=== PATIENT | male | born 1955 | race Caucasian/White ===

== ENCOUNTER 2021-01-09 11:28 | Emergency (ER) | payer MEDICAID, SELFPAY ==
--- NOTE | ~2021-01-09 | CT_ITS ---
EXAMINATION: CT ABDOMEN AND PELVIS WITHOUT CONTRAST CLINICAL INFORMATION: Left flank pain, microscopic hematuria. COMPARISON: None TECHNIQUE: Multidetector volumetric imaging was performed from the superior aspect of the liver through the pubic symphysis. Sagittal and coronal reformatted images were obtained on the technologist's workstation. This CT examination was performed using dose optimization techniques as appropriate, variously including the following: *Automated exposure control *Adjustment of mA and/or kV according to patient size (this includes techniques or standardized protocols for targeted exams where dose is matched to indication/reason for exam; i.e. extremities or head) *Use of iterative reconstruction technique DLP: 401 mGy-cm FINDINGS: LUNG BASES: The lung bases are clear. The heart size is normal. LIVER, GALLBLADDER, AND BILIARY TREE: The liver is normal in size, shape, and attenuation. No focal hepatic lesion or biliary ductal dilatation is present. The gallbladder is unremarkable with no evidence of radiopaque gallstones, gallbladder wall thickening, or obvious pericholecystic inflammatory changes. PANCREAS: Unremarkable. SPLEEN: Unremarkable. ADRENAL GLANDS: Unremarkable. KIDNEYS AND URETERS: The kidneys are normal in size, shape, and attenuation. There is a punctate 2 mm calculi midpole left kidney no caliectasis or hydronephrosis seen. BLADDER: Unremarkable. GASTROINTESTINAL TRACT: There is diffuse colonic diverticulosis and mild mural thickening. The small bowel loops are normal caliber. Appendix is normal caliber. No free air free fluid seen. ABDOMINAL WALL: There is a prominent left inguinal canal with fat within. LYMPH NODES: There are small shotty lymph nodes in the inguinal region. VASCULAR: There is atherosclerotic calcification of abdominal aorta without aneurysmal dilatation. PELVIC VISCERA: No free fluid or free air. OSSEOUS STRUCTURES: Unremarkable. CT/CT abdomen pelvis wo con IMPRESSION: 2 mm nonobstructive calculi mid pole left kidney. No hydroureteronephrosis. Colonic diverticulosis without outer colitis. Mild constipation.
[2021-01-09 11:41] VITALS: BP 151/64; PULSE 49; RESP 16; TEMP 36.9; O2SAT 99; BMI 24.2
--- NOTE | 2021-01-09 11:43 | ECG_ITS ---
Test Reason : CHEST PAIN Blood Pressure : / mmHG Vent. Rate : 049 BPM Atrial Rate : 049 BPM P-R Int : 174 ms QRS Dur : 094 ms QT Int : 440 ms P-R-T Axes : 050 027 060 degrees QTc Int : 397 ms Sinus bradycardia Otherwise normal ECG When compared with ECG of 09-JAN-2021 11:51, No significant change was found Referred By: Lian Alfaro Electronically Signed By:Demar Allan
[2021-01-09] MEDS: LORazepam 1 MG TABLET 2 MG PO (11:56)
[2021-01-09 12:00] VITALS: BP 118/58; PULSE 58; RESP 16; TEMP 36.9; O2SAT 96
[2021-01-09 12:04] LABS: MANUAL DIFF FLAG NO
[2021-01-09 12:06] LABS: Basophils Percent Auto 0.4 % (0-2); Eosinophils Absolute Auto 0.2 X10*3/uL (0.0-0.4); Eosinophils Percent Auto 2.2 % (0-4); Hematocrit 39.9 % (42-52); Hemoglobin 13.1 g/dl (14.0-18.0); Imm Gran Abs Auto 0.02 X10*3/uL (0.00-0.03); Imm Gran Pct Auto 0.3 % (0.0-0.4); Lymphocytes Absolute Auto 2.8 X10*3/uL (1.2-4.9); Lymphocytes Percent Auto 39.6 % (20-40); Mean Corpuscular HGB Conc 32.8 g/dl (31.0-36.0); Mean Corpuscular Hemoglobin 32.7 pg (27.0-33.0); Mean Corpuscular Volume 99.5 fL (80-98); Mean Platelet Volume 10.1 fL (9.4-12.4); Monocytes Absolute Auto 0.8 X10*3/uL (0.1-1.2); Neutrophils Absolute Auto 3.3 X10*3/uL (2.0-8.3); Neutrophils Percent Auto 46.5 % (45-73); Platelet Count 261 X10*3/uL (160-400); Red Blood Count 4.01 X10*6/uL (4.60-5.80); White Blood Count 7.2 X10*3/uL (4.8-10.8)
[2021-01-09 12:13] LABS: Prothrombin Time 12.1 SEC (10.8-13.0)
--- NOTE | 2021-01-09 12:21 | PC.NURSE ---
IV inserted, labs obtained and processing in lab. Multiple EKGs obtained. Pt medicated with ativan. He states that he is SOB and breathing pattern is slightly labored but sats are >98% on RA. He does report a history of daily smoking.
[2021-01-09 12:26] LABS: Glucose Urine UA NEG (NEG); Leukocyte Esterase Urine NEG (NEG); Nitrite Urine NEG (NEG); PH 5.5 (5.0-8.0); Specific Gravity - Urine 1.025 (1.005-1.025); Urine Blood 1+ (NEG); Urine Ketones NEG (NEG); Urine Protein NEG (NEG-TRACE)
[2021-01-09 12:27] LABS: Appearance Urine CLEAR; Color Urine YELLOW
[2021-01-09 12:32] LABS: Alanine Aminotransferase 29 U/L (0-40); Albumin Level 4.5 g/dL (3.5-5.0); Alkaline Phosphatase 65 U/L (39-117); Anion Gap 11 (12-20); Aspartate Amino Transferase 21 U/L (5-37); Bilirubin Direct 0.2 mg/dL (0.0-0.5); Bilirubin Total 0.6 mg/dL (0.0-1.0); Blood Urea Nitrogen 21 mg/dL (9-16); Calcium 8.9 mg/dL (8.4-10.2); Carbon Dioxide 25 mmol/L (22-29); Chloride 106 mmol/L (96-108); Creatinine Clr Calc Pharmacy 66.8; Estimated Glomerular Filt Rate > 60; Glucose Random 78 mg/dL (60-115); Magnesium 2.2 mg/dL (1.6-2.6); Potassium 4.4 mmol/L (3.3-5.1); Sodium 138 mmol/L (135-145); Total Protein 7.2 g/dL (6.5-8.0)
[2021-01-09 12:34] LABS: WBC Urine 0-2 /HPF (0-4)
[2021-01-09 12:35] LABS: Mucus Urine TRACE /LPF
[2021-01-09 12:37] LABS: B Type Natriuretic Peptide 20 pg/mL (<100); Troponin-I High Sensitivity < 3.5 ng/L (<3.5-35.0)
[2021-01-09] MEDS: Aspirin Enteric Coated 325 MG TABLET.DR PO (12:56)
--- NOTE | 2021-01-09 13:46 | ED_ITS ---
HPI - Chest Pain General Chief Complaint: Chest Pain Stated Complaint: chest pain Time Seen by Provider: 01/09/21 11:43 Source: patient Mode of arrival: ambulatory Limitations: no limitations History of Present Illness HPI narrative: Patient comes emergency room complaining of anxiety, chest pain, shortness of breath, and left flank pain. Patient states it started earlier this morning. Patient states the pain in the chest is worse with inspiration. Related Data Allergies Allergy/AdvReac Type Severity Reaction Status Date / Time No Known Allergies Allergy Verified 01/09/21 11:46 [No Known Allergies*] Review of Systems Review of Systems: Constitutional : No Weight loss, No Fever, No Chills, No Night Sweats, No Fatigue, No Malaise ENT/Mouth : No Hearing loss, No Ear Pain, No Nasal Congestion, No Sinus Pain, No Hoarseness, No sore throat, No Rhinorrhea, No Swallowing Difficulty Eyes: No Eye Pain, No Swelling, No Redness, No Foreign Body, No Discharge, No Vision Changes Cardiovascular : Complaining of substernal Chest Pain, complaining of shortness of breath while feeling anxious 9 with deep inspiration, No Dyspnea on Exertion, No Orthopnea, No Edema, No Palpitations Respiratory : No Cough, No Sputum, No Wheezing, No Smoke Exposure, No Dyspnea Gastrointestinal : No Nausea, No Vomiting, No Diarrhea, No Constipation, No abdominal Pain, No Hematochezia, No Melena Genitourinary : no irregular bleeding, No Dysuria, No Urinary Frequency, No H ematuria, No Urinary Incontinence, No Urgency, No Flank Pain, No Urinary Flow Changes, No Hesitancy Musculoskeletal : No joint pain, No Myalgias, No Joint Swelling, complaining of left flank pain Skin : No Skin Lesions, No rash Neuro : No Weakness, No Numbness, No Paresthesias, No Loss of Consciousness, No Dizziness, No Headache Psych : Complaining of anxiety, No Depression, No SI/HI/AH/VH, No Social Issues, Heme/Lymph: No Bruising, No Bleeding,No Lymphadenopathy Endocrine : No Polyuria, No Polydipsia, No Temperature Intolerance [facility] Past Medical History Medical History (Updated 01/09/21 @ 15:52 by Kamryn Prater MD) Nephrolithiasis Social History Social History Alcohol intake: never Smoking Status: Current every day smoker Use of substances other than those prescribed or required for medical reasons: Yes Substance Use Type: Marijuana Substance Use Frequency: Occasionally Advance Directives: No Advance Directives Information Provided: Yes Physical Exam Vital Signs: Vital Signs: Last Vital Signs Temp 98.7 F 01/09/21 15:34 Pulse 57 01/09/21 15:34 Resp 20 01/09/21 15:34 BP 134/70 01/09/21 15:34 Pulse Ox 99 01/09/21 15:34 Body Mass Index 24.2 Appearance: Alert. Oriented X3. Very anxious Eyes: Pupils equal, round and reactive to light. ENT: Pharynx normal. Neck: Normal inspection. Neck supple. No lymph nodes noted. No crepitus CVS: Normal heart rate and rhythm. Pulses normal. Normal S1 and S2 Respiratory: No respiratory distress. Breath sounds normal. No Wheezing. No rales Abdomen: Soft and nontender. No rigidity. No distention. good BS x4 Skin: Skin warm and dry. Normal skin color. Normal skin turgor. Extremities: No lower extremity edema. No lower extremity edema. No Lacerations. No Rash Neuro: Oriented X 3. No motor deficit. No sensory deficit. Moving all extermities. No slurred speech. Course Course Course Narrative: At this time, patient feels much better, patient denies chest pain. I discussed with the patient that he needs to be seen by his primary care physician, patient states that he has an appointment coming up soon within a month. Patient's states that the patient has an appointment pending with Cardiology for the 1st time. Patient will likely need a stress test. MDM - Chest Pain Lab Data Result diagrams: 01/09/21 11:53 01/09/21 11:53 Labs: Lab Results 01/09/21 01/09/21 01/09/21 Range/Units 11:53 11:53 11:53 WBC 7.2 (4.8-10.8) X10*3/uL RBC 4.01 L (4.60-5.80) X10*6/uL Hgb 13.1 L (14.0-18.0) g/dl Hct 39.9 L (42-52) % MCV 99.5 H (80-98) fL MCH 32.7 (27.0-33.0) pg MCHC 32.8 (31.0-36.0) g/dl RDW 13.0 (11.0-16.0) % Plt Count 261 (160-400) X10*3/uL MPV 10.1 (9.4-12.4) fL Immature Gran % (Auto) 0.3 (0.0-0.4) % Neut % (Auto) 46.5 (45-73) % Lymph % (Auto) 39.6 (20-40) % [place] % (Auto) 11.0 (2-11) % Eos % (Auto) 2.2 (0-4) % Baso % (Auto) 0.4 (0-2) % Lymph # (Auto) 2.8 (1.2-4.9) X10*3/uL [place] # (Auto) 0.8 (0.1-1.2) X10*3/uL Eos # (Auto) 0.2 (0.0-0.4) X10*3/uL Baso # (Auto) 0.0 (0.0-0.2) X10*3/uL Abs Immat Gran (auto) 0.02 (0.00-0.03) X10*3/uL Absolute Neuts (auto) 3.3 (2.0-8.3) X10*3/uL Absolute Nucleated RBC 0.000 (0.0-0.012) X10*3/uL Nucleated RBC % (auto) 0.0 (0.0-0.2) /100WBC PT 12.1 (10.8-13.0) SEC INR 1.0 (0.9-1.1) APTT 36.0 (24.1-38.0) SEC Sodium 138 (135-145) mmol/L Potassium 4.4 (3.3-5.1) mmol/L Chloride 106 (96-108) mmol/L Carbon Dioxide 25 (22-29) mmol/L Anion Gap 11 L (12-20) BUN 21 H (9-16) mg/dL Creatinine 1.02 (0.5-1.4) mg/dL Estim Creat Clear Calc 66.8 Estimated GFR > 60 Random Glucose 78 (60-115) mg/dL Calcium 8.9 (8.4-10.2) mg/dL Magnesium 2.2 (1.6-2.6) mg/dL Total Bilirubin 0.6 (0.0-1.0) mg/dL Direct Bilirubin 0.2 (0.0-0.5) mg/dL AST 21 (5-37) U/L ALT 29 (0-40) U/L Alkaline Phosphatase 65 (39-117) U/L Troponin I High Sens (<3.5-35.0) ng/L B-Natriuretic Peptide (<100) pg/mL Total Protein 7.2 (6.5-8.0) g/dL Albumin 4.5 (3.5-5.0) g/dL Urine Color Urine Appearance Urine pH (5.0-8.0) Ur Specific [place] (1.005-1.025) Urine Protein (NEG-TRACE) MG/DL Urine Glucose (UA) (NEG) MG/DL Urine Ketones (NEG) MG/DL Urine Blood (NEG) Urine Nitrite (NEG) Ur Leukocyte Esterase (NEG) Urine RBC (0) /HPF Urine WBC (0-4) /HPF Ur Squamous Epith Cells /LPF Urine Bacteria /LPF Urine Mucus /LPF Coronavirus (PCR) (Negative) Influenza Type A (PCR) (Negative) Influenza Type B (PCR) (Negative) RSV RNA Qual (PCR) (Negative) 01/09/21 01/09/21 01/09/21 Range/Units 11:53 11:53 12:15 WBC (4.8-10.8) X10*3/uL RBC (4.60-5.80) X10*6/uL Hgb (14.0-18.0) g/dl Hct (42-52) % MCV (80-98) fL MCH (27.0-33.0) pg MCHC (31.0-36.0) g/dl RDW (11.0-16.0) % Plt Count (160-400) X10*3/uL MPV (9.4-12.4) fL Immature Gran % (Auto) (0.0-0.4) % Neut % (Auto) (45-73) % Lymph % (Auto) (20-40) % [place] % (Auto) (2-11) % Eos % (Auto) (0-4) % Baso % (Auto) (0-2) % Lymph # (Auto) (1.2-4.9) X10*3/uL [place] # (Auto) (0.1-1.2) X10*3/uL Eos # (Auto) (0.0-0.4) X10*3/uL Baso # (Auto) (0.0-0.2) X10*3/uL Abs Immat Gran (auto) (0.00-0.03) X10*3/uL Absolute Neuts (auto) (2.0-8.3) X10*3/uL Absolute Nucleated RBC (0.0-0.012) X10*3/uL Nucleated RBC % (auto) (0.0-0.2) /100WBC PT (10.8-13.0) SEC INR (0.9-1.1) APTT (24.1-38.0) SEC Sodium (135-145) mmol/L Potassium (3.3-5.1) mmol/L Chloride (96-108) mmol/L Carbon Dioxide (22-29) mmol/L Anion Gap (12-20) BUN (9-16) mg/dL Creatinine (0.5-1.4) mg/dL Estim Creat Clear Calc Estimated GFR Random Glucose (60-115) mg/dL Calcium (8.4-10.2) mg/dL Magnesium (1.6-2.6) mg/dL Total Bilirubin (0.0-1.0) mg/dL Direct Bilirubin (0.0-0.5) mg/dL AST (5-37) U/L ALT (0-40) U/L Alkaline Phosphatase (39-117) U/L Troponin I High Sens < 3.5 (<3.5-35.0) ng/L B-Natriuretic Peptide 20 (<100) pg/mL Total Protein (6.5-8.0) g/dL Albumin (3.5-5.0) g/dL Urine Color YELLOW Urine Appearance CLEAR Urine pH 5.5 (5.0-8.0) Ur Specific [place] 1.025 (1.005-1.025) Urine Protein NEG (NEG-TRACE) MG/DL Urine Glucose (UA) NEG (NEG) MG/DL Urine Ketones NEG (NEG) MG/DL Urine Blood 1+ H (NEG) Urine Nitrite NEG (NEG) Ur Leukocyte Esterase NEG (NEG) Urine RBC 1-4 (0) /HPF Urine WBC 0-2 (0-4) /HPF Ur Squamous Epith Cells NONE /LPF Urine Bacteria NONE /LPF Urine Mucus TRACE /LPF Coronavirus (PCR) NEGATIVE (Negative) Influenza Type A (PCR) NEGATIVE (Negative) Influenza Type B (PCR) NEGATIVE (Negative) RSV RNA Qual (PCR) NEGATIVE (Negative) Scores Heart Score History: -0- slightly suspicious ECG: -0- normal Age: -1- >45 - <65 Risk factory: -0- no risk factors known Troponin: -0- < or = normal limit Score: 1 Risk: 1.7% Discharge Plan Discharge Clinical Impression: Atypical chest pain, Acute left flank pain Patient Disposition: Home, Self-Care Instructions: Chest Pain (ED), Flank Pain (ED) Additional Instructions: Please follow-up with your primary care physician tomorrow. If you have any worsening or new symptoms, please return to the emergency room or call 911 Referrals: Demar Allan MD [Physician] - 2 days
[2021-01-09 13:49] LABS: Influenza A PCR NEGATIVE (Negative); Influenza B PCR NEGATIVE (Negative); Resp Syncy Virus RNA Qual PCR NEGATIVE (Negative); SARS COV2 PCR INHOUSE NEGATIVE (Negative)
[2021-01-09 15:34] VITALS: BP 134/70; PULSE 57; RESP 20; TEMP 37.1; O2SAT 99
--- NOTE | 2021-01-10 | ECG_ITS ---
Test Reason : CHEST PAIN Blood Pressure : / mmHG Vent. Rate : 052 BPM Atrial Rate : 052 BPM P-R Int : 168 ms QRS Dur : 094 ms QT Int : 430 ms P-R-T Axes : 052 021 062 degrees QTc Int : 399 ms Sinus bradycardia Otherwise normal ECG When compared with ECG of 09-JAN-2021 11:39, No significant change was found Referred By: Lian Alfaro Electronically Signed By:Demar Allan
--- NOTE | 2021-01-10 | ECG_ITS ---
Test Reason : CHEST PAIN Blood Pressure : / mmHG Vent. Rate : 047 BPM Atrial Rate : 047 BPM P-R Int : 174 ms QRS Dur : 094 ms QT Int : 424 ms P-R-T Axes : 057 031 066 degrees QTc Int : 375 ms Sinus bradycardia Otherwise normal ECG When compared with ECG of 28-JUL-2020 14:24, No significant change was found Referred By: Lian Alfaro Electronically Signed By:Demar Allan
== END 2021-01-09 16:14 | disposition home or self-care (01) ==
PROVIDERS: Physician Assistant Medical; Emergency Provider Emergency Medicine
DX: R07.89 Other chest pain (principal); R10.9 Unspecified abdominal pain; F17.200 Nicotine dependence, unspecified, uncomplicated; Z71.6 Tobacco abuse counseling; F12.90 Cannabis use, unspecified, uncomplicated; Z20.822 Contact with and (suspected) exposure to COVID-19
CPT/HCPCS: 0241U; 36415; 74176; 80048; 80076; 81001; 83735; 83880; 84484; 85025; 85610; 85730; 93005; 99284

== ENCOUNTER 2021-02-10 10:05 | Outpatient (REF) | payer MEDICAID, SELFPAY ==
--- NOTE | ~2021-02-10 | XR_ITS ---
EXAMINATION: XR CHEST CLINICAL INFORMATION: Shortness of breath. COMPARISON: Chest radiographs 07/28/2020, 06/12/2020, 03/10/2015 TECHNIQUE: 2 views of the chest were obtained. FINDINGS: The lungs are clear. There is no vascular congestion, airspace consolidation, or groundglass opacity. Old calcified granuloma are again seen lateral right upper zone, similar to prior exams dating back to 2015. The costophrenic sulci are clear. The heart is normal in size. The hilar and mediastinal contours and bony structures are unremarkable. XR/XR chest 2V IMPRESSION: 1. No acute intrathoracic disease. 2. Old calcified granuloma right upper zone similar to 2015.
== END 2021-02-10 10:06 | disposition home or self-care (01) ==
LOC: HO.XRAY 10:05
PROVIDERS: PCP Registered Nurse Community Health; Visit Provider Registered Nurse Community Health
DX: R06.02 Shortness of breath (principal); F17.200 Nicotine dependence, unspecified, uncomplicated
CPT/HCPCS: 71046

== ENCOUNTER 2021-02-14 21:44 | Emergency (ER) | payer MEDICAID, SELFPAY ==
--- NOTE | 2021-02-14 | ECG_ITS ---
Test Reason : HEADACHE Blood Pressure : / mmHG Vent. Rate : 048 BPM Atrial Rate : 048 BPM P-R Int : 164 ms QRS Dur : 096 ms QT Int : 426 ms P-R-T Axes : 065 001 037 degrees QTc Int : 380 ms Sinus bradycardia Moderate voltage criteria for LVH, may be normal variant Borderline ECG When compared with ECG of 09-JAN-2021 12:16, No significant change was found Referred By: Generic ED Physician Electronically Signed By:Demar Allan
--- NOTE | ~2021-02-14 | CT_ITS ---
EXAMINATION: CT CHEST WITHOUT CONTRAST CLINICAL INFORMATION: Chest pain COMPARISON: Chest x-ray 02/10/2021 TECHNIQUE: Multidetector volumetric CT imaging of the chest was done. Axial MIP volume rendering provided. Sagittal and coronal reformatted images were obtained. This CT examination was performed using dose optimization techniques as appropriate, variously including the following: *Automated exposure control *Adjustment of mA and/or kV according to patient size (this includes techniques or standardized protocols for targeted exams where dose is matched to indication/reason for exam; i.e. extremities or head) *Use of iterative reconstruction technique DLP: 275 mGy-cm FINDINGS: LUNGS: No acute areas disease. No interstitial lung disease or reticular opacities. There is no bronchiectasis. The central bronchial airways are open. No suspicious lung nodule. There is a calcified granuloma posterior right upper lobe subpleural lung measuring about 5 mm. MEDIASTINUM: Calcified lymph nodes in the right myriam consistent with old granulomatous disease. The heart size is mildly prominent. No pericardial effusion. There are heavy vascular calcifications of coronary arteries. Scattered vascular wall calcifications of aorta. No aneurysm of aorta. No mediastinal mass or significant lymphadenopathy. Adrenal glands are normal. PLEURA: There is no pleural effusion. No pleural mass or thickening. AXILLA: No lymphadenopathy. UPPER ABDOMEN: Unremarkable. OSSEOUS STRUCTURES: Unremarkable. CT/CT chest wo con IMPRESSION: There is no acute abnormality of the chest.
--- NOTE | ~2021-02-14 | CT_ITS ---
EXAMINATION: CT ANGIOGRAM HEAD CT ANGIOGRAM NECK CLINICAL INFORMATION: Worst headache of life. Tingling down neck and right arm. COMPARISON: None available. TECHNIQUE: Initial noncontrast casing mixer imaging of the head and neck was performed. Noncontrast head CT was also performed. Test bolus sequences followed by intravenous administration 70 mL of Omnipaque 350. Helical imaging was performed in the axial plane from the aortic arch to the skull vertex. Delayed postcontrast imaging of the head was also performed. The data was processed at the radiology ct technologist's workstation for generation of MIP sequences. Angled MIPs and volume rendered reformatted images were also generated at an offline 3D workstation. Stenoses are assessed in accordance with NASCET criteria unless otherwise indicated. This CT examination was performed using dose optimization techniques as appropriate, variously including the following: *Automated exposure control. *Adjustment of mA and/or kV according to patient size (this includes techniques or standardized protocols for targeted exams where dose is matched to indication/reason for exam; i.e. extremities or head). *Use of iterative reconstruction technique. DLP: 2379 mGy-cm FINDINGS: CT Head: There is no evidence of acute intracranial hemorrhage or edematous territorial infarction. There is no abnormal attenuation within the brain parenchyma. Torres-white matter differentiation is preserved. The ventricles are normal in size and configuration. No evidence for obstructive hydrocephalus. No abnormal mass effect or midline shift. No extra-axial fluid collections. No pathologic intra-axial enhancement or regional oligemia. No acute soft tissue or osseous abnormalities. Mild mucosal thickening of the paranasal sinuses. The mastoid air cells and middle ear cavities are clear. CT Neck: The thyroid gland and remaining cervical soft tissues are within normal limits. Straightening of the normal cervical lordosis. Mild multilevel degenerative spinal arthropathy of the cervical spine. Facet and uncovertebral joint arthropathy leads to osseous encroachment on the neural foramina from C3-C5. CT Upper Chest: There is a 0.5 cm calcified granuloma in the lateral right upper lobe. Few additional punctate calcified granulomas in the visualized upper lungs. Otherwise, the visualized lung apices and upper mediastinum are within normal limits. Neck CTA: Aortic Arch: Normal contour and caliber with mild calcific atherosclerotic disease. Classic 3 vessel branching pattern of the aortic arch. Great Vessel Origins: No significant stenosis of the branch origins. Right Common Carotid Artery: Normal opacification without focal stenosis or occlusion. Cervical Right Internal Carotid Artery: Calcific atherosclerotic disease of the carotid bulb and proximal internal carotid artery causing less than 50% stenosis. Left Common Carotid Artery: Normal opacification without focal stenosis or occlusion. Cervical Left Internal Carotid Artery: Mild atherosclerotic disease of the carotid bulb and proximal internal carotid artery without flow-limiting stenosis. Cervical Right Vertebral Artery: Mildly dominant. Normal opacification without focal stenosis or occlusion. Cervical Left Vertebral Artery: Mild narrowing of the origin. Otherwise, normal opacification without focal stenosis or occlusion. Brain CTA: Intracranial Internal Carotid Arteries: Calcific atherosclerotic disease of the intracranial internal carotid arteries without occlusion or flow-limiting stenosis. Otherwise, normal contrast opacification of the petrous, cavernous, paraophthalmic, and supraclinoid segments of the internal carotid arteries without focal stenosis. 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 Right Anterior Cerebral Artery: Normal A1 segment. Normal opacification of the distal segments of the [place]. Left Anterior Cerebral Artery: Normal A1 segment. Normal opacification of the distal segments of the [place]. Anterior Communicating Artery: Normal. Right Middle Cerebral Artery: Normal opacification of the M1 segment of the MCA without focal stenosis or occlusion. Normal arborization of the distal segments. Left Middle Cerebral Artery: Normal opacification of the M1 segment of the MCA without focal stenosis or occlusion. Normal arborization of the distal segments. Right Vertebral Artery: Normal opacification of the V4 segment. The posterior inferior cerebellar artery is not well opacified; however, there is no CT evidence of acute occlusion. Left Vertebral Artery: Normal opacification of the V4 segment. The posterior inferior cerebellar artery is not well opacified; however, there is no CT evidence of acute occlusion. Basilar Artery: Normal opacification without focal stenosis or occlusion. Normal appearance of the proximal superior cerebellar arteries. Right Posterior Cerebral Artery: Normal P1 segment. Normal opacification of the distal segments of the [employer] SERVICES A[employer]LYST. Left Posterior Cerebral Artery: Normal P1 segment. Normal opacification of the distal segments of the [employer] SERVICES A[employer]LYST. Normal opacification of the superior sagittal, straight, transverse, and sigmoid sinuses. CT/CT angio head neck IMPRESSION: 1. No evidence of acute intracranial hemorrhage or edematous territorial infarction. 2. CTA of the head and neck without proximal occlusion or flow-limiting stenosis. 3. 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
[2021-02-14 22:10] VITALS: BP 188/81; PULSE 57; RESP 16; TEMP 36.6; O2SAT 99; BMI 25.8
[2021-02-14 22:26] LABS: MANUAL DIFF FLAG NO
[2021-02-14 22:28] LABS: Basophils Percent Auto 0.5 % (0-2); Eosinophils Absolute Auto 0.2 X10*3/uL (0.0-0.4); Eosinophils Percent Auto 2.1 % (0-4); Hematocrit 37.7 % (42-52); Hemoglobin 12.6 g/dl (14.0-18.0); Imm Gran Abs Auto 0.02 X10*3/uL (0.00-0.03); Imm Gran Pct Auto 0.2 % (0.0-0.4); Lymphocytes Absolute Auto 3.5 X10*3/uL (1.2-4.9); Lymphocytes Percent Auto 41.1 % (20-40); Mean Corpuscular HGB Conc 33.4 g/dl (31.0-36.0); Mean Corpuscular Hemoglobin 32.8 pg (27.0-33.0); Mean Corpuscular Volume 98.2 fL (80-98); Mean Platelet Volume 9.7 fL (9.4-12.4); Monocytes Absolute Auto 0.8 X10*3/uL (0.1-1.2); Monocytes Percent Auto 9.7 % (2-11); Neutrophils Percent Auto 46.4 % (45-73); Platelet Count 226 X10*3/uL (160-400); Red Blood Count 3.84 X10*6/uL (4.60-5.80); Red Cell Distribution Width 13.3 % (11.0-16.0); White Blood Count 8.6 X10*3/uL (4.8-10.8)
[2021-02-14 22:51] LABS: Anion Gap 12 (12-20); Blood Urea Nitrogen 21 mg/dL (9-16); Calcium 9.4 mg/dL (8.4-10.2); Carbon Dioxide 27 mmol/L (22-29); Chloride 107 mmol/L (96-108); Creatinine Clr Calc Pharmacy 63.7; Estimated Glomerular Filt Rate > 60; Glucose Random 95 mg/dL (60-115); Potassium 4.5 mmol/L (3.3-5.1); Sodium 141 mmol/L (135-145)
[2021-02-14 22:59] LABS: Troponin-I High Sensitivity 4.2 ng/L (<3.5-35.0)
[2021-02-14 23:00] VITALS: BP 177/72; PULSE 55; RESP 18; O2SAT 97
[2021-02-14] MEDS: 0.9 % Sodium Chloride 1,000 ML 999 ML IVCONT (23:56)
[2021-02-15 00:02] LABS: TSH reflex Free T4 3.41 uIU/mL (0.32-4.0)
--- NOTE | 2021-02-15 00:09 | PC.NURSE ---
pt to CT at this time
[2021-02-15] MEDS: iohexoL 350 MG/ML 100 ML INFUS..BTL 70 ML IV (00:28)
--- NOTE | 2021-02-15 01:48 | ED_ITS ---
HPI - Headache General Chief Complaint: Headache Stated Complaint: mutiple complaints Time Seen by Provider: 02/14/21 23:09 Source: patient Mode of arrival: ambulatory Limitations: no limitations History of Present Illness HPI Narrative: 65-year-old male presents with several days of chest pain, chest pain on inspiration, intermittent shortness of breath, worst headache of his life with right eye pain, numbness and tingling going from the top of the head down to the arm. MD elicited complaint: headache and migraine Onset (ago): day(s) Onset description: gradually Location: left, retro-orbital, neck and down into neck Severity: severe Pain scale (0-10): 10 Quality & Timing: throbbing, pulsatile, constant and worst headache of life Relieving factors: nothing Associated symptoms: eye pain and tingling Treatments prior to arrival: acetaminophen and ibuprofen Related Data Previous Rx's Medication Instructions Recorded mivagdsyhc-uluxjjrzyqozy-estl 1 cap PO Q8H PRN #14 cap 02/15/21 [Fioricet] Allergies Allergy/AdvReac Type Severity Reaction Status Date / Time No Known Allergies Allergy Verified 01/09/21 11:46 [No Known Allergies*] Review of Systems Review of Systems: Constitutional: Positive headache, positive eye pain, positive numbness and tingling, No Weight loss, No Fever, No Chills, No Night Sweats, No Fatigue, No Malaise ENT/Mouth: No Hearing loss, No Ear Pain, No Nasal Congestion, No Sinus Pain, No Hoarseness, No sore throat, No Rhinorrhea, No Swallowing Difficulty Eyes: No Eye Pain, No Swelling, No Redness, No Foreign Body, No Discharge, No V ision Changes Cardiovascular: Positive Chest Pain, positive SOB, positive chest pain on inspiration, No Dyspnea on Exertion, No Orthopnea, No Edema, No Palpitations Respiratory: No Cough, No Sputum, No Wheezing, No Smoke Exposure, No Dyspnea Gastrointestinal: No Nausea, No Vomiting, No Diarrhea, No Constipation, No abdominal Pain, No Hematochezia, No Melena Genitourinary: no irregular bleeding, No Dysuria, No Urinary Frequency, No Hematuria, No Urinary Incontinence, No Urgency, No Flank Pain, No Urinary Flow Changes, No Hesitancy Musculoskeletal: No joint pain, No Myalgias, No Joint Swelling Skin: No Skin Lesions, No rash Neuro: No Weakness, positive Numbness, positive Paresthesias, No Loss of Consciousness, No Dizziness, positive Headache Psych: No Anxiety/Panic, No Depression, No SI/HI/AH/VH, No Social Issues Heme/Lymph: No Bruising, No Bleeding,No Lymphadenopathy Endocrine: No Polyuria, No Polydipsia, No Temperature Intolerance Yes all other systems are reviewed and are negative PMFSH Past Medical History Attestation statement: The following information was validated with the patient. Source: old records reviewed Medical History Nephrolithiasis Social History Social History Alcohol intake: never Smoking Status: Current every day smoker Substance Use Type: Marijuana Advance Directives: No Advance Directives Information Provided: No Physical Exam Vital Signs: Vital Signs: Last Vital Signs Temp 97.8 F 02/14/21 22:10 Pulse 55 02/14/21 23:00 Resp 18 02/14/21 23:00 BP 177/72 H 02/14/21 23:00 Pulse Ox 97 02/14/21 23:00 Body Mass Index 25.8 Appearance: Alert. Oriented X3. Moderate distress. Head: Normal external exam. Normocephalic. Atraumatic. No Galloway signs noted. No raccoon eyes noted Eyes: PERRLA. EOMI. Conjunctiva and sclera normal. Eyelids normal. ENT: TM's Normal. Pharynx normal. Uvula midline. Moist mucous membranes. No trismus noted. No drooling noted. No muffled voice noted. Neck: Normal inspection. Neck supple. No adenopathy. Thyroid Normal. No meningeal signs. No neck mass noted. CVS: Normal heart rate and rhythm. Heart sound normal. No murmurs noted. Pulses equal to all extremities. Respiratory: No respiratory distress. Painless inspiration. Breath sounds normal. No wheezes/rales/rhonchi noted. Chest nontender. No accessory muscle usage noted or decreased air movement noted. Abdomen: Soft and nontender. Bowel sounds normal in all 4 quadrants. No distention noted. No organomegaly noted. No visible injury noted. Back: No CVA tenderness. Full range of motion noted. Skin: Skin warm and dry. Normal skin color. Normal skin turgor. No rashes/lesions/lacerations noted. Extremities: No lower extremity edema. Extremities exhibit normal range of motion. Extremities nontender. Neuro: cranial nerves 2-12 intact, no focal neural deficits, strength 5/5 to all extremities, No motor deficit. No sensory deficit. Patellar Reflexes normal. NIH Stroke Scale Internal: Initial- Upon Arrival Level of Consciousness: Alert Level of Consciousness Questions: Answers both questions correctly Level of Consciousness Commands: Performs both tasks correctly Best Gaze: Normal Visual: No visual loss Facial Palsy: Normal Motor Arm (Right): No drift Motor Arm (Left): No drift Motor Leg (Right): No drift Motor Leg (Left): No drift Limb Ataxia: Absent Sensory: Normal Best Language: No aphasia Dysarthia: Normal Extinction and Inattention: No abnormality Score: 0 Course Course Course Narrative: 65-year-old presents with multiple complaints. He has been worked up multiple times in the past for chest pain, recently on 01/09/2021 for abdominal pain with negative findings. NIH stroke scale is 0, will order CT angio of head and neck as patient is complaining of multiple neurological symptoms and states that this is the worst headache of his life and that he has never had a headache like this in the past. Will add CT of chest based on patient's report of shortness of breath, shortness of breath on exertion, and pain on inspiration. CT a results are negative, radiology call the [facility] [facility] to report negative readings however they will have Neurology read and post an official report in the morning. CT chest is negative for acute findings. Patient does have significant life stressors, could possibly be anxiety. Will have patient follow-up with Gastroenterology for GERD like symptoms. Lab values are unremarkable, H&H is 12.6/37.7 which is consistent with his prior lab values, BUN slightly elevated at 21 resuscitated with 1 L of fluid. Patient verbalized understanding of and agrees to plan of care discharge home. MDM - Headache Differential Diagnosis Differential diagnosis: Likely migraine, tension headache, subarachnoid hemorrhage and headache Medical Records Attestation: I reviewed the patient's medical records. Lab Data Attestation: I reviewed the patient's lab results. Result diagrams: 02/14/21 22:19 02/14/21 22:19 Labs: Lab Results 02/14/21 02/14/21 02/14/21 Range/Units 22:19 22:19 22:19 WBC 8.6 (4.8-10.8) X10*3/uL RBC 3.84 L (4.60-5.80) X10*6/uL Hgb 12.6 L (14.0-18.0) g/dl Hct 37.7 L (42-52) % MCV 98.2 H (80-98) fL MCH 32.8 (27.0-33.0) pg MCHC 33.4 (31.0-36.0) g/dl RDW 13.3 (11.0-16.0) % Plt Count 226 (160-400) X10*3/uL MPV 9.7 (9.4-12.4) fL Immature Gran % (Auto) 0.2 (0.0-0.4) % Neut % (Auto) 46.4 (45-73) % Lymph % (Auto) 41.1 H (20-40) % [place] % (Auto) 9.7 (2-11) % Eos % (Auto) 2.1 (0-4) % Baso % (Auto) 0.5 (0-2) % Lymph # (Auto) 3.5 (1.2-4.9) X10*3/uL [place] # (Auto) 0.8 (0.1-1.2) X10*3/uL Eos # (Auto) 0.2 (0.0-0.4) X10*3/uL Baso # (Auto) 0.0 (0.0-0.2) X10*3/uL Abs Immat Gran (auto) 0.02 (0.00-0.03) X10*3/uL Absolute Neuts (auto) 4.0 (2.0-8.3) X10*3/uL Absolute Nucleated RBC 0.000 (0.0-0.012) X10*3/uL Nucleated RBC % (auto) 0.0 (0.0-0.2) /100WBC Sodium 141 (135-145) mmol/L Potassium 4.5 (3.3-5.1) mmol/L Chloride 107 (96-108) mmol/L Carbon Dioxide 27 (22-29) mmol/L Anion Gap 12 (12-20) BUN 21 H (9-16) mg/dL Creatinine 1.07 (0.5-1.4) mg/dL Estim Creat Clear Calc 63.7 Estimated GFR > 60 Random Glucose 95 (60-115) mg/dL Calcium 9.4 (8.4-10.2) mg/dL Troponin I High Sens 4.2 (<3.5-35.0) ng/L TSH 3.41 (0.32-4.0) uIU/mL Imaging Data CT scan - chest: Attestation: I personally reviewed and interpreted this imaging study as follows: Radiologist's impression: EXAMINATION: CT CHEST WITHOUT CONTRAST CLINICAL INFORMATION: Chest pain COMPARISON: Chest x-ray 02/10/2021 TECHNIQUE: Multidetector volumetric CT imaging of the chest was done. Axial MIP volume rendering provided. Sagittal and coronal reformatted images were obtained. This CT examination was performed using dose optimization techniques as appropriate, variously including the following: *Automated exposure control *Adjustment of mA and/or kV according to patient size (this includes techniques or standardized protocols for targeted exams where dose is matched to indication/reason for exam; i.e. extremities or head) *Use of iterative reconstruction technique DLP: 275 mGy-cm FINDINGS: LUNGS: No acute areas disease. No interstitial lung disease or reticular opacities. There is no bronchiectasis. The central bronchial airways are open. No suspicious lung nodule. There is a calcified granuloma posterior right upper lobe subpleural lung measuring about 5 mm. MEDIASTINUM: Calcified lymph nodes in the right myriam consistent with old granulomatous disease. The heart size is mildly prominent. No pericardial effusion. There are heavy vascular calcifications of coronary arteries. Scattered vascular wall calcifications of aorta. No aneurysm of aorta. No mediastinal mass or significant lymphadenopathy. Adrenal glands are normal. PLEURA: There is no pleural effusion. No pleural mass or thickening. AXILLA: No lymphadenopathy. UPPER ABDOMEN: Unremarkable. OSSEOUS STRUCTURES: Unremarkable. CT/CT chest wo con IMPRESSION: There is no acute abnormality of the chest. CTA of head and neck: Radiologist's impression: Radiology called to report negative CTA of head and neck. Will have neurology read and post visual report in the morning. ECG Data Attestation: I personally reviewed and interpreted this ECG as follows: ECG interpretation date: 02/14/21 ECG interpretation time: 22:25 Interpretation: Vent. rate 48 BPM HI interval 164 ms QRS duration 96 ms QT/QTc 426/380 ms P-R-T axes 65 1 37 Sinus bradycardia Moderate voltage criteria for LVH, may be normal variant Borderline ECG When compared with ECG of 09-JAN-2021 12:16, No significant change was found Discharge Plan Discharge Clinical Impression: Tension headache, Non-cardiac chest pain Migraine Qualifiers: Migraine type: unspecified Status migrainosus presence: without status migrainosus Intractability: intractable Qualified Code(s): G43.919 - Migraine, unspecified, intractable, without status migrainosus Patient Disposition: Home, Self-Care Instructions: Migraine Headache (ED), Acute Headache (ED), Noncardiac Chest Pain (ED), Ocular Migraine (ED) Additional Instructions: Please follow-up the primary care physician for migraine headaches. Your CT angio of head and neck are negative for acute findings. Neurology will be reading your report in the morning, you may call for official read. CT of the chest is negative for acute findings. We prescribed Fioricet for migraine headaches. Please take this medication as directed. Please consider following up with Gastroenterology for GERD. Thank you for choosing this emergency department for evaluation. Please follow-up with primary care physician as needed. Return to the emergency department for any new, concerning, or worsening symptoms. Prescriptions: New opribtktag-xiirgkqxsbiir-nujw [Fioricet] 50-300-40 mg capsule 1 cap PO Q8H PRN (Reason: Migraine) Qty: 14 RF: 0 Referrals: Emil Chu MD [Physician] - 2 days (GERD)
[2021-02-15 02:00] VITALS: BP 134/64; PULSE 51; RESP 15; O2SAT 97
[2021-02-15] MEDS: Butalb/Acetamin/Caff 50/325/40 TABLET 1 TAB PO (02:26)
== END 2021-02-15 03:45 | disposition home or self-care (01) ==
PROVIDERS: Emergency Provider Emergency Medicine
DX: I67.1 Cerebral aneurysm, nonruptured (principal); G43.919 Migraine, unspecified, intractable, without status migrainosus; R07.9 Chest pain, unspecified; F17.200 Nicotine dependence, unspecified, uncomplicated; F12.90 Cannabis use, unspecified, uncomplicated
CPT/HCPCS: 36415; 70496; 70498; 71250; 80048; 84443; 84484; 85025; 93005; 96360; 99284; Q9967

== ENCOUNTER → 2021-02-17 12:49 | Outpatient (BNVA) | payer MEDICAID, SELFPAY | PROVIDERS: Visit Provider Internal Medicine ==

== ENCOUNTER 2021-02-17 15:01 | Outpatient (REF) | payer MEDICAID, SELFPAY ==
[2021-02-17 15:21] LABS: COVID-19 Test Negative (Negative)
== END 2021-02-17 15:02 | disposition home or self-care (01) ==
LOC: HO.LAB 15:01
PROVIDERS: Visit Provider Internal Medicine
DX: Z20.822 Contact with and (suspected) exposure to COVID-19 (principal)
CPT/HCPCS: 36415; 87635; 99202; C9803

== ENCOUNTER 2021-03-04 15:19 | Outpatient (REF) | payer MEDICAID, SELFPAY ==
[2021-03-04 15:41] LABS: COVID-19 Test Negative (Negative)
== END 2021-03-04 15:20 | disposition home or self-care (01) ==
LOC: HO.LAB 15:19
PROVIDERS: Visit Provider Internal Medicine
DX: Z20.822 Contact with and (suspected) exposure to COVID-19 (principal)
CPT/HCPCS: 36415; 87635; C9803

== ENCOUNTER 2021-03-08 07:04 | Emergency (ER) | payer MEDICAID, SELFPAY ==
--- NOTE | ~2021-03-08 | XR_ITS ---
EXAMINATION: XR CHEST CLINICAL INFORMATION: Chest pain COMPARISON: None TECHNIQUE: Frontal view of the chest was obtained. FINDINGS: The lungs are well-expanded and clear of acute pneumonic process. There is 3 mm nodule right upper lobe, stable. Heart size and pulmonary vascularity is normal. No gross bony abnormality seen. XR/XR chest 1V IMPRESSION: Unremarkable chest examination.
--- NOTE | 2021-03-08 07:14 | ECG_ITS ---
Test Reason : ARRHYTHMIA Blood Pressure : / mmHG Vent. Rate : 064 BPM Atrial Rate : 064 BPM P-R Int : 158 ms QRS Dur : 098 ms QT Int : 426 ms P-R-T Axes : 008 003 051 degrees QTc Int : 439 ms Normal sinus rhythm Moderate voltage criteria for LVH, may be normal variant Borderline ECG When compared with ECG of 14-FEB-2021 22:25, QT has lengthened Referred By: Flakita Fam Electronically Signed By:Demar Allan
--- NOTE | 2021-03-08 07:22 | ED.ARRPALP ---
HPI - Arrhythmia/Palpitations General Chief Complaint: Arrhythmia/Palpitations Stated Complaint: palpitation Time Seen by Provider: 03/08/21 07:12 Source: patient and old records reviewed Mode of arrival: ambulatory Limitations: no limitations History of Present Illness HPI narrative: 65 yo male with chronic chest pain > 6 months no known heart disease, just saw Cardiology plan for ECHO and follow up as outpatient states he can't sleep he can't stop thinking about it and feels like he can never get help, has not seen a therapist MD complaint: rapid heart beat, heart racing and palpitations Onset (ago): month(s) (6) Duration: constant Severity: moderate Context: occurred during rest and occurred during exertion Associated symptoms: chest pain, shortness of breath, anxiety and feeling of impending doom Related Data Previous Rx's Medication Instructions Recorded lorazepam [Ativan] 1 mg PO BEDTIME PRN #10 tab 03/08/21 Allergies Allergy/AdvReac Type Severity Reaction Status Date / Time No Known Allergies Allergy Verified 01/09/21 11:46 [No Known Allergies*] Review of Systems Review of Systems: Constitutional : No Weight loss, No Fever, No Chills ENT/Mouth : No sore throat, No Rhinorrhea Eyes: No Eye Pain, No Swelling Cardiovascular : pos Chest Pain, pos SOB, no Dyspnea on Exertion, No Orthopnea, No Edema, pos Palpitations Respiratory : No Cough, No Sputum Gastrointestinal : pos Nausea, No Vomiting, No Diarrhea, No abdominal Pain, No Hematochezia, No Melena Genitourinary : No Dysuria, No Urinary Frequency Musculoskeletal : No joint pain, No Myalgias, No Joint Swelling Skin : No Skin Lesions, No rash Neuro : No Weakness, No Numbness, No Dizziness, No Headache Psych : pos Anxiety/Panic, No Depression Heme/Lymph: No Bruising, No Lymphadenopathy Endocrine : No Polyuria, No Polydipsia All other systems reviewed and are negative [facility] Past Medical History Attestation statement: The following information was validated with the patient. Medical History Cerebral aneurysm without rupture Coronary artery calcification seen on CT scan Nephrolithiasis Precordial chest pain Surgical History (Updated 02/17/21 @ 13:36 by CHIQUITA Islas) No significant past surgical history Family History Family History (Updated 02/17/21 @ 13:37 by CHIQUITA Islas) Father Diabetes Mother No problems noted. Social History Social History Alcohol intake: never Smoking Status: Current every day smoker Substance Use Type: Marijuana Advance Directives: No Advance Directives Information Provided: No Physical Exam Vital Signs: Vital Signs: Last Vital Signs Temp 97.6 F 03/08/21 07:27 Pulse 61 03/08/21 09:17 Resp 22 H 03/08/21 09:17 BP 126/63 03/08/21 09:17 Pulse Ox 98 03/08/21 09:17 Body Mass Index 25.8 Appearance: Alert. Oriented X3. Very anxious mild acute distress. Eyes: Pupils equal, round and reactive to light. ENT: Pharynx normal. Neck: Normal inspection. Neck supple. CVS: Normal heart rate and rhythm. Pulses normal. Respiratory: No respiratory distress. Breath sounds normal. Abdomen: Soft and nontender. Skin: Skin warm and dry. Normal skin color. Normal skin turgor. Extremities: No lower extremity edema. No calf ttp Neuro: Oriented X 3. No motor deficit. No sensory deficit. Psych: very anxious, very animated, seems to be having ap anic attack, no SI/HI Course Course Course Narrative: negative workup feels better after ativan will send home with small dose and refer to PCP MDM - Arrhythmia/Palpitations MDM Narrative Medical decision making narrative: 65 yo male chronic chest pain, insomnia, anxiety, shortness of breath, recently saw Cardiology - plan for ECHO he comes in again asking for help with sleep he is very anxious, suspect that this is a possible panic attack, doubt PE/ACS at this time, one troponin ordered, PO ativan for anxiety, dispo per results and findings. Lab Data Result diagrams: 03/08/21 09:07 03/08/21 09:07 Labs: Lab Results 03/08/21 03/08/21 03/08/21 Range/Units 09:07 09:07 09:07 WBC 7.5 (4.8-10.8) X10*3/uL RBC 3.74 L (4.60-5.80) X10*6/uL Hgb 12.3 L (14.0-18.0) g/dl Hct 36.6 L (42-52) % MCV 97.9 (80-98) fL MCH 32.9 (27.0-33.0) pg MCHC 33.6 (31.0-36.0) g/dl RDW 13.1 (11.0-16.0) % Plt Count 210 (160-400) X10*3/uL MPV 9.9 (9.4-12.4) fL Immature Gran % (Auto) 0.3 (0.0-0.4) % Neut % (Auto) 55.3 (45-73) % Lymph % (Auto) 27.4 (20-40) % [place] % (Auto) 14.6 H (2-11) % Eos % (Auto) 1.9 (0-4) % Baso % (Auto) 0.5 (0-2) % Lymph # (Auto) 2.1 (1.2-4.9) X10*3/uL [place] # (Auto) 1.1 (0.1-1.2) X10*3/uL Eos # (Auto) 0.1 (0.0-0.4) X10*3/uL Baso # (Auto) 0.0 (0.0-0.2) X10*3/uL Abs Immat Gran (auto) 0.02 (0.00-0.03) X10*3/uL Absolute Neuts (auto) 4.1 (2.0-8.3) X10*3/uL Absolute Nucleated RBC 0.000 (0.0-0.012) X10*3/uL Nucleated RBC % (auto) 0.0 (0.0-0.2) /100WBC Hold Blue Top SEE NOTE Sodium 139 (135-145) mmol/L Potassium 4.1 (3.3-5.1) mmol/L Chloride 108 (96-108) mmol/L Carbon Dioxide 23 (22-29) mmol/L Anion Gap 12 (12-20) BUN 16 (9-16) mg/dL Creatinine 0.93 (0.5-1.4) mg/dL Estim Creat Clear Calc 73.3 Estimated GFR > 60 Random Glucose 110 (60-115) mg/dL Calcium 9.0 (8.4-10.2) mg/dL Magnesium 2.3 (1.6-2.6) mg/dL Total Bilirubin 0.8 (0.0-1.0) mg/dL Direct Bilirubin 0.3 (0.0-0.5) mg/dL AST 19 (5-37) U/L ALT 26 (0-40) U/L Alkaline Phosphatase 71 (39-117) U/L Troponin I High Sens (<3.5-35.0) ng/L Total Protein 6.9 (6.5-8.0) g/dL Albumin 4.2 (3.5-5.0) g/dL Lipase 48 (8-78) U/L COVID-19 (ZUNILDA) (Negative) COVID-19 Clin Com 03/08/21 03/08/21 Range/Units 09:07 09:14 WBC (4.8-10.8) X10*3/uL RBC (4.60-5.80) X10*6/uL Hgb (14.0-18.0) g/dl Hct (42-52) % MCV (80-98) fL MCH (27.0-33.0) pg MCHC (31.0-36.0) g/dl RDW (11.0-16.0) % Plt Count (160-400) X10*3/uL MPV (9.4-12.4) fL Immature Gran % (Auto) (0.0-0.4) % Neut % (Auto) (45-73) % Lymph % (Auto) (20-40) % [place] % (Auto) (2-11) % Eos % (Auto) (0-4) % Baso % (Auto) (0-2) % Lymph # (Auto) (1.2-4.9) X10*3/uL [place] # (Auto) (0.1-1.2) X10*3/uL Eos # (Auto) (0.0-0.4) X10*3/uL Baso # (Auto) (0.0-0.2) X10*3/uL Abs Immat Gran (auto) (0.00-0.03) X10*3/uL Absolute Neuts (auto) (2.0-8.3) X10*3/uL Absolute Nucleated RBC (0.0-0.012) X10*3/uL Nucleated RBC % (auto) (0.0-0.2) /100WBC Hold Blue Top Sodium (135-145) mmol/L Potassium (3.3-5.1) mmol/L Chloride (96-108) mmol/L Carbon Dioxide (22-29) mmol/L Anion Gap (12-20) BUN (9-16) mg/dL Creatinine (0.5-1.4) mg/dL Estim Creat Clear Calc Estimated GFR Random Glucose (60-115) mg/dL Calcium (8.4-10.2) mg/dL Magnesium (1.6-2.6) mg/dL Total Bilirubin (0.0-1.0) mg/dL Direct Bilirubin (0.0-0.5) mg/dL AST (5-37) U/L ALT (0-40) U/L Alkaline Phosphatase (39-117) U/L Troponin I High Sens < 3.5 (<3.5-35.0) ng/L Total Protein (6.5-8.0) g/dL Albumin (3.5-5.0) g/dL Lipase (8-78) U/L COVID-19 (ZUNILDA) Negative (Negative) COVID-19 Clin Com See Note ECG Data Attestation: I personally reviewed and interpreted this ECG as follows: ECG interpretation date: 03/08/21 ECG interpretation time: 08:02 Interpretation: Rate: 64 Rhythm: NSR [place]: left, LVH Normal P waves. Normal MARQUES. Normal QRS complex. ST T wave : normal, no LINDY qTC: normal prior studies: no change from priors, no acute ischemia The study has been interpreted contemporaneously by me. . Discharge Plan Discharge Clinical Impression: Anxiety, Palpitations, Atypical chest pain Patient Disposition: Home, Self-Care Instructions: Chest Pain (ED), Anxiety (ED) Additional Instructions: return to ED for any worsening symptoms or concerns Prescriptions: New lorazepam [Ativan] 1 mg tablet 1 mg PO BEDTIME PRN (Reason: sleep) Qty: 10 RF: 0 Stand Alone Forms: Work/School Release
[2021-03-08 07:27] VITALS: BP 153/75; PULSE 81; RESP 16; TEMP 36.4; O2SAT 98; BMI 25.8
[2021-03-08] MEDS: LORazepam 1 MG TABLET 2 MG PO (07:40)
[2021-03-08 07:58] VITALS: BP 140/65; PULSE 64; RESP 22; O2SAT 95
[2021-03-08 09:17] VITALS: BP 126/63; PULSE 61; RESP 22; O2SAT 98
[2021-03-08 09:21] LABS: MANUAL DIFF FLAG NO
[2021-03-08 09:23] LABS: Basophils Percent Auto 0.5 % (0-2); Eosinophils Absolute Auto 0.1 X10*3/uL (0.0-0.4); Eosinophils Percent Auto 1.9 % (0-4); Hematocrit 36.6 % (42-52); Hemoglobin 12.3 g/dl (14.0-18.0); Imm Gran Abs Auto 0.02 X10*3/uL (0.00-0.03); Imm Gran Pct Auto 0.3 % (0.0-0.4); Lymphocytes Absolute Auto 2.1 X10*3/uL (1.2-4.9); Lymphocytes Percent Auto 27.4 % (20-40); Mean Corpuscular HGB Conc 33.6 g/dl (31.0-36.0); Mean Corpuscular Hemoglobin 32.9 pg (27.0-33.0); Mean Corpuscular Volume 97.9 fL (80-98); Mean Platelet Volume 9.9 fL (9.4-12.4); Monocytes Absolute Auto 1.1 X10*3/uL (0.1-1.2); Monocytes Percent Auto 14.6 % (2-11); Neutrophils Absolute Auto 4.1 X10*3/uL (2.0-8.3); Neutrophils Percent Auto 55.3 % (45-73); Platelet Count 210 X10*3/uL (160-400); Red Blood Count 3.74 X10*6/uL (4.60-5.80); Red Cell Distribution Width 13.1 % (11.0-16.0); White Blood Count 7.5 X10*3/uL (4.8-10.8)
[2021-03-08 09:45] LABS: COVID-19 Test Negative (Negative)
[2021-03-08 09:55] LABS: Alanine Aminotransferase 26 U/L (0-40); Albumin Level 4.2 g/dL (3.5-5.0); Alkaline Phosphatase 71 U/L (39-117); Anion Gap 12 (12-20); Aspartate Amino Transferase 19 U/L (5-37); Bilirubin Direct 0.3 mg/dL (0.0-0.5); Bilirubin Total 0.8 mg/dL (0.0-1.0); Blood Urea Nitrogen 16 mg/dL (9-16); Carbon Dioxide 23 mmol/L (22-29); Chloride 108 mmol/L (96-108); Creatinine Clr Calc Pharmacy 73.3; Estimated Glomerular Filt Rate > 60; Glucose Random 110 mg/dL (60-115); Lipase 48 U/L (8-78); Magnesium 2.3 mg/dL (1.6-2.6); Potassium 4.1 mmol/L (3.3-5.1); Sodium 139 mmol/L (135-145); Total Protein 6.9 g/dL (6.5-8.0)
[2021-03-08 10:01] LABS: Troponin-I High Sensitivity < 3.5 ng/L (<3.5-35.0)
[2021-03-08 10:15] LABS: Thyroid Stimulating Hormone 1.22 uIU/mL (0.32-4.0)
== END 2021-03-08 10:22 | disposition home or self-care (01) ==
PROVIDERS: Emergency Provider Emergency Medicine
DX: R00.2 Palpitations (principal); R07.9 Chest pain, unspecified; F12.90 Cannabis use, unspecified, uncomplicated; F41.1 Generalized anxiety disorder; F43.0 Acute stress reaction; Z20.822 Contact with and (suspected) exposure to COVID-19; Z79.899 Other long term (current) drug therapy
CPT/HCPCS: 36415; 71045; 80048; 80076; 83690; 83735; 84443; 84484; 85025; 87635; 93005; 99283

== ENCOUNTER → 2021-03-09 08:07 | Outpatient (REF) | payer MEDICAID, SELFPAY ==
--- NOTE | ~2021-03-09 | NM_ITS ---
Lexiscan Myocardial perfusion study Indication: Chest pain, shortness of breath, palpitations, assess for coronary disease and ischemia Technique: The patient was brought in for a Lexiscan perfusion study on 03/09/2021 and was injected 0.4 mg of Lexiscan intravenously. Within a minute of this injection 25 mCi of sestamibi was given intravenously. Images were obtained using the SPECT gamma camera interlaced with the gating device. Images were obtained in supine position. Resting perfusion study was performed on 03/10/2021. Patient was administered 25 mCi of sestamibi intravenously at rest. Images were then obtained in supine position. Total DLP 86mGy-cm. Images were processed with the software and compared side to side in short axis, horizontal long axis and vertical long axis views. Findings: Raw acquisition was reviewed. The stress perfusion study showed mildly diminished tracer uptake along the basal inferior wall. With CT attenuation correction this improves suggestive of diaphragmatic attenuation artifact.. The gated study shows normal LV systolic function with calculated LVEF of 61%. LV cavity is normal in size. The gated study shows normal wall thickening and contraction of segments. Resting study shows mildly diminished tracer uptake along the inferior wall that improves with CT attenuation correction and hence suggestive of diaphragmatic attenuation artifact. Gating at rest reveals normal wall motion with ejection fraction at 70%. The findings are consistent with no definite reversible or fixed perfusion defects. NM/NM abiel perf SPECT rest & str Impression: 1. Myocardial perfusion imaging study shows likely normal myocardial perfusion. No definitive evidence of any ischemia or infarction. 2. Gated LVEF is 61% during stress and 70% during rest. 3. Transient ischemic dilatation not present. EKG component of the test reported separately.
--- NOTE | 2021-03-09 08:17 | CA_ITS ---
Acquisition Time: 2021-03-09 08:19:20 Total Exercise Time: 00:02:00 Test Indications: Dyspnea Medications: NONE Protocol: LEXISCAN Max HR: 089 BPM 56% of Pred: 157 BPM Max BP: 122/064 mmHG Max Work Load: 1.[address]st using Lexiscan while sitting, pt tolerated well, denies any anginal sx. EKG without arrhythmias, non-diagnostic for ischemia. Nuclear images to follow. Normotensive response to test. Test reviewed with Dr. Matute. Referred By: Rudolph Matute Overread By: Mai Rivera NP
== END ==
LOC: HO.CARD 08:07
PROVIDERS: Visit Provider Internal Medicine
DX: I25.10 Atherosclerotic heart disease of native coronary artery without angina pectoris (principal)
CPT/HCPCS: 78452; 93016; 93017; 93018; A9500; J0280; J2785

== ENCOUNTER → 2021-04-16 12:43 | Outpatient (BNVA) | payer MEDICAID, SELFPAY | PROVIDERS: PCP Registered Nurse Community Health; Referring Provider Registered Nurse Community Health; Visit Provider Nurse Practitioner | DX: K21.9 Gastro-esophageal reflux disease without esophagitis (principal); K59.04 Chronic idiopathic constipation; Z79.899 Other long term (current) drug therapy | CPT/HCPCS: 99202 ==

== ENCOUNTER → 2021-04-21 10:10 | Outpatient (REF) | payer MEDICAID, SELFPAY ==
--- NOTE | 2021-04-21 10:14 | CA_ITS ---
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 Study Quality: Good ECG Rhythm: Sinus Conclusions: - 1. Normal LV systolic function with impaired relaxation filling pattern with inferior inferoseptal wall motion abnormality 2. Normal cardiac valvular Doppler 3. Normal RV systolic pressure 4. No pericardial effusion Findings Left Ventricle Normal left ventricular size, thickness, and systolic function. The visually estimated ejection fraction is between 60-65%. Spectral Doppler is indicative of an impaired relaxation filling pattern. E/E prime ratio is between 8 and 15 consistent with indeterminate filling pressures. Wall Motion Rest Echo Findings The basal inferior segment is hypokinetic. The basal inferoseptal segment is akinetic. All other scored wall segments showed normal motion. Right Ventricle Normal right ventricular cavity size and systolic function. Atria Both atria are normal in size. There is no evidence of interatrial shunt. Aortic Valve Normal aortic valve structure and function. There is no aortic valve stenosis. There is no aortic valve regurgitation. Mitral Valve Normal mitral valve structure and function. There is trace mitral valve regurgitation. There is no mitral valve stenosis. Pulmonic Valve The pulmonic valve is likely normal. Tricuspid Valve Normal tricuspid valve structure. There is mild tricuspid valve regurgitation. The right ventricular systolic pressure is normal. The right ventricular systolic pressure is 27 mmHg. Normal right atrial pressure. There is no evidence of pulmonary hypertension. Great Vessels All visible segments of the aorta are normal in size. The pulmonary artery was not well visualized. Venous The inferior vena cava is normal in size and collapses greater than 50% with inspiration. Pericardium/Pleural There is no evidence of pericardial effusion. Prior Study Comparison No previous study in the last 5 years for comparison Measurements 2D Linear Measurements RVIDd: 3.19 RVIDd Index: 1.75 IVSd: 0.93 0.6-0.9/0.6-1.0 cm LVIDd: 4.96 3.9-5.3/4.2-5.9 cm LVIDd Index: 2.73 2.4-3.2/2.2-3.1 cm/m2 LVIDs: 3.66 2.0-3.6 cm LVPWd: 0.97 0.7-1.1 cm Ao Root: 2.90 2.1-3.5 cm LA Diam: 3.10 2.7-3.8/3.0-4.0 cm LAIDs Index: 1.70 1.5-2.3 cm/m2 LV Mass: 208.54 67-162/88-224 g LV Mass Index: 114.58 43-95/49-115 g/m2 LVOT Diam: 2.30 3.0+(-)1.3 cm 2D Systolic Function EF 4C: 58.30 >55% EF 2C: 67.00 >55% EF BiP: 62.40 >55% Mitral Valve MV Pk E: 0.66 MV PK A: 0.64 MV Decel Time: 219.00 E/A: 1.00 E'Lateral: 8.81 E'Medial: 7.72 E/E' Med: 8.50 E/E' Lat: 7.40 Aortic Valve AoV Pk Yobani: 1.28 AoV Mn Yobani: 0.86 AoV VTI: 0.30 AoV Pk Grad: 7.00 Aov Mn Grad: 3.00 JORGE Cont.VTI: 2.69 LVOT LVOT Pk Yobani: 0.91 LVOT Mn Yobani: 0.53 LVOT VTI: 0.20 LVOT Pk Grad: 3.00 LVOT Mn Grad: 1.00 LVOT Diam: 2.30 LVOT Area: 4.15 Diastolic Function MV Pk E: 0.66 MV Pk A: 0.64 E/A: 1.00 E'Medial: 7.72 E/E' Med: 8.50 E' Laterial: 8.81 E/E' Lat: 7.40 Tricuspid Valve TR Pk Yobani: 2.46 TR Pk Grad: 24.00 RA Press: 3.00 RVSP: 27.00 Great Vessels Aorta Ao Root-2D: 2.90 2.0-3.7 cm Ao Asc: 3.00 2.1-3.4 cm Ao Arch: 2.70 Updated in Other Vendor System with Status of Final Emery Escobar MD electronically signed on 04/21/2021 4:12:58 PM with status of Final
== END ==
LOC: HO.CARD 10:10
PROVIDERS: Visit Provider Internal Medicine
DX: I25.10 Atherosclerotic heart disease of native coronary artery without angina pectoris (principal); R07.2 Precordial pain
CPT/HCPCS: 93306

== ENCOUNTER 2021-04-28 08:56 | Outpatient (REF) | payer MEDICAID, SELFPAY ==
[2021-04-28 11:45] LABS: Hematocrit 37.8 % (42-52); Hemoglobin 12.2 g/dl (14.0-18.0); Mean Corpuscular HGB Conc 32.3 g/dl (31.0-36.0); Mean Corpuscular Hemoglobin 32.5 pg (27.0-33.0); Mean Corpuscular Volume 100.8 fL (80-98); Mean Platelet Volume 10.1 fL (9.4-12.4); Platelet Count 232 X10*3/uL (160-400); Prothrombin Time 12.3 SEC (10.8-13.0); Red Blood Count 3.75 X10*6/uL (4.60-5.80); Red Cell Distribution Width 13.2 % (11.0-16.0); White Blood Count 7.3 X10*3/uL (4.8-10.8)
[2021-04-28 12:15] LABS: Anion Gap 11 (12-20); Blood Urea Nitrogen 21 mg/dL (9-16); Calcium 9.5 mg/dL (8.4-10.2); Carbon Dioxide 27 mmol/L (22-29); Chloride 110 mmol/L (96-108); Estimated Glomerular Filt Rate > 60; Glucose Random 105 mg/dL (60-115); Potassium 5.1 mmol/L (3.3-5.1); Sodium 143 mmol/L (135-145)
== END 2021-04-28 08:57 | disposition home or self-care (01) ==
LOC: HO.LAB 08:56
PROVIDERS: PCP Registered Nurse Community Health; Referring Provider Registered Nurse Community Health; Visit Provider Internal Medicine
DX: R07.2 Precordial pain (principal); R06.02 Shortness of breath; I25.10 Atherosclerotic heart disease of native coronary artery without angina pectoris
CPT/HCPCS: 36415; 80048; 85027; 85610; 93005; 99212

== ENCOUNTER 2021-04-30 08:24 | Outpatient (REF) | payer MEDICAID, SELFPAY ==
--- NOTE | ~2021-04-30 | FL_ITS ---
EXAMINATION: FL BARIUM SWALLOW CLINICAL INFORMATION: Chronic idiopathic constipation. COMPARISON: None TECHNIQUE: Barium swallow examination is performed using fluoroscopic evaluation in addition to multiple fluoroscopic spot views. The patient is imaged both upright and prone and using both thick and thin sulfate along with effervescent granules. Fluoroscopy time: 1.8 minutes DAP: 8.1 Gycm2 Images: 52 FINDINGS: Following oral administration of thick barium and effervescent granules, there is normal propagation of bolus from the oral cavity through the pharynx, esophagus into stomach without any evidence of obstruction, narrowing or stricture. Following oral administration of barium-coated turkey, there is normal propagation of bolus from the oral cavity through the pharynx into the esophagus. No obstruction seen. There is a small hiatal hernia. On oral administration of thin barium in prone lying position, there is good opacification of the entire esophagus without intraluminal filling defect. FL/FL barium swallow IMPRESSION: Small hiatal hernia. Otherwise unremarkable barium swallow exam.
== END 2021-04-30 08:25 | disposition home or self-care (01) ==
LOC: HO.XRAY 08:24
PROVIDERS: PCP Registered Nurse Community Health; Visit Provider Nurse Practitioner
DX: K59.04 Chronic idiopathic constipation (principal); K21.9 Gastro-esophageal reflux disease without esophagitis
CPT/HCPCS: 74220

== ENCOUNTER 2021-05-04 04:20 | Emergency (ER) | payer MEDICAID, SELFPAY ==
--- NOTE | ~2021-05-04 | XR_ITS ---
EXAMINATION: XR CHEST CLINICAL INFORMATION: Chest pain COMPARISON: 03/08/2021 TECHNIQUE: 2 views of the chest were obtained. FINDINGS: Cardiac leads overlie the chest. The lungs are well expanded. There is no focal consolidation, edema, or effusion. Unchanged calcified nodule over the periphery of the right midlung. No pneumothorax. The cardiomediastinal silhouette is within normal limits. No acute osseous abnormality. XR/XR chest 2V IMPRESSION: No acute pulmonary finding.
[2021-05-04 04:28] VITALS: BP 154/76; PULSE 65; RESP 22; TEMP 36.3; O2SAT 98; BMI 25.4
--- NOTE | 2021-05-04 04:39 | ECG_ITS ---
Test Reason : CHEST WALL PAIN Blood Pressure : / mmHG Vent. Rate : 055 BPM Atrial Rate : 055 BPM P-R Int : 158 ms QRS Dur : 096 ms QT Int : 444 ms P-R-T Axes : 045 014 058 degrees QTc Int : 424 ms Sinus bradycardia Moderate voltage criteria for LVH, may be normal variant Borderline ECG When compared with ECG of 08-MAR-2021 07:57, No significant change was found Referred By: Marcia Ruiz Electronically Signed By:COREY KAHN
[2021-05-04 04:47] VITALS: BP 136/58; PULSE 66; RESP 14; O2SAT 92
--- NOTE | 2021-05-04 05:05 | ED.CHESTPAIN ---
HPI - Chest Pain General Chief Complaint: Chest Pain Stated Complaint: chest pain Time Seen by Provider: 05/04/21 05:05 Source: patient Mode of arrival: ambulatory History of Present Illness HPI narrative: 65-year-old male who presents with ongoing intermittent chest pain that he describes as sharp and tearing and through his epigastric and he endorses has been associated with headache, nausea, shortness of breath. Review of his records, Lexiscan was in consistent with ischemia, however this appears to not be consistent with echocardiogram findings of hypokinesis. In addition, patient had a barium swallow study that was negative for acute findings other than a small hiatal hernia. Related Data Home Medications Medication Instructions Recorded Confirmed aspirin 81 mg tablet,delayed 81 mg PO DAILY 04/16/21 04/28/21 release atorvastatin 20 mg tablet 20 mg PO BEDTIME 04/16/21 04/28/21 Previous Rx's Medication Instructions Recorded docusate sodium 100 mg capsule 100 mg PO .DAILY WITH FOOD 30 Days 04/16/21 #30 cap pantoprazole 40 mg tablet,delayed 40 mg PO DAILY 30 Days #30 tab 04/16/21 release sennosides 8.6 mg capsule 17.2 mg PO BEDTIME 30 Days #60 cap 04/16/21 Allergies Allergy/AdvReac Type Severity Reaction Status Date / Time No Known Allergies Allergy Verified 04/28/21 09:27 [No Known Allergies*] Review of Systems Review of Systems: Pertinent positives and negatives as stated in HPI 10 point review of systems is otherwise negative. FOR[facility], [facility] Past Medical History Source: nursing notes reviewed Medical History Cerebral aneurysm without rupture Coronary artery calcification seen on CT scan Nephrolithiasis Precordial chest pain Surgical History H/O esophagogastroduodenoscopy No significant past surgical history Family History Family History Father Diabetes Mother No problems noted. Social History Social History Alcohol intake: never Patient Tobacco Use Status: Current everyday Tobacco user Cigarettes Per Day: 6 Substance Use Type: Marijuana Advance Directives: No Physical Exam Vital Signs: Vital Signs: Last Vital Signs Temp 97.5 F 05/04/21 08:18 Pulse 57 05/04/21 08:18 Resp 17 05/04/21 08:18 BP 131/61 05/04/21 08:18 Pulse Ox 95 05/04/21 08:18 Body Mass Index 25.4 VITAL SIGNS: Reviewed. GENERAL: anxious, well nourished, mild distress. HEAD: Normocephalic/atraumatic, EYES: PERRLA, EOMI EARS: Ext canals without abnormality NOSE: Nares patent bilateral OROPHARYNX: no oral lesions noted, posterior pharynx clear NECK: Supple, no adenopathy LUNGS: Normal breath sounds. No adventitious sounds or accessory muscle use. SpO2<98> CARDIOVASCULAR: Regular rate and rhythm without noted murmurs, no JVD or lower extremity edema. ABDOMEN: Soft, non-tender, non-distended with bowel sounds. SKIN: Inspection of the skin reveals no rashes NEUROLOGIC: Alert and oriented x 4. Strength and sensation to light touch were grossly intact x 4. Course Course Course Narrative: 65-year-old male with chronic, persistent chest pain. Review of all investigations negative for acute findings when compared to baseline. This case was discussed with Cardiology who recommends continue with plan for cardiac catheterization in the upcoming week but does not feel that sublingual nitro on an as needed basis is appropriate at this time. Patient provided with combination analgesics as well as GI cocktail and reports some improvement in symptoms and discharged home in stable condition. MDM - Chest Pain Lab Data Result diagrams: 05/04/21 06:25 05/04/21 06:25 Labs: Lab Results 05/04/21 05/04/21 05/04/21 Range/Units 06:25 06:25 06:25 WBC 9.2 (4.8-10.8) X10*3/uL RBC 4.01 L (4.60-5.80) X10*6/uL Hgb 13.3 L (14.0-18.0) g/dl Hct 39.5 L (42-52) % MCV 98.5 H (80-98) fL MCH 33.2 H (27.0-33.0) pg MCHC 33.7 (31.0-36.0) g/dl RDW 12.9 (11.0-16.0) % Plt Count 220 (160-400) X10*3/uL MPV 9.3 L (9.4-12.4) fL Immature Gran % (Auto) 0.2 (0.0-0.4) % Neut % (Auto) 58.1 (45-73) % Lymph % (Auto) 29.7 (20-40) % [place] % (Auto) 10.3 (2-11) % Eos % (Auto) 1.4 (0-4) % Baso % (Auto) 0.3 (0-2) % Lymph # (Auto) 2.7 (1.2-4.9) X10*3/uL [place] # (Auto) 1.0 (0.1-1.2) X10*3/uL Eos # (Auto) 0.1 (0.0-0.4) X10*3/uL Baso # (Auto) 0.0 (0.0-0.2) X10*3/uL Abs Immat Gran (auto) 0.02 (0.00-0.03) X10*3/uL Absolute Neuts (auto) 5.3 (2.0-8.3) X10*3/uL Absolute Nucleated RBC 0.000 (0.0-0.012) X10*3/uL Nucleated RBC % (auto) 0.0 (0.0-0.2) /100WBC ESR 14 (0-15) MM/HR D-Dimer < 200 NG/ML VBG pH (7.32-7.43) VBG pCO2 mmHg VBG pO2 mmHg VBG HCO3 (22-26) mmol/L VBG O2 Saturation VBG Base Excess mmol/L Sodium (135-145) mmol/L Potassium (3.3-5.1) mmol/L Chloride (96-108) mmol/L Carbon Dioxide (22-29) mmol/L Anion Gap (12-20) BUN (9-16) mg/dL Creatinine (0.5-1.4) mg/dL Estim Creat Clear Calc Estimated GFR Random Glucose (60-115) mg/dL Calcium (8.4-10.2) mg/dL Total Bilirubin (0.0-1.0) mg/dL AST (5-37) U/L ALT (0-40) U/L Alkaline Phosphatase (39-117) U/L Troponin I High Sens (<3.5-35.0) ng/L C-Reactive Protein (< or = 0.50) mg/dL Total Protein (6.5-8.0) g/dL Albumin (3.5-5.0) g/dL 05/04/21 05/04/21 05/04/21 Range/Units 06:25 06:25 06:27 WBC (4.8-10.8) X10*3/uL RBC (4.60-5.80) X10*6/uL Hgb (14.0-18.0) g/dl Hct (42-52) % MCV (80-98) fL MCH (27.0-33.0) pg MCHC (31.0-36.0) g/dl RDW (11.0-16.0) % Plt Count (160-400) X10*3/uL MPV (9.4-12.4) fL Immature Gran % (Auto) (0.0-0.4) % Neut % (Auto) (45-73) % Lymph % (Auto) (20-40) % [place] % (Auto) (2-11) % Eos % (Auto) (0-4) % Baso % (Auto) (0-2) % Lymph # (Auto) (1.2-4.9) X10*3/uL [place] # (Auto) (0.1-1.2) X10*3/uL Eos # (Auto) (0.0-0.4) X10*3/uL Baso # (Auto) (0.0-0.2) X10*3/uL Abs Immat Gran (auto) (0.00-0.03) X10*3/uL Absolute Neuts (auto) (2.0-8.3) X10*3/uL Absolute Nucleated RBC (0.0-0.012) X10*3/uL Nucleated RBC % (auto) (0.0-0.2) /100WBC ESR (0-15) MM/HR D-Dimer NG/ML VBG pH 7.36 (7.32-7.43) VBG pCO2 34 mmHg VBG pO2 47 mmHg VBG HCO3 20 L (22-26) mmol/L VBG O2 Saturation TNP VBG Base Excess -4.6 mmol/L Sodium 142 (135-145) mmol/L Potassium 4.0 D (3.3-5.1) mmol/L Chloride 108 (96-108) mmol/L Carbon Dioxide 25 (22-29) mmol/L Anion Gap 13 (12-20) BUN 15 (9-16) mg/dL Creatinine 0.97 (0.5-1.4) mg/dL Estim Creat Clear Calc 70.3 Estimated GFR > 60 Random Glucose 106 (60-115) mg/dL Calcium 9.6 (8.4-10.2) mg/dL Total Bilirubin 0.7 (0.0-1.0) mg/dL AST 27 D (5-37) U/L ALT 41 H (0-40) U/L Alkaline Phosphatase 76 (39-117) U/L Troponin I High Sens < 3.5 (<3.5-35.0) ng/L C-Reactive Protein 0.18 (< or = 0.50) mg/dL Total Protein 7.2 (6.5-8.0) g/dL Albumin 4.4 (3.5-5.0) g/dL ECG Data ECG #1: Attestation: I personally reviewed and interpreted this ECG as follows: Prior ECG tracings: available for review ( 03/08/2021 no acute changes on comparison) Interpretation: sinus bradycardia, HR - 55, no evidence of acute ischemia, [place] /QRS /QTC are within normal limits. Discharge Plan Discharge Clinical Impression: Atypical chest pain, Costalchondritis Patient Disposition: Home, Self-Care Instructions: Diet for Stomach Ulcers and Gastritis (ED), Gastroesophageal Reflux Disease (ED), Costochondritis (ED) Additional Instructions: 1. Debe continuar con pedraza kaylan programada para el cateterismo card?aco la pr?xima semana. 2. reanude todos los medicamentos caseros seg?n lo prescrito. 3. Lexie un seguimiento con pedraza proveedor de atenci?n primaria en los pr?ximos 2-3 d?as. Regrese a la yariel de emergencias por un empeoramiento valerio de los s?ntomas. Prescriptions: No Action aspirin [Adult Aspirin Regimen] 81 mg tablet,delayed release (DR/EC) 81 mg PO DAILY RF: 0 atorvastatin 20 mg tablet 20 mg PO BEDTIME RF: 0 pantoprazole [Protonix] 40 mg tablet,delayed release (DR/EC) 40 mg PO DAILY 30 Days Qty: 30 RF: 6 docusate sodium [Colace] 100 mg capsule 100 mg PO .DAILY WITH FOOD 30 Days Qty: 30 RF: 6 senna 8.6 mg capsule 17.2 mg PO BEDTIME 30 Days Qty: 60 RF: 3 Referrals: [facility] [Primary Care Provider] - 2 days Rudolph Matute MD [Physician] - 2 days Print Language: Romanian
--- NOTE | 2021-05-04 05:27 | PC.NURSE ---
PT PLACED ON STOVE POLISHER, SINUS ANGELA 53 BPM.
[2021-05-04 06:30] VITALS: BP 149/62; PULSE 63; RESP 10; O2SAT 98
[2021-05-04 06:31] LABS: Basophils Percent Auto 0.3 % (0-2); Eosinophils Absolute Auto 0.1 X10*3/uL (0.0-0.4); Eosinophils Percent Auto 1.4 % (0-4); Hematocrit 39.5 % (42-52); Hemoglobin 13.3 g/dl (14.0-18.0); Imm Gran Abs Auto 0.02 X10*3/uL (0.00-0.03); Imm Gran Pct Auto 0.2 % (0.0-0.4); Lymphocytes Absolute Auto 2.7 X10*3/uL (1.2-4.9); Lymphocytes Percent Auto 29.7 % (20-40); MANUAL DIFF FLAG NO; Mean Corpuscular HGB Conc 33.7 g/dl (31.0-36.0); Mean Corpuscular Hemoglobin 33.2 pg (27.0-33.0); Mean Corpuscular Volume 98.5 fL (80-98); Mean Platelet Volume 9.3 fL (9.4-12.4); Monocytes Percent Auto 10.3 % (2-11); Neutrophils Absolute Auto 5.3 X10*3/uL (2.0-8.3); Neutrophils Percent Auto 58.1 % (45-73); Platelet Count 220 X10*3/uL (160-400); Red Blood Count 4.01 X10*6/uL (4.60-5.80); Red Cell Distribution Width 12.9 % (11.0-16.0); White Blood Count 9.2 X10*3/uL (4.8-10.8)
[2021-05-04 06:32] LABS: Venous Blood Gas Refer to POC result
[2021-05-04] MEDS: Ketorolac Tromethamine 15 MG/ML VIAL IVPUSH (06:34)
[2021-05-04 06:35] LABS: VBG Base Excess -4.6 mmol/L; VBG HCO3 20 mmol/L (22-26); VBG pCO2 34 mmHg; VBG pH 7.36 (7.32-7.43); VBG pO2 47 mmHg
[2021-05-04] MEDS: Acetaminophen 325 MG TABLET 975 MG PO (06:35)
[2021-05-04 06:53] LABS: Alanine Aminotransferase 41 U/L (0-40); Albumin Level 4.4 g/dL (3.5-5.0); Alkaline Phosphatase 76 U/L (39-117); Anion Gap 13 (12-20); Aspartate Amino Transferase 27 U/L (5-37); Bilirubin Total 0.7 mg/dL (0.0-1.0); Blood Urea Nitrogen 15 mg/dL (9-16); C Reactive Protein 0.18 mg/dL (< or = 0.50); Calcium 9.6 mg/dL (8.4-10.2); Carbon Dioxide 25 mmol/L (22-29); Chloride 108 mmol/L (96-108); Creatinine Clr Calc Pharmacy 70.3; Estimated Glomerular Filt Rate > 60; Glucose Random 106 mg/dL (60-115); Sodium 142 mmol/L (135-145); Total Protein 7.2 g/dL (6.5-8.0)
[2021-05-04 06:54] LABS: D Dimer < 200 NG/ML
[2021-05-04 07:00] LABS: Troponin-I High Sensitivity < 3.5 ng/L (<3.5-35.0)
[2021-05-04 07:47] LABS: Erythrocyte Sedimentation Rate 14 MM/HR (0-15)
[2021-05-04 08:18] VITALS: BP 131/61; PULSE 57; RESP 17; TEMP 36.4; O2SAT 95
[2021-05-04] MEDS: Magnesium Hydrox/Alum Hydrox 30 ML ORAL.SUSP PO (08:54)
[2021-05-04] MEDS: Lidocaine HCl Viscous 2 % 15 ML SOLUTION 10 ML MUCOUS MEM (08:54)
[2021-05-04 08:57] VITALS: BP 146/58; PULSE 72; RESP 17; O2SAT 96
--- NOTE | 2021-05-04 09:33 | P.CONCA_ITS ---
History of Present Illness History of Present Illness Date of Service: 05/04/21 Consult reason: chest pain Chief complaint: chest pain Narrative: This is a cardiology consultation regarding chest pain. Patient follows up with us in our office. Last seen few days ago. He has been having recurrent chest pains. In this time, he states he has been having pain in his chest as well as abdomen and also having other symptoms like headache, nausea, vomiting for the last 3 days. Symptoms are somewhat positional as he states the chest pain is more prominent when he sleeps on the left side. No clear exertional characteristics. Review of Systems Review of Systems: Yes all other systems are reviewed and are negative Cardiovascular: Cardiovascular: Reports as per HPI, Reports no additional cardiovascular complaints, Denies acrocyanosis, Denies cool extremities, Denies painful fingertips, Reports chest pain, Reports chest pain at rest, Denies diaphoresis, Denies syncope, Denies irregular heart rhythm, Denies claudication, Denies leg edema, Denies lightheadedness, Denies palpitations and Denies dyspnea Respiratory: Respiratory: Denies dyspnea Neurologic: Denies syncope Endocrine: Endocrine: Denies palpitations [facility] Past Medical History Medical History Cerebral aneurysm without rupture Coronary artery calcification seen on CT scan Nephrolithiasis Precordial chest pain Family History Family History Father Diabetes Mother No problems noted. Surgical History Surgical History H/O esophagogastroduodenoscopy No significant past surgical history Social History Social History Alcohol intake: never Patient Tobacco Use Status: Current everyday Tobacco user Cigarettes Per Day: 6 Substance Use Type: Marijuana Advance Directives: No Meds Allergies Allergy/AdvReac Type Severity Reaction Status Date / Time No Known Allergies Allergy Verified 04/28/21 09:27 [No Known Allergies*] Home Medications Medication Instructions Recorded Confirmed Last Taken Type aspirin 81 mg tablet,delayed 81 mg PO DAILY 04/16/21 04/28/21 Unknown History release atorvastatin 20 mg tablet 20 mg PO BEDTIME 04/16/21 04/28/21 Unknown History Physical Exam Vital Signs: Vital Signs: Last Vital Signs Temp 97.5 F 05/04/21 08:18 Pulse 72 05/04/21 08:57 Resp 17 05/04/21 08:57 BP 146/58 H 05/04/21 08:57 Pulse Ox 96 05/04/21 08:57 Body Mass Index 25.4 Const: General: cooperative and no acute distress HENMT: Other: Unremarkable Neck: Neck: Yes normal visual inspection Chest: Chest palpation & inspection: normal inspection of the chest Resp: Auscultation: clear to auscultation bilaterally, no crackles and no wheezes Cardio: Jugular venous distension: no JVD Palpation: normal PMI Heart sounds: S1 normal heart sound present, S2 normal heart sound present, no gallops, no murmurs and no rubs GI: Palpation (GI): Soft to palpation Back/Spine/Pelvis: Other: unremarkable Skin: General skin exam: no rashes or lesions noted Neuro: Cranial nerves: Yes Other cranial nerve findings present Extrem: General: Yes no clubbing, cyanosis or edema Psych: Mental Status: other Results Labs and Meds Result diagrams: 05/04/21 06:25 05/04/21 06:25 Lab results: Laboratory Results - last 24 hr 05/04/21 05/04/21 05/04/21 06:25 06:25 06:25 WBC 9.2 RBC 4.01 L Hgb 13.3 L Hct 39.5 L MCV 98.5 H MCH 33.2 H MCHC 33.7 RDW 12.9 Plt Count 220 MPV 9.3 L Immature Gran % (Auto) 0.2 Neut % (Auto) 58.1 Lymph % (Auto) 29.7 [place] % (Auto) 10.3 Eos % (Auto) 1.4 Baso % (Auto) 0.3 Lymph # (Auto) 2.7 [place] # (Auto) 1.0 Eos # (Auto) 0.1 Baso # (Auto) 0.0 Abs Immat Gran (auto) 0.02 Absolute Neuts (auto) 5.3 Absolute Nucleated RBC 0.000 Nucleated RBC % (auto) 0.0 ESR 14 D-Dimer < 200 VBG pH VBG pCO2 VBG pO2 VBG HCO3 VBG O2 Saturation VBG Base Excess Sodium Potassium Chloride Carbon Dioxide Anion Gap BUN Creatinine Estim Creat Clear Calc Estimated GFR Random Glucose Calcium Total Bilirubin AST ALT Alkaline Phosphatase Troponin I High Sens C-Reactive Protein Total Protein Albumin 05/04/21 05/04/21 05/04/21 06:25 06:25 06:27 WBC RBC Hgb Hct MCV MCH MCHC RDW Plt Count MPV Immature Gran % (Auto) Neut % (Auto) Lymph % (Auto) [place] % (Auto) Eos % (Auto) Baso % (Auto) Lymph # (Auto) [place] # (Auto) Eos # (Auto) Baso # (Auto) Abs Immat Gran (auto) Absolute Neuts (auto) Absolute Nucleated RBC Nucleated RBC % (auto) ESR D-Dimer VBG pH 7.36 VBG pCO2 34 VBG pO2 47 VBG HCO3 20 L VBG O2 Saturation TNP VBG Base Excess -4.6 Sodium 142 Potassium 4.0 D Chloride 108 Carbon Dioxide 25 Anion Gap 13 BUN 15 Creatinine 0.97 Estim Creat Clear Calc 70.3 Estimated GFR > 60 Random Glucose 106 Calcium 9.6 Total Bilirubin 0.7 AST 27 D ALT 41 H Alkaline Phosphatase 76 Troponin I High Sens < 3.5 C-Reactive Protein 0.18 Total Protein 7.2 Albumin 4.4 ECG Attestation: I personally reviewed and interpreted this ECG as follows: Interpretation: EKG today with sinus rhythm at 55/Min; voltage criteria for LVH versus normal variant but otherwise unremarkable. Imaging Radiologist's impression: Impressions Chest X-Ray 05/04/21 06:10 IMPRESSION: No acute pulmonary finding. Assessment and Plan (1) Precordial chest pain: Status: Inactive (2) Coronary artery calcification seen on CT scan: Status: Inactive Atypical chest pain with unremarkable EKG and negative high sensitivity troponin in spite of having chest pain for almost 3 days. This makes cardiac etiology unlikely. Myocardial perfusion imaging is also unremarkable. However, he has significant coronary artery calcifications seen on the CT scan. Considering this fact as well as that he is a long-term smoker, he was already scheduled for a diagnostic cardiac catheterization through our office. This can be completed as scheduled for next week. Otherwise, current symptoms seem very atypical. Discussed with ER physician. Procedures Date of Service Date of Service: 05/04/21
== END 2021-05-04 09:07 | disposition home or self-care (01) ==
PROVIDERS: Emergency Provider Student in an Organized Health Care Education/Training Program
DX: R07.89 Other chest pain (principal); M94.0 Chondrocostal junction syndrome [Tietze]; K21.9 Gastro-esophageal reflux disease without esophagitis; F17.210 Nicotine dependence, cigarettes, uncomplicated; F12.90 Cannabis use, unspecified, uncomplicated
CPT/HCPCS: 36415; 71046; 80053; 84484; 85025; 85379; 85652; 86140; 93005; 96374; 99284; 99285; J1885

== ENCOUNTER 2021-05-13 10:52 | Outpatient (REF) | payer MEDICAID, SELFPAY ==
--- NOTE | ~2021-05-13 | XR_ITS ---
EXAMINATION: XR ABDOMEN COMPLETE CLINICAL INDICATION: Chronic constipation. COMPARISON: Most recent CT abdomen/pelvis dated 01/09/2021 TECHNIQUE: Supine and upright views of the abdomen. FINDINGS: Mild air and stool throughout the colon. Nonobstructive bowel gas pattern. No acute osseous abnormality. XR/XR abdomen 3V IMPRESSION: Mild air and stool throughout the colon.
== END 2021-05-13 10:53 | disposition home or self-care (01) ==
LOC: HO.XRAY 10:52
PROVIDERS: PCP Registered Nurse Community Health; Referring Provider Registered Nurse Community Health; Visit Provider Nurse Practitioner
DX: K59.04 Chronic idiopathic constipation (principal); K21.9 Gastro-esophageal reflux disease without esophagitis; F17.210 Nicotine dependence, cigarettes, uncomplicated; F12.90 Cannabis use, unspecified, uncomplicated; Z79.899 Other long term (current) drug therapy
CPT/HCPCS: 74021; 99212

== ENCOUNTER → 2021-06-01 08:54 | Outpatient (BNVA) | payer MEDICAID, SELFPAY | PROVIDERS: Referring Provider Registered Nurse Community Health; Visit Provider Internal Medicine | DX: I25.10 Atherosclerotic heart disease of native coronary artery without angina pectoris (principal); F17.200 Nicotine dependence, unspecified, uncomplicated | CPT/HCPCS: 99212 ==

== ENCOUNTER 2022-02-18 13:56 | Outpatient (REF) | payer MEDICAID, SELFPAY ==
--- NOTE | ~2022-02-18 | CT_ITS ---
EXAMINATION: CT CHEST SCREENING CLINICAL INFORMATION: Nicotine dependence. 50-year smoker. COMPARISON: None. TECHNIQUE: Multidetector volumetric CT imaging of the chest is performed without contrast using low dose technique. Additional 2D coronal and sagittal reformatted images and axial 3D maximum intensity projection (MIP) images are generated on the CT workstation. This CT examination was performed using dose optimization techniques as appropriate, variously including the following: *Automated exposure control *Adjustment of mA and/or kV according to patient size (this includes techniques or standardized protocols for targeted exams where dose is matched to indication/reason for exam; i.e. extremities or head) *Use of iterative reconstruction technique DLP: 43 mGy-cm. FINDINGS: LUNGS: The lungs are well expanded and clear of acute pneumonic process. There are scattered calcified nodules in right upper lobe left lower lobe. The largest calcified nodule right upper lobe subpleural-based measures 6 mm. There are no noncalcified nodules seen. MEDIASTINUM: The thyroid lobes are symmetrical and normal. The central trachea and bronchi are widely patent. The heart size and great vessels are normal caliber. There are coronary artery calcifications. No pericardial effusion seen. No abnormal mediastinal or hilar lymph nodes. PLEURA: There is no pleural effusion. No pleural mass or thickening. AXILLA: There are small shotty lymph nodes in the axilla. The chest wall is unremarkable. UPPER ABDOMEN: Unremarkable. OSSEOUS STRUCTURES: No lytic or sclerotic process seen. CT/CT lung screening IMPRESSION: Scattered calcified nodules. No noncalcified nodules seen. No acute cardiopulmonary process. ASSESSMENT: Lung-RADS category 2: Benign. RECOMMENDATION: Low-dose annual CT chest.
== END 2022-02-18 13:57 | disposition home or self-care (01) ==
LOC: HO.CT 13:56
PROVIDERS: Visit Provider Physician Assistant Medical
DX: Z12.2 Encounter for screening for malignant neoplasm of respiratory organs (principal); F17.210 Nicotine dependence, cigarettes, uncomplicated
CPT/HCPCS: 71271; G0296

== ENCOUNTER 2022-05-23 09:37 | Outpatient (REF) | payer MEDICAID, SELFPAY ==
--- NOTE | ~2022-05-23 | XR_ITS ---
EXAMINATION: XR LUMBOSACRAL SPINE WITH OBLIQUES CLINICAL INFORMATION: M47.816 - Spondylosis without myelopathy or radiculopathy, lumbar region COMPARISON: CT abdomen and pelvis 01/09/2021. Thoracic spine 05/23/2022. TECHNIQUE: Lumbar spine is imaged in 6 views. FINDINGS: Normal lumbar segmentation with 5 nonrib-bearing lumbar vertebrae of normal height and normal lumbar lordosis. No lumbar vertebral, spondylolisthesis, disc narrowing, or erosive changes. No destructive process. No spondylolysis. The SI joints and visualized sacrum are unremarkable. XR/XR lumbar spine 4V min IMPRESSION: Unremarkable examination.
--- NOTE | ~2022-05-23 | XR_ITS ---
EXAMINATION: XR THORACIC SPINE CLINICAL INFORMATION: M47.814 - Spondylosis without myelopathy or radiculopathy, thoracic region COMPARISON: CT chest 02/18/2022. TECHNIQUE: 3 views of the thoracic spine were obtained. FINDINGS: Normal thoracic segmentation with 12 rib-bearing thoracic vertebrae of normal height and normal thoracic kyphosis. No thoracic vertebral compression, focal disc narrowing, endplate sclerosis, erosive changes, or destructive process. No paraspinal soft tissue swelling. There are degenerative disc changes again noted lower cervical spine at C6-C7. XR/XR thoracic spine 3V IMPRESSION: -Unremarkable thoracic spine. -Degenerative disc changes C6-C7.
== END 2022-05-23 09:38 | disposition home or self-care (01) ==
LOC: HO.XRAY 09:37
PROVIDERS: PCP Registered Nurse Community Health; Visit Provider Anesthesiology
DX: M47.814 Spondylosis without myelopathy or radiculopathy, thoracic region (principal); M47.816 Spondylosis without myelopathy or radiculopathy, lumbar region; G89.4 Chronic pain syndrome; M25.551 Pain in right hip; M16.11 Unilateral primary osteoarthritis, right hip
CPT/HCPCS: 72072; 72110; 99202

== ENCOUNTER → 2022-05-30 16:28 | Outpatient (BNVA) | payer MEDICAID, SELFPAY | PROVIDERS: PCP Registered Nurse Community Health; Visit Provider Anesthesiology | DX: M79.18 Myalgia, other site (principal) | CPT/HCPCS: 99212 ==

== ENCOUNTER 2022-10-28 04:15 | Emergency (ER) | payer MEDICAID, SELFPAY ==
--- NOTE | 2022-10-28 | ECG_ITS ---
Test Reason : sob/flu like symptoms Blood Pressure : / mmHG Vent. Rate : 072 BPM Atrial Rate : 072 BPM P-R Int : 152 ms QRS Dur : 092 ms QT Int : 406 ms P-R-T Axes : -16 034 -03 degrees QTc Int : 444 ms Sinus rhythm with occasional Premature ventricular complexes Otherwise normal ECG When compared with ECG of 04-MAY-2021 04:39, Premature ventricular complexes are now Present Non-specific change in ST segment in Inferior leads T wave inversion now evident in Inferior leads Referred By: Generic ED Physician Electronically Signed By:HORTENCIA CURRY MD
[2022-10-28 04:20] VITALS: BP 132/68; PULSE 100; O2SAT 100
[2022-10-28 04:31] VITALS: BP 150/60; PULSE 78; RESP 20; TEMP 36.8; O2SAT 99; BMI 24.2
[2022-10-28 04:57] LABS: MANUAL DIFF FLAG NO
[2022-10-28 04:58] LABS: Basophils Percent Auto 0.1 % (0-2); Hematocrit 36.1 % (42.0-52.0); Hemoglobin 12.1 g/dl (14.0-18.0); Imm Gran Abs Auto 0.03 X10*3/uL (0.00-0.03); Imm Gran Pct Auto 0.3 % (0.0-0.4); Lymphocytes Absolute Auto 0.9 X10*3/uL (1.2-4.9); Lymphocytes Percent Auto 7.7 % (20-40); Mean Corpuscular HGB Conc 33.5 g/dl (31.0-36.0); Mean Corpuscular Hemoglobin 32.7 pg (27.0-33.0); Mean Corpuscular Volume 97.6 fL (80.0-98.0); Mean Platelet Volume 9.8 fL (9.4-12.4); Monocytes Absolute Auto 1.3 X10*3/uL (0.1-1.2); Monocytes Percent Auto 11.3 % (2-11); Neutrophils Absolute Auto 9.5 x10*3/uL (2.0-8.3); Neutrophils Percent Auto 80.6 % (45-73); Platelet Count 221 X10*3/uL (160-400); Red Cell Distribution Width 13.5 % (11.0-16.0); White Blood Count 11.8 X10*3/uL (4.8-10.8)
[2022-10-28 05:07] LABS: COVID-19 Test Negative (Negative); IDNOW Serial# 16C4AD1C
[2022-10-28 05:09] LABS: IDNOW Serial# BCCEAD1C; Influenza A Positive (Negative); Influenza B2 Negative (Negative)
[2022-10-28 05:13] LABS: Anion Gap 16 (12-20); Blood Urea Nitrogen 16 mg/dL (9-16); Calcium 9.2 mg/dL (8.4-10.2); Carbon Dioxide 21 mmol/L (22-29); Chloride 101 mmol/L (96-108); Creatinine Clr Calc Pharmacy 70.8; Estimated Glomerular Filt Rate > 60; Glucose Random 118 mg/dL (60-115); Potassium 3.9 mmol/L (3.3-5.1); Sodium 134 mmol/L (135-145)
[2022-10-28 05:25] LABS: Troponin-I High Sensitivity < 3.5 ng/L (<3.5-35.0)
--- NOTE | 2022-10-28 06:32 | ED.URI ---
HPI - URI/Sore Throat General Chief Complaint: Upper Respiratory Symptoms Stated Complaint: FLU LIKE SYMPTOMS Time Seen by Provider: 10/28/22 06:20 Source: patient and family (Spouse) Mode of arrival: ambulatory Limitations: no limitations History of Present Illness HPI Narrative: 66-year-old male came in with 2 days symptoms of generalized weakness, body ache, generalize joint ache, sore throat, coughing, subjective fever, exposed to his who had similar symptoms. Patient also developed chest pain with coughing. Related Data Home Medications Medication Instructions Recorded Confirmed lidocaine 5 % topical patch 1 patch topical DAILY 05/23/22 Previous Rx's Medication Instructions Recorded docusate sodium 100 mg capsule 100 mg PO .DAILY WITH FOOD 30 days 04/16/21 (Colace) #30 caps bisacodyl 5 mg tablet,delayed 10 mg PO BEDTIME 30 days #60 tabs 05/13/21 release (Dulcolax (bisacodyl)) pantoprazole 40 mg tablet,delayed 40 mg PO BID 30 days #60 tabs 05/13/21 release (Protonix) simethicone 180 mg capsule 180 mg PO BID 30 days #60 caps 05/14/21 tizanidine 2 mg tablet 2 mg PO TID PRN muscle spasticity 05/23/22 30 days #90 tabs oseltamivir 75 mg capsule (Tamiflu) 75 mg PO BID 5 days #10 caps 10/28/22 Allergies Allergy/AdvReac Type Severity Reaction Status Date / Time No Known Allergies Allergy Verified 10/28/22 04:33 [No Known Allergies*] Review of Systems Review of Systems: All other systems are reviewed and are negative Constitutional: Reports as per HPI and Reports no additional constitutional complaints Eyes: Reports as per HPI and Reports no additional eye complaints Reports system reviewed and no additional complaints, except as documented Cardiovascular: Reports as per HPI and Reports no additional cardiovascular complaints Respiratory: Reports as per HPI and Reports no additional respiratory complaints Gastrointestinal: Reports as per HPI and Reports no additional gastrointestinal complaints Genitourinary: Reports no additional female genitourinary complaints Musculoskeletal: Reports no additional musculoskeletal complaints Skin/Breast: Reports system reviewed and no additional complaints, except as docu Psychiatric: Reports no additional psychiatric complaints Endocrine: Reports no additional endocrine complaints Hematologic/Lymphatic: Reports no additional hematologic/lymphatic complaints Allergic/Immunologic: Reports no additional allergic/immunologic complaints Reports system reviewed and no additional complaints, except as documented and Reports Abnormal speech present [facility] Past Medical History Medical History Anxiety and depression Cerebral aneurysm without rupture Coronary artery calcification seen on CT scan Nephrolithiasis Personal history of nicotine dependence Precordial chest pain Surgical History H/O esophagogastroduodenoscopy History of cardiac catheterization Family History Family History Father Diabetes Mother No problems noted. Social History Social History Alcohol intake: never Patient Tobacco Use Status: Current everyday Tobacco user Tobacco use type: Cigarette Cigarettes Per Day: 6 Years Smoked: (onset 15, 1/2ppd x 51yrs, 25pyh) Substance Use Type: Marijuana Advance Directives: No Advance Directives Information Provided: Yes Physical Exam Vital Signs: Vital Signs: Last Vital Signs Temp 98.3 F 10/28/22 04:31 Pulse 78 10/28/22 04:31 Resp 20 10/28/22 04:31 BP 150/60 H 10/28/22 04:31 Pulse Ox 99 10/28/22 04:31 O2 Del Method 10/28/22 04:31 BMI result Body Mass Index 24.2 Vital signs have been reviewed as appeared to be correct. Blood pressure normal. Heart rate normal. Respiration rate normal. Temperature normal. Oxygen saturation normal. Appearance: Alert. Oriented X3. No acute distress. Head: Normal external exam. Normocephalic. Atraumatic. No Galloway signs noted. No raccoon eyes noted Eyes: PERRLA. EOMI. Conjunctiva and sclera normal. Eyelids normal. ENT: TM's Normal. Pharynx normal. Uvula midline. Moist mucous membranes. No trismus noted. No drooling noted. No muffled voice noted. Neck: Normal inspection. Neck supple. FROM. No adenopathy. Thyroid Normal. No meningeal signs. No neck mass noted. CVS: Normal heart rate and rhythm. Heart sound normal. No murmurs noted. Pulses normal throughout. Respiratory: No respiratory distress. Painless inspiration. Breath sounds normal. No wheezes/rales/rhonchi noted. Chest nontender. No accessory muscle usage noted or decreased air movement noted. Abdomen: Soft and nontender. Bowel sounds normal in all 4 quadrants. No distention noted. No organomegaly noted. No visible injury noted. Back: No CVA tenderness. Full range of motion noted. Skin: Skin warm and dry. Normal skin color. Normal skin turgor. No rashes/lesions/lacerations noted. Extremities: No lower extremity edema. Extremities exhibit normal range of motion. Extremities nontender. Neuro: Oriented X 3. Cranial nerve exam: II-XII are grossly intact No motor deficit. No sensory deficit. Reflexes normal. Course Course Course Narrative: A 66-year-old male came in with symptoms of influenza patient is positive for influenza A, unremarkable labs. Negative troponin patient has no chest pain now. Medical Decision Making Differential Diagnosis Differential Diagnoses: The differential diagnosis associated with the presentation includes (Influenza/RSV/COVID-19 infection/ACS) Lab Data MDM Lab Attestation statement: I reviewed the patient's lab results. Result Diagrams: 10/28/22 04:41 10/28/22 04:41 Labs: Lab Results 10/28/22 10/28/22 10/28/22 Range/Units 04:41 04:41 04:41 WBC 11.8 H (4.8-10.8) X10*3/uL RBC 3.70 L (4.60-5.80) X10*6/uL Hgb 12.1 L (14.0-18.0) g/dl Hct 36.1 L (42.0-52.0) % MCV 97.6 (80.0-98.0) fL MCH 32.7 (27.0-33.0) pg MCHC 33.5 (31.0-36.0) g/dl RDW 13.5 (11.0-16.0) % Plt Count 221 (160-400) X10*3/uL MPV 9.8 (9.4-12.4) fL Immature Gran % (Auto) 0.3 (0.0-0.4) % Neut % (Auto) 80.6 H (45-73) % Lymph % (Auto) 7.7 L (20-40) % [place] % (Auto) 11.3 H (2-11) % Eos % (Auto) 0.0 (0-4) % Baso % (Auto) 0.1 (0-2) % Lymph # (Auto) 0.9 L (1.2-4.9) X10*3/uL [place] # (Auto) 1.3 H (0.1-1.2) X10*3/uL Eos # (Auto) 0.0 (0.0-0.4) X10*3/uL Baso # (Auto) 0.0 (0.0-0.2) X10*3/uL Abs Immat Gran (auto) 0.03 (0.00-0.03) X10*3/uL Absolute Neuts (auto) 9.5 H (2.0-8.3) x10*3/uL Absolute Nucleated RBC 0.000 (0.0-0.012) X10*3/uL Nucleated RBC % (auto) 0.0 (0.0-0.2) /100WBC Sodium 134 L (135-145) mmol/L Potassium 3.9 (3.3-5.1) mmol/L Chloride 101 (96-108) mmol/L Carbon Dioxide 21 L (22-29) mmol/L Anion Gap 16 (12-20) BUN 16 (9-16) mg/dL Creatinine 0.95 (0.5-1.4) mg/dL Estim Creat Clear Calc 70.8 Estimated GFR > 60 Random Glucose 118 H (60-115) mg/dL Calcium 9.2 (8.4-10.2) mg/dL Troponin I High Sens < 3.5 (<3.5-35.0) ng/L COVID-19 (ZUNILDA) (Negative) COVID-19 Clin Com Influenza Type A (MARCELA) (Negative) Influenza Type B (MARCELA) (Negative) Influenza A & B Note 10/28/22 10/28/22 Range/Units 04:41 04:41 WBC (4.8-10.8) X10*3/uL RBC (4.60-5.80) X10*6/uL Hgb (14.0-18.0) g/dl Hct (42.0-52.0) % MCV (80.0-98.0) fL MCH (27.0-33.0) pg MCHC (31.0-36.0) g/dl RDW (11.0-16.0) % Plt Count (160-400) X10*3/uL MPV (9.4-12.4) fL Immature Gran % (Auto) (0.0-0.4) % Neut % (Auto) (45-73) % Lymph % (Auto) (20-40) % [place] % (Auto) (2-11) % Eos % (Auto) (0-4) % Baso % (Auto) (0-2) % Lymph # (Auto) (1.2-4.9) X10*3/uL [place] # (Auto) (0.1-1.2) X10*3/uL Eos # (Auto) (0.0-0.4) X10*3/uL Baso # (Auto) (0.0-0.2) X10*3/uL Abs Immat Gran (auto) (0.00-0.03) X10*3/uL Absolute Neuts (auto) (2.0-8.3) x10*3/uL Absolute Nucleated RBC (0.0-0.012) X10*3/uL Nucleated RBC % (auto) (0.0-0.2) /100WBC Sodium (135-145) mmol/L Potassium (3.3-5.1) mmol/L Chloride (96-108) mmol/L Carbon Dioxide (22-29) mmol/L Anion Gap (12-20) BUN (9-16) mg/dL Creatinine (0.5-1.4) mg/dL Estim Creat Clear Calc Estimated GFR Random Glucose (60-115) mg/dL Calcium (8.4-10.2) mg/dL Troponin I High Sens (<3.5-35.0) ng/L COVID-19 (ZUNILDA) Negative (Negative) COVID-19 Clin Com See Note Influenza Type A (MARCELA) Positive A (Negative) Influenza Type B (MARCELA) Negative (Negative) Influenza A & B Note See Note Independent Interpretation I performed an independent interpretation of an: EKG (Normal sinus rhythm at 72 beats per minute with occasional PVCs.) Discharge Plan Discharge Clinical Impression: Influenza Patient Disposition: Home, Self-Care Instructions: Influenza (ED) Prescriptions: New oseltamivir [Tamiflu] 75 mg capsule 75 mg PO BID 5 Days Qty: 10 0RF No Action simethicone 180 mg capsule 180 mg PO BID 30 Days Qty: 60 3RF Rx Instructions: after meals docusate sodium [Colace] 100 mg capsule 100 mg PO .DAILY WITH FOOD 30 Days Qty: 30 6RF bisacodyl [Dulcolax (bisacodyl)] 5 mg tablet,delayed release (DR/EC) 10 mg PO BEDTIME 30 Days Qty: 60 3RF pantoprazole [Protonix] 40 mg tablet,delayed release (DR/EC) 40 mg PO BID 30 Days Qty: 60 6RF lidocaine 5 % adhesive patch,medicated 1 patch topical DAILY Rx Instructions: leave on most painful area for up to 12 hrs tizanidine 2 mg tablet 2 mg PO TID PRN (Reason: muscle spasticity) 30 Days Qty: 90 8RF Rx Instructions: If sleepiness occurred while taking tizanidine the patient may take 1 and half or even 2 pills at night to help him to sleep. Referrals: Physician,Unknown J [Primary Care Provider] -
== END 2022-10-28 06:54 | disposition home or self-care (01) ==
PROVIDERS: Emergency Provider Emergency Medicine
DX: J10.1 Influenza due to other identified influenza virus with other respiratory manifestations (principal); M79.10 Myalgia, unspecified site; R05.9 Cough, unspecified; R50.9 Fever, unspecified; Z20.822 Contact with and (suspected) exposure to COVID-19; Z79.899 Other long term (current) drug therapy
CPT/HCPCS: 36415; 80048; 84484; 85025; 87502; 87635; 93005; 99283

== ENCOUNTER 2022-11-07 12:10 | Emergency (ER) | payer MEDICAID, SELFPAY ==
--- NOTE | ~2022-11-07 | XR_ITS ---
EXAMINATION: XR CHEST CLINICAL INFORMATION: Dizziness. COMPARISON: None TECHNIQUE: Frontal view of the chest was obtained. FINDINGS: The lungs are well-expanded and clear of acute process. There is a calcified 3 m nodule right upper lobe. Heart size and pulmonary vascularity is normal. No gross bony abnormality seen. XR/XR chest 1V IMPRESSION: 1. No acute cardiopulmonary process seen. 2. Calcified granuloma right upper lobe.
[2022-11-07 12:14] VITALS: BP 123/84; PULSE 70; O2SAT 99
--- NOTE | 2022-11-07 12:14 | ECG_ITS ---
Test Reason : POSSIBLE [place] Blood Pressure : / mmHG Vent. Rate : 061 BPM Atrial Rate : 061 BPM P-R Int : 158 ms QRS Dur : 094 ms QT Int : 420 ms P-R-T Axes : 054 015 054 degrees QTc Int : 422 ms Normal sinus rhythm Minimal voltage criteria for LVH, may be normal variant ( Sokolow-Jones ) Borderline ECG When compared with ECG of 28-OCT-2022 04:49, Premature ventricular complexes are no longer Present Non-specific change in ST segment in Inferior leads T wave inversion no longer evident in Inferior leads Referred By: Scooter Goss Electronically Signed By:Demar Allan
--- NOTE | 2022-11-07 12:15 | ECG_ITS ---
Test Reason : cp Blood Pressure : / mmHG Vent. Rate : 062 BPM Atrial Rate : 062 BPM P-R Int : 168 ms QRS Dur : 096 ms QT Int : 420 ms P-R-T Axes : 028 002 045 degrees QTc Int : 426 ms Normal sinus rhythm Normal ECG When compared with ECG of 28-OCT-2022 04:49, Premature ventricular complexes are no longer Present Non-specific change in ST segment in Inferior leads T wave inversion no longer evident in Inferior leads Referred By: Generic ED Physician Electronically Signed By:Demar Allan
[2022-11-07 12:16] VITALS: BP 156/64; PULSE 63; RESP 19; TEMP 36.7; O2SAT 96; BMI 24.2
--- NOTE | 2022-11-07 13:07 | ED.CHESTPAIN ---
HPI - Chest Pain General Chief Complaint: Chest Pain Stated Complaint: CHEST/ABD PAIN PER EMS Time Seen by Provider: 11/07/22 12:53 Source: patient Mode of arrival: ambulatory Limitations: no limitations History of Present Illness HPI narrative: 66-year-old male here after having lunch she thinks that was bad he feels like he had food poisoning he had nausea vomiting diarrhea he states he started feeling better now he denies any fevers chills he denies having this problem past denies any falls or injuries. Patient states he vomiting resolved earlier today diarrhea is slowing down as well. Related Data Home Medications Medication Instructions Recorded Confirmed lidocaine 5 % topical patch 1 patch topical DAILY 05/23/22 Previous Rx's Medication Instructions Recorded docusate sodium 100 mg capsule 100 mg PO .DAILY WITH FOOD 30 days 04/16/21 (Colace) #30 caps bisacodyl 5 mg tablet,delayed 10 mg PO BEDTIME 30 days #60 tabs 05/13/21 release (Dulcolax (bisacodyl)) pantoprazole 40 mg tablet,delayed 40 mg PO BID 30 days #60 tabs 05/13/21 release (Protonix) simethicone 180 mg capsule 180 mg PO BID 30 days #60 caps 05/14/21 tizanidine 2 mg tablet 2 mg PO TID PRN muscle spasticity 05/23/22 30 days #90 tabs oseltamivir 75 mg capsule (Tamiflu) 75 mg PO BID 5 days #10 caps 10/28/22 Allergies Allergy/AdvReac Type Severity Reaction Status Date / Time No Known Allergies Allergy Verified 10/28/22 04:33 [No Known Allergies*] Review of Systems Review of Systems: Review of systems: General: Patient denies any fever chills recent illness or falls Musculoskeletal: Denies back pain or body aches or other injuries HEENT: denies headache, runny nose, ear pain Respiratory: denies shortness of breath, cough Cardiovascular: no chest pain or palpitations : denies dysuria, frequency Abdomen: nausea vomiting denies abdominal pain Extremities: no swelling, no pain Skin: no diaphoresis Yes all other systems are reviewed and are negative PMFSH Past Medical History Medical History Anxiety and depression Cerebral aneurysm without rupture Coronary artery calcification seen on CT scan Nephrolithiasis Personal history of nicotine dependence Precordial chest pain Surgical History H/O esophagogastroduodenoscopy History of cardiac catheterization Family History Family History Father Diabetes Mother No problems noted. Social History Social History Alcohol intake: never Patient Tobacco Use Status: Current everyday Tobacco user Tobacco use type: Cigarette Cigarettes Per Day: 6 Years Smoked: (onset 15, 1/2ppd x 51yrs, 25pyh) Substance Use Type: Marijuana Advance Directives: No Advance Directives Information Provided: No Physical Exam Vital Signs: Vital Signs: Last Vital Signs Temp 98.1 F 11/07/22 12:16 Pulse 61 11/07/22 13:59 Resp 18 11/07/22 13:59 BP 148/66 H 11/07/22 13:59 Pulse Ox 100 11/07/22 13:59 O2 Del Method 11/07/22 13:59 BMI result Body Mass Index 24.2 General: Well-appearing well-nourished in no signs of distress HEENT: Normocephalic atraumatic Neck: No signs of JVD, no masses no tenderness or lymphadenopathy Cardiovascular: Regular rate and rhythm Respiratory: Clear to auscultation bilaterally Abdomen: Soft nontender no masses Extremities: Normal pedal pulses no signs of edema Skin: Dry warm no rashes Back: No tenderness full ROM Medical Decision Making Medical Decision Making MDM Narrative: Patient here with nausea vomiting diarrhea eating and he is likely related to what he eating as opposed to cannabis hyperemesis. He denies having history of recurrent vomiting or using showers to help him. Patient likely with dehydration give patient couple L of fluid Zofran Pepcid and Toradol. I will reassess. 1406 Patient feeling better no more vomiting I will send home with zofran. Differential Diagnosis Differential Diagnoses: The differential diagnosis associated with the presentation includes Cyclical vomiting cannabis hyperemesis nausea vomiting food poisoning or viral illness electrolyte abnormality dehydration. Admission/Observation Consideration of admission/observation: Escalation of care including admission/observation considered Lab Data MDM Lab Attestation statement: I reviewed the patient's lab results. 11/07/22 13:21 11/07/22 13:21 Labs: Lab Results 11/07/22 11/07/22 11/07/22 Range/Units 13:21 13:21 13:21 WBC 9.8 (4.8-10.8) X10*3/uL RBC 3.53 L (4.60-5.80) X10*6/uL Hgb 11.5 L (14.0-18.0) g/dl Hct 34.3 L (42.0-52.0) % MCV 97.2 (80.0-98.0) fL MCH 32.6 (27.0-33.0) pg MCHC 33.5 (31.0-36.0) g/dl RDW 13.3 (11.0-16.0) % Plt Count 298 D (160-400) X10*3/uL MPV 9.4 (9.4-12.4) fL Immature Gran % (Auto) 0.5 H (0.0-0.4) % Neut % (Auto) 70.1 (45-73) % Lymph % (Auto) 16.1 L (20-40) % [place] % (Auto) 12.1 H (2-11) % Eos % (Auto) 1.0 (0-4) % Baso % (Auto) 0.2 (0-2) % Lymph # (Auto) 1.6 (1.2-4.9) X10*3/uL [place] # (Auto) 1.2 (0.1-1.2) X10*3/uL Eos # (Auto) 0.1 (0.0-0.4) X10*3/uL Baso # (Auto) 0.0 (0.0-0.2) X10*3/uL Abs Immat Gran (auto) 0.05 H (0.00-0.03) X10*3/uL Absolute Neuts (auto) 6.9 (2.0-8.3) x10*3/uL Absolute Nucleated RBC 0.000 (0.0-0.012) X10*3/uL Nucleated RBC % (auto) 0.0 (0.0-0.2) /100WBC Sodium 139 (135-145) mmol/L Potassium 4.1 (3.3-5.1) mmol/L Chloride 108 (96-108) mmol/L Carbon Dioxide 23 (22-29) mmol/L Anion Gap 12 (12-20) BUN 24 H (9-16) mg/dL Creatinine 0.80 (0.5-1.4) mg/dL Estim Creat Clear Calc 84.1 Estimated GFR > 60 Random Glucose 88 (60-115) mg/dL Calcium 8.9 (8.4-10.2) mg/dL Total Bilirubin 0.7 (0.0-1.0) mg/dL Direct Bilirubin 0.2 (0.0-0.5) mg/dL AST 20 (5-37) U/L ALT 28 (0-40) U/L Alkaline Phosphatase 62 (39-117) U/L Troponin I High Sens < 3.5 (<3.5-35.0) ng/L Total Protein 6.7 (6.5-8.0) g/dL Albumin 4.0 (3.5-5.0) g/dL Lipase 17 (8-78) U/L Radiology Impression Discussion of test interpretation with radiology: I have reviewed the radiologist's reading. External Record Review External record reviewed: Outpatient record Discharge Plan Discharge Clinical Impression: Vomiting, Diarrhea, Acute dehydration Patient Disposition: Home, Self-Care Instructions: Acute Nausea and Vomiting (ED) Additional Instructions: Please call to follow up for your vomiting. Prescriptions: No Action simethicone 180 mg capsule 180 mg PO BID 30 Days Qty: 60 3RF Rx Instructions: after meals oseltamivir [Tamiflu] 75 mg capsule 75 mg PO BID 5 Days Qty: 10 0RF docusate sodium [Colace] 100 mg capsule 100 mg PO .DAILY WITH FOOD 30 Days Qty: 30 6RF bisacodyl [Dulcolax (bisacodyl)] 5 mg tablet,delayed release (DR/EC) 10 mg PO BEDTIME 30 Days Qty: 60 3RF pantoprazole [Protonix] 40 mg tablet,delayed release (DR/EC) 40 mg PO BID 30 Days Qty: 60 6RF lidocaine 5 % adhesive patch,medicated 1 patch topical DAILY Rx Instructions: leave on most painful area for up to 12 hrs tizanidine 2 mg tablet 2 mg PO TID PRN (Reason: muscle spasticity) 30 Days Qty: 90 8RF Rx Instructions: If sleepiness occurred while taking tizanidine the patient may take 1 and half or even 2 pills at night to help him to sleep.
[2022-11-07 13:26] LABS: MANUAL DIFF FLAG NO
[2022-11-07 13:30] LABS: Basophils Percent Auto 0.2 % (0-2); Eosinophils Absolute Auto 0.1 X10*3/uL (0.0-0.4); Hematocrit 34.3 % (42.0-52.0); Hemoglobin 11.5 g/dl (14.0-18.0); Imm Gran Abs Auto 0.05 X10*3/uL (0.00-0.03); Imm Gran Pct Auto 0.5 % (0.0-0.4); Lymphocytes Absolute Auto 1.6 X10*3/uL (1.2-4.9); Lymphocytes Percent Auto 16.1 % (20-40); Mean Corpuscular HGB Conc 33.5 g/dl (31.0-36.0); Mean Corpuscular Hemoglobin 32.6 pg (27.0-33.0); Mean Corpuscular Volume 97.2 fL (80.0-98.0); Mean Platelet Volume 9.4 fL (9.4-12.4); Monocytes Absolute Auto 1.2 X10*3/uL (0.1-1.2); Monocytes Percent Auto 12.1 % (2-11); Neutrophils Absolute Auto 6.9 x10*3/uL (2.0-8.3); Neutrophils Percent Auto 70.1 % (45-73); Platelet Count 298 X10*3/uL (160-400); Red Blood Count 3.53 X10*6/uL (4.60-5.80); Red Cell Distribution Width 13.3 % (11.0-16.0); White Blood Count 9.8 X10*3/uL (4.8-10.8)
[2022-11-07 13:45] LABS: Alanine Aminotransferase 28 U/L (0-40); Alkaline Phosphatase 62 U/L (39-117); Anion Gap 12 (12-20); Aspartate Amino Transferase 20 U/L (5-37); Bilirubin Direct 0.2 mg/dL (0.0-0.5); Bilirubin Total 0.7 mg/dL (0.0-1.0); Blood Urea Nitrogen 24 mg/dL (9-16); Calcium 8.9 mg/dL (8.4-10.2); Carbon Dioxide 23 mmol/L (22-29); Chloride 108 mmol/L (96-108); Creatinine Clr Calc Pharmacy 84.1; Estimated Glomerular Filt Rate > 60; Glucose Random 88 mg/dL (60-115); Lipase 17 U/L (8-78); Potassium 4.1 mmol/L (3.3-5.1); Sodium 139 mmol/L (135-145); Total Protein 6.7 g/dL (6.5-8.0)
[2022-11-07 13:50] LABS: Troponin-I High Sensitivity < 3.5 ng/L (<3.5-35.0)
[2022-11-07 13:59] VITALS: BP 148/66; PULSE 61; RESP 18; O2SAT 100
[2022-11-07] MEDS: Ketorolac Tromethamine 15 MG/ML VIAL IVPUSH (14:13)
[2022-11-07] MEDS: 0.9 % Sodium Chloride 1,000 ML 999 ML IV ×2 (14:14→14:30)
[2022-11-07 14:15] LABS: Influenza A PCR NEGATIVE (Negative); Influenza B PCR NEGATIVE (Negative); Resp Syncy Virus RNA Qual PCR NEGATIVE (Negative); SARS COV2 PCR INHOUSE NEGATIVE (Negative)
[2022-11-07] MEDS: ondansetron HCL 4 MG/2 ML VIAL IVPUSH (14:15)
[2022-11-07] MEDS: Famotidine/PF 20 MG/2 ML VIAL IVPUSH (14:15)
--- NOTE | 2022-11-07 14:32 | PC.NURSE ---
patient a&ox3, vss, monitoring and evaluation advisor applied sinus marco antonio, [t denies pain/discomfort, iv inserted labs drawn pt medicated per order, will continue to monitor
[2022-11-07 15:10] VITALS: BP 153/67; PULSE 60; RESP 18; O2SAT 97
== END 2022-11-07 15:19 | disposition home or self-care (01) ==
PROVIDERS: Emergency Provider Student in an Organized Health Care Education/Training Program
DX: R11.10 Vomiting, unspecified (principal); R19.7 Diarrhea, unspecified; E86.0 Dehydration; F17.210 Nicotine dependence, cigarettes, uncomplicated; F12.90 Cannabis use, unspecified, uncomplicated; Z20.822 Contact with and (suspected) exposure to COVID-19; Z20.828 Contact with and (suspected) exposure to other viral communicable diseases
CPT/HCPCS: 0241U; 36415; 71045; 80048; 80076; 83690; 84484; 85025; 93005; 96374; 96375; 99284; 99285; J1885; J2405

== ENCOUNTER 2023-01-24 08:32 | Outpatient (REF) | payer MEDICARE, MEDICAID, SELFPAY ==
[2023-01-24 17:48] LABS: Urine Cytology See Pathology rpt
== END 2023-01-24 08:33 | disposition home or self-care (01) ==
LOC: HO.LAB 08:32
PROVIDERS: PCP Nurse Practitioner Primary Care; Visit Provider Nurse Practitioner Family
DX: R31.29 Other microscopic hematuria (principal); R35.0 Frequency of micturition; N40.0 Benign prostatic hyperplasia without lower urinary tract symptoms; F17.210 Nicotine dependence, cigarettes, uncomplicated; Z79.899 Other long term (current) drug therapy
CPT/HCPCS: 51798; 88112; 99202

== ENCOUNTER 2023-03-06 13:31 | Outpatient (REF) | payer OTHER, MEDICAID, SELFPAY ==
--- NOTE | ~2023-03-06 | XR_ITS ---
EXAMINATION: XR LUMBOSACRAL SPINE CLINICAL INFORMATION: Pain and right-sided sciatica COMPARISON: Previous x-ray April 2022 TECHNIQUE: Three views of the lumbosacral spine. FINDINGS: The vertebral bodies and posterior elements are normal. The disc spaces are preserved and the vertebral alignment is normal. The paraspinal soft tissues are normal. XR/XR lumbar spine 2-3V IMPRESSION: Unremarkable examination.
== END 2023-03-06 13:32 | disposition home or self-care (01) ==
LOC: HO.HHCX 13:31
PROVIDERS: PCP Internal Medicine; Visit Provider Internal Medicine
DX: M54.41 Lumbago with sciatica, right side (principal)
CPT/HCPCS: 72100

== ENCOUNTER → 2023-03-07 10:33 | Outpatient (BNVA) | payer OTHER, MEDICAID, SELFPAY | PROVIDERS: PCP Internal Medicine; Visit Provider Urology ==

== ENCOUNTER → 2023-03-21 13:42 | Outpatient (BNVA) | payer OTHER, MEDICAID, SELFPAY | PROVIDERS: PCP Internal Medicine; Visit Provider Urology | DX: R31.29 Other microscopic hematuria (principal); N40.0 Benign prostatic hyperplasia without lower urinary tract symptoms | CPT/HCPCS: 52000; 99212; C1747 ==

== ENCOUNTER 2023-07-25 09:00 | Outpatient (RCR) | payer OTHER, MEDICAID, SELFPAY | END 2023-11-14 13:12 | disposition home or self-care (01) | LOC: HO.PTCHIC 09:00 | PROVIDERS: PCP Internal Medicine; Visit Provider Internal Medicine | DX: M54.41 Lumbago with sciatica, right side (principal) | CPT/HCPCS: 97110; 97163 ==

== ENCOUNTER 2023-08-30 16:10 | Outpatient (REF) | payer MEDICARE, MEDICAID, SELFPAY | END 2023-08-30 16:11 | disposition home or self-care (01) | LOC: HO.HHCLNP 16:10 | PROVIDERS: Visit Provider Internal Medicine | DX: R39.9 Unspecified symptoms and signs involving the genitourinary system (principal) | CPT/HCPCS: 87086 ==

== ENCOUNTER 2023-09-25 11:20 | Emergency (ER) | payer MEDICARE, MEDICAID, SELFPAY ==
--- NOTE | 2023-09-25 | ECG_ITS ---
Test Reason : CHEST PAIN Blood Pressure : / mmHG Vent. Rate : 059 BPM Atrial Rate : 059 BPM P-R Int : 168 ms QRS Dur : 094 ms QT Int : 404 ms P-R-T Axes : 023 011 048 degrees QTc Int : 399 ms Sinus bradycardia RSR' or QR pattern in V1 suggests right ventricular conduction delay Otherwise normal ECG No significant changes seen Referred By: Generic ED Physician Electronically Signed By:KAIN PALOMO MD
--- NOTE | ~2023-09-25 | XR_ITS ---
EXAMINATION: X-RAY CHEST AND ABDOMEN CLINICAL INFORMATION: Chest pain, back pain, constipation. COMPARISON: Chest radiograph 11/07/2022. CT abdomen/pelvis 01/09/2021. TECHNIQUE: PA and lateral views of the chest. AP supine views of the abdomen. FINDINGS: Normal appearance of the cardiomediastinal silhouette. No focal airspace opacities, pleural effusions or pneumothorax. Chronic calcified granuloma in the right upper lobe. Nonobstructive bowel gas pattern. No significant stool content. Mild thoracic spondylosis. No acute osseous findings. XR/XR KUB IMPRESSION: 1. No acute cardiopulmonary findings. 2. Nonobstructive bowel gas pattern. No significant stool content.
--- NOTE | ~2023-09-25 | CT_ITS ---
EXAMINATION: CT ABDOMEN AND PELVIS WITHOUT CONTRAST CLINICAL INFORMATION: Flank pain, dysuria. COMPARISON: CT abdomen/pelvis 01/09/2021. TECHNIQUE: Multidetector volumetric imaging was performed from the superior aspect of the liver through the pubic symphysis. Sagittal and coronal reformatted images were obtained on the technologist's workstation. This CT examination was performed using dose optimization techniques as appropriate, variously including the following: *Automated exposure control *Adjustment of mA and/or kV according to patient size (this includes techniques or standardized protocols for targeted exams where dose is matched to indication/reason for exam; i.e. extremities or head) *Use of iterative reconstruction technique DLP: 405 mGy-cm FINDINGS: The lack of intravenous contrast limits evaluation of the solid visceral organs including the liver, spleen, pancreas, and kidneys. LUNG BASES: No focal consolidation or pleural effusion. Small calcified granuloma in the left lower lobe. Partially imaged coronary artery calcifications. LIVER, GALLBLADDER, AND BILIARY TREE: The liver is normal in size, shape, and attenuation. Unchanged too small to characterize hypodensities in the hepatic dome (3:12 and 3:13). No biliary ductal dilatation is present. The gallbladder is unremarkable with no evidence of radiopaque gallstones, gallbladder wall thickening, or obvious pericholecystic inflammatory changes. PANCREAS: Unremarkable. SPLEEN: Unremarkable. ADRENAL GLANDS: Unremarkable. KIDNEYS AND URETERS: Trace left-sided hydroureteronephrosis without a distinct obstructive calculus. Nonobstructive punctate calculus in the upper pole of the left kidney. Too small to characterize hypodensity in the lower pole of the left kidney (3:37) is statistically in favor to represent a simple cyst for which no imaging follow-up is recommended. No significant perinephric fat stranding. BLADDER: Unremarkable. GASTROINTESTINAL TRACT: The stomach and the small bowel are nondilated. Normal appendix. Colonic diverticulosis without significant pericolonic fat stranding or free fluid. No evidence of bowel obstruction. ABDOMINAL WALL: Small fat-containing left-sided inguinal hernia. LYMPH NODES: No lymphadenopathy. VASCULAR: Moderate atherosclerotic disease. Normal caliber abdominal aorta. PELVIC VISCERA: Unremarkable. OSSEOUS STRUCTURES: No acute or aggressive appearing osseous findings. Mild degenerative changes of the spine. CT/CT abdomen pelvis wo IV con IMPRESSION: 1. Trace left-sided hydroureteronephrosis without a distinct obstructive calculus. 2. Nonobstructive punctate calculus in the upper pole of the left kidney. 3. Diverticulosis but no evidence of acute diverticulitis.
--- NOTE | ~2023-09-25 | XR_ITS ---
EXAMINATION: X-RAY CHEST AND ABDOMEN CLINICAL INFORMATION: Chest pain, back pain, constipation. COMPARISON: Chest radiograph 11/07/2022. CT abdomen/pelvis 01/09/2021. TECHNIQUE: PA and lateral views of the chest. AP supine views of the abdomen. FINDINGS: Normal appearance of the cardiomediastinal silhouette. No focal airspace opacities, pleural effusions or pneumothorax. Chronic calcified granuloma in the right upper lobe. Nonobstructive bowel gas pattern. No significant stool content. Mild thoracic spondylosis. No acute osseous findings. XR/XR chest 2V IMPRESSION: 1. No acute cardiopulmonary findings. 2. Nonobstructive bowel gas pattern. No significant stool content.
[2023-09-25 12:04] VITALS: BP 171/54; PULSE 58; RESP 16; TEMP 36.5; O2SAT 99; BMI 24.5
--- NOTE | 2023-09-25 12:04 | ED_ITS ---
HPI - Chest Pain General Chief Complaint: Back Pain/Injury Stated Complaint: Chest pain/Back pain Time Seen by Provider: 09/25/23 14:19 Source: patient Mode of arrival: ambulatory Limitations: no limitations History of Present Illness HPI narrative: 67-year-old male with history of BPH, chronic idiopathic constipation, spondylosis of the lumbar and thoracic spine, and chronic pain syndrome presents for evaluation of bilateral flank pain x 2 days. He reports the pain is constant and radiates to his lower abdomen bilaterally. He reports dysuria but no hematuria. He has trialed ibuprofen with good effect but was awakened by the pain at 2 AM last night. He reports palpitations but denies chest pain. No shortness of breath or wheeze. No vision changes, dizziness, or syncope. He reports 2 weeks of constipation for which he has not taken any laxatives/stool softeners. He denies vomiting. No fevers or chills. He denies trauma. No urinary or bowel incontinence. No numbness or paresthesias. No gait abnormalities. No foot drop. Related Data Home Medications Medication Instructions Recorded Confirmed cyanocobalamin (vitamin B-12) mcg IM 03/07/23 1,000 mcg/mL injection solution gabapentin 100 mg capsule 100 mg PO TID 03/07/23 Previous Rx's Medication Instructions Recorded tamsulosin 0.4 mg capsule (Flomax) 0.4 mg PO BEDTIME 90 days #90 caps 06/15/23 docusate sodium 100 mg capsule 100 mg PO BID #20 caps 09/25/23 (Colace) ketorolac 10 mg tablet 10 mg PO TID PRN pain 5 days #15 09/25/23 tabs lidocaine 5 % topical patch 1 patch topical DAILY PRN pain #15 09/25/23 ea sennosides 8.6 mg tablet (senna) 8.6 mg PO BEDTIME #14 tabs 09/25/23 Allergies Allergy/AdvReac Type Severity Reaction Status Date / Time No Known Allergies Allergy Verified 03/21/23 14:05 [No Known Allergies*] Review of Systems 2 Review of Systems: Constitutional : No Weight loss, No Fever, No Chills, No Fatigue, No Malaise Eyes: No Eye Pain, No Swelling, No Redness Cardiovascular : No Chest Pain, No SOB, No Dyspnea on Exertion, No Orthopnea, No Edema, + Palpitations Respiratory : No Cough, No Sputum, No Wheezing Gastrointestinal : No Nausea, No Vomiting, No Diarrhea, No Constipation, No abdominal Pain, No Hematochezia, No Melena Genitourinary : + Dysuria, No Urinary Frequency, No Hematuria, Musculoskeletal : + Bilateral flank pain. No joint pain, No Myalgias, No Joint Swelling Skin : No Skin Lesions, No rash Neuro : No Weakness, No Numbness, No Dizziness, No Headache. Psych : No Anxiety/Panic, No Depression All other systems reviewed and are negative Yes all other systems are reviewed and are negative [facility] Past Medical History Attestation statement: The following information was validated with the patient. Source: old records reviewed and nursing notes reviewed Medical History Anxiety and depression Personal history of nicotine dependence Cerebral aneurysm without rupture Coronary artery calcification seen on CT scan Precordial chest pain Nephrolithiasis Surgical History History of cardiac catheterization H/O esophagogastroduodenoscopy Family History Family History Father Diabetes Mother No problems noted. Social History Alcohol intake: never Patient Tobacco Use Status: Current everyday Tobacco user Tobacco use type: Cigarette Cigarettes Per Day: 6 Years Smoked: (onset 15, 1/2ppd x 51yrs, 25pyh) Substance Use Type: Marijuana Advance Directives: No Advance Directives Information Provided: Yes Physical Exam 2 Vital Signs: Vital Signs: Last Vital Signs Temp 98 F 09/25/23 16:23 Pulse 60 09/25/23 16:23 Resp 18 09/25/23 16:23 BP 172/88 H 09/25/23 16:23 Pulse Ox 99 09/25/23 16:23 O2 Del Method Room Air 09/25/23 16:23 BMI result Body Mass Index 24.5 Elevated blood pressure likely secondary to pain Appearance: Alert.? Oriented X3.? No acute distress.? Head: Normocephalic, atraumatic, no step-offs or deformities Eyes: Pupils equal, round and reactive to light.? Neck: Normal inspection.? Neck supple.? CVS: Normal heart rate and rhythm.? Pulses normal.? Respiratory: No respiratory distress.? Breath sounds normal.? Abdomen: Soft and nontender.? Skin: Skin warm and dry.? Normal skin color.? Normal skin turgor.? Extremities: No lower extremity edema.? No calf ttp. 5/5 strength to bilateral upper and lower extremities 2+ DP, PT, AT pulses bilaterally. No numbness. No sensory deficit. Back: No midline tenderness, no C-spine tenderness, full range of motion, no CVA tenderness bilaterally Neuro: Oriented X 3.? No motor deficit.? No sensory deficit. CN 2-12 intact . Ambulating with steady gait normal coordination no saddle paresthesias. Course Course Course Narrative: This is a rapid medical exam. Deferred additional HPI, rOS, PE to primary provider. 67 yo male here with back pain/chest pain/constipation x 2 days. Will obtain labs, UA, CXR, EKG VSS Reevaluation(s) Reevaluation #1: CBC appears to be around patient's baseline with a macrocytic anemia. Chemistry unremarkable. Troponin negative, EKG nonischemic, patient denied chest pain to this provider. UA with trace blood. No bacteria. I do not suspect UTI. Patient is noted to have trace left-sided hydroureter nephrosis without distinct obstructive calculus, nonobstructive punctate calculus in the upper pole of left kidney. Diverticulosis but no evidence of acute diverticulitis. Patient is likely passing kidney stones. KUB with a nonobstructive bowel gas pattern. No obstruction noted on CT. Likely functional constipation. No acute cardiopulmonary findings on chest x-ray. Will discharge patient home with Toradol, senna, Colace and MiraLax for constipation. Educated patient on diagnosis and treatment plan, answered all question, patient verbalizes understanding. At this time patient will be discharged home, advised to return with new or worsening symptoms. Educated on worrisome signs and symptoms and when to return. At this time I feel comfortable discharge home. Time: 16:55 Medications Administered Discontinued Medications Generic Name Dose Route Start Last Admin Trade Name Freq PRN Reason Stop Dose Admin Ketorolac Tromethamine 30 mg 09/25/23 15:41 09/25/23 15:56 Ketorolac Tromethamine 30 Mg/Ml Vial IM 09/25/23 15:42 30 mg ONCE ONE Administration Medical Decision Making Medical Decision Making [facility] Narrative: 67-year-old male presents for evaluation of bilateral flank pain that radiates to the abdomen, dysuria, and palpitations for the past 2 days. He also reports 2 weeks of constipation. Physical exam benign. Likely nephrolithiasis, UTI, osteoarthritis vs msk pain. Less likely pyelonephritis, obstructive uropathy. Unlikely cauda equinae, septic arthritis, dysrhythmia, DE, epidural abscess, stroke, small bowel obstruction, large bowel obstruction, malignancy, PE, acute abdomen, dissection,cord compression. No concern for neurovascular compromise. Plan: CT abdomen and pelvix, UA, labs Differential Diagnosis Differential Diagnoses: The differential diagnosis associated with the presentation includes Likely nephrolithiasis, UTI, osteoarthritis vs msk pain. Less likely pyelonephritis, obstructive uropathy. . Unlikely cauda equinae, septic arthritis, dysrhythmia, DE, epidural abscess, stroke, small bowel obstruction, large bowel obstruction, malignancy malignancy, PE, acute abdomen, dissection, cord compression. No concern for neurovascular compromise. Admission/Observation Consideration of admission/observation: Escalation of care including admission/observation considered Unlikely Lab Data [facility] Lab Attestation statement: I reviewed the patient's lab results. Chronic macrocytic normochromic anemia. BUN mildly elevated at 18-- likely secondary to decreased PO fluid intake 09/25/23 12:37 09/25/23 12:37 Labs: Lab Results 09/25/23 09/25/23 Range/Units 12:37 15:36 WBC 8.6 (4.8-10.8) X10*3/uL RBC 3.96 L (4.60-5.80) X10*6/uL Hgb 13.0 L (14.0-18.0) g/dl Hct 39.6 L (42.0-52.0) % MCV 100.0 H (80.0-98.0) fL MCH 32.8 (27.0-33.0) pg MCHC 32.8 (31.0-36.0) g/dl RDW 13.1 (11.0-16.0) % Plt Count 232 (160-400) X10*3/uL MPV 9.6 (9.4-12.4) fL Immature Gran % (Auto) 0.2 (0.0-0.4) % Neut % (Auto) 60.3 (45-73) % Lymph % (Auto) 29.4 (20-40) % [place] % (Auto) 9.0 (2-11) % Eos % (Auto) 0.8 (0-4) % Baso % (Auto) 0.3 (0-2) % Lymph # (Auto) 2.5 (1.2-4.9) X10*3/uL [place] # (Auto) 0.8 (0.1-1.2) X10*3/uL Eos # (Auto) 0.1 (0.0-0.4) X10*3/uL Baso # (Auto) 0.0 (0.0-0.2) X10*3/uL Abs Immat Gran (auto) 0.02 (0.00-0.03) X10*3/uL Absolute Neuts (auto) 5.2 (2.0-8.3) x10*3/uL Absolute Nucleated RBC 0.000 (0.0-0.012) X10*3/uL Nucleated RBC % (auto) 0.0 (0.0-0.2) /100WBC PT 12.1 (11.1-13.3) SEC INR 1.0 (0.9-1.1) Sodium 138 (135-145) mmol/L Potassium 5.0 D (3.3-5.1) mmol/L Chloride 108 (96-108) mmol/L Carbon Dioxide 23 (22-29) mmol/L Anion Gap 12 (12-20) BUN 18 H (9-16) mg/dL Creatinine 0.98 (0.5-1.4) mg/dL Estim Creat Clear Calc 67.8 Estimated GFR > 60 Random Glucose 104 (60-115) mg/dL Calcium 9.4 (8.4-10.2) mg/dL Magnesium 2.2 (1.6-2.6) mg/dL Total Bilirubin 0.4 (0.0-1.0) mg/dL Direct Bilirubin 0.1 (0.0-0.5) mg/dL AST 20 (5-37) U/L ALT 16 (0-40) U/L Alkaline Phosphatase 58 (39-117) U/L Troponin I High Sens < 2.7 (<3.5-35.0) ng/L Total Protein 7.9 (6.5-8.0) g/dL Albumin 4.3 (3.5-5.0) g/dL Lipase 25 (8-78) U/L Urine Color Yellow Urine Appearance Clear Urine pH 6.0 (5.0-9.0) Ur Specific [place] 1.025 (1.005-1.025) Urine Protein Negative (Neg-Trace) mg/dL Urine Glucose (UA) Negative (Negative) mg/dL Urine Ketones Negative (Negative) mg/dL Urine Blood Trace H (Negative) Urine Nitrite Negative (Negative) Ur Leukocyte Esterase Negative (Negative) Urine RBC 3-5 H (0-2) /HPF Urine WBC 0-5 (0-5) /HPF Ur Squamous Epith Cells 0-2 (0-2) /HPF Urine Bacteria None Seen (None Seen) Hyaline Casts 0-2 (0-2) /LPF Independent Interpretation I performed an independent interpretation of an: Plain X-Ray and CT Scan Interpretation: XR/XR KUB IMPRESSION: 1. No acute cardiopulmonary findings. 2. Nonobstructive bowel gas pattern. No significant stool content. XR/XR chest 2V IMPRESSION: 1. No acute cardiopulmonary findings. 2. Nonobstructive bowel gas pattern. No significant stool content. CT/CT abdomen pelvis wo IV con IMPRESSION: 1. Trace left-sided hydroureteronephrosis without a distinct obstructive calculus. 2. Nonobstructive punctate calculus in the upper pole of the left kidney. 3. Diverticulosis but no evidence of acute diverticulitis. Radiology Impression Discussion of test interpretation with radiology: I have reviewed the radiologist's reading. External Record Review External record reviewed: Inpatient record, Office record, Outpatient record, Prior outpatient labs, Prior outpatient radiology, Primary care record and Outside ED record Chronic Conditions Patient?s care impacted by: Hypertension and Other osteoarthritis, spondylosis, BPH Discharge Plan Discharge Clinical Impression: Acute right flank pain, Acute constipation, Kidney calculi Patient Disposition: Home, Self-Care Instructions: Constipation (ED), Kidney Stones (ED), High Fiber Diet (ED), Flank Pain (ED) Additional Instructions: Take your medications as prescribed. If you were prescribed antibiotics today, it is important that you take your medication to their entirety, do not skip any doses, do not finish them early. Follow-up with your primary care provider this week. Follow up with urology this week. Return to the emergency department with new or worsening symptoms. Such as fevers, chills, chest pain, shortness of breath, nausea, vomiting, dizziness, headache, vision changes, lethargy In case of emergency call 911 Toradol has been sent to your pharmacy, you tolerated this well in the department. Please take this as prescribed do not take this with ibuprofen, or other NSAIDs, do not mix this with alcohol. Side effects of this medication including increased risk for bleeding and possible kidney injury. XR/XR KUB IMPRESSION: 1. No acute cardiopulmonary findings. 2. Nonobstructive bowel gas pattern. No significant stool content. XR/XR chest 2V IMPRESSION: 1. No acute cardiopulmonary findings. 2. Nonobstructive bowel gas pattern. No significant stool content. CT/CT abdomen pelvis wo IV con IMPRESSION: 1. Trace left-sided hydroureteronephrosis without a distinct obstructive calculus. 2. Nonobstructive punctate calculus in the upper pole of the left kidney. 3. Diverticulosis but no evidence of acute diverticulitis. Prescriptions: New sennosides [senna] 8.6 mg tablet 8.6 mg PO BEDTIME Qty: 14 0RF ketorolac 10 mg tablet 10 mg PO TID PRN (Reason: pain) 5 Days Qty: 15 0RF lidocaine 5 % adhesive patch,medicated 1 patch topical DAILY PRN (Reason: pain) Qty: 15 0RF Rx Instructions: leave on most painful area for up to 12 hrs docusate sodium [Colace] 100 mg capsule 100 mg PO BID Qty: 20 0RF No Action tamsulosin [Flomax] 0.4 mg capsule 0.4 mg PO BEDTIME 90 Days Qty: 90 2RF cyanocobalamin (vitamin B-12) 1,000 mcg/mL solution IM gabapentin 100 mg capsule 100 mg PO TID Referrals: [facility] [place] U[facility] Services [Provider Group] - 2 days Aline Carney MD [Primary Care Provider] - 2 days
[2023-09-25 12:41] LABS: MANUAL DIFF FLAG NO
[2023-09-25 12:46] LABS: Basophils Percent Auto 0.3 % (0-2); Eosinophils Absolute Auto 0.1 X10*3/uL (0.0-0.4); Eosinophils Percent Auto 0.8 % (0-4); Hematocrit 39.6 % (42.0-52.0); Imm Gran Abs Auto 0.02 X10*3/uL (0.00-0.03); Imm Gran Pct Auto 0.2 % (0.0-0.4); Lymphocytes Absolute Auto 2.5 X10*3/uL (1.2-4.9); Lymphocytes Percent Auto 29.4 % (20-40); Mean Corpuscular HGB Conc 32.8 g/dl (31.0-36.0); Mean Corpuscular Hemoglobin 32.8 pg (27.0-33.0); Mean Platelet Volume 9.6 fL (9.4-12.4); Monocytes Absolute Auto 0.8 X10*3/uL (0.1-1.2); Neutrophils Absolute Auto 5.2 x10*3/uL (2.0-8.3); Neutrophils Percent Auto 60.3 % (45-73); Platelet Count 232 X10*3/uL (160-400); Red Blood Count 3.96 X10*6/uL (4.60-5.80); Red Cell Distribution Width 13.1 % (11.0-16.0); White Blood Count 8.6 X10*3/uL (4.8-10.8)
[2023-09-25 13:01] LABS: Alanine Aminotransferase 16 U/L (0-40); Albumin Level 4.3 g/dL (3.5-5.0); Alkaline Phosphatase 58 U/L (39-117); Anion Gap 12 (12-20); Aspartate Amino Transferase 20 U/L (5-37); Bilirubin Direct 0.1 mg/dL (0.0-0.5); Bilirubin Total 0.4 mg/dL (0.0-1.0); Blood Urea Nitrogen 18 mg/dL (9-16); Calcium 9.4 mg/dL (8.4-10.2); Carbon Dioxide 23 mmol/L (22-29); Chloride 108 mmol/L (96-108); Creatinine Clr Calc Pharmacy 67.8; Estimated Glomerular Filt Rate > 60; Glucose Random 104 mg/dL (60-115); Lipase 25 U/L (8-78); Magnesium 2.2 mg/dL (1.6-2.6); Sodium 138 mmol/L (135-145); Total Protein 7.9 g/dL (6.5-8.0)
[2023-09-25 13:02] LABS: Prothrombin Time 12.1 SEC (11.1-13.3)
[2023-09-25 13:07] LABS: Troponin-I High Sensitivity < 2.7 ng/L (<3.5-35.0)
--- NOTE | 2023-09-25 15:21 | ED_ITS ---
HPI - General Adult General Chief complaint: Back Pain/Injury Stated complaint: Chest pain/Back pain Time Seen by Provider: 09/25/23 14:19 Related Data Home Medications ?Medication ?Instructions ?Recorded ?Confirmed acetaminophen 500 mg tablet 1,000 mg PO Q6H PRN Pain 04/24/24 04/24/24 cyanocobalamin (vitamin B-12) 1,000 mcg PO DAILY 04/24/24 04/24/24 1,000 mcg tablet (Vitamin B-12) gabapentin 300 mg capsule 300 mg PO TID 04/24/24 04/24/24 terazosin 5 mg capsule 5 mg PO BEDTIME 04/24/24 04/24/24 Previous Rx's ?Medication ?Instructions ?Recorded lidocaine 5 % topical patch 1 patch topical DAILY PRN pain #15 09/25/23 ea sennosides 8.6 mg tablet (senna) 8.6 mg PO BEDTIME #14 tabs 09/25/23 oxycodone 5 mg tablet 5 mg PO Q6H PRN pain (scale score 04/29/24 7-10) #15 tabs Allergies Allergy/AdvReac Type Severity Reaction Status Date / Time No Known Allergies Allergy Verified 04/29/24 07:38 [No Known Allergies*] [facility] Past Medical History Medical History Smokers' cough Anxiety and depression Personal history of nicotine dependence Cerebral aneurysm without rupture Coronary artery calcification seen on CT scan Precordial chest pain Nephrolithiasis Surgical History Hx of colonoscopy History of cardiac catheterization H/O esophagogastroduodenoscopy Family History Family History Father Diabetes Mother No problems noted. Social History Social History (Updated 04/24/24 @ 10:09 by Margret Higginbotham RN) Household Members: Family Housing: Apartment Are you a primary caretaker to a significant other at home: No Do you presently have visiting nurse or other home services: No 75 years or older and lives alone: No Alcohol intake: never Patient Tobacco Use Status: Current everyday Tobacco user Tobacco use type: Cigarette Cigarettes Per Day: 10 Years Smoked: (onset 15, 1/2ppd x 51yrs, 25pyh) Substance Use Type: Marijuana Physical Exam ED Vital Signs: Vital Signs - 24 hr 09/25/23 12:04 Temperature 97.7 F Pulse Rate 58 Respiratory Rate 16 Blood Pressure 171/54 H Pulse Oximetry 99 Oxygen Delivery Method Room Air BMI result Body Mass Index 24.5 Medications Administered Discontinued Medications Generic Name Dose Route Start Last Admin Trade Name Freq PRN Reason Stop Dose Admin Ketorolac Tromethamine 30 mg 09/25/23 15:41 09/25/23 15:56 Ketorolac Tromethamine 30 Mg/Ml Vial IM 09/25/23 15:42 30 mg ONCE ONE Administration Medical Decision Making Lab Data 09/25/23 12:37 09/25/23 12:37 Labs: Lab Results 09/25/23 09/25/23 Range/Units 12:37 15:36 WBC 8.6 (4.8-10.8) X10*3/uL RBC 3.96 L (4.60-5.80) X10*6/uL Hgb 13.0 L (14.0-18.0) g/dl Hct 39.6 L (42.0-52.0) % MCV 100.0 H (80.0-98.0) fL MCH 32.8 (27.0-33.0) pg MCHC 32.8 (31.0-36.0) g/dl RDW 13.1 (11.0-16.0) % Plt Count 232 (160-400) X10*3/uL MPV 9.6 (9.4-12.4) fL Immature Gran % (Auto) 0.2 (0.0-0.4) % Neut % (Auto) 60.3 (45-73) % Lymph % (Auto) 29.4 (20-40) % [place] % (Auto) 9.0 (2-11) % Eos % (Auto) 0.8 (0-4) % Baso % (Auto) 0.3 (0-2) % Lymph # (Auto) 2.5 (1.2-4.9) X10*3/uL [place] # (Auto) 0.8 (0.1-1.2) X10*3/uL Eos # (Auto) 0.1 (0.0-0.4) X10*3/uL Baso # (Auto) 0.0 (0.0-0.2) X10*3/uL Abs Immat Gran (auto) 0.02 (0.00-0.03) X10*3/uL Absolute Neuts (auto) 5.2 (2.0-8.3) x10*3/uL Absolute Nucleated RBC 0.000 (0.0-0.012) X10*3/uL Nucleated RBC % (auto) 0.0 (0.0-0.2) /100WBC PT 12.1 (11.1-13.3) SEC INR 1.0 (0.9-1.1) Sodium 138 (135-145) mmol/L Potassium 5.0 D (3.3-5.1) mmol/L Chloride 108 (96-108) mmol/L Carbon Dioxide 23 (22-29) mmol/L Anion Gap 12 (12-20) BUN 18 H (9-16) mg/dL Creatinine 0.98 (0.5-1.4) mg/dL Estim Creat Clear Calc 67.8 Estimated GFR > 60 Random Glucose 104 (60-115) mg/dL Calcium 9.4 (8.4-10.2) mg/dL Magnesium 2.2 (1.6-2.6) mg/dL Total Bilirubin 0.4 (0.0-1.0) mg/dL Direct Bilirubin 0.1 (0.0-0.5) mg/dL AST 20 (5-37) U/L ALT 16 (0-40) U/L Alkaline Phosphatase 58 (39-117) U/L Troponin I High Sens < 2.7 (<3.5-35.0) ng/L Total Protein 7.9 (6.5-8.0) g/dL Albumin 4.3 (3.5-5.0) g/dL Lipase 25 (8-78) U/L Urine Color Yellow Urine Appearance Clear Urine pH 6.0 (5.0-9.0) Ur Specific [place] 1.025 (1.005-1.025) Urine Protein Negative (Neg-Trace) mg/dL Urine Glucose (UA) Negative (Negative) mg/dL Urine Ketones Negative (Negative) mg/dL Urine Blood Trace H (Negative) Urine Nitrite Negative (Negative) Ur Leukocyte Esterase Negative (Negative) Urine RBC 3-5 H (0-2) /HPF Urine WBC 0-5 (0-5) /HPF Ur Squamous Epith Cells 0-2 (0-2) /HPF Urine Bacteria None Seen (None Seen) Hyaline Casts 0-2 (0-2) /LPF Chronic Conditions Patient?s care impacted by: Hypertension and Other BPH, osteoarthritis, spondylosis Discharge Plan Discharge Clinical Impression: Acute right flank pain, Acute constipation, Kidney calculi Patient Disposition: Home, Self-Care Instructions: Constipation (ED), Kidney Stones (ED), High Fiber Diet (ED), Flank Pain (ED) Additional Instructions: Take your medications as prescribed. If you were prescribed antibiotics today, it is important that you take your medication to their entirety, do not skip any doses, do not finish them early. Follow-up with your primary care provider this week. Follow up with urology this week. Return to the emergency department with new or worsening symptoms. Such as fevers, chills, chest pain, shortness of breath, nausea, vomiting, dizziness, headache, vision changes, lethargy In case of emergency call 911 Toradol has been sent to your pharmacy, you tolerated this well in the department. Please take this as prescribed do not take this with ibuprofen, or other NSAIDs, do not mix this with alcohol. Side effects of this medication including increased risk for bleeding and possible kidney injury. XR/XR KUB IMPRESSION: 1. No acute cardiopulmonary findings. 2. Nonobstructive bowel gas pattern. No significant stool content. XR/XR chest 2V IMPRESSION: 1. No acute cardiopulmonary findings. 2. Nonobstructive bowel gas pattern. No significant stool content. CT/CT abdomen pelvis wo IV con IMPRESSION: 1. Trace left-sided hydroureteronephrosis without a distinct obstructive calculus. 2. Nonobstructive punctate calculus in the upper pole of the left kidney. 3. Diverticulosis but no evidence of acute diverticulitis. Prescriptions: New sennosides [senna] 8.6 mg tablet 8.6 mg PO BEDTIME Qty: 14 0RF lidocaine 5 % adhesive patch,medicated 1 patch topical DAILY PRN (Reason: pain) Qty: 15 0RF Rx Instructions: leave on most painful area for up to 12 hrs No Action terazosin 5 mg capsule 5 mg PO BEDTIME cyanocobalamin (vitamin B-12) [Vitamin B-12] 1,000 mcg Tablet 1,000 mcg PO DAILY gabapentin 300 mg capsule 300 mg PO TID acetaminophen 500 mg Tablet 1,000 mg PO Q6H PRN (Reason: Pain) oxycodone 5 mg tablet 5 mg PO Q6H PRN (Reason: pain (scale score 7-10)) Qty: 15 0RF Rx Instructions: Partial Fill upon patient request. Referrals: [facility] [place] U[facility] Services [Provider Group] - 2 days Aline Carney MD [Primary Care Provider] - 2 days Interventions: ED Discharge Assessment Last Done: 09/25/23 17:13 Discharge Date/Time: 09/25/23 17:13 Print Language: Sinhala
[2023-09-25 15:55] LABS: Appearance Urine Clear; Color Urine Yellow; Glucose Urine UA Negative (Negative); Leukocyte Esterase Urine Negative (Negative); Nitrite Urine Negative (Negative); Specific Gravity - Urine 1.025 (1.005-1.025); UMIC TRIGGER UACC YES; Urine Blood Trace (Negative); Urine Ketones Negative (Negative); Urine Protein Negative (Neg-Trace)
[2023-09-25] MEDS: Ketorolac Tromethamine 30 MG/ML VIAL IM (15:56)
[2023-09-25 15:57] LABS: Bacteria Urine None Seen (None Seen); Hyaline Casts Urine 0-2 /LPF (0-2); Squamous Epithelial Cell Urine 0-2 /HPF (0-2); WBC Urine 0-5 /HPF (0-5)
[2023-09-25 16:23] VITALS: BP 172/88; PULSE 60; RESP 18; TEMP 36.6; O2SAT 99
== END 2023-09-25 17:13 | disposition home or self-care (01) ==
PROVIDERS: Nurse Practitioner Family; Emergency Provider Emergency Medicine; PCP Internal Medicine
DX: K59.09 Other constipation (principal); N20.0 Calculus of kidney; R10.9 Unspecified abdominal pain; R00.2 Palpitations; F17.210 Nicotine dependence, cigarettes, uncomplicated; F12.90 Cannabis use, unspecified, uncomplicated
CPT/HCPCS: 36415; 71046; 74018; 74176; 80048; 80076; 81001; 83690; 83735; 84484; 85025; 85610; 93005; 96372; 99284; J1885

== ENCOUNTER 2024-03-19 11:11 | Outpatient (AMB) | payer MEDICARE, MEDICAID, SELFPAY ==
--- NOTE | 2024-03-19 11:19 | MHC.OFFVIS ---
Intake Visit Reasons: 1y follow up Intake Note: Patient is present for Micro Hematuria/Chronic Frequency Urology Medications: none Blood Thinner: none PVR: 18ml's Auto Glass Installer Required: No Accompanied by: Self / Same As Patient Allergies No Known Allergies [No Known Allergies*] Allergy (Verified 03/19/24 11:54) Medication List - Last Reconciled 03/19/24 by WILBERTO Ba cyanocobalamin (vitamin B-12) mcg IM docusate sodium (Colace) 100 mg PO BID gabapentin 100 mg PO TID ketorolac 10 mg PO TID PRN 5 days lidocaine 5% 1 patch topical DAILY PRN sennosides (senna) 8.6 mg PO BEDTIME terazosin 5 mg PO BEDTIME 30 days HPI Comments Details: John is a 68-year-old male patient of Dr. Rai. He has a past medical history of anxiety, depression, nicotine dependence, cerebral aneurysm without rupture, coronary artery calcification, and nephrolithiasis. He presents to the office today for follow-up of his microscopic hematuria in ongoing lower urinary tract symptoms. In discussion with the patient today he reports to be experiencing ongoing issues with his eyes and memory issues. He discusses his upcoming appointment with General surgery later this month for an inguinal hernia on his left side. Of note, during last office visit here approximately one year ago patient underwent an office cystoscopy for further assessment evaluation of microscopic hematuria in the setting of nicotine dependence that noted no abnormalities. When asked he does report urinary dribbling, urinary frequency, urinary urgency, and episodes of dysuria. In office urinalysis results reviewed with the patient today trace microscopic hematuria noted. PVR 18 mL. When asked he reports non-complaince with flomax as he does not feel this has been helpful. Patient at times is vague throughout today's assessment and continues to report significant eye issues. He otherwise offers no other issues or concerns. [facility] Medical History (Updated 03/19/24 @ 22:30 by WILBERTO Ba) Anxiety and depression Personal history of nicotine dependence Cerebral aneurysm without rupture Coronary artery calcification seen on CT scan Precordial chest pain Nephrolithiasis Surgical History History of cardiac catheterization H/O esophagogastroduodenoscopy Family History Father Diabetes Mother No problems noted. Social History Alcohol intake: never Patient Tobacco Use Status: Current everyday Tobacco user Tobacco use type: Cigarette Cigarettes Per Day: 6 Years Smoked: (onset 15, 1/2ppd x 51yrs, 25pyh) Substance Use Type: Marijuana Review of Systems Const Reports as per HPI Eyes Reports as per HPI ENT Reports no additional complaints Card Reports as per HPI Resp Reports no additional complaints GI Details: Patient reports he follows with GI Dr. Tamar CHEUNG Reports as per HPI Musc Reports no additional complaints Neuro Reports as per HPI Psych Reports as per HPI Endo Reports no additional complaints Manuel/Lymph Reports no additional complaints Aller/Immun Reports no additional complaints Physical Exam Const General: cooperative, healthy appearing, comfortable, no acute distress, well developed, alert and awake Orientation/consciousness: patient oriented x3 Limitations: no limitations HEENT Head: Yes normal to inspection, Yes normocephalic and Yes atraumatic Ears: hearing grossly normal bilaterally Eyes General: appearance normal, both eyes and all related structures Neck Neck: Yes normal visual inspection and Yes trachea midline Chest Chest palpation & inspection: normal inspection of the chest Resp Effort & Inspection: normal respiratory effort and able to speak in complete sentences Cardio Rate: regular rate GI Inspection: Yes normal to inspection General: Yes no CVA tenderness Back/Spine/Pelvis Back: no CVA tenderness Skin General skin exam: no rashes or lesions noted Neuro General: patient oriented x3 Extrem General: Yes normal to inspection Psych Appearance: grossly normal and well kempt Mental Status: mental status grossly normal Speech and movement: Normal speech and movement present and Clear speech present Affect: normal affect Attitude: cooperative Thought process: Normal thought process present Thought content: Normal thought content present Insight: Fair insight present (Psych) Judgement: Fair judgement present (Psych) Office Procedures Post Void Residual Post Residual Void Post Void Residual (PVR): 18 [id number] Void Residual by ultrasound Results AMB Urinalysis, Automated UA Leukoctes 0 Bobby/uL Last Edit by Glen Murphy on 03/19/24 11:44 UA Nitrite Negative Last Edit by Glen Murphy on 03/19/24 11:44 UA Urobilinogen 0.2 mg/dL Last Edit by Glen Murphy on 03/19/24 11:44 UA Protein 0 mg/dL Last Edit by Glen Murphy on 03/19/24 11:44 UA pH 7.0 Last Edit by Glen Murphy on 03/19/24 11:44 UA Blood 10 Jose Luis/uL Last Edit by Glen Murphy on 03/19/24 11:44 UA Specific Cunningham 1.010 Last Edit by Glen Murphy on 03/19/24 11:44 UA Ketone Negative Last Edit by Glen Murphy on 03/19/24 11:44 UA Bilirubin 0 mg/dL Last Edit by Glen Murphy on 03/19/24 11:44 UA Glucose 0 mg/dL Last Edit by Glen Murphy on 03/19/24 11:44 Results Reviewed Results Reviewed: Laboratory Last Values Urine pH (Auto) 7.0 03/19/24 11:22 Specific Cunningham (Auto) 1.010 03/19/24 11:22 Urine Protein (Auto) 0 mg/dL 03/19/24 11:22 Glucose (UA)(Auto) 0 mg/dL 03/19/24 11:22 Urine Ketones (Auto) Negative 03/19/24 11:22 Urine Blood (Auto) 10 Jose Luis/uL 03/19/24 11:22 Urine Nitrite (Auto) Negative 03/19/24 11:22 Urine Bilirubin (Auto) 0 mg/dL 03/19/24 11:22 Urine Urobilinogen (Auto) 0.2 mg/dL 03/19/24 11:22 Leukocyte Esterase (Auto) 0 Bobby/uL 03/19/24 11:22 Assessment & Plan Assessment & Plan (1) Microscopic hematuria: Code(s): R31.29 - Other microscopic hematuria Category: Medical (2) Nephrolithiasis: Code(s): N20.0 - Calculus of kidney Category: Medical (3) Flank pain: Code(s): R10.9 - Unspecified abdominal pain Category: Medical (4) Personal history of nicotine dependence: Comment: (current smoker, onset 15, 1/2ppd x 51yrs, 25pyh) Code(s): Z87.891 - Personal history of nicotine dependence Category: Medical (5) Lower urinary tract symptoms: Code(s): R39.9 - Unspecified symptoms and signs involving the genitourinary system Category: Medical Plan In office urinalysis results reviewed with the patient today; as noted above; will send for urine cytology. Will obtain retroperitoneal ultrasound for further assessment evaluation. Will obtain PSA for further assessment evaluation. Stop Flomax. Start terazosin 5 mg at bedtime as discussed and prescribed. Discussed at length potential causes for lower urinary tract symptoms patient is experiencing. Discussed bladder triggers/irritants. Discussed, educated, and stressed the importance of limiting/quitting smoking for overall health and well-being. Follow-up in 1-3 months with imaging and labs to be completed prior and PVR at next office visit; or sooner with any issues, concerns, and or questions. Orders: Orders AMB Urinalysis Automated Today Z13.9 - Encounter for screening, unspecified US retroperitoneal comp Today N20.0 - Calculus of kidney, R10.9 - Unspecified abdominal pain, R31.29 - Other microscopic hematuria Urine Cytology Today R31.29 - Other microscopic hematuria AMB Post Void Residual by ultrasound Today N40.0 - Benign prostatic hyperplasia without lower urinary tract symptoms Prostate Specific Antigen Today N40.0 - Benign prostatic hyperplasia without lower urinary tract symptoms Medications: New terazosin 5 mg PO BEDTIME 30 days 30 caps 1RF N40.1 - Benign prostatic hyperplasia with lower urinary tract symptoms, R35.0 - Frequency of micturition Discontinued tamsulosin (Flomax) Discontinued Reason: Doctor's Order 0.4 mg PO BEDTIME 90 days 90 caps 2RF Patient Instructions: The patient had an opportunity to ask questions regarding the treatment plan. All questions were answered. Physical exam, labs, and imaging were discussed and reviewed in detail. As well as risks, benefits, and discussion of treatment choices. No major barriers to understanding were identified. The patient expressed understanding and agreement with the above treatment plan. The patient was made aware they should contact our office by phone for worsening of their current condition, the appearance of new symptoms, or with any questions or concerns. Compliance is encouraged with any medications and follow up testing that is ordered. It is a privilege to be allowed the opportunity to participate in? your urological care.? Again, if you have any questions or concerns If you have any questions or concerns please do not hesitate to contact me. The office is [phone]. This note is constructed using voice recognition software. While every effort has been made to ensure accuracy lifestyle block farmer errors may have been included. Yours sincerely, TORRES Ba-BC Coding Level of Care Code Est Pt Level 4 (18548) Diagnoses Microscopic hematuria R31.29 Nephrolithiasis N20.0 Flank pain R10.9 Personal history of nicotine dependence Z87.891 Lower urinary tract symptoms R39.9 CPT Codes Post Residual Void - PVR CPT Code: 19614-Zsdj Void Residual by ultrasound ([id number])
== END 2024-03-19 11:47 | disposition home or self-care (01) ==
PROVIDERS: PCP Internal Medicine; Visit Provider Nurse Practitioner Family
DX: R31.29 Other microscopic hematuria (principal); N20.0 Calculus of kidney; R10.9 Unspecified abdominal pain; Z87.891 Personal history of nicotine dependence; R39.9 Unspecified symptoms and signs involving the genitourinary system; Z13.9 Encounter for screening, unspecified
CPT/HCPCS: 99214

== ENCOUNTER 2024-03-19 11:11 | Outpatient (REF) | payer MEDICARE, MEDICAID, SELFPAY ==
[2024-03-19 17:14] LABS: Urine Cytology See Pathology rpt
== END 2024-03-19 11:12 | disposition home or self-care (01) ==
LOC: HO.LNP 11:11
PROVIDERS: Visit Provider Nurse Practitioner Family
DX: R31.29 Other microscopic hematuria (principal); N20.0 Calculus of kidney; R10.9 Unspecified abdominal pain; N40.1 Benign prostatic hyperplasia with lower urinary tract symptoms; R35.0 Frequency of micturition; R39.9 Unspecified symptoms and signs involving the genitourinary system; Z87.891 Personal history of nicotine dependence
CPT/HCPCS: 51798; 81003; 88112; 99212

== ENCOUNTER 2024-03-22 14:12 | Outpatient (REF) | payer MEDICARE, OTHER, SELFPAY ==
--- NOTE | ~2024-03-22 | US_ITS ---
EXAMINATION: US left groin, LIMITED/FOLLOW UP CLINICAL INFORMATION: Suspected left inguinal/femoral hernia, groin pain COMPARISON: CT scan abdomen and pelvis 09/25/2023 TECHNIQUE: Real-time imaging of the left groin was performed. FINDINGS: An inguinal hernia is seen in the left groin. The neck of the hernia measures 1.5 cm. A fat-containing left inguinal hernia was seen on CT scan 01/09/2021. US/US pelvic limited IMPRESSION: Left inguinal hernia.
--- NOTE | ~2024-03-22 | US_ITS ---
EXAMINATION: US RETROPERITONEAL LIMITED (RENAL ONLY) CLINICAL INFORMATION: Other microscopic hematuria. COMPARISON: CT abdomen and pelvis 09/25/2023. X-ray abdomen 09/25/2023 and 05/13/2021. TECHNIQUE: Real-time imaging of the kidneys. FINDINGS: RIGHT KIDNEY: 10.4 x 4.5 x 4.7 cm (SAG x AP x TRV). The kidney is normal in size, contour, and echogenicity. Renal cortical thickness is normal. No calculi or focal parenchymal lesions. No hydronephrosis. LEFT KIDNEY: 10.1 x 5.0 x 4.7 cm (SAG x AP x TRV). The kidney is normal in size, contour, and echogenicity. Renal cortical thickness is normal. No calculi or focal parenchymal lesions. No hydronephrosis. The bladder was not full at the time of this study. Bladder ultrasound is rescheduled for 04/02/2024. US/US renal BI IMPRESSION: Normal renal ultrasound.
== END 2024-03-22 14:13 | disposition home or self-care (01) ==
LOC: HO.US 14:12
PROVIDERS: PCP Internal Medicine; Visit Provider Nurse Practitioner Family
DX: R31.29 Other microscopic hematuria (principal); K40.90 Unilateral inguinal hernia, without obstruction or gangrene, not specified as recurrent
CPT/HCPCS: 76770; 76775; 76857

== ENCOUNTER 2024-03-29 15:08 | Outpatient (REF) | payer MEDICARE, MEDICAID, SELFPAY | END 2024-03-29 15:09 | disposition home or self-care (01) | LOC: HO.US 15:08 | PROVIDERS: PCP Internal Medicine; Visit Provider Internal Medicine | DX: Z13.89 Encounter for screening for other disorder (principal) ==

== ENCOUNTER 2024-04-02 15:01 | Outpatient (REF) | payer MEDICARE, SELFPAY ==
--- NOTE | ~2024-04-02 | US_ITS ---
EXAMINATION: US PELVIS LIMITED (BLADDER) CLINICAL INFORMATION: Symptomatic BPH, pelvic pressure and pain, hematuria. COMPARISON: Renal ultrasound 03/22/2024. CT abdomen and pelvis 09/25/2023. X-ray KUB 09/25/2023. X-ray abdomen 05/15/2021. TECHNIQUE: Real-time imaging of the bladder. FINDINGS: BLADDER: Well distended and normal. Bilateral ureteral jets are demonstrated. Prevoid bladder volume is 175 mL. Postvoid bladder volume is 10 mL. ADDITIONAL FINDINGS: Normal size prostate, volume 16 mL. US/US bladder IMPRESSION: 1. Normal size prostate. 2. Minimal post void residual.
== END 2024-04-02 15:02 | disposition home or self-care (01) ==
LOC: HO.HMGCX 15:01
PROVIDERS: PCP Internal Medicine; Visit Provider Internal Medicine
DX: R31.29 Other microscopic hematuria (principal); N20.0 Calculus of kidney; R10.9 Unspecified abdominal pain
CPT/HCPCS: 76857

== ENCOUNTER 2024-04-18 09:34 | Outpatient (AMB) | payer MEDICARE, SELFPAY ==
--- NOTE | 2024-04-18 09:44 | MHC.OFFVIS ---
Vital Signs 04/18/24 09:48 Height 5 ft 6 in Weight 152 lb 8 oz BMI 24.6 BP 141/66 H Blood Pressure Location Lt brachial Position Sitting Pulse 54 Intake Visit Reasons: Groin Hernia Intake Note: Patient is seen in office for evaluation and treatment of the left groin hernia. 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 He subsequently developed a lump in the left groin which increases with lifting and coughing but does reduce when in the supine position. He denies nausea, vomiting, fever or chills. He does have urgency when he urinates and reports having a bowel movement soon after eating. He denies any bleeding per rectum. He denies any previous history of hernia surgery. [facility] Medical History Anxiety and depression Personal history of nicotine dependence Cerebral aneurysm without rupture Coronary artery calcification seen on CT scan Precordial chest pain Nephrolithiasis Surgical History History of cardiac catheterization H/O esophagogastroduodenoscopy Family History Father Diabetes Mother No problems noted. Social History Alcohol intake: never Patient Tobacco Use Status: Current everyday Tobacco user Tobacco use type: Cigarette Cigarettes Per Day: 6 Years Smoked: (onset 15, 1/2ppd x 51yrs, 25pyh) Substance Use Type: Marijuana Review of Systems Const All systems reviewed & are unremarkable except as noted in HPI and below Denies chills, Denies fever(s), Denies headache(s), Denies poor appetite and Denies weakness ENT Denies headache(s) Card Denies chest pain, Denies irregular heart rhythm, Denies palpitations and Denies dyspnea Resp Denies cough, Denies excessive phlegm production and Denies dyspnea GI Denies abdominal pain, Denies bloating, Denies change in bowel habits, Denies constipation, Denies heartburn, Denies diarrhea, Denies nausea and Denies vomiting Denies difficulty urinating and Denies urinary frequency Musc Denies back pain, Denies muscle weakness and Denies numbness Skin/Breast Denies changing lesions and Denies unusual bruising Neuro Denies headache(s), Denies numbness, Denies paresthesias and Denies weakness Psych Denies anxiety and Denies depression Endo Denies palpitations Manuel/Lymph Denies lymphadenopathy Physical Exam Vital Signs: Last Vital Signs Pulse 54 04/18/24 09:48 BP 141/66 H 04/18/24 09:48 BMI result Body Mass Index 24.6 Const General: cooperative and no acute distress Nutritional Appearance: well nourished Orientation/consciousness: patient oriented x3 Limitations: no limitations HEENT Head: Yes normocephalic and Yes atraumatic Ears: hearing grossly normal bilaterally Resp Effort & Inspection: normal respiratory effort, no audible wheezes, no cough and no respiratory distress Cardio Jugular venous distension: no JVD GI Other: Palpable lump located in the left groin which increases in size with Valsalva maneuvers but easily reduces with light pressure. There is mild tenderness to palpation. No overlying skin changes are appreciated. No right inguinal hernias appreciated. Inspection: Yes normal to inspection Skin Other: Warm, dry, no rash Neuro General: patient oriented x3 Extrem General: Yes no clubbing, cyanosis or edema Assessment & Plan Assessment & Plan (1) Right inguinal hernia: Code(s): K40.90 - Unilateral inguinal hernia, without obstruction or gangrene, not specified as recurrent Category: Medical Plan 68-year-old male patient presenting with a 1 year history of a left inguinal hernia which increases in size with lifting but reduces with light pressure. On examination he does have a reducible left inguinal hernia. I recommended repair with mesh and after discussion of the procedure, risks, and alternatives, consents to repair of a left inguinal hernia with mesh. Coding Level of Care Code New Pt Level 4 (01252) Diagnoses Right inguinal hernia K40.90
[2024-04-18 09:48] VITALS: BP 141/66; PULSE 54; BMI 24.6
== END 2024-04-18 10:21 | disposition home or self-care (01) ==
PROVIDERS: PCP Internal Medicine; Visit Provider Surgery
DX: K40.90 Unilateral inguinal hernia, without obstruction or gangrene, not specified as recurrent (principal)
CPT/HCPCS: 99204

== ENCOUNTER → 2024-04-18 09:34 | Outpatient (BNVA) | payer MEDICARE, SELFPAY | PROVIDERS: PCP Internal Medicine; Visit Provider Surgery | DX: K40.90 Unilateral inguinal hernia, without obstruction or gangrene, not specified as recurrent (principal) | CPT/HCPCS: 99202 ==

== ENCOUNTER → 2024-04-24 10:37 | Outpatient (BNV) | payer MEDICARE, SELFPAY | PROVIDERS: PCP Internal Medicine; Visit Provider Internal Medicine Cardiovascular Disease | DX: R00.1 Bradycardia, unspecified (principal) | CPT/HCPCS: 93010 ==

== ENCOUNTER 2024-04-29 07:27 | Day surgery (SDC) | payer MEDICARE, SELFPAY ==
--- NOTE | 2024-04-24 | ECG_ITS ---
Test Reason : preop Blood Pressure : / mmHG Vent. Rate : 049 BPM Atrial Rate : 049 BPM P-R Int : 184 ms QRS Dur : 098 ms QT Int : 422 ms P-R-T Axes : 070 014 052 degrees QTc Int : 381 ms Sinus bradycardia Otherwise normal ECG When compared with ECG of 25-SEP-2023 11:27, No significant change was found Referred By: Kati Torres Electronically Signed By:HORTENCIA CURRY MD
[2024-04-24 10:00] VITALS: BP 146/66; PULSE 50; RESP 16; O2SAT 98; BMI 24.6
[2024-04-24 11:38] LABS: Hematocrit 37.3 % (42.0-52.0); Hemoglobin 12.5 g/dl (14.0-18.0); Mean Corpuscular HGB Conc 33.5 g/dl (31.0-36.0); Mean Corpuscular Hemoglobin 34.2 pg (27.0-33.0); Mean Corpuscular Volume 102.2 fL (80.0-98.0); Mean Platelet Volume 10.1 fL (9.4-12.4); Platelet Count 230 X10*3/uL (160-400); Red Blood Count 3.65 X10*6/uL (4.60-5.80); Red Cell Distribution Width 13.5 % (11.0-16.0); White Blood Count 7.3 X10*3/uL (4.8-10.8)
[2024-04-24 12:35] LABS: Anion Gap 8 (12-20); Blood Urea Nitrogen 13 mg/dL (9-16); Calcium 9.2 mg/dL (8.4-10.2); Carbon Dioxide 27 mmol/L (22-29); Chloride 109 mmol/L (96-108); Estimated Glomerular Filt Rate > 60; Glucose Random 87 mg/dL (60-115); Potassium 4.3 mmol/L (3.3-5.1); Sodium 140 mmol/L (135-145)
[2024-04-29] VITALS (8 sets, daily range): BP systolic 99–135; BP diastolic 41–55; PULSE 51–79; RESP 13–18; TEMP 36.3–36.6; O2SAT 96–100
[2024-04-29] MEDS: Lactated Ringers 1,000 ML 100 ML IVCONT (07:43)
--- NOTE | 2024-04-29 08:16 | MHC.SHP ---
Pre-Procedural Eval Section A - 24 Hr Update-Section A only Date of Service: 04/29/24 The patient is an INPATIENT: No Changes since office visit: Yes Patient answered all questions; No Cold of Flu in the past 2 weeks, No New Medical Problems and No Changes in Medication The patient has been examined within 24 hours of the surgical procedure. The History & Physical has been completed within 30 days and I have reviewed it.: Yes Section B - Complete if H&P > 30 days Chief Complaint: Unilateral inguinal hernia, without obstruction Allergies: Allergies Allergy/AdvReac Type Severity Reaction Status Date / Time No Known Allergies Allergy Verified 04/29/24 07:38 [No Known Allergies*] Plan Diagnosis/Plan: Unchanged I have reviewed the history and physical and performed a pertinent physical examination on my patient. No changes have occurred unless specified. Time Spent With Patient Time: Total time managing care of this patient today ____ minutes.
--- NOTE | 2024-04-29 08:25 | P.CONAN_ITS ---
Documented by User: Kati Torres NP 04/25/24 15:14 HPI - Anesthesia Eval Consult details Narrative: 68yo M for Left Hernia Inguinal Reducible with mesh, 04/29/24 No recent illness No CP/SOB. Occassional palps. Vague all over pain. Able to walk but more strenuous activity limited by hernia discomfort. Cardiac w/u 2020 leading to cath. Nml coronaries. Cardiology f/u prn only PMFSH Active Problems Active Problems: All Active Problems Right inguinal hernia (Acute) Lower urinary tract symptoms (Acute) Flank pain (Acute) Microscopic hematuria (Acute) BPH (benign prostatic hyperplasia) (Acute) Myofascial pain syndrome (Acute) Osteoarthritis of right hip (Acute) Right hip pain (Acute) Osteoarthritis, generalized (Acute) Chronic pain syndrome (Acute) Spondylosis of lumbar spine (Acute) Spondylosis of thoracic spine (Acute) Abdominal bloating (Acute) Chronic idiopathic constipation (Acute) GERD (gastroesophageal reflux disease) (Acute) SOB (shortness of breath) (Acute) Nephrolithiasis (Acute) Personal history of nicotine dependence (Acute) Past Medical History Medical History Smokers' cough Anxiety and depression Personal history of nicotine dependence Cerebral aneurysm without rupture Coronary artery calcification seen on CT scan Precordial chest pain Nephrolithiasis Family History Family History Father Diabetes Mother No problems noted. Family history of problems with anesthesia: No Surgical History Surgical History Hx of colonoscopy History of cardiac catheterization H/O esophagogastroduodenoscopy History of Problems with Anesthesia: No Social History Social History (Updated 04/24/24 @ 10:09 by Margret Higginbotham RN) Household Members: Family Housing: Apartment Are you a primary date night caregiver to a significant other at home: No Do you presently have visiting nurse or other home services: No Alcohol intake: never Patient Tobacco Use Status: Current everyday Tobacco user Tobacco use type: Cigarette Cigarettes Per Day: 10 Years Smoked: (onset 15, 1/2ppd x 51yrs, 25pyh) Smoked in Last 30 Days: Yes Use of substances other than those prescribed or required for medical reasons: No Substance Use Type: Marijuana Substance Use Frequency: Daily Have you been hit, kicked, punched, or otherwise hurt by someone within the past year? If so, by whom?: No Are you DNR?: No Advance Directives: No Advance Directives Information Provided: Yes Advance Directives on File: No Recently lost weight without trying: No Poor oral hygiene: No Meds Allergies Allergy/AdvReac Type Severity Reaction Status Date / Time No Known Allergies Allergy Verified 04/29/24 07:38 [No Known Allergies*] Home Medications ?Medication ?Instructions ?Recorded ?Confirmed ?Last Taken ?Type acetaminophen 500 mg tablet 1,000 mg PO Q6H PRN Pain 04/24/24 04/24/24 Unknown History cyanocobalamin (vitamin B-12) 1,000 mcg PO DAILY 04/24/24 04/24/24 Unknown History 1,000 mcg tablet (Vitamin B-12) gabapentin 300 mg capsule 300 mg PO TID 04/24/24 04/24/24 Unknown History terazosin 5 mg capsule 5 mg PO BEDTIME 04/24/24 04/24/24 Unknown History Exam Height,Weight and Vital Signs: Height 5 ft 6 in Weight 69.1 kg Last Vital Signs Pulse 50 04/24/24 10:00 Resp 16 04/24/24 10:00 BP 146/66 H 04/24/24 10:00 Pulse Ox 98 04/24/24 10:00 O2 Del Method Room Air 04/24/24 10:00 Pertinent Lab Results Pertinent Lab Results: Lab Results 04/24/24 Range/Units 10:44 WBC 7.3 (4.8-10.8) X10*3/uL RBC 3.65 L (4.60-5.80) X10*6/uL Hgb 12.5 L (14.0-18.0) g/dl Hct 37.3 L (42.0-52.0) % MCV 102.2 H (80.0-98.0) fL MCH 34.2 H (27.0-33.0) pg MCHC 33.5 (31.0-36.0) g/dl RDW 13.5 (11.0-16.0) % Plt Count 230 (160-400) X10*3/uL MPV 10.1 (9.4-12.4) fL Absolute Nucleated RBC 0.000 (0.0-0.012) X10*3/uL Nucleated RBC % (auto) 0.0 (0.0-0.2) /100WBC Sodium 140 (135-145) mmol/L Potassium 4.3 (3.3-5.1) mmol/L Chloride 109 H (96-108) mmol/L Carbon Dioxide 27 (22-29) mmol/L Anion Gap 8 L (12-20) BUN 13 (9-16) mg/dL Creatinine 0.84 (0.5-1.4) mg/dL Estim Creat Clear Calc 78.0 Estimated GFR > 60 Random Glucose 87 (60-115) mg/dL Calcium 9.2 (8.4-10.2) mg/dL Narrative Narrative: EKG 03/2024 Vent. Rate : 049 BPM Atrial Rate : 049 BPM P-R Int : 184 ms QRS Dur : 098 ms QT Int : 422 ms P-R-T Axes : 070 014 052 degrees QTc Int : 381 ms Sinus bradycardia Otherwise normal ECG When compared with ECG of 25-SEP-2023 11:27, No significant change was found Airway TM Dist: >3cm Neck ROM: Full Loose/Missing/Broken Teeth: Yes (Pulled molars) Heart: RRR Lungs: faint insp wheeze RUL, otherwise clear Assessment and Plan Assessment Anesthesia Assessment: Anesthesia Plan Discussed, Smoking Cess. Discussed and PAT Visit Final Anesthetic Review Family History of Problems with Anesthesia: No History of Problems with Anesthesia: No Documented by User: Lindsay Srinivasan DO 04/29/24 08:29 HPI - Anesthesia Eval Consult details Narrative: 68yo M for Left Hernia Inguinal Reducible with mesh, 04/29/24 No recent illness No CP/SOB. Occassional palps. Vague all over pain. Able to walk but more strenuous activity limited by hernia discomfort. Cardiac w/u 2020 leading to cath. Nml coronaries. Cardiology f/u prn only Daily marijuana. Smoker. [facility] Past Medical History Medical History Smokers' cough Anxiety and depression Personal history of nicotine dependence Cerebral aneurysm without rupture Coronary artery calcification seen on CT scan Precordial chest pain Nephrolithiasis Family History Family History Father Diabetes Mother No problems noted. Family history of problems with anesthesia: No Surgical History Surgical History Hx of colonoscopy History of cardiac catheterization H/O esophagogastroduodenoscopy Social History Social History (Updated 04/24/24 @ 10:09 by Margret Higginbotham RN) Household Members: Family Housing: Apartment Are you a primary date night caregiver to a significant other at home: No Do you presently have visiting nurse or other home services: No Alcohol intake: never Patient Tobacco Use Status: Current everyday Tobacco user Tobacco use type: Cigarette Cigarettes Per Day: 10 Years Smoked: (onset 15, 1/2ppd x 51yrs, 25pyh) Smoked in Last 30 Days: Yes Use of substances other than those prescribed or required for medical reasons: No Substance Use Type: Marijuana Substance Use Frequency: Daily Have you been hit, kicked, punched, or otherwise hurt by someone within the past year? If so, by whom?: No Are you DNR?: No Advance Directives: No Advance Directives Information Provided: Yes Advance Directives on File: No Recently lost weight without trying: No Poor oral hygiene: No Meds Allergies Allergy/AdvReac Type Severity Reaction Status Date / Time No Known Allergies Allergy Verified 04/29/24 07:38 [No Known Allergies*] Home Medications ?Medication ?Instructions ?Recorded ?Confirmed ?Last Taken ?Type acetaminophen 500 mg tablet 1,000 mg PO Q6H PRN Pain 04/24/24 04/24/24 Unknown History cyanocobalamin (vitamin B-12) 1,000 mcg PO DAILY 04/24/24 04/24/24 Unknown History 1,000 mcg tablet (Vitamin B-12) gabapentin 300 mg capsule 300 mg PO TID 04/24/24 04/24/24 Unknown History terazosin 5 mg capsule 5 mg PO BEDTIME 04/24/24 04/24/24 Unknown History Exam Exam Date and Time: April 29, 2024 0825 Height,Weight and Vital Signs: Height 5 ft 6 in Weight 69.1 kg Last Vital Signs Pulse 50 04/24/24 10:00 Resp 16 04/24/24 10:00 BP 146/66 H 04/24/24 10:00 Pulse Ox 98 04/24/24 10:00 O2 Del Method Room Air 04/24/24 10:00 Height 5 ft 6 in Weight 69.1 kg Vital Signs Pulse Rate 50 04/24/24 10:00 Respiratory Rate 16 04/24/24 10:00 Blood Pressure 146/66 H 04/24/24 10:00 Pulse Oximetry 98 04/24/24 10:00 Oxygen Delivery Method Room Air 04/24/24 10:00 Temperature 97.9 F 04/29/24 07:49 Pulse Rate 51 04/29/24 07:49 Respiratory Rate 18 04/29/24 07:49 Blood Pressure 135/50 L 04/29/24 07:49 Pulse Oximetry 96 04/29/24 07:49 Oxygen Delivery Method Room Air 04/29/24 07:49 Airway Mallampati Class: II TM Dist: >3cm Neck ROM: Full Loose/Missing/Broken Teeth: Yes (Pulled molars) Heart: S1S2 Lungs: CTAB Assessment and Plan Assessment Anesthesia Assessment: Anesthesia Plan Discussed and Chart Reviewed Final Anesthetic Review Family History of Problems with Anesthesia: No NPO: Yes ASA Class: II Final Preanesthetic Review: No Changes in Pt Med Stat, Meds/Allgs Chart Reviewed, Consent Obtained/Reviewed and Anes Risks/Benef Reviewed Patient Risk: Low Procedure Risk: Low Anesthetic Plan Anesthetic Plan: GA and Agree w/ Assess. and Plan Disposition: Standard PACU
--- NOTE | 2024-04-29 09:20 | P.OP_ITS ---
Operative Note Operative Note Date of Service: 04/29/24 Narrative: Preoperative diagnosis: Left inguinal hernia, reducible Postoperative diagnosis: Same Procedure: Repair of left inguinal hernia, reducible, with mesh Surgeon: Navi Gonzalez MD Director Market Research: Yolanda Dickinson PA-C Anesthesia: General LMA Indications for procedure: 68-year-old male patient presenting with a painful lump in the left groin which increases with standing and lifting but reduces when in the supine position. On examination he has a palpable hernia which increases with Valsalva maneuvers but is easily reducible with light pressure. Operative findings: Moderate size direct inguinal hernia Specimen: None Estimated blood loss: Less than 2 mL Complications: None Procedure details: Patient was brought to the OR and placed in a supine position. After administering general anesthesia the patient's abdomen was prepped with ChloraPrep and draped in a sterile fashion. A surgical time-out was called the consent confirmed. Patient received preoperative antibiotics and Venodyne boots were in place. Local anesthesia consisting of 0.5% Sensorcaine was infiltrated over the left inguinal ligament. Incision was then made with a scalpel and carried out through subcutaneous tissue, past Jadiel's fashion up to the external oblique aponeurosis. Additional local was infiltrated below the external oblique aponeurosis. This was then incised with a scalpel widened with the Metzenbaum scissors. The spermatic cord was then dissected free from the surrounding inguinal canal. This was then retracted using a Fourmile drain. A direct hernia was immediately identified. Fibers of the cremaster muscle were then and no indirect sac identified. Attention was then directed to the direct hernia. The hernia sac was grasped with a Allis clamps and incised with the electrocautery. A preperitoneal space was then created using an open Ray-Elicia sponge. A large PHS mesh was then obtained. The circular underlay was deployed within the preperitoneal space. The overlay was then secured to the pubic tubercle, conjoined tendon, and shelving edge of the inguinal ligament using a 0 Polysorb suture. A slit was made in the mesh in the mesh wrapped around the spermatic cord at the internal ring. This was secured to the shelving edge of the inguinal ligament using the 0 Polysorb suture. The new internal ring was loose enough to allow the tip of the index finger to pass. The remainder of the mesh was placed below the external oblique aponeurosis laterally. The wounds were then irrigated with saline and suctioned dry. External oblique aponeurosis was then closed using a running 2-0 Polysorb suture. 6 mL of Zenrelef was then infiltrated below the external oblique aponeurosis. Jadiel's fascia and dermis were then reapproximated using interrupted 3-0 Polysorb sutures. Skin was closed using a running subcuticular 4-0 Polysorb suture. Steri-Strips, 2 x 2 gauze and Tegaderm were then applied. The patient tolerated the procedure well. Sponge, instrument, and needle counts reported as correct. The patient was transferred to PACU in stable condition.
== END 2024-04-29 10:41 | disposition home or self-care (01) ==
PROVIDERS: Nurse Practitioner; PCP Internal Medicine; Visit Provider Surgery
PROC: (CPT 49505; principal; 2024-04-29 08:30)
DX: K40.90 Unilateral inguinal hernia, without obstruction or gangrene, not specified as recurrent (principal); K59.09 Other constipation; R12 Heartburn; N40.1 Benign prostatic hyperplasia with lower urinary tract symptoms; R39.14 Feeling of incomplete bladder emptying; G89.29 Other chronic pain; M54.50 Low back pain, unspecified; E78.5 Hyperlipidemia, unspecified; F41.8 Other specified anxiety disorders; F17.210 Nicotine dependence, cigarettes, uncomplicated; Z79.899 Other long term (current) drug therapy; Z79.1 Long term (current) use of non-steroidal anti-inflammatories (NSAID)
CPT/HCPCS: 49505; 36415; 80048; 85027; 93005; C1781; C9088; J0131; J0690; J1100; J1885; J2250; J2371; J2405; J2704; J2795; J3010

== ENCOUNTER → 2024-04-29 07:27 | Outpatient (BNV) | payer MEDICARE, SELFPAY | PROVIDERS: PCP Internal Medicine; Visit Provider Surgery | DX: K40.90 Unilateral inguinal hernia, without obstruction or gangrene, not specified as recurrent (principal) | CPT/HCPCS: 49505 ==

== ENCOUNTER 2024-05-09 13:44 | Outpatient (AMB) | payer MEDICARE, SELFPAY ==
--- NOTE | 2024-05-09 13:47 | A.OFFVIS_ITS ---
Vital Signs 05/09/24 13:54 Height 5 ft 6 in Weight 154 lb BMI 24.9 BP 184/81 H Blood Pressure Location Lt brachial Position Sitting Pulse 64 Intake Visit Reasons: S/P RIH w/mesh Intake Note: Patient is seen in office for post op assessment post repair of left inguinal hernia, reducible, with mesh. 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 He reports developing back pain over the past 24 hours but generally feels improved as far as the incisional pain. He is moving his bowels and tolerating p.o. well. [facility] Medical History (Updated 05/09/24 @ 13:52 by Navi Gonzalez MD) Left inguinal hernia Smokers' cough Anxiety and depression Personal history of nicotine dependence Cerebral aneurysm without rupture Coronary artery calcification seen on CT scan Precordial chest pain Nephrolithiasis Surgical History (Updated 05/09/24 @ 10:03 by CHIQUITA Billings) History of left inguinal hernia repair (04/29/24) Hx of colonoscopy History of cardiac catheterization H/O esophagogastroduodenoscopy Family History Father Diabetes Mother No problems noted. Social History (Updated 04/24/24 @ 10:09 by Margret Higginbotham RN) Household Members: Family Housing: Apartment Are you a primary caretaker resort to a significant other at home: No Do you presently have visiting nurse or other home services: No 75 years or older and lives alone: No Alcohol intake: never Patient Tobacco Use Status: Current everyday Tobacco user Tobacco use type: Cigarette Cigarettes Per Day: 10 Years Smoked: (onset 15, 1/2ppd x 51yrs, 25pyh) Substance Use Type: Marijuana Physical Exam Const General: no acute distress Nutritional Appearance: well nourished Orientation/consciousness: patient oriented x3 Limitations: no limitations Resp Effort & Inspection: normal respiratory effort, no audible wheezes, no cough and no respiratory distress GI Other: Left inguinal incision is clean, dry, and intact without hematoma, hernia recurrence or infection. Skin Other: Warm, dry, no rash Neuro General: patient oriented x3 Extrem Other: No edema Assessment & Plan Assessment & Plan (1) Left inguinal hernia: Code(s): K40.90 - Unilateral inguinal hernia, without obstruction or gangrene, not specified as recurrent Category: Medical Plan 68-year-old male patient status post repair of a left inguinal hernia with mesh. He tolerated the procedure well but does have some back pain. I recommended ibuprofen as needed for pain q.8 hours, to be taken with food. He should avoid lifting greater than 10 lb for the next 4 weeks and return at that time for follow-up examination. Medications: New ibuprofen 800 mg PO Q8H PRN 20 tabs 0RF pain (scale score 4-6) Coding Level of Care Code Global (15155) Diagnoses Left inguinal hernia K40.90
[2024-05-09 13:54] VITALS: BP 184/81; PULSE 64; BMI 24.9
== END 2024-05-09 13:57 | disposition home or self-care (01) ==
PROVIDERS: PCP Internal Medicine; Visit Provider Surgery
DX: K40.90 Unilateral inguinal hernia, without obstruction or gangrene, not specified as recurrent (principal)
CPT/HCPCS: 99024

== ENCOUNTER → 2024-05-09 13:44 | Outpatient (BNVA) | payer MEDICARE, SELFPAY | PROVIDERS: PCP Internal Medicine; Visit Provider Surgery | DX: K40.90 Unilateral inguinal hernia, without obstruction or gangrene, not specified as recurrent (principal) | CPT/HCPCS: 99212 ==

== ENCOUNTER 2024-06-06 11:10 | Outpatient (AMB) | payer MEDICARE, SELFPAY ==
--- NOTE | 2024-06-06 11:16 | A.OFFVIS_ITS ---
Vital Signs 06/06/24 11:21 Height 5 ft 6 in Weight 154 lb BMI 24.9 BP 142/65 H Blood Pressure Location Lt brachial Position Sitting Pulse 61 Intake Visit Reasons: 4 wk follow up S/P RIH w/mesh Intake Note: Patient is seen in office for one month follow up visit, post right inguinal hernia repair. 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 He still has some back pain but denies significant incisional pain. He is eating well and denies nausea, vomiting, fever or chills. His bowels are moving as well. [facility] Medical History Left inguinal hernia Smokers' cough Anxiety and depression Personal history of nicotine dependence Cerebral aneurysm without rupture Coronary artery calcification seen on CT scan Precordial chest pain Nephrolithiasis Surgical History History of left inguinal hernia repair (04/29/24) Hx of colonoscopy History of cardiac catheterization H/O esophagogastroduodenoscopy Family History Father Diabetes Mother No problems noted. Social History Household Members: Family Housing: Apartment Are you a primary palliative care nurse to a significant other at home: No Do you presently have visiting nurse or other home services: No 75 years or older and lives alone: No Alcohol intake: never Patient Tobacco Use Status: Current everyday Tobacco user Tobacco use type: Cigarette Cigarettes Per Day: 10 Years Smoked: (onset 15, 1/2ppd x 51yrs, 25pyh) Substance Use Type: Marijuana Physical Exam Vital Signs: Last Vital Signs Pulse 61 06/06/24 11:21 BP 142/65 H 06/06/24 11:21 BMI result Body Mass Index 24.9 Const General: comfortable Nutritional Appearance: well nourished Orientation/consciousness: patient oriented x3 Resp Effort & Inspection: normal respiratory effort and Actively coughing GI Other: Well-healed incision in the left groin with no changes noted with Valsalva maneuvers. No evidence of infection or seroma. Neuro General: patient oriented x3 Assessment & Plan Assessment & Plan (1) Left inguinal hernia: Code(s): K40.90 - Unilateral inguinal hernia, without obstruction or gangrene, not specified as recurrent Category: Medical Plan 68-year-old male patient returning 1 month following repair of a left inguinal hernia with mesh. He tolerated the procedure well the wounds are healing nicely. May resume normal activity without restrictions and should follow up as needed. Coding Level of Care Code Global (58081) Diagnoses Left inguinal hernia K40.90
[2024-06-06 11:21] VITALS: BP 142/65; PULSE 61; BMI 24.9
== END 2024-06-06 11:25 | disposition home or self-care (01) ==
PROVIDERS: PCP Internal Medicine; Visit Provider Surgery
DX: K40.90 Unilateral inguinal hernia, without obstruction or gangrene, not specified as recurrent (principal)
CPT/HCPCS: 99024

== ENCOUNTER → 2024-06-06 11:10 | Outpatient (BNVA) | payer MEDICARE, SELFPAY | PROVIDERS: PCP Internal Medicine; Visit Provider Surgery | DX: Z48.815 Encounter for surgical aftercare following surgery on the digestive system (principal); Z98.890 Other specified postprocedural states | CPT/HCPCS: 99212 ==

== ENCOUNTER 2024-06-22 09:00 | Outpatient (REF) | payer MEDICARE, SELFPAY ==
[2024-06-22 12:02] LABS: Prostate Specific Antigen 0.77 ng/mL (<0.05-4.0)
== END 2024-06-22 09:01 | disposition home or self-care (01) ==
LOC: HO.HMGCLDS 09:00
PROVIDERS: PCP Internal Medicine; Visit Provider Nurse Practitioner Family
DX: N40.0 Benign prostatic hyperplasia without lower urinary tract symptoms (principal); Z12.5 Encounter for screening for malignant neoplasm of prostate
CPT/HCPCS: 36415; 84153

== ENCOUNTER 2024-06-25 10:28 | Outpatient (AMB) | payer MEDICARE, MEDICAID, SELFPAY ==
--- NOTE | 2024-06-25 10:31 | MHC.OFFVIS ---
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 Rai. He has a past medical history of anxiety, depression, nicotine dependence, cerebral aneurysm without rupture, coronary artery calcification, and nephrolithiasis. He presents to the office today for follow-up of his microscopic hematuria in the setting of nicotine dependence and ongoing lower urinary tract symptoms. In discussion with the patient today he reports feeling 5 mg of terazosin was somewhat helpful in urinary urgency and frequency he had been experiencing. However he does continue to report urinary dribbling. I discussed pelvic floor exercises at length. Information provided. Recent retroperitoneal ultrasound noting bilateral kidneys with no calculi, lesions, and or hydronephrosis. The bladder is well distended. Bladder jets are demonstrated. Pre void bladder volume is approximately 175 mL. Postvoid bladder volume is approximately 10 mL. Prostate measures approximately 15 mL. Recent PSA results reviewed with the patient today. 06/22 0.8. In office urinalysis results reviewed with the patient today 2+ microscopic hematuria noted. Patient with a history of in office cystoscopy 03/21 that noted no abnormalities. Urine cytology 03/21 and 03/22 -Negative for high-grade urothelial carcinoma. He had previously trialed Flomax and did not find this helpful. However patient at times vague throughout today's appointment/assessment. When asked he denies dysuria, foul smelling urine, changes to urinary stream, flank pain, fever, and or chills. He otherwise offers no other issues or concerns. [facility] Medical History Left inguinal hernia Smokers' cough Anxiety and depression Personal history of nicotine dependence Cerebral aneurysm without rupture Coronary artery calcification seen on CT scan Precordial chest pain Nephrolithiasis Surgical History History of left inguinal hernia repair (04/29/24) Hx of colonoscopy History of cardiac catheterization H/O esophagogastroduodenoscopy Family History Father Diabetes Mother No problems noted. Social History Household Members: Family Housing: Apartment Are you a primary tire care manager to a significant other at home: No Do you presently have visiting nurse or other home services: No 75 years or older and lives alone: No Alcohol intake: never Patient Tobacco Use Status: Current everyday Tobacco user Tobacco use type: Cigarette Cigarettes Per Day: 10 Years Smoked: (onset 15, 1/2ppd x 51yrs, 25pyh) Substance Use Type: Marijuana Review of Systems Const Reports as per HPI Eyes Reports as per HPI ENT Reports no additional complaints Card Reports as per HPI Resp Reports no additional complaints GI Details: Patient reports he follows with GI Dr. Tamar CHEUNG Reports as per HPI Musc Reports no additional complaints Neuro Reports as per HPI Psych Reports as per HPI Endo Reports no additional complaints Manuel/Lymph Reports no additional complaints Aller/Immun Reports no additional complaints Physical Exam Const General: cooperative, healthy appearing, comfortable, no acute distress, well developed, alert and awake Orientation/consciousness: patient oriented x3 Limitations: no limitations HEENT Head: Yes normal to inspection, Yes normocephalic and Yes atraumatic Ears: hearing grossly normal bilaterally Eyes General: appearance normal, both eyes and all related structures Neck Neck: Yes normal visual inspection and Yes trachea midline Chest Chest palpation & inspection: normal inspection of the chest Resp Effort & Inspection: normal respiratory effort and able to speak in complete sentences Cardio Rate: regular rate GI Inspection: Yes normal to inspection General: Yes no CVA tenderness Back/Spine/Pelvis Back: no CVA tenderness Skin General skin exam: no rashes or lesions noted Neuro General: patient oriented x3 Extrem General: Yes normal to inspection Psych Appearance: grossly normal and well kempt Mental Status: mental status grossly normal Speech and movement: Normal speech and movement present and Clear speech present Affect: normal affect Attitude: cooperative Thought process: Normal thought process present Thought content: Normal thought content present Insight: Fair insight present (Psych) Judgement: Fair judgement present (Psych) Office Procedures Post Void Residual Post Residual Void Post Void Residual (PVR): 36 [id number] Void Residual by ultrasound Results AMB Urinalysis, Automated UA Leukoctes 0 Bobby/uL Last Edit by DIY Genius on 06/25/24 10:47 UA Nitrite Last Edit by DIY Genius on 06/25/24 10:47 UA Urobilinogen 0.2 mg/dL Last Edit by DIY Genius on 06/25/24 10:47 UA Protein 0 mg/dL Last Edit by DIY Genius on 06/25/24 10:47 UA pH 5.5 Last Edit by DIY Genius on 06/25/24 10:47 UA Blood 80 Jose Luis/uL Last Edit by DIY Genius on 06/25/24 10:47 UA Specific [place] 1.020 Last Edit by DIY Genius on 06/25/24 10:47 UA Ketone Negative Last Edit by DIY Genius on 06/25/24 10:47 UA Bilirubin 0 mg/dL Last Edit by DIY Genius on 06/25/24 10:47 UA Glucose 0 mg/dL Last Edit by DIY Genius on 06/25/24 10:47 Results Reviewed Results Reviewed: Laboratory Last Values Urine pH (Auto) 5.5 06/25/24 10:45 Specific [place] (Auto) 1.020 06/25/24 10:45 Urine Protein (Auto) 0 mg/dL 06/25/24 10:45 Glucose (UA)(Auto) 0 mg/dL 06/25/24 10:45 Urine Ketones (Auto) Negative 06/25/24 10:45 Urine Blood (Auto) 80 Jose Luis/uL 06/25/24 10:45 Urine Bilirubin (Auto) 0 mg/dL 06/25/24 10:45 Urine Urobilinogen (Auto) 0.2 mg/dL 06/25/24 10:45 Leukocyte Esterase (Auto) 0 Bobby/uL 06/25/24 10:45 Date of Service: 03/22/24 EXAMINATION: US RETROPERITONEAL LIMITED (RENAL ONLY) FINDINGS: RIGHT KIDNEY: 10.4 x 4.5 x 4.7 cm (SAG x AP x TRV). The kidney is normal in size, contour, and echogenicity. Renal cortical thickness is normal. No calculi or focal parenchymal lesions. No hydronephrosis. LEFT KIDNEY: 10.1 x 5.0 x 4.7 cm (SAG x AP x TRV). The kidney is normal in size, contour, and echogenicity. Renal cortical thickness is normal. No calculi or focal parenchymal lesions. No hydronephrosis. The bladder was not full at the time of this study. Bladder ultrasound is rescheduled for 04/02/2024. IMPRESSION: Normal renal ultrasound. Date of Service: 04/02/24 EXAMINATION: US PELVIS LIMITED (BLADDER) FINDINGS: BLADDER: Well distended and normal. Bilateral ureteral jets are demonstrated. Prevoid bladder volume is 175 mL. Postvoid bladder volume is 10 mL. ADDITIONAL FINDINGS: Normal size prostate, volume 16 mL. IMPRESSION: 1. Normal size prostate. 2. Minimal post void residual. Assessment & Plan Assessment & Plan (1) Microscopic hematuria: Code(s): R31.29 - Other microscopic hematuria Category: Medical (2) Lower urinary tract symptoms: Code(s): R39.9 - Unspecified symptoms and signs involving the genitourinary system Category: Medical (3) Nephrolithiasis: Code(s): N20.0 - Calculus of kidney Category: Medical (4) Personal history of nicotine dependence: Comment: (current smoker, onset 15, 1/2ppd x 51yrs, 25pyh) Code(s): Z87.891 - Personal history of nicotine dependence Category: Medical Plan In office urinalysis results reviewed with the patient today; as noted above; will send for urine cytology. Recent retroperitoneal ultrasound results reviewed with the patient today; as noted above. Recent PSA results reviewed with the patient today; as noted above. Pelvic floor exercises for men information provided. Will continue terazosin 5 mg at bedtime as discussed and prescribed and reassess in 3 months as patient reports somewhat improvement however vague throughout today's assessment. PVR 36 mL. Discussed, educated, and stressed the importance of limiting/quitting nicotine dependence for overall health and well-being. Follow-up in 3 months with PVR; or sooner with any issues, concerns, and or questions. Orders: Orders AMB Urinalysis Automated Today Z13.9 - Encounter for screening, unspecified AMB Post Void Residual by ultrasound Today R39.9 - Unspecified symptoms and signs involving the genitourinary system Urine Cytology Today R31.29 - Other microscopic hematuria Medications: Changed From terazosin 5 mg PO BEDTIME To terazosin 5 mg PO BEDTIME 90 caps 0RF 90 days Patient Instructions: The patient had an opportunity to ask questions regarding the treatment plan. All questions were answered. Physical exam, labs, and imaging were discussed and reviewed in detail. As well as risks, benefits, and discussion of treatment choices. No major barriers to understanding were identified. The patient expressed understanding and agreement with the above treatment plan. The patient was made aware they should contact our office by phone for worsening of their current condition, the appearance of new symptoms, or with any questions or concerns. Compliance is encouraged with any medications and follow up testing that is ordered. It is a privilege to be allowed the opportunity to participate in? your urological care.? Again, if you have any questions or concerns If you have any questions or concerns please do not hesitate to contact me. The office is [phone]. This note is constructed using voice recognition software. While every effort has been made to ensure accuracy sports cartoonist errors may have been included. Yours sincerely, WILBERTO Ba Coding Level of Care Code Est Pt Level 3 (13792) Complex EM visit Add On G2211 Diagnoses Microscopic hematuria R31.29 Lower urinary tract symptoms R39.9 Nephrolithiasis N20.0 Personal history of nicotine dependence Z87.891 CPT Codes Post Residual Void - PVR CPT Code: 43912-Mljz Void Residual by ultrasound ([id number])
== END 2024-06-25 11:00 | disposition home or self-care (01) ==
PROVIDERS: PCP Internal Medicine; Visit Provider Nurse Practitioner Family
DX: R31.29 Other microscopic hematuria (principal); R39.9 Unspecified symptoms and signs involving the genitourinary system; N20.0 Calculus of kidney; Z87.891 Personal history of nicotine dependence; Z13.9 Encounter for screening, unspecified
CPT/HCPCS: 99213; G2211

== ENCOUNTER 2024-06-25 10:28 | Outpatient (REF) | payer MEDICARE, MEDICAID, SELFPAY ==
[2024-06-25 16:05] LABS: Urine Cytology See Pathology rpt
== END 2024-06-25 10:29 | disposition home or self-care (01) ==
LOC: HO.LNP 10:28
PROVIDERS: PCP Internal Medicine; Visit Provider Nurse Practitioner Family
DX: R31.29 Other microscopic hematuria (principal); R39.9 Unspecified symptoms and signs involving the genitourinary system; N20.0 Calculus of kidney
CPT/HCPCS: 51798; 81003; 88112; 99212

== ENCOUNTER 2024-07-10 15:46 | Outpatient (REF) | payer MEDICARE, MEDICAID, SELFPAY ==
[2024-07-10 17:43] LABS: Erythrocyte Sedimentation Rate 26 MM/HR (0-15)
== END 2024-07-10 15:47 | disposition home or self-care (01) ==
LOC: HO.LAB 15:46
PROVIDERS: PCP Internal Medicine; Visit Provider Psychiatry & Neurology Neurology
DX: G43.009 Migraine without aura, not intractable, without status migrainosus (principal)
CPT/HCPCS: 36415; 85652

== ENCOUNTER 2024-07-12 13:08 | Outpatient (AMB) | payer MEDICARE, SELFPAY ==
--- NOTE | 2024-07-12 13:21 | A.OFFVIS_ITS ---
Vital Signs 07/12/24 13:22 Height 5 ft 6 in Weight 154 lb 5.177 oz BMI 24.9 BP 125/67 Blood Pressure Location Lt brachial Position Sitting Pulse 63 Intake Visit Reasons: Constipation Intake Note: John presents in the office as a new patient for constipation. CC: States that he has heartburn, chest pains, bloating in the abdomen, Deals with constipation. Denies any blood when he has a BM. 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 Prev used to see Tamar Kate GENERAL OFFICE ASSOCIATE. Main issue is abd bloating that has been ongoing for 3 years, occurs shortly after eating. Gets better after passing bowel movement. Happens alsmost every day. No nausea or vomiting. Reports heartburn with this. Drinks 18 oz coffee per day. Also likes to drink 16 oz soda per day. Also smokes 0.5 PPD. Also reports significant constipation. Has 2 BMs per day but BMs are small and has to strain a lot. Colonoscopy - 07/10/24: no polyps per pt report (done at [facility]). [facility], [facility] Medical History Left inguinal hernia Smokers' cough Anxiety and depression Personal history of nicotine dependence Cerebral aneurysm without rupture Coronary artery calcification seen on CT scan Precordial chest pain Nephrolithiasis Surgical History History of left inguinal hernia repair (04/29/24) Hx of colonoscopy History of cardiac catheterization H/O esophagogastroduodenoscopy Family History Father Diabetes Mother No problems noted. Social History Household Members: Family Housing: Apartment Are you a primary ambulatory care to a significant other at home: No Do you presently have visiting nurse or other home services: No 75 years or older and lives alone: No Alcohol intake: never Patient Tobacco Use Status: Current everyday Tobacco user Tobacco use type: Cigarette Cigarettes Per Day: 10 Years Smoked: (onset 15, 1/2ppd x 51yrs, 25pyh) Substance Use Type: Marijuana Physical Exam Vital Signs: Last Vital Signs Pulse 63 07/12/24 13:22 BP 125/67 07/12/24 13:22 BMI result Body Mass Index 24.9 No apparent distress Nonicteric Abdomen soft, nondistended, generalized tenderness Alert and oriented x3, normal gait Assessment & Plan Assessment & Plan (1) Abdominal pain: Code(s): R10.9 - Unspecified abdominal pain Category: Medical (2) Generalized body aches: Code(s): R52 - Pain, unspecified Category: Medical (3) Abdominal bloating: Code(s): R14.0 - Abdominal distension (gaseous) Category: Medical Plan 1. Abd pain and bloating Main issue seems to be aerophagia based on his diet and lifestyle that he has reported. Pt also reports sensation of staying full for very long. Will check labs for celiac, LFTs and US for cholelithiasis, GES for delayed emptying. Plan: - Labs as below - US Abd - GES - Start omeprazole 20 once daily for possible gastritis/duodenitis vs PUD - Pt extensively counseled to quit smoking and avoid sodas - Avoid NSAIDs 2. Generalised body aches - Check vit D 3. Pt had colo just earlier this week through [facility]. Will get records for our EMR. Follow up 3 months Orders: Orders NM gastric emptying study Today R10.9 - Unspecified abdominal pain US abdomen complete Today R10.9 - Unspecified abdominal pain Ferritin Today R10.9 - Unspecified abdominal pain IRON PROFILE Today R10.9 - Unspecified abdominal pain Complete Blood Count no Diff Today R10.9 - Unspecified abdominal pain Comprehensive Met. Panel Today R10.9 - Unspecified abdominal pain Immunoglobulin A Today R10.9 - Unspecified abdominal pain Immunoglobulin G Today R10.9 - Unspecified abdominal pain Transglutaminase IgA Today R10.9 - Unspecified abdominal pain Vitamin D 25-OH Total Today R52 - Pain, unspecified Medications: New omeprazole 20 mg PO DAILY 90 days 90 caps 1RF Coding Level of Care Code New Pt Level 4 (71287) Diagnoses Abdominal pain R10.9 Generalized body aches R52 Abdominal bloating R14.0
[2024-07-12 13:22] VITALS: BP 125/67; PULSE 63; BMI 24.9
== END 2024-07-12 13:52 | disposition home or self-care (01) ==
PROVIDERS: PCP Internal Medicine; Visit Provider Internal Medicine
DX: R10.9 Unspecified abdominal pain (principal); R14.0 Abdominal distension (gaseous)
CPT/HCPCS: 99204; 99214

== ENCOUNTER 2024-07-12 13:08 | Outpatient (REF) | payer MEDICARE, SELFPAY ==
[2024-07-12 14:32] LABS: Hematocrit 34.8 % (42.0-52.0); Hemoglobin 11.6 g/dl (14.0-18.0); Mean Corpuscular HGB Conc 33.3 g/dl (31.0-36.0); Mean Corpuscular Hemoglobin 33.7 pg (27.0-33.0); Mean Corpuscular Volume 101.2 fL (80.0-98.0); Platelet Count 214 X10*3/uL (160-400); Red Blood Count 3.44 X10*6/uL (4.60-5.80); Red Cell Distribution Width 13.1 % (11.0-16.0); White Blood Count 5.9 X10*3/uL (4.8-10.8)
[2024-07-12 15:04] LABS: Alanine Aminotransferase 13 U/L (0-40); Albumin Level 4.2 g/dL (3.5-5.0); Alkaline Phosphatase 52 U/L (39-117); Anion Gap 11 (12-20); Aspartate Amino Transferase 16 U/L (5-37); Bilirubin Total 0.3 mg/dL (0.0-1.0); Blood Urea Nitrogen 21 mg/dL (9-16); Calcium 9.6 mg/dL (8.4-10.2); Carbon Dioxide 27 mmol/L (22-29); Chloride 109 mmol/L (96-108); Estimated Glomerular Filt Rate > 60; Glucose Random 92 mg/dL (60-115); Iron 88 mcg/dL (45-160); Percent Iron Saturation 33 % (15-50); Potassium 4.8 mmol/L (3.3-5.1); Sodium 142 mmol/L (135-145); Total Iron Binding Capacity 263 mcg/dL (228-428); Total Protein 7.1 g/dL (6.5-8.0); Unsaturated Iron Binding 175 ug/dL
[2024-07-12 15:19] LABS: Ferritin 62 ng/mL (20-250); Vitamin D 25-OH Total 25.6 ng/mL (>30)
[2024-07-15 08:53] LABS: Immunoglobulin A 176 mg/dL (70-320); Immunoglobulin G 1060 mg/dL (600-1540)
[2024-07-16 20:42] LABS: Transglutaminase IgA <1.0 U/mL
== END 2024-07-12 13:09 | disposition home or self-care (01) ==
LOC: HO.LAB 13:08
PROVIDERS: PCP Internal Medicine; Visit Provider Internal Medicine
DX: K59.00 Constipation, unspecified (principal); R10.9 Unspecified abdominal pain; R14.0 Abdominal distension (gaseous); R12 Heartburn; R07.9 Chest pain, unspecified
CPT/HCPCS: 36415; 80053; 82306; 82728; 82784; 83540; 85027; 86364; 99202

== ENCOUNTER 2024-07-19 11:14 | Outpatient (REF) | payer MEDICARE, SELFPAY ==
[2024-07-19 13:33] LABS: Vitamin B12 1032 pg/mL (200-900)
[2024-07-19 14:11] LABS: Folate 11.8 ng/mL (> or = 4.0)
== END 2024-07-19 11:15 | disposition home or self-care (01) ==
LOC: HO.LAB 11:14
PROVIDERS: PCP Internal Medicine; Visit Provider Internal Medicine
DX: D64.9 Anemia, unspecified (principal)
CPT/HCPCS: 36415; 82607; 82746

== ENCOUNTER 2024-07-23 08:23 | Outpatient (REF) | payer MEDICARE, SELFPAY ==
--- NOTE | ~2024-07-23 | US_ITS ---
EXAMINATION: US ABDOMEN COMPLETE CLINICAL INFORMATION: Unspecified abdominal pain. COMPARISON: Renal ultrasound 03/22/2024. CT abdomen and pelvis 09/25/2023. TECHNIQUE: Real-time imaging of the abdominal viscera. FINDINGS: PANCREAS: Normal. ABDOMINAL AORTA: Unremarkable although the mid abdominal aorta is obscured by bowel gas. INFERIOR VENA CAVA: Visualized portions are normal. LIVER: The liver is normal in size. The liver contour is normal. There is diffuse increased liver parenchymal echogenicity, consistent with hepatic steatosis. No focal hepatic lesion. There is no intrahepatic biliary duct dilatation seen. GALLBLADDER: The gallbladder is physiologically distended without evidence of stones, sludge, polyps, wall thickening or pericholecystic fluid. Some comet tail shadowing is seen suggesting adenomyomatosis. COMMON BILE DUCT: Normal in caliber measuring 0.6 cm in diameter. RIGHT KIDNEY: No hydronephrosis. No renal calculi or focal parenchymal lesions. The kidney measures 10.1 cm in maximum dimension. LEFT KIDNEY: No hydronephrosis or renal calculi. The kidney measures 10.3 cm in maximum dimension. A benign small 0.8 cm Bosniak class I renal cyst is noted which requires no additional imaging or follow up. No solid renal masses are seen. SPLEEN: Normal. The spleen measures 9.7 cm in maximum dimension. FREE FLUID: None. US/US abdomen complete IMPRESSION: 1. Hepatic steatosis. 2. Adenomyomatosis of the gallbladder. Electronically signed by: Cheng Sarah MD 09/02/2024 12:32 AM [facility]
== END 2024-07-23 08:24 | disposition home or self-care (01) ==
LOC: HO.US 08:23
PROVIDERS: PCP Internal Medicine; Visit Provider Internal Medicine
DX: R10.9 Unspecified abdominal pain (principal)
CPT/HCPCS: 76700

== ENCOUNTER → 2024-09-18 07:44 | Outpatient (REF) | payer OTHER, SELFPAY ==
--- NOTE | ~2024-09-18 | NM_ITS ---
NM GASTRIC EMPTYING STUDY CLINICAL INFORMATION: Reason for exam: Unspecified abdominal pain. TECHNIQUE: A standard meal consisting of 4 oz of Egg Beaters tagged with 765 microcuries Tc-99m Sulfur Colloid, 6 oz water and 2 slices of toast with jelly was consumed by the patient. Images were obtained using a dual head gamma camera in the anterior and posterior projections over of the stomach immediately post ingestion and at hourly intervals up to 4 hours post ingestion. The percent retention of the radiolabeled meal was calculated at each time interval by using geometric mean. FINDINGS: There is good visualization of activity in the stomach immediately post ingestion. As the study progresses, there is slightly slower clearance of activity from the stomach into the small bowel with some retention noted by the end of the study time period. Retention in the stomach at each time interval was;: 1 hour 77% (normal < 90%) 2 hours 51% (normal < 60%) 3 hours 37% 4 hours 25% (normal < 10%) Gastric emptying study grading per Consensus Recommendations in 2008 (https://tech.snmjournals.org/content/36/44) NM/NM gastric emptying study IMPRESSION: There is mild delayed gastric emptying. Electronically signed by: Emily Boston MD 09/29/2024 12:45 PM [facility]
== END ==
LOC: HO.NUCMED 07:44
PROVIDERS: PCP Internal Medicine; Visit Provider Internal Medicine
DX: R10.9 Unspecified abdominal pain (principal)
CPT/HCPCS: 78264; A9541

== ENCOUNTER 2024-10-14 08:41 | Outpatient (AMB) | payer OTHER, SELFPAY ==
[2024-10-14 08:47] VITALS: BP 128/62; PULSE 58; O2SAT 99; BMI 24.5
--- NOTE | 2024-10-14 08:47 | MHC.OFFVIS ---
Vital Signs 10/14/24 08:47 Height 5 ft 6 in Weight 152 lb 1.903 oz BMI 24.5 BP 128/62 Blood Pressure Location Rt brachial Position Sitting Pulse 58 Pulse Source Pulse Oximeter Pulse Oximetry (%) 99 Oxygen Delivery Method Room Air Intake Visit Reasons: 3 month follow up - US and Labs Intake Note: ESTABLISHED PATIENT John presents in office today for a scheduled 3 mos FUV. Meds and Allergies reviewed? Y No recent or relevant surgeries? None Any significant concerns or new changes? No significant concerns per pt. Pt states that he is feeling much better. Pharmacy verified? Delmi Crandall Corporate Director Of Human Resources Required: No Allergies No Known Allergies [No Known Allergies*] Allergy (Verified 10/14/24 08:49) HPI Comments Details: 68 yo M who is here for second opinion for uper GI sx as below. Prev used to see Tamar Kate STORE ASSOCIATE. Main issue is abd bloating that has been ongoing for 3 years, occurs shortly after eating. Gets better after passing bowel movement. Happens alsmost every day. No nausea or vomiting. Reports heartburn with this. Drinks 18 oz coffee per day. Also likes to drink 16 oz soda per day. Also smokes 0.5 PPD. Also reports significant constipation. Has 2 BMs per day but BMs are small and has to strain a lot. Colonoscopy - 07/10/24: no polyps per pt report (done at [facility]). 10/14/24: Here for follow up. Mildly abnormal GES see below. Reports feeling a lot better since incorporating daily exercise in his routine. Sx are now limited to lunch time. Has scrambled eggs and cain for breakfast. Lunch is typically rice and beans. Pt also unsure if he was taking percocet while the GES was being done. US also reviewed - has GB polyps. [facility] Medical History Nicotine dependence, cigarettes, uncomplicated Smokers' cough Anxiety and depression Cerebral aneurysm without rupture Coronary artery calcification seen on CT scan Precordial chest pain Nephrolithiasis Surgical History History of left inguinal hernia repair (04/29/24) Hx of colonoscopy History of cardiac catheterization H/O esophagogastroduodenoscopy Family History Father Diabetes Mother No problems noted. Social History Household Members: Family Housing: Apartment Are you a primary progressive care nurse to a significant other at home: No Do you presently have visiting nurse or other home services: No 75 years or older and lives alone: No Alcohol intake: never Patient Tobacco Use Status: Current everyday Tobacco user Tobacco use type: Cigarette Cigarettes Per Day: 10 Years Smoked: (onset 15, 1/2ppd x 51yrs, 25pyh) Substance Use Type: Marijuana Review of Systems Const All systems reviewed & are unremarkable except as noted in HPI and below Physical Exam Vital Signs: Last Vital Signs Pulse 58 10/14/24 08:47 BP 128/62 10/14/24 08:47 Pulse Ox 99 10/14/24 08:47 Oxygen Delivery Method Room Air 10/14/24 08:47 BMI result Body Mass Index 24.5 Results Reviewed Results Reviewed: GES 08/2024: As the study progresses, there is slightly slower clearance of activity from the stomach into the small bowel with some retention noted by the end of the study time period. Retention in the stomach at each time interval was;: 1 hour 77% (normal < 90%) 2 hours 51% (normal < 60%) 3 hours 37% 4 hours 25% (normal < 10%) Assessment & Plan Assessment & Plan (1) Adenomyomatosis of gallbladder: Code(s): D13.5 - Benign neoplasm of extrahepatic bile ducts Category: Medical (2) Early satiety: Code(s): R68.81 - Early satiety Category: Medical (3) Abdominal pain: Code(s): R10.9 - Unspecified abdominal pain Category: Medical (4) Nicotine dependence, cigarettes, uncomplicated: Comment: (current smoker, onset 15, 1/2ppd x 51yrs, 25pyh) Code(s): F17.210 - Nicotine dependence, cigarettes, uncomplicated Category: Medical (5) Anemia: Code(s): D64.9 - Anemia, unspecified Category: Medical Plan 1. Abd pain/early satiety Educated the pt that GES suggestive of mildly delayed gastric emptying. Unclear if due to opiate as pt not sure if he was still taking oxy PRN last month. In any case, sx are mild and already improved by incorporating activity and exercise during his day. Will also mehreen for EGD for luminal eval to r/o other causes inc gastritis, PUD, pyloric stenosis etc. Plan: - Cont omeprazole 20 - EGD to be booked - Avoid fatty and high fiber foods - Avoid laying down within 60 mins of meals 2. GB polyps Will need repeat US in 6 months. Orders and reminder set. 3. Anemia Labs reviewed. This does not appear to be iron, B12 or folate deficiency. [place] this year normal per pt report. Will refer to heme for further eval. Follow up after EGD Orders: Orders US abdomen limited 3 Months D13.5 - Benign neoplasm of extrahepatic bile ducts Referrals Hematology & Oncology Referral D64.9 - Anemia, unspecified Medications: Refilled omeprazole 20 mg PO DAILY 90 days 90 caps 1RF Discontinued oxycodone Partial Fill upon patient request. Discontinued Reason: Patient Completed Course 5 mg PO Q6H PRN 15 tabs 0RF pain (scale score 7-10) Coding Level of Care Code Est Pt Level 4 (52015) Diagnoses Adenomyomatosis of gallbladder D13.5 Early satiety R68.81 Abdominal pain R10.9 Nicotine dependence, cigarettes, uncomplicated F17.210 Anemia D64.9
== END 2024-10-14 09:46 | disposition home or self-care (01) ==
PROVIDERS: PCP Internal Medicine; Visit Provider Internal Medicine
DX: D13.5 Benign neoplasm of extrahepatic bile ducts (principal); R68.81 Early satiety; R10.9 Unspecified abdominal pain; F17.210 Nicotine dependence, cigarettes, uncomplicated; D64.9 Anemia, unspecified
CPT/HCPCS: 99214

== ENCOUNTER → 2024-10-14 08:41 | Outpatient (BNVA) | payer OTHER, SELFPAY | PROVIDERS: PCP Internal Medicine; Visit Provider Internal Medicine | DX: D13.5 Benign neoplasm of extrahepatic bile ducts (principal); R68.81 Early satiety; R10.9 Unspecified abdominal pain; D64.9 Anemia, unspecified; F17.210 Nicotine dependence, cigarettes, uncomplicated | CPT/HCPCS: 99212 ==

== ENCOUNTER 2024-11-07 07:52 | Outpatient (REF) | payer OTHER, SELFPAY ==
--- NOTE | ~2024-11-07 | US_ITS ---
EXAMINATION: US ABDOMEN LIMITED HISTORY: D13.5 - Benign neoplasm of extrahepatic bile ducts TECHNIQUE: Real-time grayscale ultrasound imaging of the right upper quadrant was performed and images were reviewed. COMPARISON: Correlation is made with an abdominal ultrasound dated 07/23/2024. FINDINGS: Liver: The liver is normal in size and demonstrates homogeneous echotexture. No focal mass or intrahepatic biliary ductal dilatation is identified. There is normal hepatopedal flow in the portal vein. Gallbladder and biliary tree: There is a small amount of layering debris in the gallbladder. The gallbladder is otherwise unremarkable, without evidence of calculi, wall thickening, or pericholecystic fluid. The previously seen adenomyomatosis is not identified. There is no sonographic Sanchez sign. The common bile duct is normal in caliber measuring 4 mm. Right Kidney: The right kidney measures 10.1 cm in length. The right kidney is unremarkable, without evidence of masses, hydronephrosis, or calculi. Pancreas: The pancreatic head, neck, and body are unremarkable. The pancreatic tail is obscured by bowel gas. Abdominal aorta and inferior vena cava: The visualized portions of the abdominal aorta and inferior vena cava are normal in caliber. There is no free fluid in the right upper quadrant. US/US abdomen limited IMPRESSION: Small amount of debris in the gallbladder. The previously seen adenomyomatosis is not identified. Electronically signed by: Jose L Slaughter MD 11/07/2024 09:01 AM [facility]
== END 2024-11-07 07:53 | disposition home or self-care (01) ==
LOC: HO.US 07:52
PROVIDERS: PCP Internal Medicine; Visit Provider Internal Medicine
DX: D13.5 Benign neoplasm of extrahepatic bile ducts (principal)
CPT/HCPCS: 76705

== ENCOUNTER → 2024-11-07 07:53 | Outpatient (BNV) | payer OTHER, SELFPAY | PROVIDERS: PCP Internal Medicine; Visit Provider Radiology Diagnostic Radiology | DX: D13.5 Benign neoplasm of extrahepatic bile ducts (principal) | CPT/HCPCS: 76705 ==

== ENCOUNTER 2025-01-03 08:48 | Outpatient (REF) | payer OTHER, SELFPAY ==
[2025-01-03 08:59] LABS: MANUAL DIFF FLAG NO
[2025-01-03 09:19] LABS: Basophils Percent Auto 0.4 % (0-2); Eosinophils Absolute Auto 0.1 X10*3/uL (0.0-0.4); Hematocrit 35.1 % (42.0-52.0); Hemoglobin 11.8 g/dl (14.0-18.0); Lymphocytes Absolute Auto 2.9 X10*3/uL (1.2-4.9); Lymphocytes Percent Auto 41.4 % (20-40); Mean Corpuscular HGB Conc 33.6 g/dl (31.0-36.0); Mean Corpuscular Hemoglobin 33.4 pg (27.0-33.0); Mean Corpuscular Volume 99.4 fL (80.0-98.0); Mean Platelet Volume 9.7 fL (9.4-12.4); Monocytes Absolute Auto 0.7 X10*3/uL (0.1-1.2); Monocytes Percent Auto 10.6 % (2-11); Neutrophils Absolute Auto 3.2 x10*3/uL (2.0-8.3); Neutrophils Percent Auto 45.6 % (45-73); Platelet Count 214 X10*3/uL (160-400); Red Blood Count 3.53 X10*6/uL (4.60-5.80); Red Cell Distribution Width 13.2 % (11.0-16.0)
--- OUTSIDE RECORDS SUMMARY | 2025-01-03 09:24 | XMS_ITS | Clinical Summary ---
Author Organization [employer] Address [address] [facility] [address] [place] [address] Care Team Providers Care Generation Technician Name Role Phone Aline Carney MD Primary Care Provide r Allergies No known active allergies Medications * This document contains information received from the source organization and may not represent a complete record from that organization. cholecalciferol (Vitamin D-3) 25 MCG (1000 UT) capsule Take 1 capsule by mouth 1 (one) time each day. 2 Active lidocaine (Lidoderm) 5 % patch Place 1 patch on the skin at bed time. 2 Active LORazepam (Ativan) 0.5 MG tablet Take 1 tablet by mouth at bed time. Active magnesium oxide (Mag-Ox) 400 MG tablet ONE PILL EVERYDAY 2 Active tiZANidine (Zanaflex) 2 MG capsule Take 1 capsule by mouth every 6 (six) hours. Active tamsulosin (Flomax) 0.4 MG 24 hr capsuleIndication s:Benign prostatic hyperplasia with incomplete bladder emptying Take 1 capsule (0.4 mg) by mouth in the morning. 30 capsule 2 3 Active cyanocobalamin (Vitamin B-12) 1000 MCG/ML injection Inject 1 mL (1,000 mcg) into the shoulder, thigh, or buttocks 1 (one) time per week. Injections will be given by [facility] RN weekly x 4 weeks. 4 mL 3 Active famotidine (Pepcid) 20 MG tabletIndications :Heartburn Take 2 tablets (40 mg) by mouth at bedtime. 60 tablet 1 3 Active cholecalciferol (Vitamin D-3) 25 MCG (1000 UT) capsuleIndication s:Vitamin D insufficiency Take 1 capsule (25 mcg) by mouth in the morning. 60 capsule 2 3 Active ibuprofen 800 MG tabletIndications :Left flank pain TAKE 1 TABLET(800 MG) BY MOUTH EVERY 8 HOURS FOR UP TO 20 DAYS NEEDED FOR MILD PAIN 30 tablet 1 4 Active Blood Pressure kit 1 each 2 times daily. 1 kit 4 01/30/20 25 Active amoxicillin-clavu lanate (Augmentin) 875-125 MG tablet Take 1 tablet by mouth 2 times daily. 14 tablet 4 Active ibuprofen 400 MG tablet Take 1 tablet (400 mg) by mouth every 6 (six) hours if needed for moderate pain or fever for up to 30 doses. 30 tablet 4 Active tamsulosin (Flomax) 0.4 MG 24 hr capsuleIndication s:Benign prostatic hyperplasia with incomplete bladder emptying TAKE 1 CAPSULE(0.4 MG) BY MOUTH IN THE MORNING 90 capsule 4 Active senna-docusate sodium (Senokot-S) 8.6-50 MG tabletIndications :Other constipation Take 1 tablet by mouth Once per day. 30 tablet 11 4 04/25/20 25 Active gabapentin (Neurontin) 300 MG capsuleIndication s:Chronic bilateral low back pain with right-sided sciatica TAKE 1 CAPSULE(300 MG) BY MOUTH THREE TIMES DAILY 90 capsule 11 4 Active SUMAtriptan (Imitrex) 50 MG tabletIndications :Migraine without aura and without status migrainosus, not intractable Take 1 tablet (50 mg) by mouth 1 (one) time if needed for migraine for up to 27 doses. May repeat dose once in 2 hours if no relief. Do not exceed 2 doses in 24 hours. 9 tablet 2 5 Active Active Problems Problem Noted Date Diagnosed Date Left groin pain 12/09/2024 Assessment & Plan (12/09/2024 4:26 PM EST): I will refer patient back to urology, patient reports he was follow-up by them but he does not feel comfortable with a female urologist, he want me to put a new referral for a male urologist S/P hernia repair 12/09/2024 Urinary dribbling 12/09/2024 Migraine without aura and wi thout status migrainosus, not intractable 12/09/2024 Assessment & Plan (12/09/2024 4:28 PM EST): I advise to avoid migraine triggers like red wine, chocolate, cheese, strong perfumes I will continue with his prescription sumatriptan 50 mg as needed Elevated blood pressure reading 12/09/2024 Assessment & Plan (12/09/2024 4:28 PM EST): I advised low-sodium diet I advised to check his blood pressure at home every day and log it He will be follow-up in about 2 weeks with nurse if blood pressure is not at goal plan is to initiate amlodipine 5 mg daily Brain aneurysm 04/25/2024 Left groin hernia 03/07/2024 Assessment & Plan (04/25/2024 1:22 PM EDT): Surgery for left inguinal hernia repair schedule for 04/29/24 Assessment & Plan (04/18/2024 1:08 PM EDT): Hernia noted on physical exam Limited abdominal US ordered I will refer patient to surgery Patient's RCRI score is 0 meaning there is a 3.9% risk for this surgery (hernia repair) Patient shouldn't needs EKG or labs Patient should be clear for this surgery UTI symptoms 08/30/2023 Left flank pain 08/30/2023 Other constipation 08/30/2023 Assessment & Plan (04/25/2024 1:23 PM EDT): It was advise to drink plenty of water and to include more fiber on his diet Assessment & Plan (03/07/2024 10:55 AM EDT): I advise more fiber on his diet, walks and more water Senna prescribed today GI referral again today Heartburn 06/02/2023 Assessment & Plan (03/07/2024 10:54 AM EDT): I advise patient to avoid NSAIDs, spicy and acid food, I advise to eat at the same time every day, I advise to elevate the head of the bed and take medications as prescribe C/w famotidine GI referral done again today Assessment & Plan (08/30/2023 9:41 AM EDT): I advise patient to avoid NSAIDs, spicy and acid food, I advise to eat at the same time every day, I advise to elevate the head of the bed and take medications as prescribe Assessment & Plan (06/02/2023 12:17 PM EDT): I advise patient to avoid NSAIDs, spicy and acid food, I advise to eat at the same time every day, I advise to elevate the head of the bed and take medications as prescribe Vitamin B12 deficiency 06/02/2023 Current moderate episode of major depressive disorder without prior episode 04/03/2023 Assessment & Plan (04/03/2023 3:03 PM EDT): Assessment: Patient with uan reports depressed mood, difficulty sleeping, decreased interest in previously enjoyable activities, tiredness, poor appetite, guilt, hopelessness, restlessness, crying spells, feeling tense, constant worry, increased heartbeat, headaches frustration and irritability. He indicates that sxs started 5 yrs ago after one of his 2 adult children dies of an overdose. However, reports that sxs had for sometime decreased and, now exacerbated about 2 months ago after his adult child was released from custodial and is living in [facility]. John will benefit from Individual therapy in OP with focus on trauma and CBT related frame. He would also benefit from BE (short interventions to provide John with a bridge to manage sxs until establish with on-going OP . He would also benefit from referral and engagement in psych med management, as sx have been present for 5+ yrs. At this time John Damon meets criteria for Visit Diagnoses: Problem List Items Addressed This Visit Other Current moderate episode of major depressive disorder without prior episode (CMS/HCC) Patient ready to address current needs Yes Strengths include Insight into current stressors and sxs. Openness to treatment PLAN: 1. Follow up with [facility]: Recommended for follow-up: 03/24 2. Patient goal is Manage current stressors and sxs associated 3. Behavioral Recommendations a. Referral to OP for trauma/cbt focus sessions b. Referral to [facility] for psych med management c. Philip will engage on 3-5 follow up [facility] short interventions to provide some stabilization of sxs Anxiety with depression 02/20/2023 Eye pain, right 02/20/2023 Benign prostatic hyperplasia with incomplete bladder emptying 02/20/2023 Assessment & Plan (03/07/2024 10:56 AM EDT): Patient reports he is taking his flomax daily without relief of symptoms I refer patient to [facility] urology ordered today Assessment & Plan (02/20/2023 2:56 PM EDT): PSA ordered today I will try with Flomax 0.4 mg daily and reassess on next appointment Chronic low back pain 11/08/2022 Assessment & Plan (02/20/2023 2:57 PM EDT): Apply heat on affected area C/w ibuprofen/acetaminophen PRN XRAYs ordered for further assessment patient will be contacted with results I will try today gabapentin 100mg TID Hyperlipidemia 11/08/2022 Smoker 12/25/2020 Assessment & Plan (04/25/2024 1:23 PM EDT): Counseling done today Patient will quit on his own Assessment & Plan (06/02/2023 12:17 PM EDT): Counseling done Assessment & Plan (02/20/2023 2:55 PM EDT): Patient is not ready to quit, He reports he has tried nicotine patch and gum and also pills to stop smoking. I'll revisit this in future appointments Anxiety 12/25/2020 Encounters Date Type Department Care Team Description 01/03/2025 Orders Only GENERIC EXTERNAL DATA DEPARTMENT Provider, Generic External Data 12/30/2024 Telephone [facility] MEDICINE [address] [place] [phone] Aline Carney MD bp visit f/u 12/23/2024 10:00 AM EST Clinical Support [address] [address] Stacie Moss RN Elevated blood pressure reading in office without diagnosis of hypertension; Elevated blood pressure reading 12/23/2024 Orders Only [address] [address] Aline Carney MD 12/23/2024 Travel 12/09/2024 10:00 AM EST Office Visit [address] [address] Aline Carney MD Left groin pain (Primary Dx); S/P hernia repair; Urinary dribbling; Migraine without aura and without status migrainosus, not intractable; Elevated blood pressure reading 12/09/2024 Travel 12/04/[address] [address] Connor Nguyen MA Chart Prep 11/27/2024 Patient Outreach [address] [address] Aline Carney MD Pre-visit Planning (SDOH screening negative and tobacco screening negative) 11/07/2024 Orders Only [facility] External Provider, [facility] 10/09/[address] [address] Aline Carney MD No Show from Last 3 Months Immunizations Name Administration Dates Next Due Influenza injectable quadrivalent preservative f ree 09/02/2022 Moderna Covid-19 Vaccine 6+ Bivalent 12/09/2022 Pneumococcal Conjugate PCV 20 04/25/2024 TD (adult), 2 Lf tetanus tox oid, preservative free, adsorbed 12/27/2017 Tdap 09/02/2022 Family History Medical History Relation Name Comments Diabetes Father Hypertension Father Relation Name Status Comments Father Social History Tobacco Use Types Packs/Day Years Used Date Smoking Tobacco: Every Day Cigarettes Passive Smoke Exposure: Current Smokeless Tobacco: Never Tobacco Cessation:Ready to Q uit: Not Asked; Counseling Given: Not Answered Alcohol Use Standard Drinks/Week Comments Not Currently 0 (1 standard drink = 0.6 oz pur e alcohol) Depression Answer Date Recorded Patient Health Questionnaire-9 Score 13 03/07/2024 Patient Health Questionnaire-9 Score 13 03/07/2024 Last PHQ-9: Questionnaire Data Not on file 0 03/07/2024 Housing Stability Answer Date Recorded What is your housing situation today? I have dominique scales 02/28/[address] you li ve. Do you have problems with any of the following? None of the above 02/28/2024 Food Insecurity Answer Date Recorded Within the past 12 months, y ou worried that your food would run out before you got money to buy more: Never True 02/28/2024 Within the past 12 months,th e food you bought just didn't last and you didn't have enough money to get more: Never True 10/2023 Transportation Answer Date Recorded In the past 12 months, has l ack of transportation kept you from medical appts, meetings, work or from getting things needed for daily living? No 02/28/2024 Utilities Answer Date Recorded In the past 12 months, has t he electric, gas, oil or water company threatened to shut off services in your home? No 02/28/2024 Depression Answer Date Recorded Patient Health Questionnaire-2 Score 6 03/07/2024 Internet Access Answer Date Recorded Internet Access Q1 Yes 11/27/2024 Internet Access Q2 Not on file 11/27/2024 Sex and Gender Information Value Date Recorded Sex Assigned at Male 08/29/2022 10:37 AM EDT Legal Sex Male 10:37 AM EDT Gender Identity Male 08/29/2022 10:37 AM EDT Sexual Orientation Choose not to disclose 2021 10:37 AM EDT Last Filed Vital Signs Vital Sign Reading Time Taken Comments Blood Pressure 149/68 12/23/2024 10:16 AM EST Pulse 60 12/23/2024 10:16 AM EST Temperature 36.7 ??C (98 ??F) 12/23/2024 10: 16 AM EST Respiratory Rate 20 12/23/2024 10:1 6 AM EST Oxygen Saturation 100% 12/23/2024 10: 16 AM EST Inhaled Oxygen Concentration - - Weight 68.4 kg (150 lb 12.8 oz) 025 10:16 AM EST Height 171.5 cm (5' 7.5 ) 12/23/2024 10 :16 AM EST Body Mass Index 23.27 12/23/2024 10:16 AM EST Plan of Treatment Upcoming Encounters Date Type Department Care Team (Late st Contact Info) Description 01/15/2025 10:30 AM EDT Office Visit [facility] OPTOMETRY [address] [place] [address] Raymond, Yadira, OD [address] [place] [address] 03/17/2025 10:00 AM EDT Office Visit [facility] MEDICINE [address] [place] [address] Aline Canrey MD [address] [place] [address] Health Maintenance Due Date Last Done Comments CT Colonography 1955 Colonoscopy 1957 Colorectal Cancer Screening 1955 FIT DNA/Cologuard 1957 FIT 1957 FOBT 1957 Sigmoidoscopy 1957 Alcohol/Substance Use Screening 1969 Zoster Vaccines (2 of 3) 06/06/2019 04/11/2019 Dental Oral Exam 01/11/2022 07/13/2021 COVID-19 Vaccine ( - 2023-2 5 season) 2024 12/09/2022, 03/18/2021, 02/18/2021 Influenza Vaccine (#1) 2024 09/02/2022 Dental Prophylaxis 09/06/2024 03/05/2024 Depression Monitoring (PHQ-9) 09/07/2024, 03/07/2024 Dental X-Ray: Bitewings 03/06/2025 03/05/20, 07/13/2021 Depression Screening 03/07/2025 03/07/2024, 03/07/2024 SDOH Screening 11/27/2025 11/27/2024 Tobacco Screening 12/09/2025 12/09/2024 Dental X-Ray: Full Mouth 03/06/2027 024, 07/22/2021, 07/13/2021 Lipid Panel 01/26/2028 01/25/2023, 09/05/2022, 02/26/2021 DTaP/Tdap/Td Vaccines (2 - T d or Tdap) 09/02/2032 09/02/2022, 12/27/2017 RSV Patients and Patients Aged 60 years or older (1 - 1-dose 75+ series) 2032 Hepatitis C Screening Completed 01/25/2023 Pneumococcal Vaccine: 50+ Years Completed 04/25/2024 HIB Vaccines Aged Out No longer eligi ble based on patient's age to complete this topic HPV Vaccines Aged Out No longer eligi ble based on patient's age to complete this topic Hepatitis A Vaccines Aged Out No long er eligible based on patient's age to complete this topic Hepatitis B Vaccines Aged Out No long er eligible based on patient's age to complete this topic IPV Vaccines Aged Out No longer eligi ble based on patient's age to complete this topic Meningococcal Vaccine Aged Out No alvina wang eligible based on patient's age to complete this topic RSV under 20 months Aged Out No longe r eligible based on patient's age to complete this topic Rotavirus Vaccines Aged Out No longer eligible based on patient's age to complete this topic Procedures Procedure Name Priority Date/Time Associated Diagnosis Comments CBC WITH AUTO DIFFERENTIAL Routine 01/03/2025 8:55 AM EST US ABDOMEN LIMITED Routine 11/07/2024 8: 11 AM EST PROPHYLAXIS - ADULT Routine 03/05/2024 1 1:00 AM EDT INTRAORAL - COMPLETE SERIES OF RADIOGRAPHIC IMAGES Routine 03/05/2024 11:00 AM EDT HEPATITIS C AB W/REFL TO HCV RNA, QN, PCR Routine 01/25/2023 8:23 AM EDT LIPID PANEL, STANDARD Routine 01/25/2023 8:23 AM EDT COMPREHENSIVE ORAL EVALUATION - NEW OR ESTABLISHED PATIENT Routine 07/13/2021 12:00 AM EDT from Last 3 Months or Most Recently Relevant to Health Maintenance Results * (ABNORMAL) CBC auto differential (01/03/2025 8:55 AM EST) White Blood Count 7.0 4.8 - 10.8 X10*3/uL [facility] Red Blood Count 3.53(L) 4.60 - 5.80 X10*6/uL [facility] Hemoglobin 11.8(L) 14.0 - 18.0 g/dl [facility] Hematocrit 35.1(L) 42.0 - 52.0 % [facility] Mean Corpuscular Volume 99.4(H) 80.0 - 98.0 fL [facility] Mean Corpuscular Hemoglobin 33.4(H) 27.0 - 33.0 pg [facility] Mean Corpuscular HGB Conc 33.6 31.0 - 36.0 g/dl [facility] Red Cell Distribution Width 13.2 11.0 - 16.0 % [facility] Platelet Count 214 160 - 400 X10*3/uL [facility] Mean Platelet Volume 9.7 9.4 - 12.4 fL [facility] Neutrophils Percent Auto 45.6 45 - 73 % [facility] Imm Gran Pct Auto 0.0 0.0 - 0.4 % [facility] Lymphocytes Percent Auto 41.4(H) 20 - 40 % [facility] Monocytes Percent Auto 10.6 2 - 11 % [facility] Eosinophils Percent Auto 2.0 0 - 4 % [facility] Basophils Percent Auto 0.4 0 - 2 % [facility] NRBC Pct Auto 0.0 0.0 - 0.2 /100WBC [facility] Neutrophils Absolute Auto 3.2 2.0 - 8.3 x10*3/uL [facility] Imm Gran Abs Auto 0.00 0.00 - 0.03 X10*3/uL [facility] Lymphocytes Absolute Auto 2.9 1.2 - 4.9 X10*3/uL [facility] Monocytes Absolute Auto 0.7 0.1 - 1.2 X10*3/uL [facility] Eosinophils Absolute Auto 0.1 0.0 - 0.4 X10*3/uL [facility] Basophils Absolute Auto 0.0 0.0 - 0.2 X10*3/uL [facility] NRBC Abs Auto 0.000 0.0 - 0.012 X10*3/uL [facility] 01/03/2025 8:55 AM EST 01/03/2025 8:57 AM EST us Generic External Data Provider LAB BLOOD ORDERAB LES Final Result [facility] [address] [place] [phone] * US Abdomen Limited (11/07/2024 8:11 AM EST) Anatomical Region Laterality Modality Abdomen Ultrasound 11/07/2024 8:11 AM EST Narrative 11/07/2024 9:04 AM EST ? [facility] ?[address] ?[place]ail [place] [address] ? Ultrasound Report ? Signed ? Patient: John Damon ?MR#: [id number] ? : 1955 ?Acct:[id number] ? Age/Sex: 68 / M ?ADM Date: 11/07/24 ? Loc: HO.US ? Attending Dr: Emma Michelle MD ? Ordering Physician: Emma Michelle MD ?? Date of Service: 11/07/24 ?? Procedure(s): US abdomen limited ?? Accession Number(s): [id number] ? cc: Aline Carney MD; Emma Michelle MD ? EXAMINATION: ??US ABDOMEN LIMITED ? 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 TECHNIQUE: Real-time grayscale ultrasound imaging of the right upper ?? quadrant was performed and images were reviewed. ? COMPARISON: Correlation is made with an abdominal ultrasound dated ?? 07/23/2024. ? FINDINGS: ?? Liver: The liver is normal in size and demonstrates homogeneous ?? echotexture. ?No focal mass or intrahepatic biliary ductal dilatation ?? is identified. ?? There is normal hepatopedal flow in the portal vein. ? Gallbladder and biliary tree: There is a small amount of layering ?? debris in the gallbladder. The gallbladder is otherwise unremarkable, ?? without evidence of calculi, wall thickening, or pericholecystic fluid. ?? The previously seen adenomyomatosis is not identified. There is no ?? sonographic Sanchez sign. ??The common bile duct is normal in caliber ?? measuring 4 mm. ? Right Kidney: ??The right kidney measures 10.1 cm in length. ??The right ?? kidney is unremarkable, without evidence of masses, hydronephrosis, or ?? calculi. ? Pancreas: The pancreatic head, neck, and body are unremarkable. The ?? pancreatic tail is obscured by bowel gas. ? Abdominal aorta and inferior vena cava: The visualized portions of the ?? abdominal aorta and inferior vena cava are normal in caliber. ? There is no free fluid in the right upper quadrant. ? US/US abdomen limited ?? IMPRESSION: ? Small amount of debris in the gallbladder. The previously seen ?? adenomyomatosis is not identified. ? Electronically signed by: ??Jose L Slaughter MD ??11/07/2024 09:01 AM EST ? Dictated By: ?Jose L Slaughter MD ? Signed By: ?<Electronically signed by Jose L Slaughter MD in OV> ?11/07/24 0901 ? DD/ ? TD/TT: 11/07/248[address] ? [employer]er: ? 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 COMPARISON: Correlation is made with an abdominal ultrasound dated 07/23/2024. FINDINGS: Liver: The liver is normal in size and demonstrates homogeneous echotexture. No focal mass or intrahepatic biliary ductal dilatation is identified. There is normal hepatopedal flow in the portal vein. Gallbladder and biliary tree: There is a small amount of layering debris in the gallbladder. The gallbladder is otherwise unremarkable, without evidence of calculi, wall thickening, or pericholecystic fluid. The previously seen adenomyomatosis is not identified. There is no sonographic Sanchez sign. The common bile duct is normal in caliber measuring 4 mm. Right Kidney: The right kidney measures 10.1 cm in length. The right kidney is unremarkable, without evidence of masses, hydronephrosis, or calculi. Pancreas: The pancreatic head, neck, and body are unremarkable. The pancreatic tail is obscured by bowel gas. Abdominal aorta and inferior vena cava: The visualized portions of the abdominal aorta and inferior vena cava are normal in caliber. There is no free fluid in the right upper quadrant. US/US abdomen limited IMPRESSION: Small amount of debris in the gallbladder. The previously seen adenomyomatosis is not identified. Electronically signed by: Jose L Slaughter MD 11/07/2024 09:01 AM EST Dictated By: Jose L Slaughter MD Signed By: <Electronically signed by Jose L Slaughter MD in OV> 11/07/24 0901 DD/ 0811 TD/TT: 11/07/24 0818 [employer]er: us [facility] External Provider IMG US PROCEDURES Final Result * Hepatitis C Antibody with Reflex to HCV, RNA, Quantitative, Real-Time PCR (01/25/2023 8:23 AM EDT) Hepatitis C Antibody NON-REACT DERICK NON-REACT DERICK [facility] Index 0.08 <1.00 [facility] Comment: HCV antibody was non-reactive. There is no laboratory evidence of HCV infection. In most cases, no further action is required. However, if recent HCV exposure is suspected, a test for HCV RNA (test code 52364) is suggested. For additional information please refer to http://[employer]/faq/RGA10w2 (This link is being provided for informational/ educational purposes only.) 01/25/2023 8:23 AM EDT 01/25/2023 8:24 AM EDT Narrative [facility] - 01/25/2023 9:24 PM EDT FASTING:YES FASTING: YES us Ryann Stone NP LAB BLOOD ORDERABLES Final Res ult [address], [place] [address] [facility] [address] [place] [address] * (ABNORMAL) Lipid Panel, Standard (01/25/2023 8:23 AM EDT) Cholesterol, Total 180 <200 mg/dL [facility] HDL Cholesterol 34(L) > OR = 40 mg/dL [facility] Triglycerides 101 <150 mg/dL [facility] LDL Cholesterol 126(H) mg/dL (calc) [facility] Comment: Reference range: <100 Desirable range <100 mg/dL for primary prevention; ?? <70 mg/dL for patients with CHD or diabetic patients with > or = 2 CHD risk factors. LDL-C is now calculated using the Sage-Dragan calculation, which is a validated novel method providing better accuracy than the Friedewald equation in the estimation of LDL-C. Sage CLIFFORD et al. ANGEL. 2013;310(19): 2292-4392 (http://education.[employer]/faq/ABL187) Chol/HDLC Ratio 5.3(H) <5.0 (calc) [facility] Non-HDL Cholesterol 146(H) <130 mg/dL (calc) [facility] Comment: For patients with diabetes plus 1 major ASCVD risk factor, treating to a non-HDL-C goal of <100 mg/dL (LDL-C of <70 mg/dL) is considered a therapeutic option. 01/25/2023 8:23 AM EDT 01/25/2023 8:24 AM EDT Narrative [facility] - 01/25/2023 9:24 PM EDT FASTING:YES FASTING: YES us Ryann Stone [employer] (CAD) LAB BLOOD ORDERABLES Final Res ult [facility] [address], [place] [address] [facility] [address] [place] [address] from Last 3 Months or Most Recently Relevant to Health Maintenance Insurance [facility] - [facility] Care Teams Generation Technician Relationship Specialty Start Date End Date Aline Carney MD [address] [place] [phone] PCP - General Internal Medicine 02/23/23
--- OUTSIDE RECORDS SUMMARY | 2025-01-03 09:24 | XMS_ITS | Encounter Summary ---
Author Organization [employer] Address [address] [facility] [address] [place] [address] Care Team Providers Care Routeman Name Role Phone Aline Carney MD Primary Care Provide r Reason for Visit * Reason Onset Date Comments Chart Prep 12/04/2024 Encounter Details Date Type Department Care Team (Late st Contact Info) Description 12/04/2024 Telephone [facility] MEDICINE [address] [place] [address] [phone] Connor Nguyen MA Chart Prep Social History Tobacco Use Types Packs/Day Years Used Date Smoking Tobacco: Every Day Cigarettes Passive Smoke Exposure: Current Smokeless Tobacco: Never Alcohol Use Standard Drinks/Week Comments Not Currently [...] not to disclose 2021 10:37 AM EDT documented as of this encounter Miscellaneous Notes * Telephone Encounter - Connor Nguyen MA - 12/04/2024 4:01 PM EST Chart Prep Labs: done Images: done Vaccines due: yes Referrals: Booked appts for Urology Neurology Screenings: colonoscopy Overdue care gaps: Sbirt, PHQ-9, BREONNA-7 documented in this encounter Plan of Treatment Upcoming Encounters Date Type Department Care Team (Late st Contact Info) Description 01/15/2025 10:30 AM EDT Office Visit [facility] OPTOMETRY [address] [place] [address] Raymond, Yadira, OD [address] [place] [address] 03/17/2025 10:00 AM EDT Office Visit [facility] MEDICINE [address] [place] [address] Aline Carney MD [address] [place] [address] documented as of this encounter Visit Diagnoses Not on filedocumented in this encounter Additional Health Concerns Assessment Noted Time PHQ-9 Depression Total Score: 13 024 9:15 AM EDT documented as of this encounter Care Teams Routeman Relationship Specialty Start Date End Date Aline Carney MD [address] [place] [address] PCP - General Internal Medicine 02/23/23 documented as of this encounter
--- OUTSIDE RECORDS SUMMARY | 2025-01-03 09:24 | XMS_ITS | Encounter Summary ---
Author Organization [employer] Address [address] [address] [facility] [address] [place] [address] Care Team Providers Care City Surveyor Name Role Phone Aline Carney MD Primary Care Provide r Encounter Details Date Type Department Care Team (Latest Contact Info) Description 12/23/2024 Travel Social History Tobacco Use Types Packs/Day Years [...] AM EDT documented as of this encounter Plan of Treatment Upcoming Encounters Date Type Department Care Team (Late st Contact Info) Description 01/15/2025 10:30 AM EDT Office Visit [facility] OPTOMETRY [address] [place] [address] Yadira Andrade, OD 230 [place] [address] 03/17/2025 10:00 AM EDT Office Visit [facility] MEDICINE [address] [place] [address] Aline Carney MD [address] [place] [address] documented as of this encounter Visit Diagnoses Not on filedocumented in this encounter Additional Health Concerns Assessment Noted Time PHQ-9 Depression Total Score: 13 024 9:15 AM EDT documented as of this encounter Care Teams City Surveyor Relationship Specialty Start Date End Date Aline Carney MD 230 [place] [address] PCP - General Internal Medicine 02/23/23 documented as of this encounter
--- OUTSIDE RECORDS SUMMARY | 2025-01-03 09:24 | XMS_ITS | Encounter Summary ---
Author Organization [employer] Address [address] [facility] [facility] [facility] [address] [facility] [address] [place] [address] Care Team Providers Care Route Delivery Manager Name Role Phone Aline Carney MD Primary Care Provide r Encounter Details Date Type Department Care Team ([facility] st Contact Info) Description 12/23/2024 Orders Only [facility] MEDICINE [address] [place], [place] [phone] Aline Carney MD [address] [place], [place] [phone] Social History Tobacco Use Types Packs/Day Years [...] Description 01/15/2025 10:30 AM EDT Office Visit [facility] OPTOMETRY [address] [place] [address] Raymond, Yadira, OD [address] [place] [address] 03/17/2025 10:00 AM EDT Office Visit [facility] MEDICINE [address] [place] [address] Aline Carney MD [address] [place] [address] documented as of this encounter Visit Diagnoses Not on filedocumented in this encounter Additional Health Concerns Assessment Noted Time PHQ-9 Depression Total Score: 13 024 9:15 AM EDT documented as of this encounter Care Teams Route Delivery Manager Relationship Specialty Start Date End Date Aline Carney MD [address] [place] [address] PCP - General Internal Medicine 02/23/23 documented as of this encounter
--- OUTSIDE RECORDS SUMMARY | 2025-01-03 09:24 | XMS_ITS | Encounter Summary ---
Author Organization [employer] [facility] Address [address] [facility] 7t [place] [address] Care Team Providers Care Operations Section Manager Name Role Phone Adry Rai Primary Care Provider [phone] Aline Carney MD Primary Care Provide r Encounter Details Date Type Department Care Team (Latest Contact Info) Description 07/13/2021 Abstract [facility] CONVERSIONS Dental, Provider, DDS Social History Tobacco Use Types Packs/Day Years Used Date Smoking Tobacco: Never Assessed Sex and Gender Information Value Date Recorded [...] Description 01/15/2025 10:30 AM EDT Office Visit [facility] OPTOMETRY [address] [place] [address] Yadira Andrade, OD [address] [place] [address] 03/17/2025 10:00 AM EDT Office Visit [facility] MEDICINE [address] [place] [address] Aline Carney MD [address] [place] [address] documented as of this encounter Visit Diagnoses Not on filedocumented in this encounter Care Teams Operations Section Manager Relationship Specialty Start Date End Date Adry Rai ANP [address] [place] [address] PCP - General Family Medicine 06/28/22 02/22/23 Aline Carney MD [address] [place] [address] PCP - General Internal Medicine 02/23/23 documented as of this encounter
--- OUTSIDE RECORDS SUMMARY | 2025-01-03 09:24 | XMS_ITS | Encounter Summary ---
Author Organization [employer] Address [address] [facility] 7t [place] [address] Care Team Providers Care Dry Starch Supervisor Name Role Phone Aline Carney MD Primary Care Provide r Reason for Visit * Reason Onset Date Comments bp visit f/u 12/30/2024 Encounter Details Date Type Department Care Team ([facility] st Contact Info) Description 12/30/2024 Telephone [facility] MEDICINE [address] [place], [place] [phone] Aline Carney MD [address] [place], [place] [phone] bp visit f/u Social History Tobacco Use Types Packs/Day Years [...] encounter Miscellaneous Notes * Telephone Encounter - Stacie Moss RN - 12/30/2024 3:31 PM EST Noted. ----- Message from Aline Oseguera MD sent at 12/30/2024 9:52 AM EST ----- Hi I will follow up with patient in ur next appointment thank you! ----- Message ----- From: Stacie Moss RN Sent: 12/23/2024 12:19 PM EST To: Aline Oseguera MD Pt has had a few mildly elevated blood pressures. Today's visit: 149/68 He endorses a high stress level Denies any s/s Please review and advise Thank you documented in this encounter Plan of Treatment Upcoming Encounters Date Type Department Care Team (Late st Contact Info) Description 01/15/2025 10:30 AM EDT Office Visit [facility] OPTOMETRY [address] [place] [address] Yadira Andrade, OD [address] [place], [place] [phone] 03/17/2025 10:00 AM EDT Office Visit [facility] MEDICINE [address] [place], [place] [phone] Aline Carney MD [address] [place] [address] documented as of this encounter Visit Diagnoses Not on filedocumented in this encounter Additional Health Concerns Assessment Noted Time PHQ-9 Depression Total Score: 13 024 9:15 AM EDT documented as of this encounter Care Teams Dry Starch Supervisor Relationship Specialty Start Date End Date Aline Carney MD [address] [place] [address] [phone] PCP - General Internal Medicine 02/23/23 documented as of this encounter
--- OUTSIDE RECORDS SUMMARY | 2025-01-03 09:24 | XMS_ITS | Encounter Summary ---
Author Organization [employer] Address [address] [facility] 7[address] [place] [address] Care Team Providers Care Insulation Foreman Name Role Phone Aline Carney MD Primary Care Provide r Reason for Visit * Reason Onset Date Comments Appointment Request 05/01/2023 Encounter Details Date Type Department Care Team (Late st Contact Info) Description 05/01/2023 Telephone [facility] MEDICINE [address] [place] [address] [phone] Aline Carney MD [address] [place], [place] [phone] Appointment Request Social History Tobacco Use Types Packs/Day Years Used Date Smoking Tobacco: Every Day Cigarettes Passive Smoke Exposure: Current Smokeless Tobacco: Never Alcohol Use Standard Drinks/Week Comments Not Currently 0 (1 standard drink = 0.6 oz pur e alcohol) Depression Answer Date Recorded Patient Health Questionnaire-9 Score 16 03/24/2023 Depression Answer Date Recorded Patient Health Questionnaire-2 Score 6 03/24/2023 Sex and Gender Information Value Date Recorded Sex Assigned at Male 08/29/2022 10:37 AM EDT Legal Sex Male 10:37 AM EDT Gender Identity Male 08/29/2022 10:37 AM EDT Sexual Orientation Choose not to disclose 2021 10:37 AM EDT documented as of this encounter Miscellaneous Notes * Telephone Encounter - Earlene Mclean - 05/01/2023 11:13 AM EDT Tc from pt requesting status on follow up appt with provider. Pt states provider advise would like to see pt in 2 months on last visit. Please contact pt att [phone] Cook Islander Speaker documented in this encounter Plan of Treatment Upcoming Encounters Date Type Department Care Team (Late st Contact Info) Description 01/15/2025 10:30 AM EDT Office Visit [facility] OPTOMETRY [address] [place] [address] Yadira Andrade, OD [address] [place] [address] 03/17/2025 10:00 AM EDT Office Visit [facility] MEDICINE [address] [place] [address] Aline Carney MD [address] [place] [address] documented as of this encounter Visit Diagnoses Not on filedocumented in this encounter Additional Health Concerns Assessment Noted Time PHQ-9 Depression Total Score: 16 023 10:31 AM EDT documented as of this encounter Care Teams Insulation Foreman Relationship Specialty Start Date End Date Aline Carney MD [address] [place], [place] [phone] PCP - General Internal Medicine 02/23/23 documented as of this encounter
--- OUTSIDE RECORDS SUMMARY | 2025-01-03 09:24 | XMS_ITS | Encounter Summary ---
Author Organization [employer] Address [address] [place] [address] Care Team Providers Care Machine Molder Name Role Phone Aline Carney MD Primary Care Provide r Encounter Details Date Type Department Care Team (Latest Contact Info) Description 12/09/2024 Travel Social History Tobacco Use Types Packs/Day [...] Description 01/15/2025 10:30 AM EDT Office Visit [facility] OPTOMETRY [address] [place] [address] Yadira Andrade, OD [address] [place] [address] 03/17/2025 10:00 AM EDT Office Visit [facility] MEDICINE [address] [place] [address] Aline Carney MD [address] [place] [address] documented as of this encounter Visit Diagnoses Not on filedocumented in this encounter Additional Health Concerns Assessment Noted Time PHQ-9 Depression Total Score: 13 024 9:15 AM EDT documented as of this encounter Care Teams Machine Molder Relationship Specialty Start Date End Date Aline Carney MD [address] [place] [address] PCP - General Internal Medicine 02/23/23 documented as of this encounter
--- OUTSIDE RECORDS SUMMARY | 2025-01-03 09:24 | XMS_ITS | Encounter Summary ---
Author Organization [employer] Address [address] [facility] [address] [facility] [address] [place] [address] Care Team Providers Care Custom Clothier Name Role Phone Aline Carney MD Primary Care Provide r Reason for Visit * Reason Comments Hypertension Nurse Visit-BP check Encounter Details Date Type Department Care Team (Latest Contact Info) Description 12/23/2024 10:00 AM EST Clinical Support [facility] MEDICINE [address] [place] [phone] Stacie Moss RN Elevated blood pressure reading in office without diagnosis of hypertension; Elevated blood pressure reading Social History Tobacco Use Types Packs/Day Years [...] AM EDT documented as of this encounter Last Filed Vital Signs Vital Sign Reading [...] Mass Index 23.27 12/23/2024 10:16 AM EST documented in this encounter Progress Notes * Stacie Moss RN - 12/23/2024 10:00 AM EST SUBJECTIVE: John Nelson is a 69 y.o. year old male who presents for Hypertension (Nurse Visit-BP check) Preferred language for medical information: Burundian or [place]i, he declines an manager corporate communications Recommendations at last visit were: Elevated blood pressure reading I advised low-sodium diet I advised to check his blood pressure at home every day and log it He will be follow-up in about 2 weeks with nurse if blood pressure is not at goal plan is to initiate amlodipine 5 mg daily I advised low-sodium diet I advised to check his blood pressure at home every day and log it He will be follow-up in about 2 weeks with nurse if blood pressure is not at goal plan is to initiate amlodipine 5 mg daily Pt denies :blurred vision, shortness of breath, chest pain, dizziness He endorses a history of migraine headaches for which he takes Imitrex with good effect. There have been no changes in the frequency or s/s of these head aches. > Pt expresses having a lot of stress . He sold his house in [place] a few months ago and is looking for real estate here. He declines or other supports >Pt endorses difficulty reducing sodium intake, and is not exercising . >Pt states he is not ready to consider quitting smoking >Pt has been checking his blood pressure daily at home for the past few weeks. Higher readings: 174/77, 173/73, 157/82 Averages: 120/68, 114/69 Current Outpatient Medications Medication Sig Dispense Refill amoxicillin-clavulanate (Augmentin) 875-125 MG tablet Take 1 tablet by mouth 2 times daily. 14 tablet 0 Blood Pressure kit 1 each 2 times daily. 1 kit 0 cholecalciferol (Vitamin D-3) 25 MCG (1000 UT) capsule Take 1 capsule by mouth 1 (one) time each day. cholecalciferol (Vitamin D-3) 25 MCG (1000 UT) capsule Take 1 capsule (25 mcg) by mouth in the morning. 60 capsule 2 cyanocobalamin (Vitamin B-12) 1000 MCG/ML injection Inject 1 mL (1,000 mcg) into the shoulder, thigh, or buttocks 1 (one) time per week. Injections will be given by [facility] RN weekly x 4 weeks. 4 mL 0 famotidine (Pepcid) 20 MG tablet Take 2 tablets (40 mg) by mouth at bedtime. 60 tablet 1 gabapentin (Neurontin) 300 MG capsule TAKE 1 CAPSULE(300 MG) BY MOUTH THREE TIMES DAILY 90 capsule 11 ibuprofen 400 MG tablet Take 1 tablet (400 mg) by mouth every 6 (six) hours if needed for moderate pain or fever for up to 30 doses. 30 tablet 0 ibuprofen 800 MG tablet TAKE 1 TABLET(800 MG) BY MOUTH EVERY 8 HOURS FOR UP TO 20 DAYS NEEDED FOR MILD PAIN 30 tablet 1 lidocaine (Lidoderm) 5 % patch Place 1 patch on the skin at bed time. LORazepam (Ativan) 0.5 MG tablet Take 1 tablet by mouth at bed time. magnesium oxide (Mag-Ox) 400 MG tablet ONE PILL EVERYDAY senna-docusate sodium (Senokot-S) 8.6-50 MG tablet Take 1 tablet by mouth Once per day. 30 tablet 11 SUMAtriptan (Imitrex) 50 MG tablet Take 1 tablet (50 mg) by mouth 1 (one) time if needed for migraine for up to 27 doses. May repeat dose once in 2 hours if no relief. Do not exceed 2 doses in 24 hours. 9 tablet 2 tamsulosin (Flomax) 0.4 MG 24 hr capsule Take 1 capsule (0.4 mg) by mouth in the morning. 30 capsule 2 tamsulosin (Flomax) 0.4 MG 24 hr capsule TAKE 1 CAPSULE(0.4 MG) BY MOUTH IN THE MORNING 90 capsule 0 tiZANidine (Zanaflex) 2 MG capsule Take 1 capsule by mouth every 6 (six) hours. No current facility-administered medications for this visit. Patient Active Problem List Diagnosis Date Noted Left groin pain 12/09/2024 S/P hernia repair 12/09/2024 Urinary dribbling 12/09/2024 Migraine without aura and without status migrainosus, not intractable 12/09/2024 Elevated blood pressure reading 12/09/2024 Brain aneurysm 04/25/2024 Left groin hernia 03/07/2024 UTI symptoms 08/30/2023 Left flank pain 08/30/2023 Other constipation 08/30/2023 Heartburn 06/02/2023 Vitamin B12 deficiency 06/02/2023 Current moderate episode of major depressive disorder without prior episode ([facility]) 04/03/2023 Anxiety with depression 02/20/2023 Eye pain, right 02/20/2023 Benign prostatic hyperplasia with incomplete bladder emptying 02/20/2023 Chronic low back pain 11/08/2022 Hyperlipidemia 11/08/2022 Smoker 12/25/2020 Anxiety 12/25/2020 Patient has no known allergies. John Nelson does confirm adherence to medications listed above. Confirmed medications taken today yes Recent emergency room or hospitalizations:no Notes scanned into chart: N/A Social History Tobacco Use Smoking Status Every Day Current packs/day: 0.50 Types: Cigarettes Passive exposure: Current Smokeless Tobacco Never Social History Substance and Sexual Activity Alcohol Use Not Currently Social History Substance and Sexual Activity Drug Use Yes Types: Marijuana BP Readings from Last 4 Encounters: 12/23/24 (!) 149/68 12/09/24 (!) 155/72 05/16/24 132/80 04/25/24 130/63 Pulse Readings from Last 4 Encounters: 12/23/24 60 12/09/24 59 04/25/24 52 03/07/24 64 OBJECTIVE: Vitals: 12/23/24 1016 BP: (!) 149/68 BP Location: Left arm Patient Position: Sitting BP Cuff Size: Adult Pulse: 60 Resp: 20 Temp: 98 ??F (36.7 ??C) TempSrc: Tympanic SpO2: 100% Weight: 150 lb 12.8 oz (68.4 kg) Height: 5' 7.5 (1.715 m) ASSESSMENT: Achieve goal blood pressure of <140/90 or <130/80 PLAN: Today's findings will be sent to PCP Dr. Sharpe for review and advise. Pt does not want to take any more medications . John Nelson advised to continue taking medications as directed and reinforcement of lifestyle modifications including: low sodium diet and exercise were reviewed. Pt encouraged to consider smoking cessation: he declines at this time Pt informed plan of care will be determined by PCP and this typewriter mechanic will call when it is determined.Pt states understanding of plan and agreeable to same. John Nelson Future Appointments Date Time Provider Department Center 01/15/2025 10:30 AM Yadira Andrade OD [facility] 03/17/2025 10:00 AM Aline Oseguera MD MEDICINE [facility] Stacie Moss RN documented in this encounter Plan of Treatment Upcoming Encounters Date Type Department Care Team (Late st Contact Info) Description 01/15/2025 10:30 AM EDT Office Visit [facility] OPTOMETRY [address] [place] [address] Yadira Andrade OD [address] [place] [address] 03/17/2025 10:00 AM EDT Office Visit [facility] MEDICINE [address] [place] [address] Aline Carney MD [address] [place] [address] documented as of this encounter Visit Diagnoses Diagnosis Elevated blood pressure reading in office without diagnosis of hypertension Elevated blood pressure reading Elevated blood pressure reading without diagnosis of hypertension documented in this encounter Additional Health Concerns Assessment Noted Time PHQ-9 Depression Total Score: 13 024 9:15 AM EDT documented as of this encounter Care Teams Custom Clothier Relationship Specialty Start Date End Date Aline Carney MD [address] [place] [address] PCP - General Internal Medicine 02/23/23 documented as of this encounter
--- OUTSIDE RECORDS SUMMARY | 2025-01-03 09:24 | XMS_ITS | Encounter Summary ---
Author Organization [employer] Address [address] [facility] 7t [place] [address] Care Team Providers Care Administrative Support Coordinator Name Role Phone Aline Carney MD Primary Care Provide r Reason for Referral * Consultation (Urgent) - Closed Specialty Diagnoses / Procedures Referred By Becca hayden Referred To Contact Urology Diagnoses Left groin pain S/P hernia repair Urinary dribbling Aline Carney MD [address] [place] [address] Phone: tel: fax: [facility] [address] [place], [place] Phone: tel: fax: Referral ID Status Reason Start Date Expiration Date V isits Requested Visits Authorized [id number] Closed Specialty Services Required 12/09/2024 12/09/2025 1 1 Encounter Details Date Type Department Care Team (Late st Contact Info) Description 12/09/2024 10:00 AM EST Office Visit [facility] MED[facility]INE [address] [place] [address] [phone] Aline Carney MD [address] [place], [place] [phone] Left groin pain (Primary Dx); S/P hernia repair; Urinary dribbling; Migraine without aura and without status migrainosus, not intractable; Elevated blood pressure reading Social History Tobacco [...] Sign Reading Time Taken Comments Blood Pressure 155/72 12/09/2024 10:50 AM EST Pulse 59 12/09/2024 10:13 AM EST Temperature 36.4 ??C (97.6 ??F) 12/09/2024 1 0:13 AM EST Respiratory Rate 14 12/09/2024 10:1 3 AM EST Oxygen Saturation - - Inhaled Oxygen Concentration - - Weight 67.5 kg (148 lb 12.8 oz) 025 10:13 AM EST Height 167.6 cm (5' 6 ) 12/09/2024 10:1 3 AM EST Body Mass Index 24.02 12/09/2024 10:13 AM EST documented in this encounter Progress Notes * Aline Oseguera MD - 12/09/2024 10:00 AM EST SUBJECTIVE: John Nelson is a 68 y.o. year old male who presents for Chronic Disease Management . Acute Concerns: Patient is status post left inguinal hernia repair, he today complaining again of pain on the same area as well as suprapubic pressure and persistent urinary dribbling Patient did follow-up with neurology about aneurysm, he complained of headaches and was diagnosed with migraine headaches it was prescribed for him sumatriptan 50 mg as needed which had helped him a lot Social History Social History Narrative Not on file Patient Active Problem List Diagnosis Smoker Anxiety Chronic low back pain Hyperlipidemia Anxiety with depression Eye pain, right Benign prostatic hyperplasia with incomplete bladder emptying Current moderate episode of major depressive disorder without prior episode (CMS/HCC) Heartburn Vitamin B12 deficiency UTI symptoms Left flank pain Other constipation Left groin hernia Brain aneurysm Left groin pain S/P hernia repair Urinary dribbling Migraine without aura and without status migrainosus, not intractable Elevated blood pressure reading Family History Problem Relation Name Age of Onset Diabetes Father Hypertension Father Review of Systems Constitutional: Negative. HENT: Negative. Respiratory: Negative. Cardiovascular: Negative. Gastrointestinal: Positive for abdominal pain. Genitourinary: Positive for difficulty urinating, frequency and urgency. Negative for decreased urine volume, dysuria, enuresis, flank pain, genital sores, hematuria, penile discharge, penile pain, penile swelling, scrotal swelling and testicular pain. OBJECTIVE: Vitals: 12/09/24 1013 12/09/24 1050 BP: (!) 142/64 (!) 155/72 BP Location: Left arm Right arm Patient Position: Sitting Sitting BP Cuff Size: Adult Adult Pulse: 59 Resp: 14 Temp: 97.6 ??F (36.4 ??C) TempSrc: Oral Weight: 148 lb 12.8 oz (67.5 kg) Height: 5' 6 (1.676 m) Physical Exam Constitutional: Appearance: Normal appearance. Cardiovascular: Rate and Rhythm: Normal rate and regular rhythm. Pulmonary: Effort: Pulmonary effort is normal. Breath sounds: Normal breath sounds. Abdominal: General: Abdomen is flat. Palpations: Abdomen is soft. Tenderness: There is abdominal tenderness in the left lower quadrant. Neurological: Mental Status: He is alert. Follow Up: Follow up for 2 weeks BP check with nurse then 3 months . Current Outpatient Medications on File Prior to Visit Medication Sig Dispense Refill amoxicillin-clavulanate (Augmentin) 875-125 [...] per week. Injections will be given by [facility] RN weekly x 4 weeks. 4 mL [...] mouth Once per day. 30 tablet 11 tamsulosin (Flomax) 0.4 MG 24 hr capsule Take 1 capsule (0.4 mg) by mouth in the morning. 30 capsule 2 tamsulosin (Flomax) 0.4 MG 24 hr capsule TAKE 1 CAPSULE(0.4 MG) BY MOUTH IN THE MORNING 90 capsule 0 tiZANidine (Zanaflex) 2 MG capsule Take 1 capsule by mouth every 6 (six) hours. No current facility-administered medications on file prior to visit. Problem List Items Addressed This Visit Left groin pain - Primary I will refer patient back to urology, patient reports he was follow-up by them but he does not feelcomfortable with a female urologist, he want me to put a new referral for a male urologist Relevant Orders Referral to Urology S/P hernia repair Relevant Orders Referral to Urology Urinary dribbling Relevant Orders Referral to Urology Migraine without aura and without status migrainosus, not intractable I advise to avoid migraine triggers like red wine, chocolate, cheese, strong perfumes I will continue with his prescription sumatriptan 50 mg as needed Relevant Medications SUMAtriptan (Imitrex) 50 MG tablet Elevated blood pressure reading I advised low-sodium diet I advised to check his blood pressure at home every day and log it He will be follow-up in about 2 weeks with nurse if blood pressure is not at goal plan is to initiate amlodipine 5 mg daily documented in this encounter Miscellaneous Notes * Assessment & Plan Note - Aline Oseguera MD - 12/09/2024 4:28 PM EST Associated Problem(s): Migraine without aura and without status migrainosus, not intractable I advise to avoid migraine triggers like red wine, chocolate, cheese, strong perfumes I will continue with his prescription sumatriptan 50 mg as needed * Assessment & Plan Note - Aline Oseguera MD - 12/09/2024 4:28 PM EST Associated Problem(s): Elevated blood pressure reading I advised low-sodium diet I advised to check his blood pressure at home every day and log it He will be follow-up in about 2 weeks with nurse if blood pressure is not at goal plan is to initiate amlodipine 5 mg daily * Assessment & Plan Note - Aline Oseguera MD - 12/09/2024 4:26 PM EST Associated Problem(s): Left groin pain I will refer patient back to urology, patient reports he was follow-up by them but he does not feelcomfortable with a female urologist, he want me to put a new referral for a male urologist documented in this encounter Plan of Treatment Upcoming Encounters Date Type Department Care Team (Late st Contact Info) Description 01/15/2025 10:30 AM EDT Office Visit [facility] [address] [place] [address] Yadira Andrade, OD [address] [place] [address] 03/17/2025 10:00 AM EDT Office Visit [facility] [address] [place] [address] Aline Carney MD [address] [place] [address] Scheduled Referrals Name Type Priority Associated Diagnoses Orde r Schedule Referral to Urology Outpatient Referral Urgent Left groin pain S/P hernia repair Urinary dribbling Expected: 12/09/2024 (Approximate), Expires: 12/09/2025 documented as of this encounter Visit Diagnoses Diagnosis Left groin pain- Primary Abdominal pain, left lower quadrant S/P hernia repair Other postprocedural status Urinary dribbling Migraine without aura and without status migrainosus, not intractable Elevated blood pressure reading Elevated blood pressure reading without diagnosis of hypertension documented in this encounter Additional Health Concerns Assessment Noted Time PHQ-9 Depression Total Score: 13 024 9:15 AM EDT documented as of this encounter Care Teams Administrative Support Coordinator Relationship Specialty Start Date End Date Aline Carney MD [address] [place] [address] PCP - General Internal Medicine 02/23/23 documented as of this encounter
== END 2025-01-03 08:49 | disposition home or self-care (01) ==
LOC: HO.LAB 08:48
PROVIDERS: PCP Internal Medicine; Visit Provider Internal Medicine
DX: D64.9 Anemia, unspecified (principal)
CPT/HCPCS: 36415; 85025

== ENCOUNTER → 2025-01-21 14:58 | Outpatient (BNV) | payer OTHER, SELFPAY | PROVIDERS: Visit Provider Internal Medicine Medical Oncology | DX: D53.9 Nutritional anemia, unspecified (principal) | CPT/HCPCS: 99203 ==

== ENCOUNTER 2025-02-04 14:11 | Outpatient (AMB) | payer OTHER, SELFPAY ==
--- NOTE | 2025-02-04 14:47 | MHC.OFFVIS ---
Intake Visit Reasons: 3M PVR- requested to see Dr. Das Intake Note: Patient is present for 3M/PVR Urology Medication:TERAZOSIN,VITAMIN B12 Antibiotic Allergy:NONE Blood Thinner:NONE Last PVR:36ML'S Todays PVR:0ML'S Aquatics Assistant Department Head Required: No Allergies No Known Allergies [No Known Allergies*] Allergy (Verified 02/04/25 14:49) HPI Comments Details: John is a 68-year-old male patient of Dr. Rai. He has a past medical history of anxiety, depression, nicotine dependence, cerebral aneurysm without rupture, coronary artery calcification, and nephrolithiasis. He presents to the office today for follow-up of his microscopic hematuria in the setting of nicotine dependence and ongoing lower urinary tract symptoms. In discussion with the patient today he reports feeling 5 mg of terazosin was somewhat helpful in urinary urgency and frequency he had been experiencing. However he does continue to report urinary dribbling. I discussed pelvic floor exercises at length. Information provided. Recent retroperitoneal ultrasound noting bilateral kidneys with no calculi, lesions, and or hydronephrosis. The bladder is well distended. Bladder jets are demonstrated. Pre void bladder volume is approximately 175 mL. Postvoid bladder volume is approximately 10 mL. Prostate measures approximately 15 mL. Recent PSA results reviewed with the patient today. 06/22 0.8. In office urinalysis results reviewed with the patient today 2+ microscopic hematuria noted. Patient with a history of in office cystoscopy 03/21 that noted no abnormalities. Urine cytology 03/21 and 03/22 -Negative for high-grade urothelial carcinoma. He had previously trialed Flomax and did not find this helpful. However patient at times vague throughout today's appointment/assessment. When asked he denies dysuria, foul smelling urine, changes to urinary stream, flank pain, fever, and or chills. He otherwise offers no other issues or concerns. Microscopic hematuria 1+, terazosin 5 mg PFSH Medical History Nicotine dependence, cigarettes, uncomplicated Smokers' cough Anxiety and depression Cerebral aneurysm without rupture Coronary artery calcification seen on CT scan Precordial chest pain Nephrolithiasis Surgical History History of left inguinal hernia repair (04/29/24) Hx of colonoscopy History of cardiac catheterization H/O esophagogastroduodenoscopy Family History Father Diabetes Mother No problems noted. Social History (Updated 01/21/25 @ 15:20 by Carla Akins) Household Members: Spouse and Children Housing: Apartment Are you a primary lawn care specialist to a significant other at home: No Do you presently have visiting nurse or other home services: No 75 years or older and lives alone: No Alcohol intake: never Patient Tobacco Use Status: Current everyday Tobacco user Tobacco use type: Cigarette Years Smoked: (onset 15, 1/2ppd x 51yrs, 25pyh) Substance Use Type: Marijuana service: Yes Current occupational status: retired Office Procedures Post Void Residual Post Residual Void Post Void Residual (PVR): 0 31116-[id number] Void Residual by ultrasound Coding CPT Codes Post Residual Void - PVR CPT Code: 95452-[id number] Void Residual by ultrasound ([id number])
--- OUTSIDE RECORDS SUMMARY | 2025-02-04 17:18 | XMS_ITS | Encounter Summary ---
Author Organization [facility] Address [address] [facility] 7t [place] [address] Care Team Providers Care Rotary Veneer Machine Operator Name Role Phone Adry Rai Primary Care Provider [phone] Aline Carney MD Primary Care Provide r Encounter Details Date Type Department Care Team (Latest Contact Info) Description 07/13/2021 Abstract [facility] CONVERSIONS Dental, Provider, DDS Social History Tobacco [...] Upcoming Encounters Date Type Department Care Team ( st Contact Info) Description 03/17/2025 10:00 AM EDT Office Visit [facility] MEDICINE [address] [place] [address] Aline Carney MD [address] [place] [address] documented as of this encounter Visit Diagnoses Not on filedocumented in this encounter Care Teams Rotary Veneer Machine Operator Relationship Specialty Start Date End Date Adry Rai ANP [address] [place] [address] PCP - General Family Medicine 06/28/22 02/22/23 Aline Carney MD [address] [place] [address] PCP - General Internal Medicine 02/23/23 documented as of this encounter
--- OUTSIDE RECORDS SUMMARY | 2025-02-04 17:18 | XMS_ITS | Clinical Summary ---
Author Organization [employer] Address [address] [facility] 7t [place] [address] Care Team Providers Care Braider Tender Name Role Phone Aline Carney MD Primary [...] per week. Injections will be given by [facility] RN weekly x 4 weeks. 4 mL [...] MILD PAIN 30 tablet 1 4 Active amoxicillin-clavu lanate (Augmentin) 875-125 MG tablet [...] Once per day. 30 tablet 11 4 025 Active gabapentin (Neurontin) 300 MG capsuleIndication s:Chronic [...] 24 hours. 9 tablet 2 5 Active Blood Pressure kit 1 each 2 times daily. 1 kit 4 025 Active Problems Problem Noted Date Diagnosed Date [...] after his adult child was released from assisted and is living in [facility]. John will benefit from Individual therapy in OP with focus on trauma and CBT related frame. He would also benefit from BE (short interventions to provide Jhon with a bridge to manage sxs until [...] to treatment PLAN: 1. Follow up with [facility]: Recommended for follow-up: 03/24 2. Patient goal is Manage current stressors and sxs associated 3. Behavioral Recommendations a. Referral to OP for trauma/cbt focus sessions b. Referral to [facility] for psych med management c. Philip will engage on 3-5 follow up [facility] short interventions to provide some stabilization of sxs Anxiety with depression 02/20/2023 Eye pain, right 02/20/2023 Benign prostatic hyperplasia with incomplete bladder emptying 02/20/2023 Assessment & Plan (03/07/2024 10:56 AM EDT): Patient reports he is taking his flomax daily without relief of symptoms I refer patient to [facility] urology ordered today Assessment & Plan [...] DEPARTMENT Provider, Generic External Data 12/30/2024 Telephone [facility] MEDICINE [address] [place] [address] Aline Carney MD bp visit f/u 12/23/2024 10:00 AM EST Clinical Support [address] [address] Stacie Moss RN Elevated blood pressure reading in office without diagnosis of hypertension; Elevated blood pressure reading 12/23/2024 Orders Only [address] [address] Aline Carney MD 12/23/2024 Travel 12/09/2024 10:00 AM EST Office Visit [address] [address] Aline Carney MD Left groin pain (Primary Dx); S/P hernia repair; Urinary dribbling; Migraine without aura and without status migrainosus, not intractable; Elevated blood pressure reading 12/09/2024 Travel 12/04/[address] [address] Connor Nguyen [place] Chart Prep 11/27/2024 Patient Outreach [address] [address] Aline Carney MD Pre-visit Planning (SDOH screening negative and tobacco screening negative) 11/07/2024 Orders Only [facility] External Provider, [facility] from Last 3 Months Immunizations Name Administration [...] Care Team (Late st Contact Info) Description 03/17/2025 10:00 AM EDT Office Visit [facility] [address] [place] [address] Aline Carney MD [address] [place] [address] Health Maintenance Due Date Last Done Comments CT Colonography 1955 Colonoscopy 1955 Colorectal Cancer Screening 1955 FIT DNA/Cologuard 1957 FIT 1957 FOBT 1955 Sigmoidoscopy 1957 Alcohol/Substance Use Screening 1969 Zoster Vaccines (2 of 3) 06/06/2019 04/11/2019 Dental Oral Exam 01/11/2022 07/13/2021 COVID-19 Vaccine (4 - 2023-2 5 season) 2024 12/09/2022, 03/18/2021, 02/18/2021 Influenza Vaccine (#1) 2024 09/02/2022 Dental Prophylaxis 09/06/2024 03/05/2024 Depression Monitoring (PHQ-9) 09/07/2024, 03/07/2024 Dental X-Ray: Bitewings 03/06/2025 03/05/20 24, 07/13/2021 Depression Screening 03/07/2025 03/07/2024, 03/07/2024 SDOH [...] Blood Count 7.0 4.8 - 10.8 X10*3/uL [facility] Red Blood Count 3.53(L) 4.60 - 5.80 X10*6/uL [facility] Hemoglobin 11.8(L) 14.0 - 18.0 g/dl [facility] Hematocrit 35.1(L) 42.0 - 52.0 % [facility] Mean Corpuscular Volume 99.4(H) 80.0 - 98.0 fL [facility] Mean Corpuscular Hemoglobin 33.4(H) 27.0 - 33.0 pg [facility] Mean Corpuscular HGB Conc 33.6 31.0 - 36.0 g/dl [facility] Red Cell Distribution Width 13.2 11.0 - 16.0 % [facility] Platelet Count 214 160 - 400 X10*3/uL [facility] Mean Platelet Volume 9.7 9.4 - 12.4 fL [facility] Neutrophils Percent Auto 45.6 45 - 73 % [facility] Imm Gran Pct Auto 0.0 0.0 - 0.4 % [facility] Lymphocytes Percent Auto 41.4(H) 20 - 40 % [facility] Monocytes Percent Auto 10.6 2 - 11 % [facility] Eosinophils Percent Auto 2.0 0 - 4 % [facility] Basophils Percent Auto 0.4 0 - 2 % [facility] NRBC Pct Auto 0.0 0.0 - 0.2 /100WBC [facility] Neutrophils Absolute Auto 3.2 2.0 - 8.3 x10*3/uL [facility] Imm Gran Abs Auto 0.00 0.00 - 0.03 X10*3/uL [facility] Lymphocytes Absolute Auto 2.9 1.2 - 4.9 X10*3/uL [facility] Monocytes Absolute Auto 0.7 0.1 - 1.2 X10*3/uL [facility] Eosinophils Absolute Auto 0.1 0.0 - 0.4 X10*3/uL [facility] Basophils Absolute Auto 0.0 0.0 - 0.2 X10*3/uL [facility] NRBC Abs Auto 0.000 0.0 - 0.012 X10*3/uL [facility] 01/03/2025 8:55 AM EST 01/03/2025 8:57 AM EST us Generic External Data Provider LAB BLOOD ORDERAB LES Final Result [facility] [address] [place] [phone] * US Abdomen Limited (11/07/2024 8:11 AM EST) Anatomical Region Laterality Modality Abdomen Ultrasound 11/07/2024 8:11 AM EST Narrative 11/07/2024 9:04 AM EST ? [facility] ?[address] ?[place] [address] ? Ultrasound Report ? Signed ? Patient: John Damon ?MR#: [id number] ? : 1955 ?Acct:[id number] ? Age/Sex: 68 / M ?ADM Date: 11/07/24 ? Loc: HO.US ? Attending Dr: Emma Michelle MD ? Ordering Physician: Emma Michelle MD ?? Date of Service: 11/07/24 ?? Procedure(s): US abdomen limited ?? Accession Number(s): [id number] ? cc: Aline Carney MD; Emma Michelle [...] MD in OV> ?11/07/24 0901 ? DD/ 0811 ? TD/TT: 11/07/2418 ? Rural Mail Carrier: ? Procedure Note Marguerite, Image - 11/07/2024 [place] [address] Ultrasound Report Signed Patient: John Damon RMR#: [id number] : 1955cct:[id number] Age/Sex: 68 / MADM Date: 11/07/24 Loc: HO.US Attending Dr: Emma Michelle MD Ordering Physician: Emma Michelle MD Date of Service: 11/07/24 Procedure(s): US abdomen limited Accession Number(s): [id number] cc: Aline Carney MD; Emma Michelle MD [...] 11/07/24 0901 DD/ 0811 TD/TT: 11/07/24 0818 Rural Mail Carrier: [facility] External Provider IMG US PROCEDURES Final Result * Hepatitis C Antibody with Reflex to HCV, RNA, Quantitative, Real-Time PCR (01/25/2023 8:23 AM EDT) Hepatitis C Antibody NON-REACT DERICK NON-REACT DERICK [employer] Index 0.08 <1.00 [facility] Comment: HCV antibody was non-reactive. There is no laboratory evidence of HCV infection. In most cases, no further action is required. However, if recent HCV exposure is suspected, a test for HCV RNA (test code 92276) is suggested. For additional information please refer to http://education.Pivto/faq/BUV84e6 (This link is being provided for informational/ educational purposes only.) 01/25/2023 8:23 AM EDT 01/25/2023 8:24 AM EDT [facility] - 01/25/2023 9:24 PM EDT FASTING:YES FASTING: YES Ryann Stone NP LAB BLOOD ORDERABLES Final Res ult Performing Organization Address City/[facility]/ZIP Co de Phone Number [facility] [address], [place] [address] [facility] [address] [place] [address] * (ABNORMAL) Lipid Panel, Standard (01/25/2023 8:23 AM EDT) Cholesterol, Total 180 <200 mg/dL [facility] HDL Cholesterol 34(L) > OR = 40 mg/dL [facility] Triglycerides 101 <150 mg/dL [facility] LDL Cholesterol 126(H) mg/dL (calc) [facility] Comment: Reference range: <100 Desirable range <100 mg/dL for primary prevention; ?? <70 mg/dL for patients with CHD or diabetic patients with > or = 2 CHD risk factors. LDL-C is now calculated using the Sage-Dragan calculation, which is a validated novel method providing better accuracy than the Friedewald equation in the estimation of LDL-C. Sage SS et al. ANGEL. 2013;310(19): 6007-4126 (http://education.Real Time Translation/faq/AFO608) Chol/HDLC Ratio 5.3(H) <5.0 (calc) [facility] Non-HDL Cholesterol 146(H) <130 mg/dL (calc) [facility] Comment: For patients with diabetes plus 1 major ASCVD risk factor, treating to a non-HDL-C goal of <100 mg/dL (LDL-C of <70 mg/dL) is considered a therapeutic option. 01/25/2023 8:23 AM EDT 01/25/2023 8:24 AM EDT Narrative [facility] - 01/25/2023 9:24 PM EDT FASTING:YES FASTING: YES Ryann Stone NP LAB BLOOD ORDERABLES Final Res ult Performing Organization Address City/[facility]/ZIP Co de Phone Number [facility] [address] [facility], [place] [address] [facility] [address] [place] [address] from Last 3 Months or Most Recently Relevant to Health Maintenance Insurance [facility] - [facility] MD MD Care Teams Braider Tender Relationship Specialty Start Date End Date Aline Carney MD [address] [place] [id number] PCP - General Internal Medicine 02/23/23
--- OUTSIDE RECORDS SUMMARY | 2025-02-04 17:18 | XMS_ITS | Encounter Summary ---
Author Organization [employer] Address [address] [facility] [address] 7[address] [place] [address] Care Team Providers Care Director Cpg Name Role Phone Aline Carney MD Primary Care Provide r Encounter Details Date Type Department Care Team ([facility] st Contact Info) Description 12/23/2024 Orders Only [facility] [address] [place], [place] [phone] Aline Carney MD [address] [place], [place] [phone] Social History Tobacco Use Types Packs/Day Years [...] Description 03/17/2025 10:00 AM EDT Office Visit [facility] [address] [place] [address] Aline Carney MD [address] [place] [address] documented as of this encounter Visit Diagnoses Not on filedocumented in this encounter Additional Health Concerns Assessment Noted Time PHQ-9 Depression Total Score: 13 024 9:15 AM EDT documented as of this encounter Care Teams Director Cpg Relationship Specialty Start Date End Date Aline Carney MD [address] [place] [address] PCP - General Internal Medicine 02/23/23 documented as of this encounter
--- OUTSIDE RECORDS SUMMARY | 2025-02-04 17:18 | XMS_ITS | Encounter Summary ---
Author Organization [employer] Address [address] [facility] 7t [place] [address] Care Team Providers Care Concrete Hopper Operator Name Role Phone Aline Carney MD Primary Care Provide r Reason for Visit * Reason Onset Date Comments Appointment Request 05/01/2023 Encounter Details Date Type Department Care Team (Late st Contact Info) Description 05/01/2023 Telephone [facility] MEDICINE [address] [place] [address] [phone] Aline Carney MD [address] [place], [place] [phone] Appointment Request Social History Tobacco Use Types [...] on last visit. Please contact pt att [phone] Citizen Of [place] Speaker documented in this encounter Plan of Treatment Upcoming Encounters Date Type Department Care Team ([facility] st Contact Info) Description 03/17/2025 10:00 AM EDT Office Visit [facility] MEDICINE [address] [place] [address] Aline Carney MD [address] [place] [address] documented as of this encounter Visit Diagnoses Not on filedocumented in this encounter Additional Health Concerns Assessment Noted Time PHQ-9 Depression Total Score: 16 023 10:31 AM EDT documented as of this encounter Care Teams Concrete Hopper Operator Relationship Specialty Start Date End Date Aline Carney MD [address] [place] [phone] PCP - General Internal Medicine 02/23/23 documented as of this encounter
== END 2025-02-04 15:11 | disposition home or self-care (01) ==
LOC: HO.HUSH 14:12
PROVIDERS: PCP Internal Medicine; Visit Provider Urology
DX: Z13.9 Encounter for screening, unspecified (principal)

== ENCOUNTER → 2025-02-04 14:11 | Outpatient (BNVA) | payer OTHER, SELFPAY | PROVIDERS: PCP Internal Medicine; Visit Provider Urology | DX: N40.0 Benign prostatic hyperplasia without lower urinary tract symptoms (principal); R39.9 Unspecified symptoms and signs involving the genitourinary system; N20.0 Calculus of kidney | CPT/HCPCS: 51798; 81003; 99212 ==

== ENCOUNTER 2025-03-06 09:09 | Day surgery (SDC) | payer OTHER, SELFPAY ==
--- OUTSIDE RECORDS SUMMARY | 2025-02-20 14:52 | XMS_ITS | Encounter Summary ---
Author Organization [employer] Address [address] [facility] 7t [place] [address] Care Team Providers Care Centerpuncher Name Role Phone Aline Carney MD Primary Care Provide r Reason for Visit * Reason Onset Date Comments Appointment Request 05/01/2023 Encounter Details Date Type Department Care Team (Late st Contact Info) Description 05/01/2023 Telephone [facility] MEDICINE [address] [place] [address] [phone] Aline Carney MD [address] [place], [place] [phone] Appointment Request Social History Tobacco Use Types [...] on last visit. Please contact pt att [phone] Bengali Speaker documented in this encounter Plan of Treatment Upcoming Encounters Date Type Department Care Team ([facility] st Contact Info) Description 03/17/2025 10:00 AM EDT Office Visit [facility] MEDICINE [address] [place] [address] Aline Carney MD [address] [place] [address] documented as of this encounter Visit Diagnoses Not on filedocumented in this encounter Additional Health Concerns Assessment Noted Time PHQ-9 Depression Total Score: 16 023 10:31 AM EDT documented as of this encounter Care Teams Centerpuncher Relationship Specialty Start Date End Date Aline Carney MD [address] [place] [phone] PCP - General Internal Medicine 02/23/23 documented as of this encounter
--- OUTSIDE RECORDS SUMMARY | 2025-02-20 14:52 | XMS_ITS | Clinical Summary ---
Author Organization [employer] Address [address] [facility] 7t [place] [address] Care Team Providers Care Director Sales Support Name Role Phone Aline Carney MD Primary [...] per week. Injections will be given by [facility] RN weekly x 4 weeks. [...] after his adult child was released from alf and is living in [facility]. John will benefit from Individual therapy [...] to treatment PLAN: 1. Follow up with [facility]: Recommended for follow-up: 03/24 2. Patient goal is Manage current stressors and sxs associated 3. Behavioral Recommendations a. Referral to OP for trauma/cbt focus sessions b. Referral to [facility] for psych med management c. Philip will engage on 3-5 follow up [facility] short interventions to provide some stabilization of sxs Anxiety with depression 02/20/2023 Eye pain, right 02/20/2023 Benign prostatic hyperplasia with incomplete bladder emptying 02/20/2023 Assessment & Plan (03/07/2024 10:56 AM EDT): Patient reports he is taking his flomax daily without relief of symptoms I refer patient to [facility] urology ordered today Assessment & Plan [...] DEPARTMENT Provider, Generic External Data 12/30/2024 Telephone [facility] MEDICINE [address] [place] [phone] Aline Carney MD bp visit f/u 12/23/2024 10:00 AM EST Clinical Support [address] [address] Stacie Moss RN Elevated blood pressure reading in office without diagnosis of hypertension; Elevated blood pressure reading 12/23/2024 Orders Only [address] [address] Aline Carney MD 12/23/2024 Travel 12/09/2024 10:00 AM EST Office Visit [address] [address] Aline Carney MD Left groin pain (Primary Dx); S/P hernia repair; Urinary dribbling; Migraine without aura and without status migrainosus, not intractable; Elevated blood pressure reading 12/09/2024 Travel 12/04/[address] [address] Connor Nguyen [place] Chart Prep 11/27/2024 Patient Outreach [address] [address] Aline Carney MD Pre-visit Planning (SDOH screening negative and tobacco screening negative) from Last 3 Months Immunizations Name Administration [...] Description 03/17/2025 10:00 AM EDT Office Visit [facility] MEDICINE [address] [place] [address] Aline Carney MD [address] [place] [address] Health Maintenance Due Date Last Done Comments CT Colonography 1957 Colonoscopy 1957 Colorectal Cancer Screening 1957 FIT DNA/Cologuard 1957 FIT 1957 FOBT 1957 Sigmoidoscopy 1957 Alcohol/Substance Use Screening 1969 Zoster Vaccines (2 of 3) 06/06/2019 04/11/2019 Dental Oral Exam 01/11/2022 07/13/2021 COVID-19 Vaccine (2023-2 5 season) 2024 12/09/2022, 03/18/2021, 02/18/2021 Influenza Vaccine (#1) 2024 09/02/2022 Dental Prophylaxis 09/06/2024 03/05/2024 Depression Monitoring 09/07/2024 03/07/2024 , 03/07/2024 Dental X-Ray: Bitewings 03/06/2025 03/05/20 24, [...] AUTO DIFFERENTIAL Routine 01/03/2025 8:55 AM EST PROPHYLAXIS - ADULT Routine 03/05/2024 [...] Blood Count 7.0 4.8 - 10.8 X10*3/uL [facility] Red Blood Count 3.53(L) 4.60 - 5.80 X10*6/uL [facility] Hemoglobin 11.8(L) 14.0 - 18.0 g/dl [facility] Hematocrit 35.1(L) 42.0 - 52.0 % [facility] Mean Corpuscular Volume 99.4(H) 80.0 - 98.0 fL [facility] Mean Corpuscular Hemoglobin 33.4(H) 27.0 - 33.0 pg [facility] Mean Corpuscular HGB Conc 33.6 31.0 - 36.0 g/dl [facility] Red Cell Distribution Width 13.2 11.0 - 16.0 % [facility] Platelet Count 214 160 - 400 X10*3/uL [facility] Mean Platelet Volume 9.7 9.4 - 12.4 fL [facility] Neutrophils Percent Auto 45.6 45 - 73 % [facility] Imm Gran Pct Auto 0.0 0.0 - 0.4 % [facility] Lymphocytes Percent Auto 41.4(H) 20 - 40 % [facility] Monocytes Percent Auto 10.6 2 - 11 % [facility] Eosinophils Percent Auto 2.0 0 - 4 % [facility] Basophils Percent Auto 0.4 0 - 2 % [facility] NRBC Pct Auto 0.0 0.0 - 0.2 /100WBC [facility] Neutrophils Absolute Auto 3.2 2.0 - 8.3 x10*3/uL [facility] Imm Gran Abs Auto 0.00 0.00 - 0.03 X10*3/uL [facility] Lymphocytes Absolute Auto 2.9 1.2 - 4.9 X10*3/uL [facility] Monocytes Absolute Auto 0.7 0.1 - 1.2 X10*3/uL [facility] Eosinophils Absolute Auto 0.1 0.0 - 0.4 X10*3/uL [facility] Basophils Absolute Auto 0.0 0.0 - 0.2 X10*3/uL [facility] NRBC Abs Auto 0.000 0.0 - 0.012 X10*3/uL [facility] 01/03/2025 8:55 AM EST 01/03/2025 8:57 AM EST us Generic External Data Provider LAB BLOOD ORDERAB LES Final Result [facility] [address] [place] [address] [phone] * Hepatitis C Antibody with Reflex to HCV, RNA, Quantitative, Real-Time PCR (01/25/2023 8:23 AM EDT) Hepatitis C Antibody NON-REACT DERICK NON-REACT DERICK [facility] [employer] [place] [employer] Index 0.08 <1.00 [facility] Comment: HCV antibody was non-reactive. There is no laboratory evidence of HCV infection. In most cases, no further action is required. However, if recent HCV exposure is suspected, a test for HCV RNA (test code 96087) is suggested. For additional information please refer to http://education.[employer]/faq/DUP33r7 (This link is being provided for informational/ educational purposes only.) 01/25/2023 8:23 AM EDT 01/25/2023 8:24 AM EDT Narrative [facility] - 01/25/2023 9:24 PM EDT FASTING:YES FASTING: YES us Ryann Stone NP LAB BLOOD ORDERABLES Final Res ult [facility] [address], [place] [address] [facility] [employer] [place] [employer] [address] [place] [address] * (ABNORMAL) Lipid Panel, Standard (01/25/2023 8:23 AM EDT) Pathologist [facility] Cholesterol, Total 180 <200 mg/dL [facility] HDL Cholesterol 34(L) > OR = 40 mg/dL [facility] [place] [facility] Triglycerides 101 <150 mg/dL [facility] LDL Cholesterol 126(H) mg/dL (calc) [facility] [place] [employer] Comment: Reference range: <100 Desirable range <100 mg/dL for primary prevention; ?? <70 mg/dL for patients with CHD or diabetic patients with > or = 2 CHD risk factors. LDL-C is now calculated using the Twan calculation, which is a validated novel method providing better accuracy than the Friedewald equation in the estimation of LDL-C. Sage CLIFFORD et al. ANGEL. 2013;310(19): 8516-2903 (http://education.[employer].[address] [employer]/faq/JGU846) Chol/HDLC Ratio 5.3(H) <5.0 (calc) [facility] Non-HDL Cholesterol 146(H) <130 mg/dL (calc) [facility] Comment: For patients with diabetes plus 1 major ASCVD risk factor, treating to a non-HDL-C goal of <100 mg/dL (LDL-C of <70 mg/dL) is considered a therapeutic option. 01/25/2023 8:23 AM EDT 01/25/2023 8:24 AM EDT Narrative [facility] - 01/25/2023 9:24 PM EDT FASTING:YES FASTING: YES us Ryann Stone NP LAB BLOOD ORDERABLES Final Res ult [facility] [address], [place] [address] [facility] [place] [facility] [address] [place] [address] from Last 3 Months or Most Recently Relevant to Health Maintenance Insurance [facility] - [employer] Care Teams Director Sales Support Relationship Specialty Start Date End Date Aline Carney MD [address] [place] [phone] PCP - General Internal Medicine 02/23/23
--- OUTSIDE RECORDS SUMMARY | 2025-02-20 14:52 | XMS_ITS | Encounter Summary ---
Author Organization [employer] Address [address] [facility] [address] 7t [place] [address] Care Team Providers Care Account Contact Associate Name Role Phone Aline Carney MD Primary Care Provide r Encounter Details Date Type Department Care Team ([facility] st Contact Info) Description 12/23/2024 Orders Only [facility] MEDICINE [address] [place], [place] [phone] Aline Carney MD [address] [place], [place] [phone] Social History Tobacco Use Types Packs/Day Years [...] Description 03/17/2025 10:00 AM EDT Office Visit [facility] MEDICINE [address] [place] [phone] Aline Carney MD [address] [place] [address] documented as of this encounter Visit Diagnoses Not on filedocumented in this encounter Additional Health Concerns Assessment Noted Time PHQ-9 Depression Total Score: 13 024 9:15 AM EDT documented as of this encounter Care Teams Account Contact Associate Relationship Specialty Start Date End Date Aline Carney MD [address] [place] [address] PCP - General Internal Medicine 02/23/23 documented as of this encounter
--- OUTSIDE RECORDS SUMMARY | 2025-02-20 14:52 | XMS_ITS | Encounter Summary ---
Author Organization [employer] [facility] Address [address] [facility] 7t [place] [address] Care Team Providers Care Osteopathic Resident Name Role Phone Adry Rai Primary Care Provider [phone] Aline Carney MD Primary Care Provide r Encounter Details Date Type Department Care Team (Latest Contact Info) Description 07/13/2021 Abstract [facility] CONVERSIONS Dental, Provider, DDS Social History Tobacco [...] Description 03/17/2025 10:00 AM EDT Office Visit [facility] MEDICINE [address] [place] [address] Aline Carney MD [address] [place] [address] documented as of this encounter Visit Diagnoses Not on filedocumented in this encounter Care Teams Osteopathic Resident Relationship Specialty Start Date End Date Adry Rai ANP [address] [place] [address] PCP - General Family Medicine 06/28/22 02/22/23 Aline Carney MD [address] [place] [address] PCP - General Internal Medicine 02/23/23 documented as of this encounter
[2025-03-04 11:27] VITALS: BMI 24.5
--- NOTE | 2025-03-05 08:47 | P.CONAN_ITS ---
Documented by User: Kati Torres NP 03/05/25 08:49 HPI - Anesthesia Eval Consult details Narrative: 69yo M for Upper Endoscopy PMFSH Active Problems Active Problems: All Active Problems Early satiety (Acute) Adenomyomatosis of gallbladder (Acute) Anemia (Acute) Generalized body aches (Acute) Abdominal pain (Acute) Lower urinary tract symptoms (Acute) Flank pain (Acute) Microscopic hematuria (Acute) BPH (benign prostatic hyperplasia) (Acute) Myofascial pain syndrome (Acute) Osteoarthritis of right hip (Acute) Right hip pain (Acute) Osteoarthritis, generalized (Acute) Chronic pain syndrome (Acute) Spondylosis of lumbar spine (Acute) Spondylosis of thoracic spine (Acute) Abdominal bloating (Acute) Chronic idiopathic constipation (Acute) GERD (gastroesophageal reflux disease) (Acute) SOB (shortness of breath) (Acute) Nicotine dependence, cigarettes, uncomplicated (Acute) Nephrolithiasis (Acute) Past Medical History Medical History Chronic pain syndrome GERD (gastroesophageal reflux disease) Arthritis BPH (benign prostatic hyperplasia) Anemia Nicotine dependence, cigarettes, uncomplicated Smokers' cough Anxiety and depression Cerebral aneurysm without rupture Coronary artery calcification seen on CT scan Nephrolithiasis Family History Family History Father Diabetes Mother No problems noted. Family history of problems with anesthesia: No Surgical History Surgical History (Updated 03/04/25 @ 11:20 by Josie Anderson RN) History of left inguinal hernia repair (04/29/24) Hx of colonoscopy History of cardiac catheterization H/O esophagogastroduodenoscopy Social History Social History (Updated 01/21/25 @ 15:20 by Carla Akins) Household Members: Spouse and Children Housing: Apartment Are you a primary healthcare sales representative to a significant other at home: No Do you presently have visiting nurse or other home services: No Alcohol intake: never Patient Tobacco Use Status: Current everyday Tobacco user Tobacco use type: Cigarette Cigarettes Per Day: 10 Years Smoked: (onset 15, 1/2ppd x 51yrs, 25pyh) Use of substances other than those prescribed or required for medical reasons: Yes Substance Use Type: Marijuana Substance Use Frequency: Daily Have you been hit, kicked, punched, or otherwise hurt by someone within the past year? If so, by whom?: No Are you DNR?: No Advance Directives: No Advance Directives Information Provided: Yes Poor oral hygiene: No service: Yes Current occupational status: retired Meds Allergies Allergy/AdvReac Type Severity Reaction Status Date / Time No Known Allergies Allergy Verified 03/06/25 10:44 [No Known Allergies*] Home Medications ?Medication ?Instructions ?Recorded ?Confirmed ?Last Taken ?Type acetaminophen 500 mg tablet 1,000 mg PO Q6H PRN Pain 04/24/24 03/06/25 Unknown History cyanocobalamin (vitamin B-12) 1,000 mcg PO DAILY 04/24/24 03/06/25 Unknown History 1,000 mcg tablet (Vitamin B-12) gabapentin 300 mg capsule 300 mg PO TID 04/24/24 03/06/25 Unknown History blood pressure test kit-large #1 ea 07/12/24 03/06/25 Unknown History sennosides 8.6 mg-docusate sodium 1 tab PO DAILY 07/12/24 03/06/25 Unknown History 50 mg tablet (Stimulant Laxative Plus) sumatriptan succinate 50 mg tablet 50 mg PO DAILY PRN yes 10/14/24 03/06/25 Unknown History Exam Height,Weight and Vital Signs: Height 5 ft 6 in Weight 68.946 kg Assessment and Plan Assessment Anesthesia Assessment: Chart Reviewed Final Anesthetic Review Family History of Problems with Anesthesia: No Documented by User: Tenisha Moura MD 03/06/25 12:58 PMFSH Active Problems Active Problems: All Active Problems Early satiety (Acute) Adenomyomatosis of gallbladder (Acute) Anemia (Acute) Generalized body aches (Acute) Abdominal pain (Acute) Lower urinary tract symptoms (Acute) Flank pain (Acute) Microscopic hematuria (Acute) BPH (benign prostatic hyperplasia) (Acute) Myofascial pain syndrome (Acute) Osteoarthritis of right hip (Acute) Right hip pain (Acute) Osteoarthritis, generalized (Acute) Chronic pain syndrome (Acute) Spondylosis of lumbar spine (Acute) Spondylosis of thoracic spine (Acute) Abdominal bloating (Acute) Chronic idiopathic constipation (Acute) GERD (gastroesophageal reflux disease) (Acute) SOB (shortness of breath) (Acute) Nicotine dependence, cigarettes, uncomplicated (Acute) Nephrolithiasis (Acute) Wet cough Past Medical History Medical History Chronic pain syndrome GERD (gastroesophageal reflux disease) Arthritis BPH (benign prostatic hyperplasia) Anemia Nicotine dependence, cigarettes, uncomplicated Smokers' cough Anxiety and depression Cerebral aneurysm without rupture Coronary artery calcification seen on CT scan Nephrolithiasis Family History Family History (Reviewed 10/14/24 @ 08:54 by Brett Boudreaux [facility]) Father Diabetes Mother No problems noted. Family history of problems with anesthesia: No Surgical History Surgical History (Updated 03/04/25 @ 11:20 by Josie Anderson RN) History of left inguinal hernia repair (04/29/24) Hx of colonoscopy History of cardiac catheterization H/O esophagogastroduodenoscopy History of Problems with Anesthesia: No Social History Social History (Updated 01/21/25 @ 15:20 by Carla Akins) Household Members: Spouse and Children Housing: Apartment Are you a primary healthcare sales representative to a significant other at home: No Do you presently have visiting nurse or other home services: No Alcohol intake: never Patient Tobacco Use Status: Current everyday Tobacco user Tobacco use type: Cigarette Cigarettes Per Day: 10 Years Smoked: (onset 15, 1/2ppd x 51yrs, 25pyh) Use of substances other than those prescribed or required for medical reasons: Yes Substance Use Type: Marijuana Substance Use Frequency: Daily Have you been hit, kicked, punched, or otherwise hurt by someone within the past year? If so, by whom?: No Are you DNR?: No Advance Directives: No Advance Directives Information Provided: Yes Poor oral hygiene: No service: Yes Current occupational status: retired Meds Allergies Allergy/AdvReac Type Severity Reaction Status Date / Time No Known Allergies Allergy Verified 03/06/25 10:44 [No Known Allergies*] Home Medications ?Medication ?Instructions ?Recorded ?Confirmed ?Last Taken ?Type acetaminophen 500 mg tablet 1,000 mg PO Q6H PRN Pain 04/24/24 03/06/25 Unknown History cyanocobalamin (vitamin B-12) 1,000 mcg PO DAILY 04/24/24 03/06/25 Unknown History 1,000 mcg tablet (Vitamin B-12) gabapentin 300 mg capsule 300 mg PO TID 04/24/24 03/06/25 Unknown History blood pressure test kit-large #1 ea 07/12/24 03/06/25 Unknown History sennosides 8.6 mg-docusate sodium 1 tab PO DAILY 07/12/24 03/06/25 Unknown History 50 mg tablet (Stimulant Laxative Plus) sumatriptan succinate 50 mg tablet 50 mg PO DAILY PRN yes 10/14/24 03/06/25 Unknown History Exam Height,Weight and Vital Signs: Height 5 ft 6 in Weight 68.946 kg Vital Signs Temp Pulse Resp BP Pulse Ox O2 Del Method 03/06/25 10:45 97.8 F 49 L 14 135/60 99 Room Air Airway Mallampati Class: II TM Dist: >3cm Neck ROM: Full Loose/Missing/Broken Teeth: Yes (Missing teeth back. Denies broken or loose teeth) Heart: RRR Lungs: CTAB Assessment and Plan Assessment Anesthesia Assessment: Anesthesia Plan Discussed and Chart Reviewed Final Anesthetic Review Family History of Problems with Anesthesia: No History of Problems with Anesthesia: No NPO: Yes ASA Class: III Final Preanesthetic Review: No Changes in Pt Med Stat, Meds/Allgs Chart Reviewed, Consent Obtained/Reviewed and Anes Risks/Benef Reviewed Patient Risk: Intermediate Procedure Risk: Low Assessment/Block/Sedation in SS: Assess/Block/Sedation-SS Anesthetic Plan Anesthetic Plan: TIVA Disposition: Standard PACU
[2025-03-06 10:45] VITALS: BP 135/60; PULSE 49; RESP 14; TEMP 36.6; O2SAT 99; BMI 24.5
[2025-03-06] MEDS: Lactated Ringers 1,000 ML 100 ML IVCONT (10:59)
--- NOTE | 2025-03-06 11:47 | MHC.SHP ---
Pre-Procedural Eval Section A - 24 Hr Update-Section A only Date of Service: 03/06/25 Section B - Complete if H&P > 30 days Chief Complaint: Unspecified abdominal pain, early satiety Details of Present Illness: Nicotine dependence, cigarettes, uncomplicated Smokers' cough Anxiety and depression Cerebral aneurysm without rupture Coronary artery calcification seen on CT scan Precordial chest pain Nephrolithiasis Surgical History History of left inguinal hernia repair (04/29/24) Hx of colonoscopy History of cardiac catheterization H/O esophagogastroduodenoscopy Present Medications: see Short Stay Collaborative assessment Allergies: Allergies Allergy/AdvReac Type Severity Reaction Status Date / Time No Known Allergies Allergy Verified 03/06/25 10:44 [No Known Allergies*] Review of Systems Review of Systems Comment: Ten point ROS negative Exam Exam Comment: Gen appear: No acute distress HEENT: no icterus Chest: No overt resp distress Abd: soft, nontender, nondistended Psych: Stable affect, answering questions appropriately Neuro: A/Ox3 noted to move all extremities spontaneously Ext: no peripheral edema Plan Diagnosis/Plan: Unchanged I have reviewed the history and physical and performed a pertinent physical examination on my patient. No changes have occurred unless specified. Time Spent With Patient Time: Total time managing care of this patient today ____ minutes.
--- NOTE | 2025-03-06 13:01 | P.OP_ITS ---
Operative Note Operative Note Date of Service: 03/06/25 Narrative: Procedure: Esophagogastroduodenoscopy Endoscopist: Emma Michelle MD Indication: Abd pain, early satiety Anesthesia Provider: Dr Tenisha Moura Anesthesia Type: MAC ?? EGD Procedure:?? The procedure, indications, preparation and potential complications were reviewed with the patient, who indicated understanding and gave written informed consent to proceed. A physical exam was performed. The endoscope was introduced through the mouth, and advanced to the second part of duodenum. The mucosa was carefully examined on slow withdrawal of the endoscope. The patient tolerated the procedure well. There were no immediate complications.? ? EGD Findings:? * Esophagus:? Normal mucosa noted in the entire esophagus. The Z line was at 38 cm. * Stomach:? Mild erythema in the antrum otherwise normal mucosa was noted in the stomach. Retroflexion was performed in the cardia. Cold forceps biopsies for gastric mapping were performed as per [facility]i protocol. * Duodenum:? Normal mucosa was noted in the whole of the examined duodenum. ? EGD Impressions:? * Normal esophagus * Gastritis (biopsy) * Normal duodenum ?? Recommendations:?? * Follow biopsy results. Our office will call or send a letter with results within 7-10 days. * If H pylori +, patient will be prescribed eradication therapy followed by test of cure. * Avoid NSAIDs. Above has been reviewed with the patient. Relevant educational hand outs were provided at discharge.
[2025-03-06 13:10] VITALS: BP 98/62; PULSE 79; RESP 14; TEMP 36.4; O2SAT 95
[2025-03-06 13:25] VITALS: BP 142/76; PULSE 65; RESP 14; O2SAT 95
== END 2025-03-06 14:27 | disposition home or self-care (01) ==
PROVIDERS: PCP Internal Medicine; Visit Provider Internal Medicine
PROC: 0DJ08ZZ Inspection of Upper Intestinal Tract, Via Natural or Artificial Opening Endoscopic (ICD-10-PCS; CPT 43235; principal; 2025-03-06 12:30)
DX: R68.81 Early satiety (principal); K29.60 Other gastritis without bleeding; K21.9 Gastro-esophageal reflux disease without esophagitis; D13.5 Benign neoplasm of extrahepatic bile ducts; D64.9 Anemia, unspecified; N40.0 Benign prostatic hyperplasia without lower urinary tract symptoms; F17.210 Nicotine dependence, cigarettes, uncomplicated
CPT/HCPCS: 43239; 88305; 88313; 88342; J1596; J2003; J2704

== ENCOUNTER → 2025-03-06 09:09 | Outpatient (BNV) | payer OTHER, SELFPAY | PROVIDERS: PCP Internal Medicine; Visit Provider Internal Medicine | DX: R10.9 Unspecified abdominal pain (principal); R68.81 Early satiety; K29.70 Gastritis, unspecified, without bleeding | CPT/HCPCS: 43239 ==

== ENCOUNTER 2025-03-17 12:29 | Outpatient (REF) | payer OTHER, SELFPAY ==
--- NOTE | ~2025-03-17 | XR_ITS ---
EXAMINATION: XR SHOULDER 2 OR MORE VIEWS RIGHT HISTORY: pain COMPARISON: There are no prior studies available for comparison. FINDINGS: Five views of the right shoulder are submitted. Osseous mineralization is normal. There is no fracture or dislocation. The glenohumeral joint is maintained. There is moderate osteoarthritis of the AC joint with joint space narrowing and osteophyte formation. There is a calcific line in the right upper lobe of the lung. XR/XR shoulder RT min 2V IMPRESSION: Moderate osteoarthritis of the AC joint. Electronically signed by: Jose L Slaughter MD 03/17/2025 01:10 PM EDT
--- OUTSIDE RECORDS SUMMARY | 2025-03-17 12:51 | XMS_ITS | Clinical Summary ---
Author Organization [employer] Address [address] [facility] [address] [place] [address] Care Team Providers Care Lab Specialist Name Role Phone Aline Carney MD Primary Care Provide r Allergies No known active allergies Medications * This document contains information received from the source organization and may not represent a complete record from that organization. cholecalciferol (Vitamin D-3) 25 MCG (1000 UT) capsule Take 1 capsule by mouth 1 (one) time each day. 08/29/20 22 Active lidocaine (Lidoderm) 5 % patch Place 1 patch on the skin at bed time. 04/06/20 22 Active LORazepam (Ativan) 0.5 MG tablet Take 1 tablet by mouth at bed time. Active magnesium oxide (Mag-Ox) 400 MG tablet ONE PILL EVERYDAY 08/26/20 22 Active tamsulosin (Flomax) 0.4 MG 24 hr capsuleIndicatio ns:Benign prostatic hyperplasia with incomplete bladder emptying Take 1 capsule (0.4 mg) by mouth in the morning. 30 capsule 2 02/21/20 23 Active cyanocobalamin (Vitamin B-12) 1000 MCG/ML injection Inject 1 mL (1,000 mcg) into the shoulder, thigh, or buttocks 1 (one) time per week. Injections will be given by [facility] RN weekly x 4 weeks. 4 mL 02/24/20 23 Active famotidine (Pepcid) 20 MG tabletIndication s:Heartburn Take 2 tablets (40 mg) by mouth at bedtime. 60 tablet 1 06/02/20 23 Active cholecalciferol (Vitamin D-3) 25 MCG (1000 UT) capsuleIndicatio ns:Vitamin D insufficiency Take 1 capsule (25 mcg) by mouth in the morning. 60 capsule 2 06/02/20 23 Active ibuprofen 800 MG tabletIndication s:Left flank pain TAKE 1 TABLET(800 MG) BY MOUTH EVERY 8 HOURS FOR UP TO 20 DAYS NEEDED FOR MILD PAIN 30 tablet 1 12/04/19 24 Active amoxicillin-clav ulanate (Augmentin) 875-125 MG tablet Take 1 tablet by mouth 2 times daily. 14 tablet 01/30/20 24 Active ibuprofen 400 MG tablet Take 1 tablet (400 mg) by mouth every 6 (six) hours if needed for moderate pain or fever for up to 30 doses. 30 tablet 01/30/20 24 Active tamsulosin (Flomax) 0.4 MG 24 hr capsuleIndicatio ns:Benign prostatic hyperplasia with incomplete bladder emptying TAKE 1 CAPSULE(0.4 MG) BY MOUTH IN THE MORNING 90 capsule 03/01/20 24 Active senna-docusate sodium (Senokot-S) 8.6-50 MG tabletIndication s:Other constipation Take 1 tablet by mouth Once per day. 30 tablet 11 04/25/20 24 025 Active gabapentin (Neurontin) 300 MG capsuleIndicatio ns:Chronic bilateral low back pain with right-sided sciatica TAKE 1 CAPSULE(300 MG) BY MOUTH THREE TIMES DAILY 90 capsule 11 08/23/20 24 Active SUMAtriptan (Imitrex) 50 MG tabletIndication s:Migraine without aura and without status migrainosus, not intractable Take 1 tablet (50 mg) by mouth 1 (one) time if needed for migraine for up to 27 doses. May repeat dose once in 2 hours if no relief. Do not exceed 2 doses in 24 hours. 9 tablet 2 12/09/19 25 Active cyclobenzaprine (Flexeril) 5 MG tabletIndication s:Chronic right shoulder pain Take 1 tablet (5 mg) by mouth 3 times daily for 10 days. 30 tablet 03/17/20 25 025 Active acetaminophen (Tylenol 8 Hour) 650 MG ER tabletIndication s:Chronic right shoulder pain Take 2 tablets (1,300 mg) by mouth every 8 (eight) hours if needed for mild pain for up to 10 days. Do not crush, chew, or split. 30 tablet 03/17/20 25 025 Active tiZANidine (Zanaflex) 2 MG capsule Take 1 capsule by mouth every 6 (six) hours. 025 Discontinued Active Problems Problem Noted Date Diagnosed Date Chronic right shoulder pain 03/17/2025 Left groin pain 12/09/2024 Assessment & Plan [...] after his adult child was released from long-term and is living in [facility]. John will benefit from Individual therapy in [facility] with focus on trauma and CBT related frame. He would also benefit from BE (short interventions to provide John with a bridge to manage BH sxs until establish with on-going OP BH. He would also benefit from referral and [...] treatment PLAN: 1. Follow up with [facility] [place]: Recommended for follow-up: 03/24 2. Patient goal [...] relief of symptoms I refer patient to [facility] urology Us ordered today Assessment & Plan (02/20/2023 2:56 [...] this in future appointments Anxiety 12/25/2020 Encounters * This document contains information received from the source organization and may not represent a complete record from that organization. Date Type Department Care Team Description 03/17/2025 10:00 AM EDT Office Visit [address] [address] Aline Carney MD Anxiety with depression (Primary Dx); Chronic right shoulder pain 03/17/2025 Travel 03/14/[address] [address] Aline Carney MD Chart prep 03/10/2025 Patient Outreach [address] [address] Aline Carney MD Pre-visit Planning (SDOH screening completed on 11/27/2024) 03/06/2025 Orders Only GENERIC EXTERNAL DATA DEPARTMENT Provider, Generic External Data 01/03/2025 Orders Only GENERIC EXTERNAL DATA DEPARTMENT Provider, Generic External Data 12/30/[address] [address] Aline Carney MD bp visit f/u 12/23/2024 10:00 AM EST Clinical Support [address] [address] Stacie Moss RN Elevated blood pressure reading in office without diagnosis of hypertension; Elevated blood pressure reading 12/23/2024 Orders Only [address] [address] Aline Carney MD 12/23/2024 Travel from Last 3 Months Immunizations Immunization Administration Dates Next Due Influenza injectable quadrivalent [...] Answer Date Recorded Patient Health Questionnaire-9 Score 9 03/17/2025 Patient Health Questionnaire-9 Score 9 03/17/2025 Last PHQ-9: Questionnaire Data Not on file 0 03/17/2025 Housing Stability Answer Date Recorded What is your housing situation today? I have dominique yordy 02/28/[address] you li [...] Answer Date Recorded Patient Health Questionnaire-2 Score 2 03/17/2025 Internet Access Answer Date Recorded Internet Access [...] Sign Reading Time Taken Comments Blood Pressure 143/69 03/17/2025 10:04 AM EDT Pulse 56 03/17/2025 10:04 AM EDT Temperature 36.2 ??C (97.2 ??F) 03/17/2025 1 0:04 AM EDT Respiratory Rate 14 03/17/2025 10:0 4 AM EDT Oxygen Saturation 99% 03/17/2025 10: 04 AM EDT Inhaled Oxygen Concentration - - Weight 67.5 kg (148 lb 12.8 oz) 025 10:04 AM EDT Height 167.6 cm (5' 6 ) 03/17/2025 10:0 4 AM EDT Body Mass Index 24.02 03/17/2025 10:04 AM EDT Plan of Treatment Health Maintenance Due Date Last Done Comments CT Colonography 1955 Colonoscopy 1955 Colorectal Cancer Screening 1955 FIT DNA/Cologuard 1955 FIT 1957 FOBT 1955 Sigmoidoscopy 1955 Alcohol/Substance Use Screening 1969 Zoster Vaccines (2 of 3) 06/06/2019 04/11/2019 Dental Oral Exam 01/11/2022 07/13/2021 COVID-19 Vaccine (4 - 2023-2 5 season) 2024 12/09/2022, 03/18/2021, 02/18/2021 Influenza Vaccine (#1) 2024 09/02/2022 Dental Prophylaxis 09/06/2024 03/05/2024 Dental X-Ray: Bitewings 03/06/2025 03/05/20 24, 07/13/2021 SDOH Screening 11/27/2025 11/27/2024 Tobacco Screening 12/09/2025 12/09/2024 Depression Screening 03/17/2026 03/17/2025, 03/17/2025 Dental X-Ray: Full Mouth 03/06/2027 024, 07/22/2021, [...] patient's age to complete this topic Meningococcal B Vaccine Aged Out No l onger eligible based on patient's age to complete [...] Procedure Name Priority Date/Time Associated Diagnosis Comments HEMATOXYLIN AND EOSIN STAIN Routine 03/06/2025 12:55 PM EDT CBC WITH AUTO DIFFERENTIAL Routine 01/03/2025 8:55 [...] Recently Relevant to Health Maintenance Results * Hematoxylin and Eosin Stain (03/06/2025 12:55 PM EDT) 03/06/2025 12:5 5 PM EDT 03/06/2025 1:14 PM EDT [facility] - 03/13/2025 8:51 AM EDT ----- ------- Name: John Damon ? Age/Sex: 69/M ? : 1955 Unit#: [id number] ?? Attend Dr: Emma Michelle MD ?Re03/06/25 ?Status: DEP SDC ? Location: HO.SSS ?Disch: ? ----- ------- SPEC : [id number] ? RECD: 03/06/25-1313 ? STATUS: ??SOUT ? REQ NUM: [id number] ? TIM: 03/06/25-1254 ? SUBM DR: Emma Michelle MD ? ENTERED: ??03/06/25-1325 ?SP TYPE: Surgical ? OTHR DR: Aline Carney MD ? ORDERED: ??HE Stain/15, Gross Micro L4/5, IHC/5, Special st. 2/3, H. pylori/5, AB/PAS/3 ?Addendum Addendum ??1 ?Entered: 03/13/25-0850 Additional levels with AB/PAS stains show no goblet cells on A, and rare goblet cells on B and D consistent with intestinal metaplasia (complete). Control stains appropriately. Addendum Signed (signature on file) Margret Lisette 03/13/25 0851 ? ----- ------- ? Diagnosis ?? A. ??Gastric antrum, greater curvature, biopsy: ??Gastric antral mucosa with mild chronic ?? inactive gastritis, and possible rare goblet cells; negative for H. pylori and dysplasia. ? B. ??Gastric antrum, lesser curvature, biopsy: ??Gastric antral mucosa with reactive ?? changes, mild chronic inactive gastritis and rare goblet cells; negative for H. pylori ?? and dysplasia. ? C. ??Gastric incisura, biopsy: ??Gastric antral mucosa with mild chronic inactive ?? gastritis; negative for H. pylori, intestinal metaplasia and dysplasia. ? D. ??Gastric body, greater curvature, biopsy: ??Gastric antral mucosa with chronic ?? gastritis with moderate activity and rare goblet cells; negative for H. pylori and ?? dysplasia. ? E. ??Gastric body, lesser curvature, biopsy: ??Gastric body mucosa with chronic ?? Helicobacter gastritis with moderate activity and intestinal metaplasia (complete); ?? negative for dysplasia. ? Comment: ?? (A, B and D): ??Additional tissue levels with AB/PAS stain pending; addendum to follow. ?Clinical History Pre-Op Dx: ??Unspecified abdominal pain, early satiety Post-Op Dx: Gastritis ? CONTINUED ON NEXT PAGE ----- ------- Name: John Damon ? Age/Sex: 69/M ? : 1955 Unit#: [id number] ?? Attend Dr: Emma Michelle MD ?Re03/06/25 ?Status: DEP SDC ? Location: HO.SSS ?Disch: ? ----- ------- SPEC : [id number] ? RECD: 03/06/25-1313 ? STATUS: ??SOUT ? REQ NUM: [id number] ? TIM: 03/06/25-1255 ? SUBM DR: Emma Michelle MD ? ENTERED: ??03/06/25-6 ?SP TYPE: Surgical ? OTHR DR: Aline Carney MD ? ORDERED: ??HE Stain/15, Gross Micro L4/5, IHC/5, Special st. 2/3, H. pylori/5, AB/PAS/3 ?Microscopic Description Microscopic sections reviewed. ??Immunostains for H. pylori on A, B, C and D are negative. Immunostain for H. pylori on E is positive. ??Controls stains appropriately. ? Material Received ?? A. Bx antrum greater curvature ?? B. Bx antrum lesser curvature ?? C. Bx incisura ?? D. Bx body greater curvature ?? E. Bx lesser curvature ? Gross Description Received in five parts. Part A: ??Received in formalin labeled ?bx antrum greater curvature? are 4 nelson irregular and rectangular tissue fragments ranging from minute to 0.3 cm, submitted in toto in a cassette labeled A. Part B: ??Received in formalin labeled ?bx antrum lesser curvature? are 4 nelson irregular and rectangular tissue fragments ranging from 0.2-0.3 cm, submitted in toto in a cassette labeled B. Part C: ??Received in formalin labeled ?bx incisura is a 0.25 cm nelson irregular tissue fragment, submitted in toto in a cassette labeled C. Part D: ??Received in formalin labeled bx body greater curvature are 4 nelson irregular tissue fragments ranging from minute to 0.25 cm, submitted in toto in a cassette labeled D. Part E: ??Received in formalin labeled ?bx body lesser curvature? are 4 nelson irregular tissue fragments ranging from 0.1-0.25 cm, submitted in toto in a cassette labeled E. CEDS Special studies ordered and performed: Immunostain for H. pylori on A1, B1, C1, D1 and E1; AB/PAS stains on A1, B1, and D1. ? CONTINUED ON NEXT PAGE ----- ------- Name: John Damon ? Age/Sex: 69/M ? : 1955 Unit#: [id number] ?? Attend Dr: Emma Michelle MD ?Re03/06/25 ?Status: DEP SDC ? Location: HO.SSS ?Disch: ? ----- ------- SPEC : [id number] ? RECD: 03/06/25-1313 ? STATUS: ??SOUT ? REQ NUM: [id number] ? TIM: 03/06/25-1254 ? SUBM DR: Emma Michelle MD ? ENTERED: ??03/06/25-1326 ?SP TYPE: Surgical ? OTHR DR: Aline Carney MD ? ORDERED: ??HE Stain/15, Gross Micro L4/5, IHC/5, Special st. 2/3, H. pylori/5, AB/PAS/3 ? Copies To: ?? Aline Carney MD ?? [facility] ?? [address] ?? [place] [id number] ?? [phone] ?? Emma Michelle MD ?? [facility] ?? [address] ?? [place] [id number] ?? [phone] ?? [email or web address] ----- ------- Signed (signature on file) Margret Knox 03/10/25 1759 ? ----- ------- ? END OF REPORT ? us Generic External Data Provider LAB BLOOD ORDERAB LES Final Result [facility] [address], [place] [phone] * (ABNORMAL) CBC auto differential (01/03/2025 8:55 AM EST) White Blood Count 7.0 4.8 - 10.8 X10*3/uL [facility] Red Blood Count 3.53(L) 4.60 - 5.80 X10*6/uL [facility] Hemoglobin 11.8(L) 14.0 - 18.0 g/dl [facility] Hematocrit 35.1(L) 42.0 - 52.0 % [facility] Mean Corpuscular Volume 99.4(H) 80.0 - 98.0 fL [facility] Mean Corpuscular Hemoglobin 33.4(H) 27.0 - 33.0 pg [facility] Mean Corpuscular HGB Conc 33.6 31.0 - 36.0 g/dl [facility] Red Cell Distribution Width 13.2 11.0 - 16.0 % [facility] Platelet Count 214 160 - 400 X10*3/uL [facility] Mean Platelet Volume 9.7 9.4 - 12.4 fL [facility] Neutrophils Percent Auto 45.6 45 - 73 % [facility] Imm Gran Pct Auto 0.0 0.0 - 0.4 % [facility] Lymphocytes Percent Auto 41.4(H) 20 - 40 % [facility] Monocytes Percent Auto 10.6 2 - 11 % [facility] Eosinophils Percent Auto 2.0 0 - 4 % [facility] Basophils Percent Auto 0.4 0 - 2 % [facility] NRBC Pct Auto 0.0 0.0 - 0.2 /100WBC [facility] Neutrophils Absolute Auto 3.2 2.0 - 8.3 x10*3/uL [facility] Imm Gran Abs Auto 0.00 0.00 - 0.03 X10*3/uL [facility] Lymphocytes Absolute Auto 2.9 1.2 - 4.9 X10*3/uL [facility] Monocytes Absolute Auto 0.7 0.1 - 1.2 X10*3/uL [facility] Eosinophils Absolute Auto 0.1 0.0 - 0.4 X10*3/uL [facility] Basophils Absolute Auto 0.0 0.0 - 0.2 X10*3/uL [facility] NRBC Abs Auto 0.000 0.0 - 0.012 X10*3/uL [facility] 01/03/2025 8:55 AM EST 01/03/2025 8:57 AM EST us Generic External Data Provider LAB BLOOD ORDERAB LES Final Result Performing Organization Address City/[facility]/ZIP Co de Phone Number [facility] [address] [place] [address] [phone] * Hepatitis C Antibody with Reflex to HCV, RNA, Quantitative, Real-Time PCR (01/25/2023 8:23 AM EDT) Hepatitis C Antibody NON-REACT DERICK NON-REACT DERICK [facility] Index 0.08 <1.00 [employer] [facility] Comment: HCV antibody was non-reactive. There is no laboratory evidence of HCV infection. In most cases, no further action is required. However, if recent HCV exposure is suspected, a test for HCV RNA (test code 38364) is suggested. For additional information please refer to http://education.[employer]/faq/QKI95k2 (This link is being provided for informational/ educational purposes only.) 01/25/2023 8:23 AM EDT 01/25/2023 8:24 AM EDT Narrative [facility] - 01/25/2023 9:24 PM EDT FASTING:YES FASTING: YES us Ryann Stone NATURAL RESOURCES MANAGER LAB BLOOD ORDERABLES Final Res ult [facility] [address] [place] [address], [place] [address] [facility] [address] [facility] [address] [place] [address] * (ABNORMAL) Lipid Panel, Standard (01/25/2023 8:23 AM EDT) [facility] Signature Cholesterol, Total 180 <200 mg/dL [facility] [place] [facility] HDL Cholesterol 34(L) > OR = 40 mg/dL [facility] [place] [facility] Triglycerides 101 <150 mg/dL [facility] [place] [facility] LDL Cholesterol 126(H) mg/dL (calc) [facility] [place] [facility] Comment: Reference range: <100 Desirable range <100 mg/dL for primary prevention; ?? <70 mg/dL for patients with CHD or diabetic patients with > or = 2 CHD risk factors. LDL-C is now calculated using the Twan calculation, which is a validated novel method providing better accuracy than the Friedewald equation in the estimation of LDL-C. Sage SS et al. ANGEL. 2013;310(19): 1335-2023 (http://education.[employer]/faq/XMZ287) Chol/HDLC Ratio 5.3(H) <5.0 (calc) [facility] [place] [facility] Non-HDL Cholesterol 146(H) <130 mg/dL (calc) [facility] [place] [facility] Comment: For patients with diabetes plus 1 major ASCVD risk factor, treating to a non-HDL-C goal of <100 mg/dL (LDL-C of <70 mg/dL) is considered a therapeutic option. 01/25/2023 8:23 AM EDT 01/25/2023 8:24 AM EDT Narrative [facility] - 01/25/2023 9:24 PM EDT FASTING:YES FASTING: YES us Ryann Stone NP LAB BLOOD ORDERABLES Final Res ult [facility] [address], [place] [address] [facility] [place] [facility] [address] [place] [address] from Last 3 Months or Most Recently Relevant to Health Maintenance Insurance LUZMA Crandall [place] Crandall Karley MD Care Teams Lab Specialist Relationship Specialty Start Date End Date Aline Carney MD [address] [place] [phone] PCP - General Internal Medicine 02/23/23
--- OUTSIDE RECORDS SUMMARY | 2025-03-17 12:51 | XMS_ITS | Encounter Summary ---
Author Organization [email or web address] Address [address] [facility] [address] [place] [address] Care Team Providers Care Poultry Farmer Meat Name Role Phone Aline Carney MD Primary Care Provide r Reason for Visit * Reason Onset Date Comments Chart prep 03/14/2025 Encounter Details Date Type Department Care Team (Late st Contact Info) Description 03/14/[address] [facility] [address], [place] [phone] Aline Carney MD [address] [place], [place] [phone] Chart prep Social History Tobacco Use Types Packs/Day Years [...] encounter Miscellaneous Notes * Telephone Encounter - Stephanie Barnett MA - 03/14/2025 1:31 PM EDT Chart Prep Labs: done Images: done Referrals: complete Vaccines due: Covid, Flu, and Zoster Screenings: colonoscopy Overdue care gaps: PHQ-9 documented in this encounter Plan of Treatment Not on file documented as of this encounter Visit Diagnoses Not on filedocumented in this encounter Additional Health Concerns Assessment Noted Time PHQ-9 Depression Total Score: 13 024 9:15 AM EDT documented as of this encounter Care Teams Poultry Farmer Meat Relationship Specialty Start Date End Date Aline Carney MD [address] [place] [phone] PCP - General Internal Medicine 02/23/23 documented as of this encounter
--- OUTSIDE RECORDS SUMMARY | 2025-03-17 12:51 | XMS_ITS | Encounter Summary ---
Author Organization [employer] Address [address] [place] [address] Care Team Providers Care Data Collection Interviewer Name Role Phone Aline Carney MD Primary Care Provide r Encounter Details Date Type Department Care Team ([facility] st Contact Info) Description 12/23/2024 Orders Only [facility] [address] [place], [place] [phone] Aline Carney MD [address] [place], [place] [phone] Social History Tobacco Use Types Packs/Day Years [...] as of this encounter Plan of Treatment Not on file documented as of this encounter Visit Diagnoses Not on filedocumented in this encounter Additional Health Concerns Assessment Noted Time PHQ-9 Depression Total Score: 13 024 9:15 AM EDT documented as of this encounter Care Teams Data Collection Interviewer Relationship Specialty Start Date End Date Aline Carney MD [address] [place] [phone] PCP - General Internal Medicine 02/23/23 documented as of this encounter
--- OUTSIDE RECORDS SUMMARY | 2025-03-17 12:51 | XMS_ITS | Encounter Summary ---
Author Organization [employer] Address [address] [place] [address] Care Team Providers Care Single End Sewer Name Role Phone Aline Carney MD Primary Care Provide r Encounter Details Date Type Department Care Team (Latest Contact Info) Description 03/17/2025 Travel Social History Tobacco Use Types Packs/Day [...] AM EDT documented as of this encounter Functional Status * Over the past 2 weeks, how often have you been bothered by any of the following problems? Question Answer Date of Assessment Author Patient Health Questionnaire-2 Score 2 03/17/2025 11:12 AM EDT Chucho Mckinley * Little interest or pleasure in doing things Answer Date of Assessment Author Several days 03/17/2025 11:12 AM EDT Chucho Webster * Feeling down, depressed, or hopeless Answer Date of Assessment Author Several days 03/17/2025 11:12 AM EDT Chucho Webster * Trouble falling or staying asleep, or sleeping too much Answer Date of Assessment Author Several days 03/17/2025 11:12 AM EDT Chucho Webster * Feeling tired or having little energy Answer Date of Assessment Author Several days 03/17/2025 11:12 AM EDT Chucho Webster * Poor appetite or overeating Answer Date of Assessment Author Several days 03/17/2025 11:12 AM EDT Chucho Webster * Feeling bad about yourself - or that you are a failure or have let yourself or your family down Answer Date of Assessment Author Several days 03/17/2025 11:12 AM EDT Chucho Webster * Trouble concentrating on things, such as reading the newspaper or watching television Answer Date of Assessment Author Several days 03/17/2025 11:12 AM LULÚT Chucho Webster * Moving or speaking so slowly that other people could have noticed? Or the opposite - being so fidgety or restless that you have been moving around a lot more than usual. Answer Date of Assessment Author Several days 03/17/2025 11:12 AM Chucho Zhu * Thoughts that you would be better off or hurting yourself in some way Answer Date of Assessment Author Several days 03/17/2025 11:12 AM EDT Chucho Webster * Patient Health Questionnaire-9 Score Answer Date of Assessment Author 9 03/17/2025 11:12 AM EDT Chucho Webster * How difficult have these problems made it for you to do your work, take care of things at home, or get along with other people? Answer Date of Assessment Author Very difficult 03/17/2025 11:12 AM EDT Chucho Webster * Over the last 2 weeks, how often have you been bothered by any of the following problems? Question Answer Date of Assessment Author Feeling nervous, anxious, or on edge 2 03/17/2025 11:12 AM EDT Chucho Villeda Not being able to stop or control worrying 1 03/17/2025 11:12 AM EDT Chucho Villeda Worrying too much about different things 1 03/17/2025 11:12 AM EDT Chucho Villeda Trouble relaxing 1 03/17/2025 11:12 AM EDT Chucho Myers Being so restless that it is hard to sit still 1 03/17/2025 11:12 AM EDT Chucho Villeda Becoming easily annoyed or irritable 1 03/17/2025 11:12 AM EDT Chucho Villeda Feeling afraid as if something awful might happen 1 03/17/2025 11:12 AM EDT Chucho Sellers BREONNA-7 Total Score 8 03/17/2025 11:12 AM EDT Chucho Myers documented as of this encounter Plan of Treatment Not on file documented as of this encounter Visit Diagnoses Not on filedocumented in this encounter Additional Health Concerns Assessment Noted Time PHQ-9 Depression Total Score: 9 03/17/20 25 11:12 AM EDT documented as of this encounter Care Teams Single End Sewer Relationship Specialty Start Date End Date Aline Carney MD [address] [place] [address] PCP - General Internal Medicine 02/23/23 documented as of this encounter
--- OUTSIDE RECORDS SUMMARY | 2025-03-17 12:51 | XMS_ITS | Encounter Summary ---
Author Organization [employer] Address [address] [facility] 7t [place] [address] Care Team Providers Care Clinical Sciences Professor Name Role Phone Aline Carney MD Primary Care Provide r Reason for Visit * Reason Onset Date Comments Appointment Request 05/01/2023 Encounter Details Date Type Department Care Team (Late st Contact Info) Description 05/01/2023 Telephone [facility] MEDICINE [address] [place], [place] [phone] Aline Carney MD [address] [place] [address] Appointment Request Social History Tobacco Use Types [...] on last visit. Please contact pt att [phone] Albanian Speaker documented in this encounter Plan of Treatment Not on file documented as of this encounter Visit Diagnoses Not on filedocumented in this encounter Additional Health Concerns Assessment Noted Time PHQ-9 Depression Total Score: 16 023 10:31 AM EDT documented as of this encounter Care Teams Clinical Sciences Professor Relationship Specialty Start Date End Date Aline Careny MD [address] [place] [id number] PCP - General Internal Medicine 02/23/23 documented as of this encounter
--- OUTSIDE RECORDS SUMMARY | 2025-03-17 12:51 | XMS_ITS | Encounter Summary ---
Author Organization [employer] Address [address] [facility] 7t [place] [address] Care Team Providers Care Entry Level Software Developer Name Role Phone Adry Rai Primary Care Provider Aline Carney MD Primary Care Provide r Encounter Details Date Type Department Care Team (Latest Contact Info) Description 07/13/2021 Abstract [facility] Dental, Provider, DDS Social History Tobacco [...] on filedocumented in this encounter Care Teams Entry Level Software Developer Relationship Specialty Start Date End Date Adry Rai ANP [address] [place] [address] PCP - General Family Medicine 06/28/22 02/22/23 Aline Carney MD [address] [place] [address] PCP - General Internal Medicine 02/23/23 documented as of this encounter
--- OUTSIDE RECORDS SUMMARY | 2025-03-17 12:51 | XMS_ITS | Encounter Summary ---
Author Organization [employer] Address [address] [facility] 7t [place] [address] Care Team Providers Care Is Support Analyst Name Role Phone Aline Carney MD Primary Care Provide r Reason for Visit * Reason Comments Follow-up Encounter Details Date Type Department Care Team ([facility] st Contact Info) Description 03/17/2025 10:00 AM EDT Office Visit [facility] MEDICINE [address] [place], [place] [phone] Aline Carney MD [address] [place], [place] [phone] Anxiety with depression (Primary Dx); Chronic right shoulder pain Social History Tobacco Use Types Packs/Day Years [...] Mass Index 24.02 03/17/2025 10:04 AM EDT documented in this encounter Functional Status * Over the [...] days 03/17/2025 11:12 AM Chucho Zhu * Feeling tired or having little energy Answer Date of Assessment Author Several days 03/17/2025 11:12 AM Chucho Zhu * Poor appetite or overeating Answer Date of Assessment Author Several days 03/17/2025 11:12 AM Chucho Zhu * Feeling bad about yourself - or that you are a failure or have let yourself or your family down Answer Date of Assessment Author Several days 03/17/2025 11:12 AM Chucho Zhu * Trouble concentrating on things, such as reading the newspaper or watching television Answer Date of Assessment Author Several days 03/17/2025 11:12 AM Chucho Zhu * Moving or speaking so slowly that [...] days 03/17/2025 11:12 AM Chucho Zhu * Patient Health Questionnaire-9 Score Answer Date of Assessment Author 9 03/17/2025 11:12 AM Chucho Zhu * How difficult have these problems made it for you to do your work, take care of things at home, or get along with other people? Answer Date of Assessment Author Very difficult 03/17/2025 11:12 AM Chucho Zhu * Over the last 2 weeks, how often have you been bothered by any of the following problems? Question Answer Date of Assessment Author Feeling nervous, anxious, or on edge 2 03/17/2025 11:12 AM Chucho Palomares Not being able to stop or control worrying 1 03/17/2025 11:12 AM Chucho Palomares Worrying too much about different things 1 03/17/2025 11:12 AM Chucho Palomares Trouble relaxing 1 03/17/2025 11:12 AM EDT [...] as of this encounter Plan of Treatment Scheduled Orders Name Type Priority Associated Diagnoses Orde r Schedule XR Shoulder 2+ Views Right Imaging Routine Chronic right shoulder pain Expected: 03/17/2025, Expires: 03/17/2026 documented as of this encounter Visit Diagnoses Diagnosis Anxiety with depression- Primary Chronic right shoulder pain Pain in joint, shoulder region documented in this encounter Additional Health Concerns Assessment Noted Time PHQ-9 Depression Total Score: 9 03/17/20 25 11:12 AM EDT documented as of this encounter Care Teams Is Support Analyst Relationship Specialty Start Date End Date Aline Carney MD [address] [place] [phone] PCP - General Internal Medicine 02/23/23 documented as of this encounter
== END 2025-03-17 12:30 | disposition home or self-care (01) ==
LOC: HO.HHCX 12:29
PROVIDERS: Visit Provider Internal Medicine
DX: M25.511 Pain in right shoulder (principal); G89.29 Other chronic pain
CPT/HCPCS: 73030

== ENCOUNTER → 2025-03-17 12:30 | Outpatient (BNV) | payer OTHER, SELFPAY | PROVIDERS: Visit Provider Radiology Diagnostic Radiology | DX: M19.011 Primary osteoarthritis, right shoulder (principal) | CPT/HCPCS: 73030 ==

== ENCOUNTER 2025-03-21 09:51 | Outpatient (AMB) | payer OTHER, SELFPAY ==
--- NOTE | 2025-03-21 09:56 | A.OFFVIS_ITS ---
Vital Signs 03/21/25 09:59 Height 5 ft 6 in Weight 148 lb BMI 23.9 BP 112/53 L Blood Pressure Location Lt brachial Position Sitting Pulse 64 Pulse Oximetry (%) 98 Oxygen Delivery Method Room Air Intake Visit Reasons: S/P EGD; Dr. Michelle Intake Note: Patient follow up for EGD results. Patient denies any GI issues. 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 Prev used to see Tamar Kate [employer]. Main issue is abd bloating that has been ongoing for 3 years, occurs shortly af ter eating. Gets better after passing bowel movement. Happens alsmost every day. No nausea or vomiting. Reports heartburn with this. Drinks 18 oz coffee per day. Also likes to drink 16 oz soda per day. Also smokes 0.5 PPD. Also reports significant constipation. Has 2 BMs per day but BMs are small and has to strain a lot. Colonoscopy - 07/10/24: no polyps per pt report (done at [facility] ([place], [place])). 10/14/24: Here for follow up. Mildly abnormal GES see below. Reports feeling a lot better since incorporating daily exercise in his routine. Sx are now limited to lunch time. Has scrambled eggs and cain for breakfast. Lunch is typically rice and beans. Pt also unsure if he was taking percocet while the GES was being done. US also reviewed - has GB polyps. 03/06/25: EGD * Normal esophagus * Gastritis (biopsy) * Normal duodenum Path: Additional levels with AB/PAS stains show no goblet cells on A, and rare goblet cells on B and D consistent with intestinal metaplasia (complete). Control stains appropriately. Electronically Signed By: Margret Knox 03/13/25 0851 Diagnosis A. Gastric antrum, greater curvature, biopsy: Gastric antral mucosa with mild chronic inactive gastritis, and possible rare goblet cells; negative for H. pylori and dysplasia. B. Gastric antrum, lesser curvature, biopsy: Gastric antral mucosa with reactive changes, mild chronic inactive gastritis and rare goblet cells; negative for H. pylori and dysplasia. C. Gastric incisura, biopsy: Gastric antral mucosa with mild chronic inactive gastritis; negative for H. pylori, intestinal metaplasia and dysplasia. D. Gastric body, greater curvature, biopsy: Gastric antral mucosa with chronic gastritis with moderate activity and rare goblet cells; negative for H. pylori and dysplasia. E. Gastric body, lesser curvature, biopsy: Gastric body mucosa with chronic Helicobacter gastritis with moderate activity and intestinal metaplasia (complete); negative for dysplasia 03/21/25: Here for post EGD follow up. Accompanied by his partner Daphney. Reports no acute GI concerns. No abd pain, N,V,D. Reviewed results of EGD. Has focal complete GIM in body and antrum. No H pylori. Pt also with known GB polyp. Due for repeat imaging. Jun 2024 US showed adenomyomatosis but Oct 2024 showed GB debris and no adenomyomatosis. Will elect for MRI as next imaging to clarify this as ay guide surgery if adenomyomatosis progressing. [facility] Medical History (Updated 03/21/25 @ 11:13 by Emma Michelle MD) Chronic pain syndrome GERD (gastroesophageal reflux disease) Arthritis BPH (benign prostatic hyperplasia) Anemia Nicotine dependence, cigarettes, uncomplicated Smokers' cough Anxiety and depression Cerebral aneurysm without rupture Coronary artery calcification seen on CT scan Nephrolithiasis Surgical History History of left inguinal hernia repair (04/29/24) Hx of colonoscopy History of cardiac catheterization H/O esophagogastroduodenoscopy Family History Father Diabetes Mother No problems noted. Social History Household Members: Spouse and Children Housing: Apartment Are you a primary wound care nurse to a significant other at home: No Do you presently have visiting nurse or other home services: No 75 years or older and lives alone: No Alcohol intake: never Patient Tobacco Use Status: Current everyday Tobacco user Tobacco use type: Cigarette Cigarettes Per Day: 10 Years Smoked: (onset 15, 1/2ppd x 51yrs, 25pyh) Substance Use Type: Marijuana service: Yes Current occupational status: retired Review of Systems Const All systems reviewed & are unremarkable except as noted in HPI and below Physical Exam Vital Signs: Last Vital Signs Pulse 64 03/21/25 09:59 BP 112/53 L 03/21/25 09:59 Pulse Ox 98 03/21/25 09:59 Oxygen Delivery Method Room Air 03/21/25 09:59 BMI result Body Mass Index 23.9 No apparent distress Nonicteric Abdomen soft, nondistended Alert and oriented x3, normal gait Assessment & Plan Assessment & Plan (1) Adenomyomatosis of gallbladder: Code(s): D13.5 - Benign neoplasm of extrahepatic bile ducts Category: Medical (2) Gastric intestinal metaplasia without dysplasia: Code(s): K31.A19 - Gastric intestinal metaplasia without dysplasia, unspecified site Category: Medical Plan Pt without any GI sx now. However EGD with focal complete GIM. With mutual decision making pt elects to proceed with surveillance EGD in 3 years. Plan: - Reminder for EGD set. In terms of GB adenomyomatosis, as outlined above US 06/2024 and 10/2024 are in incongruent and therefore would elect to proceed with an MRI to make sure this is not progressing and ? indication for cholecystectomy. Plan: - MRI with and without contrast CRC screening [facility] 2023 without polyps. Follow up in 3 years for EGD unless actionable findings on MRI Orders: Orders MR abdomen wo/w con Today D13.5 - Benign neoplasm of extrahepatic bile ducts Coding Level of Care Code Est Pt Level 4 (21384) Diagnoses Adenomyomatosis of gallbladder D13.5 Gastric intestinal metaplasia without dysplasia K31.A19
[2025-03-21 09:59] VITALS: BP 112/53; PULSE 64; O2SAT 98; BMI 23.9
--- OUTSIDE RECORDS SUMMARY | 2025-03-21 10:05 | XMS_ITS | Encounter Summary ---
Author Organization [employer] Address [address] [facility] [address] 7[address] [place] [address] Care Team Providers Care Design Technician Name Role Phone Aline Carney MD [...] Assessment Author Several days 03/17/2025 11:12 AM EDChucho Aaron * Trouble concentrating on things, such as [...] about different things 1 03/17/2025 11:12 AM LULÚT Chucho Villeda Trouble relaxing 1 03/17/2025 11:12 AM EDT Chucho Myers Being so restless that it is hard to sit still 1 03/17/2025 11:12 AM Chucho Palomares Becoming easily annoyed or irritable 1 03/17/2025 11:12 AM LULÚT Chucho Villeda Feeling afraid as if something awful might happen 1 03/17/2025 11:12 AM Chucho Barrera BREONNA-7 Total Score 8 03/17/2025 11:12 AM LULÚT Chucho Myers documented as of this encounter Plan of Treatment Upcoming Encounters Date Type Department Care Team (Late st Contact Info) Description 06/19/2025 10:00 AM EDT Office Visit [facility] MEDICINE [address] [place] [address] Aline Carney MD [address] [place] [address] documented as of this encounter Visit Diagnoses Not on filedocumented in this encounter Additional Health Concerns Assessment Noted Time PHQ-9 Depression Total Score: 9 03/17/20 25 11:12 AM EDT documented as of this encounter Care Teams Design Technician Relationship Specialty Start Date End Date Aline Carney MD [address] [place] [phone] PCP - General Internal Medicine 02/23/23 documented as of this encounter
== END 2025-03-21 14:08 | disposition home or self-care (01) ==
PROVIDERS: PCP Internal Medicine; Visit Provider Internal Medicine
DX: D13.5 Benign neoplasm of extrahepatic bile ducts (principal); K31.A19 Gastric intestinal metaplasia without dysplasia, unspecified site
CPT/HCPCS: 99214

== ENCOUNTER → 2025-03-21 09:51 | Outpatient (BNVA) | payer OTHER, SELFPAY | PROVIDERS: PCP Internal Medicine; Visit Provider Internal Medicine | DX: K31.A19 Gastric intestinal metaplasia without dysplasia, unspecified site (principal); D13.5 Benign neoplasm of extrahepatic bile ducts | CPT/HCPCS: 99212 ==

== ENCOUNTER → 2025-04-12 12:45 | Outpatient (BNV) | payer OTHER, SELFPAY | PROVIDERS: PCP Internal Medicine; Visit Provider Radiology Diagnostic Radiology | DX: N28.1 Cyst of kidney, acquired (principal) | CPT/HCPCS: 74183 ==

== ENCOUNTER 2025-04-12 12:46 | Outpatient (REF) | payer OTHER, SELFPAY ==
--- NOTE | ~2025-04-12 | MR_ITS ---
CLINICAL HISTORY: 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 Normal gallbladder. No intrahepatic or extrahepatic bile duct dilatation, no choledocholithiasis or mural thickening. Pancreatic duct is not dilated. Liver is normal in size, no steatosis, multiple punctate cystic foci scattered through the liver, no enhancing hepatic lesion is seen. Patent hepatic and portal veins. Spleen, pancreas, adrenal glands are likable. 3 mm simple exophytic cortical cyst right kidney anterior interpolar region. Left kidney lower pole mildly lobulated thin wall cyst 1.3 x 1.1 cm with thin septation and perceived enhancement, consistent with Bosniak 2 cyst. Unremarkable imaged GI tract. Atherosclerotic disease, nonaneurysmal aorta. No adenopathy, ascites or pneumoperitoneum. Unremarkable lung bases and osseous structures. Impression: 1. Suboptimal exam due to motion blurring, unremarkable gallbladder, biliary tree and pancreatic duct. 2. Benign renal cysts and punctate hepatic cystic foci. This document has been electronically signed by: Vera Coley MD on 04/15/2025 09:55:42
[2025-04-12] MEDS: gadobutroL 10 ML VIAL IVPUSH (14:23)
== END 2025-04-12 12:47 | disposition home or self-care (01) ==
LOC: HO.MRI 12:46
PROVIDERS: PCP Internal Medicine; Visit Provider Internal Medicine
DX: D13.5 Benign neoplasm of extrahepatic bile ducts (principal)
CPT/HCPCS: 74183; A9585

== ENCOUNTER 2025-05-16 12:58 | Outpatient (AMB) | payer OTHER, SELFPAY ==
--- NOTE | 2025-05-16 13:00 | A.OFFVIS_ITS ---
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 Patient reports ongoing right shoulder pain for about 2 months now. His PCP gave him an Rx for Flexeril. Patient reports ongoing pain that travels down from his shoulder to his elbow. He has numbness and tingling in his hand. He has been performing at home exercises. He has an appointment scheduled with physical therapy. No other treatment. He uses Tylenol for his pain. Allergies No Known Allergies (No Known Allergies*) Allergy (Verified 05/16/25 13:13) Medication List - Last Reconciled 05/16/25 by Joshua Mckeon PA-C acetaminophen 1,000 mg PO Q6H PRN blood pressure test kit-large As directed cholecalciferol (vitamin D3) 1,250 mcg PO QWEEK 3 months cyanocobalamin (vitamin B-12) (Vitamin B-12) 1,000 mcg PO DAILY gabapentin 300 mg PO TID lidocaine 5% 1 patch topical DAILY PRN prucalopride (Motegrity) 1 mg PO DAILY 90 days sennosides-docusate sodium 8.6-50 mg (Stimulant Laxative Plus) 1 tab PO DAILY sumatriptan succinate 50 mg PO DAILY PRN terazosin 5 mg PO BEDTIME 90 days HPI HPI MA[employer]GER [employer]-Localized osteoarthritis of right shoulder: Details: 69 yo male presents to the office for right shoulder pain. She states about 2 months ago he started working out and he has pain in the right shoulder. He states the pain does go down the arm and into the elbow. He does have some n/t in the hands and fingers. He states the n/t startes in the afternoon and worsens with activity. He does have an appt with PT 05/20/25. No other treatment to date. [facility] Medical History (Updated 05/16/25 @ 14:08 by Joshua Mckeon PA-C) Chronic pain syndrome GERD (gastroesophageal reflux disease) Arthritis BPH (benign prostatic hyperplasia) Anemia Nicotine dependence, cigarettes, uncomplicated Smokers' cough Anxiety and depression Cerebral aneurysm without rupture Coronary artery calcification seen on CT scan Nephrolithiasis Surgical History History of left inguinal hernia repair (04/29/24) Hx of colonoscopy History of cardiac catheterization H/O esophagogastroduodenoscopy Family History Father Diabetes Mother No problems noted. Social History Household Members: Spouse and Children Housing: Apartment Are you a primary health care specialist to a significant other at home: No Do you presently have visiting nurse or other home services: No 75 years or older and lives alone: No Alcohol intake: never Patient Tobacco Use Status: Current everyday Tobacco user Tobacco use type: Cigarette Years Smoked: (onset 15, 1/2ppd x 51yrs, 25pyh) Substance Use Type: Marijuana service: Yes Current occupational status: retired Review of Systems Const All systems reviewed & are unremarkable except as noted in HPI and below Physical Exam Vital Signs: BMI result Body Mass Index 23.7 Const General: cooperative and no acute distress Orientation/consciousness: patient oriented x3 Resp Effort & Inspection: normal respiratory effort and able to speak in complete sentences Cardio Peripheral pulses: Peripheral pulses 2+ throughout Neuro General: patient oriented x3 Extrem Other: Right shoulder normal to inspection. He has full range of motion in all planes. Tenderness over the proximal biceps with a positive Price's. 5/5 rotator cuff strength. Right wrist normal to inspection. Tenderness over the carpal canal. Numbness and tingling over the median nerve distribution of the right hand. Able to make a full fist and fully extend all fingers. Positive Tinel's. Results Reviewed Results Reviewed: X-rays of the right shoulder obtained on March 17 are significant for mild AC joint arthritis Assessment & Plan Assessment & Plan (1) Biceps tendonitis on right: Code(s): M75.21 - Bicipital tendinitis, right shoulder Category: Medical (2) Carpal tunnel syndrome on right: Code(s): G56.01 - Carpal tunnel syndrome, right upper limb Category: Medical Plan We discussed options today which include continued physical therapy for the right shoulder. I also sent a prescription for ibuprofen to his pharmacy to take twice a day for 2 weeks. I also encouraged him to modify his activities or exercises to avoid impact or overhead pressing. As for the right wrist and EMG nerve conduction study has been ordered to further evaluate the source of his numbness. I also gave him a comfort wrist splint from the office today to wear at night to help with his numbness. Once the EMG study is complete I will obtain the results and contact him to discuss the next step in his treatment. Orders: Orders NE nerve conduction velocity Today R20.0 - Anesthesia of skin, R20.2 - Paresthesia of skin NE electromyogram (EMG) Today R20.0 - Anesthesia of skin, R20.2 - Paresthesia of skin Medications: New ibuprofen 800 mg PO Q8H PRN 90 tabs 3RF pain 30 days S52.209D - Unspecified fracture of shaft of unspecified ulna, subsequent encounter for closed fracture with routine healing Coding Level of Care Code New Pt Level 3 (48476) Complex EM visit Add On G2211 Diagnoses Biceps tendonitis on right M75.21 Carpal tunnel syndrome on right G56.01
--- OUTSIDE RECORDS SUMMARY | 2025-05-16 13:00 | XMS_ITS | Clinical Summary ---
Author Organization [employer] Address [address] 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 30 capsule 2 3 Active cyanocobalamin (Vitamin B-12) 1000 MCG/ML injection Inject 1 mL (1,000 mcg) into the shoulder, thigh, or buttocks 1 (one) time per week. Injections will be given by [facility] RN weekly x 4 weeks. 4 [...] IN THE MORNING 90 capsule 4 Active gabapentin (Neurontin) 300 MG capsuleIndication s:Chronic [...] 24 hours. 9 tablet 2 5 Active omeprazole (PriLOSEC) [address] capsule Take 1 capsule by mouth Once per day. 5 Active terazosin (Hytrin) 5 MG capsule Take 5 mg by mouth at bedtime. 5 Active senna-docusate sodium (Senokot-S) 8.6-50 MG tabletIndications :Other constipation Take 1 tablet by mouth Once per day. 30 tablet 11 4 025 Active Problems Problem Noted Date Diagnosed Date Chronic right shoulder pain 03/17/2025 Assessment & Plan (03/17/2025 1:05 PM EDT): X-ray will be ordered today, patient will be contacted with results I will prescribe for patient Flexeril 5 mg every 8 hours, he is aware of side effects somnolence and that he cannot drive while taking this medication I also prescribed for patient acetaminophen as needed Left groin pain 12/09/2024 Assessment & Plan [...] after his adult child was released from correction and is living in [facility]. John will benefit from Individual therapy in OP [facility] with focus on trauma and CBT related [...] to treatment PLAN: 1. Follow up with [facility]: Recommended for follow-up: 03/24 2. Patient goal is Manage current stressors and sxs associated 3. Behavioral Recommendations a. Referral to OP for trauma/cbt focus sessions b. Referral to [facility] for psych med management c. Philip will engage on 3-5 follow up [facility] short interventions to provide some stabilization of sxs Anxiety with depression 02/20/2023 Assessment & Plan (03/17/2025 1:06 PM EDT): N called today, recommendations will be follow Patient declines for now medications I will assess him on next appointment to see if he needs medications or not Eye pain, right 02/20/2023 Benign prostatic hyperplasia with incomplete bladder emptying 02/20/2023 Assessment & Plan (03/07/2024 10:56 AM EDT): Patient reports he is taking his flomax daily without relief of symptoms I refer patient to [facility] urology ordered today Assessment & Plan (02/20/2023 [...] organization. Date Type Department Care Team Description 05/12/2025 2:00 PM EDT Office Visit [facility] ADULT DENTAL [address] [place], [place] [phone] Ann Marie Clark Dental calculus (Primary Dx) 03/21/2025 Results Follow-Up [address] [address] Aline Carney MD XR Shoulder 2+ Views Right 03/17/2025 10:00 AM EDT Office Visit [address] [address] Aline Carney MD Anxiety with depression (Primary Dx); Chronic right shoulder pain 03/17/2025 Travel 03/14/[address] [phone] Aline Carney MD Chart prep 03/10/2025 Patient Outreach [address] [address] Aline Carney MD Pre-visit Planning ([facility] screening completed on 11/27/2024) 03/06/2025 Orders Only GENERIC EXTERNAL DATA DEPARTMENT Provider, Generic External Data from Last 3 Months Immunizations Immunization Administration [...] is your housing situation today? I have dominiqueney scales 02/28/[address] you [...] Sign Reading Time Taken Comments Blood Pressure 130/68 05/12/2025 2:06 PM EDT Pulse 56 03/17/2025 10:04 AM EDT Temperature 36.2 C (97.2 F) 03/17/2025 10:04 AM EDT Respiratory Rate 14 03/17/2025 10:0 4 AM EDT Oxygen Saturation 99% 03/17/2025 10: 04 AM EDT Inhaled Oxygen Concentration - - Weight 67.5 kg (148 lb 12.8 oz) 025 10:04 AM EDT Height 167.6 cm (5' 6 ) 03/17/2025 10:0 4 AM EDT Body Mass Index 24.02 03/17/2025 10:04 AM EDT Plan of Treatment Upcoming Encounters Date Type Department Care Team (Late st Contact Info) Description 06/19/2025 10:00 AM EDT Office Visit [facility] MEDICINE [address] [place] [address] Aline Carney MD [address], [place] [phone] 11/19/2025 10:00 AM EST Office Visit [facility] ADULT DENTAL [address] [place] [address] Ann Marie Clark Health Maintenance Due Date Last Done Comments CT Colonography 1955 Colonoscopy 1955 Colorectal Cancer Screening 1955 FIT DNA/Cologuard 1955 FIT 1955 FOBT 1955 Sigmoidoscopy 1955 Alcohol/Substance Use Screening 1969 COVID-19 Vaccine ( season) 2024 12/09/2022, 03/18/2021, 02/18/2021 Influenza Vaccine (#1) 2025 , 06/30/2020, 10/26/2015, Additional history exists Depression Monitoring 09/17/2025 03/17/2025, 025 Dental Oral Exam 11/13/2025 05/12/2025, 07/13/2021 Dental Prophylaxis 11/13/2025 05/12/2025, 03/05/2024 SDOH Screening 11/27/2025 11/27/2024 Tobacco Screening 05/12/2026 05/12/2025 Dental X-Ray: Bitewings 05/13/2026 05/12/20, 03/05/2024, 07/13/2021 Dental X-Ray: Full Mouth 03/06/2027 024, 07/22/2021, 07/13/2021 Lipid Panel 01/26/2028 01/25/2023, 04/2022, 02/26/2021 DTaP/Tdap/Td Vaccines (4 - Td or Tdap) 09/02/2032 09/02/2022, 12/27/2017, 09/27/2012, Additional history exists RSV Patients and Patients Aged 60 years or older (1 - 1-dose 75+ series) 2032 Zoster Vaccines Completed 04/11/2019, 01/09/2019 Hepatitis C Screening Completed 01/25/2023 Pneumococcal Vaccine: 50+ Years Completed 04/25/2024, 09/27/2012, 06/22/2009 HIB Vaccines Aged Out No longer eligi [...] Procedure Name Priority Date/Time Associated Diagnosis Comments COMPREHENSIVE PERIODONTAL EVALUATION - NEW OR ESTABLISHED PATIENT Routine 05/12/2025 2:00 PM EDT PERIODIC ORAL EVALUATION - ESTABLISHED PATIENT Routine 05/12/2025 2:00 PM EDT TOPICAL APPLICATION OF FLUORIDE VARNISH Routine 05/12/2025 2:00 PM EDT INTRAORAL - PERIAPICAL EACH ADDITIONAL RADIOGRAPHIC IMAGE Routine 05/12/2025 2:00 PM EDT INTRAORAL - PERIAPICAL FIRST RADIOGRAPHIC IMAGE Routine 05/12/2025 2:00 PM EDT BITEWINGS - 4 RADIOGRAPHIC IMAGES Routine 05/12/2025 2:00 PM EDT ORAL HYGIENE INSTRUCTIONS Routine 05/12/2025 2:00 PM EDT CASE PRESENTATION, DETAILED AND EXTENSIVE TREATMENT PLANNING Routine 05/12/2025 2:00 PM EDT PROPHYLAXIS - ADULT Routine 05/12/2025 2 :00 PM EDT MR ABDOMEN W AND WO CONTRAST Routine 04/15/2025 9:55 AM EDT XR SHOULDER 2+ VIEWS RIGHT Routine 03/17/2025 12:30 PM EDT Chronic right shoulder pain HEMATOXYLIN AND EOSIN STAIN Routine 03/06/2025 12:55 PM EDT INTRAORAL - COMPLETE SERIES OF RADIOGRAPHIC IMAGES Routine 03/05/2024 11:00 AM EDT HEPATITIS C AB W/REFL TO HCV RNA, QN, PCR Routine 01/25/2023 8:23 AM EDT LIPID PANEL, STANDARD Routine 01/25/2023 8:23 AM EDT from Last 3 Months or Most Recently Relevant to Health Maintenance Results * MR Abdomen w/ and w/o Contrast (04/15/2025 9:55 AM EDT) Anatomical Region Laterality Modality Abdomen Magnetic Resonan ce 04/15/2025 9:55 AM EDT Narrative 04/15/2025 9:57 AM EDT [place] [address] Magnetic Resonance Report Signed Patient: John Damon MR#: [id number] : 1955 Acct:[id number] Age/Sex: 69 / M ADM Date: 04/12/25 Loc: HO.MRI Attending Dr: Emma Michelle MD Ordering Physician: Emma Michelle MD Date of Service: 04/12/25 Procedure(s): MR abdomen wo/w con Accession Number(s): [id number] cc: Aline Carney MD; Emma Michelle MD CLINICAL HISTORY: 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 Normal gallbladder. No intrahepatic or extrahepatic bile duct dilatation, no choledocholithiasis or mural thickening. Pancreatic duct is not dilated. Liver is normal in size, no steatosis, multiple punctate cystic foci scattered through the liver, no enhancing hepatic lesion is seen. Patent hepatic and portal veins. Spleen, pancreas, adrenal glands are likable. 3 mm simple exophytic cortical cyst right kidney anterior interpolar region. Left kidney lower pole mildly lobulated thin wall cyst 1.3 x 1.1 cm with thin septation and perceived enhancement, consistent with Bosniak 2 cyst. Unremarkable imaged GI tract. Atherosclerotic disease, nonaneurysmal aorta. No adenopathy, ascites or pneumoperitoneum. Unremarkable lung bases and osseous structures. Impression: 1. Suboptimal exam due to motion blurring, unremarkable gallbladder, biliary tree and pancreatic duct. 2. Benign renal cysts and punctate hepatic cystic foci. This document has been electronically signed by: Vera Coley MD on 04/15/2025 09:55:42 Dictated By: Vera Coley MD Signed By: <Electronically signed by Vera Coley MD in OV> 04/15/2556 DD/ 4 TD/TT: 04/15/25954 Edge Dyer: Procedure Note Donotuseinterpreter, Image - 04/15/2025 [place] [address] Magnetic Resonance Report Signed Patient: John Damon RMR#: [id number] : 8Acct:[id number] Age/Sex: 69 / MADM Date: 04/12/25 Loc: HO.MRI Attending Dr: Emma Michelle MD Ordering Physician: Emma Michelle MD Date of Service: 04/12/25 Procedure(s): MR abdomen wo/w con Accession Number(s): [id number] cc: Aline Carney MD; Emma Michelle MD CLINICAL HISTORY: 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 Normal gallbladder. No intrahepatic or extrahepatic bile duct dilatation, no choledocholithiasis or mural thickening. Pancreatic duct is not dilated. Liver is normal in size, no steatosis, multiple punctate cystic foci scattered through the liver, no enhancing hepatic lesion is seen. Patent hepatic and portal veins. Spleen, pancreas, adrenal glands are likable. 3 mm simple exophytic cortical cyst right kidney anterior interpolar region. Left kidney lower pole mildly lobulated thin wall cyst 1.3 x 1.1 cm with thin septation and perceived enhancement, consistent with Bosniak 2 cyst. Unremarkable imaged GI tract. Atherosclerotic disease, nonaneurysmal aorta. No adenopathy, ascites or pneumoperitoneum. Unremarkable lung bases and osseous structures. Impression: 1. Suboptimal exam due to motion blurring, unremarkable gallbladder, biliary tree and pancreatic duct. 2. Benign renal cysts and punctate hepatic cystic foci. This document has been electronically signed by: Vera Coley MD on 04/15/2025 09:55:42 Dictated By: Vera Coley MD Signed By: <Electronically signed by Vera Coley MD in OV> 04/15/25 0956 DD/ 4 TD/TT: 04/15/25954 Edge Dyer: [facility] External Provider IMG MRI PROCEDURES Final Result * XR Shoulder 2+ Views Right (03/17/2025 12:30 PM EDT) Anatomical Region Laterality Modality Upper Extremities, Shoulder Right Radi ographic Imaging 03/17/2025 12:3 0 PM EDT Narrative 03/17/2025 1:13 PM EDT [address] [address] XRay Report Signed Patient: John Damon MR#: [id number] : 1955 Acct:[id number] Age/Sex: 69 / M ADM Date: 03/17/25 Loc: .HHCX Attending Dr: Aline Oseguera MD Ordering Physician: Aline Carney MD Date of Service: 03/17/25 Procedure(s): XR shoulder RT min 2V Accession Number(s): [id number] cc: Aline Carney MD EXAMINATION: XR SHOULDER 2 OR MORE VIEWS RIGHT HISTORY: pain COMPARISON: There are no prior studies available for comparison. FINDINGS: Five views of the right shoulder are submitted. Osseous mineralization is normal. There is no fracture or dislocation. The glenohumeral joint is maintained. There is moderate osteoarthritis of the AC joint with joint space narrowing and osteophyte formation. There is a calcific line in the right upper lobe of the lung. XR/XR shoulder RT min 2V IMPRESSION: Moderate osteoarthritis of the AC joint. Electronically signed by: Jose L Slaughter MD 03/17/2025 01:10 PM EDT RP Dictated By: Jose L Slaughter MD Signed By: <Electronically signed by Jose L Slaughter MD in OV> 03/17/25 1310 DD/ 1230 TD/TT: 03/17/25 1235 Edge Dyer: Procedure Note Donotuseinterpreter, Image - 03/17/2025 [place] [address] XRay Report Signed Patient: John Damon RMR#: [id number] : 8Acct:[id number] Age/Sex: 69 / MADM Date: 03/17/25 Loc: .HHCX Attending Dr: Aline Oseguera MD Ordering Physician: Aline Carney MD Date of Service: 03/17/25 Procedure(s): XR shoulder RT min 2V Accession Number(s): [id number] cc: Aline Carney MD EXAMINATION: XR SHOULDER 2 OR MORE VIEWS RIGHT HISTORY: pain COMPARISON: There are no prior studies available for comparison. FINDINGS: Five views of the right shoulder are submitted. Osseous mineralization is normal. There is no fracture or dislocation. The glenohumeral joint is maintained. There is moderate osteoarthritis of the AC joint with joint space narrowing and osteophyte formation. There is a calcific line in the right upper lobe of the lung. XR/XR shoulder RT min 2V IMPRESSION: Moderate osteoarthritis of the AC joint. Electronically signed by: Jose L Slaughter MD 03/17/2025 01:10 PM EDT RP Dictated By: Jose L Slaughter MD Signed By: <Electronically signed by Jose L Slaughter MD in OV> 03/17/25 1310 DD/ 1230 TD/TT: 03/17/25 1235 Edge Dyer: us Aline Oseguera MD IMG XR PROCEDURES López suni Result - Final * Hematoxylin and Eosin Stain (03/06/2025 12:55 PM EDT) 03/06/2025 12:5 5 PM EDT 03/06/2025 1:14 PM EDT [facility] LABS - 03/13/2025 8:51 AM EDT ----- ------- Name: AdmonJohn Age/Sex: 69/M : 1955 Unit#: [id number] Attend Dr: Emma Michelle MD Re03/06/25 Status: [facility] Location: [facility] Disch: ----- ------- SPEC : [id number] RECD: 03/06/25 STATUS: HUMERA ROONEY NUM: [id number] TIM: 03/06/25-[address]: Emma Michelle MD ENTERED: 03/06/25-132 SP TYPE: Surgical OTHR DR: Aline Carney MD ORDERED: HE Stain/15, Gross Micro L4/5, IHC/5, Special st. 2/3, H. pylori/5, AB/PAS/3 Addendum Addendum 1 Entered: 03/13/25-0829 Additional levels with AB/PAS stains show no goblet cells on A, and rare goblet cells on B and D consistent with intestinal metaplasia (complete). Control stains appropriately. Addendum Signed (signature on file) Margret Lisette 03/13/25 0851 ----- ------- Diagnosis A. Gastric antrum, greater curvature, biopsy: Gastric antral mucosa with mild chronic inactive gastritis, and possible rare goblet cells; negative for H. pylori and dysplasia. B. Gastric antrum, lesser curvature, biopsy: Gastric antral mucosa with reactive changes, mild chronic inactive gastritis and rare goblet cells; negative for H. pylori and dysplasia. C. Gastric incisura, biopsy: Gastric antral mucosa with mild chronic inactive gastritis; negative for H. pylori, intestinal metaplasia and dysplasia. D. Gastric body, greater curvature, biopsy: Gastric antral mucosa with chronic gastritis with moderate activity and rare goblet cells; negative for H. pylori and dysplasia. E. Gastric body, lesser curvature, biopsy: Gastric body mucosa with chronic Helicobacter gastritis with moderate activity and intestinal metaplasia (complete); negative for dysplasia. Comment: (A, B and D): Additional tissue levels with AB/PAS stain pending; addendum to follow. Clinical History Pre-Op Dx: Unspecified abdominal pain, early satiety Post-Op Dx: Gastritis CONTINUED ON NEXT PAGE ----- ------- Name: John Damon Age/Sex: 69/M : 1955 [facility]#: [id number] Unit#: [id number] Attend Dr: Emma Michelle MD Re03/06/25 Status: [facility] Location: [facility] Disch: ----- ------- SPEC : [id number] RECD: 03/06/25-1313 STATUS: HUMERA NEVIN NUM: [id number] TIM: 03/06/25-1255 [facility] DR: Emma Michelle MD ENTERED: 03/06/25-132 SP TYPE: Surgical OTHR DR: Aline Carney MD ORDERED: HE Stain/15, Gross Micro L4/5, IHC/5, Special st. 2/3, H. pylori/5, AB/PAS/3 Microscopic Description Microscopic sections reviewed. Immunostains for H. pylori on A, B, C and D are negative. Immunostain for H. pylori on E is positive. Controls stains appropriately. Material Received A. Bx antrum greater curvature B. Bx antrum lesser curvature C. Bx incisura D. Bx body greater curvature E. Bx lesser curvature Gross Description Received in five parts. Part A: Received in formalin labeled bx antrum greater curvature are 4 nelson irregular and rectangular tissue fragments ranging from minute to 0.3 cm, submitted in toto in a cassette labeled A. Part B: Received in formalin labeled bx antrum lesser curvature are 4 nelson irregular and rectangular tissue fragments ranging from 0.2-0.3 cm, submitted in toto in a cassette labeled B. Part C: Received in formalin labeled bx incisura is a 0.25 cm nelson irregular tissue fragment, submitted in toto in a cassette labeled C. Part D: Received in formalin labeled bx body greater curvature are 4 nelson irregular tissue fragments ranging from minute to 0.25 cm, submitted in toto in a cassette labeled D. Part E: Received in formalin labeled bx body lesser curvature are 4 nelson irregular tissue fragments ranging from 0.1-0.25 cm, submitted in toto in a cassette labeled E. CEDS Special studies ordered and performed: Immunostain for H. pylori on A1, B1, C1, D1 and E1; AB/PAS stains on A1, B1, and D1. CONTINUED ON NEXT PAGE ----- ------- Name: John Damon Age/Sex: 69/M : 1955 Unit#: [id number] Attend Dr: Emma Michelle MD Re03/06/25 Status: [facility] Location: [facility] Disch: ----- ------- SPEC : [id number] RECD: 03/06/25-1313 STATUS: HUMERA ROONEY NUM: [id number] TIM: 03/06/25-1255 [facility] DR: Emma Michelle MD ENTERED: 03/06/25-132 SP TYPE: Surgical OTHR DR: Aline Carney MD ORDERED: HE Stain/15, Gross Micro L4/5, IHC/5, Special st. 2/3, H. pylori/5, AB/PAS/3 Copies To: Aline Carney MD [address] [phone] Emma Michelle MD [facility] [address] [place] [phone] [email or web address] ------- Signed (signature on file) Margret Wheeler 03/10/25 1759 ----- ------- END OF REPORT us Generic External Data Provider LAB BLOOD ORDERAB LES Final Result [facility] [address] [place] [phone] * Hepatitis C Antibody with Reflex to HCV, RNA, Quantitative, Real-Time PCR (01/25/2023 8:23 AM EDT) Hepatitis C Antibody NON-REACT DERICK NON-REACT DERICK [facility] Index 0.08 <1.00 [facility] Comment: HCV antibody was non-reactive. There is no laboratory evidence of HCV infection. In most cases, no further action is required. However, if recent HCV exposure is suspected, a test for HCV RNA (test code 75830) is suggested. For additional information please refer to http://education.PriceTag.[employer]./faq/KXN21z2 (This link is being provided for informational/ educational purposes only.) 01/25/2023 8:23 AM EDT 01/25/2023 8:24 AM EDT Narrative [facility] - 01/25/2023 9:24 PM EDT FASTING:YES FASTING: YES Ryann Stone NP LAB BLOOD ORDERABLES Final Res ult [facility] [address] [facility], [place] [address] [facility] [address] [place] [address] * (ABNORMAL) Lipid Panel, Standard (01/25/2023 8:23 AM EDT) Cholesterol, Total 180 <200 mg/dL [facility] HDL Cholesterol 34(L) > OR = 40 mg/dL [facility] Triglycerides 101 <150 mg/dL [facility] LDL Cholesterol 126(H) mg/dL (calc) [facility] Comment: Reference range: <100 Desirable range <100 mg/dL for primary prevention; <70 mg/dL for patients with CHD or diabetic patients with > or = 2 CHD risk factors. LDL-C is now calculated using the Sage-Archibald calculation, which is a validated novel method providing better accuracy than the Friedewald equation in the estimation of LDL-C. Sage CLIFFORD et al. ANGEL. 2013;310(19): 0504-3565 (http://education.Formlabs.[employer] Inc[employer]faq/IPF457) Chol/HDLC Ratio 5.3(H) <5.0 (calc) [facility] Non-HDL Cholesterol 146(H) <130 mg/dL (calc) [facility] [employer] Comment: For patients with diabetes plus 1 major ASCVD risk factor, treating to a non-HDL-C goal of <100 mg/dL (LDL-C of <70 mg/dL) is considered a therapeutic option. 01/25/2023 8:23 AM EDT 01/25/2023 8:24 AM EDT Narrative [facility] - 01/25/2023 9:24 PM EDT FASTING:YES FASTING: YES us Ryann Stone RADIATION CONTROL TECHNICIAN LAB BLOOD ORDERABLES Final Res ult [facility] [address] [facility], [facility], [place] [address] [facility] [address] [place] [address] from Last 3 Months or Most Recently Relevant to Health Maintenance Insurance [facility] STANDARD [facility] ALF OPTIONS (HMO D-SNP) DENTAL - [facility] Care Teams Oil Lease Broker Relationship Specialty Start Date End Date Aline Carney MD [address] [place] [id number] PCP - General Internal Medicine 02/23/23
[2025-05-16 13:13] VITALS: BMI 23.7
== END 2025-05-16 14:14 | disposition home or self-care (01) ==
LOC: HO.HOS 12:58
PROVIDERS: PCP Internal Medicine; Visit Provider Physician Assistant
DX: M75.21 Bicipital tendinitis, right shoulder (principal); G56.01 Carpal tunnel syndrome, right upper limb
CPT/HCPCS: 99203; G2211

== ENCOUNTER → 2025-05-16 12:58 | Outpatient (BNVA) | payer OTHER, SELFPAY | PROVIDERS: PCP Internal Medicine; Visit Provider Physician Assistant | DX: M75.21 Bicipital tendinitis, right shoulder (principal); G56.01 Carpal tunnel syndrome, right upper limb; R20.0 Anesthesia of skin; R20.2 Paresthesia of skin | CPT/HCPCS: 99202 ==

== ENCOUNTER 2025-07-17 13:28 | Outpatient (REF) | payer OTHER, SELFPAY ==
--- NOTE | 2025-07-17 13:33 | EMG_ITS ---
Chief complaint: Patient was having right shoulder and biceps pain, related to lifting, 2-3 months ago. He was also having paresthesias in right arm. Now improved after PT, just on and off symptoms. Reason for referral: Evaluate for neuropathy Referred by: Joshua CALIX Procedure done: Right upper extremity NCS/EMG Precautions and/or limitations: None The limb temperature was monitored continuously and remained between 32-36 degrees C during the performance of the NCS. Nerve Conduction Studies Anti Sensory Summary Table ?Stim Site NR Onset (ms) Norm Onset (ms) Peak (ms) Norm Peak (ms) O-P Amp (?V) Norm O-P Amp Site1 Site2 Delta-0 (ms) Dist (cm) Yobani (m/s) Norm Yobani (m/s) Right Median Anti Sensory (2nd Digit) Wrist ? 2.7 3.6 <3.6 18.3 >10 Wrist 2nd Digit 2.7 14.0 52 Right Ulnar Anti Sensory (5th Digit) Wrist ? 2.5 3.3 <3.7 15.8 >15.0 Wrist 5th Digit 2.5 14.0 56 Motor Summary Table ?Stim Site NR Onset (ms) Norm Onset (ms) O-P Amp (mV) Norm O-P Amp iAmp (mV) Amp (1st) (%) Site1 Site2 Delta-0 (ms) Dist (cm) Yobani (m/s) Norm Yobani (m/s) Right Median Motor (Abd Poll Brev) Wrist ? 3.8 <3.9 9.0 >4.5 10.6 100.0 Elbow Wrist 4.4 22.0 50 >45 Elbow ? 8.2 8.0 9.6 88.9 Right Ulnar Motor (Abd Dig Minimi) Wrist ? 2.9 <3.0 10.2 >5 12.0 100.0 B Elbow Wrist 3.7 21.0 57 >45 B Elbow ? 6.6 8.6 10.1 84.3 A Elbow B Elbow 1.8 10.0 56 >45 A Elbow ? 8.4 8.1 9.5 79.4 Comparison Summary Table ?Stim Site NR Peak (ms) Norm Peak (ms) P-T Amp (?V) Site1 Site2 Delta-P (ms) Norm Delta (ms) Right Median/Radial Dig I Comparison (Digit 1 - 10cm) Median ? 3.3 <2.9 93.1 Median Radial 0.2 Radial ? 3.1 <2.8 4.7 EMG ?Side Muscle Nerve Root Ins Act Fibs Psw Amp Dur Poly Recrt Int Pat Comment Right 1stDorInt Ulnar C8-T1 Nml Nml Nml Nml Nml 0 Nml Complete Right FlexCarRad Median C6-7 Nml Nml Nml Nml Nml 0 Nml Complete Right FlexCarpiUln Ulnar C8,T1 Nml Nml Nml Nml Nml 0 Nml Complete Right Biceps Musculocut C5-6 Nml Nml Nml Nml Nml 0 Nml Complete Right Triceps Radial C6-7-8 Nml Nml Nml Nml Nml 0 Nml Complete Right Deltoid Axillary C5-6 Nml Nml Nml Nml Nml 0 Nml Complete FINDINGS: All motor and sensory nerves tested showed normal latencies, amplitudes and conduction velocities. Concentric needle EMG was performed in selected muscles of the right upper extremity. Study did not reveal signs of electric abnormalities as shown in the table above. IMPRESSION: 1. This is a normal study. 2. There is no electrodiagnostic evidence for median neuropathy, ulnar neuropathy, brachial plexopathy, or cervical radiculopathy. Thank you for your kind referral. Debra Solis MD, ANGELA Board Certified, [place] Board of Physical Medicine and Rehabilitation (ABPMR) Board Certified, [place] Board of Electrodiagnostic Medicine (ABEM) CODIN [address] MTDD
--- OUTSIDE RECORDS SUMMARY | 2025-07-17 15:28 | XMS_ITS | Clinical Summary ---
Author Organization [employer] Address [address] [facility] 7t [place] [address] Care Team Providers Care Concrete Fence Builder Name Role Phone Aline Carney MD Primary [...] per week. Injections will be given by [facility] RN weekly x 4 weeks. 4 [...] mg by mouth at bedtime. 5 Active Active Problems Problem Noted Date [...] after his adult child was released from [facility] and is living in [facility]. John will benefit from Individual therapy [...] of major depressive disorder without prior episode ([facility]) Patient ready to address current needs Yes Strengths include Insight into current stressors and sxs. Openness to treatment PLAN: 1. Follow up with [facility]: Recommended for follow-up: 03/24 2. Patient goal is Manage current stressors and sxs associated 3. Behavioral Recommendations a. Referral to [facility] for trauma/cbt focus sessions b. Referral to [facility] for psych med management c. Philip will engage on 3-5 follow up [facility] short interventions to provide some stabilization of [...] relief of symptoms I refer patient to [facility] urology ordered today Assessment & Plan [...] Encounters Date Type Department Care Team Description 06/12/2025 Patient Outreach [facility] MEDICINE [address] [place] [address] Elbert He Pre-visit Planning (SDOH screening completed on 11/27/24) 05/12/2025 2:00 PM EDT Office Visit [facility] CHC ADULT DENTAL [address] [place] [address] Ann Marie Clark Dental calculus (Primary Dx) from Last 3 Months Immunizations Immunization Administration [...] Care Team (Late st Contact Info) Description 08/14/2025 10:00 AM EDT Office Visit [facility] MEDICINE [address] [place] [address] Aline Carney MD [address] [place] [address] 11/19/2025 10:00 AM EST Office Visit [facility] CHC ADULT DENTAL [address] [place] [address] Ann Marie Clark Health Maintenance Due Date Last Done Comments CT Colonography 1957 Colonoscopy 1957 Colorectal Cancer Screening 1957 FIT DNA/Cologuard 1957 FIT 1957 FOBT 1957 Sigmoidoscopy 1957 Alcohol/Substance Use Screening 1969 COVID-19 Vaccine ( season) 2025 12/09/2022, 03/18/2021, 02/18/2021 Influenza Vaccine (#1) 2025 , 06/30/2020, 10/26/2015, Additional history exists Depression Monitoring 09/17/2025 03/17/2025, 025 Dental Oral Exam 11/13/2025 05/12/2025, 07/13/2021 Dental Prophylaxis 11/13/2025 05/12/2025, 03/05/2024 SDOH Screening 11/27/2025 11/27/2024 Tobacco Screening 05/12/2026 05/12/2025 Dental X-Ray: Bitewings 05/13/2026 05/12/20 25, 03/05/2024, 07/13/2021 Dental X-Ray: Full Mouth 03/06/2027 024, 07/22/2021, 07/13/2021 Lipid Panel 01/26/2028 01/25/2023, 1104/2022, 02/26/2021 DTaP/Tdap/Td Vaccines (4 - Td or [...] ADULT Routine 05/12/2025 2 :00 PM EDT INTRAORAL - COMPLETE SERIES OF RADIOGRAPHIC IMAGES Routine 03/05/2024 11:00 AM EDT HEPATITIS C AB W/REFL TO HCV RNA, QN, PCR Routine 01/25/2023 8:23 AM EDT LIPID PANEL, STANDARD Routine 01/25/2023 8:23 AM EDT from Last 3 Months or Most Recently Relevant to Health Maintenance Results * Hepatitis C Antibody with Reflex to HCV, RNA, Quantitative, Real-Time PCR (01/25/2023 8:23 AM EDT) Hepatitis C Antibody NON-REACT DERICK NON-REACT DERICK Quench Index 0.08 <1.00 [facility] [place] [facility] Comment: HCV antibody was non-reactive. There is no laboratory evidence of HCV infection. In most cases, no further action is required. However, if recent HCV exposure is suspected, a test for HCV RNA (test code 61459) is suggested. For additional information please refer to http://[employer]Guard/faq/OUO91f9 (This link is being provided for informational/ educational purposes only.) 01/25/2023 8:23 AM EDT 01/25/2023 8:24 AM EDT Narrative [facility] - 01/25/2023 9:24 PM EDT FASTING:YES FASTING: YES us Ryann Stone NP LAB BLOOD ORDERABLES Final Res ult [address], [place] [address] [facility] [place] [facility] [address] [place] [address] * (ABNORMAL) Lipid Panel, Standard (01/25/2023 8:23 AM EDT) [facility] Cholesterol, Total 180 <200 mg/dL [facility] [place] [facility] HDL Cholesterol 34(L) > OR = 40 mg/dL [facility] [place] [facility] Triglycerides 101 <150 mg/dL [facility] [place] [facility] LDL Cholesterol 126(H) mg/dL (calc) [facility] [place] [facility] Comment: Reference range: <100 Desirable range <100 mg/dL for primary prevention; <70 mg/dL for patients with CHD or diabetic patients with > or = 2 CHD risk factors. LDL-C is now calculated using the Sage-Dragan calculation, which is a validated novel method providing better accuracy than the Friedewald equation in the estimation of LDL-C. Sage CLIFFORD et al. ANGEL. 2013;310(19): 6606-2202 (http://education.Allihub/faq/EAH969) Chol/HDLC Ratio 5.3(H) <5.0 (calc) [facility] [place] [facility] Non-HDL Cholesterol 146(H) <130 mg/dL (calc) [facility] [place] [facility] Comment: For patients with diabetes plus 1 major ASCVD risk factor, treating to a non-HDL-C goal of <100 mg/dL (LDL-C of <70 mg/dL) is considered a therapeutic option. 01/25/2023 8:23 AM EDT 01/25/2023 8:24 AM EDT Narrative [facility] - 01/25/2023 9:24 PM EDT FASTING:YES FASTING: YES us Ryann Stone TRUCK DRIVER TEAMSTER LAB BLOOD ORDERABLES Final Res ult [facility] [address], [place] [address] [facility] [address] [place] [address] from Last 3 Months or Most Recently Relevant to Health Maintenance Insurance [facility] STANDARD [facility] RESIDENTIAL OPTIONS (HMO D-SNP) DENTAL - [facility] Care Teams Concrete Fence Builder Relationship Specialty Start Date End Date Aline Carney MD [address] [place] [id number] PCP - General Internal Medicine 02/23/23
--- OUTSIDE RECORDS SUMMARY | 2025-07-17 15:28 | XMS_ITS | Encounter Summary ---
Author Organization [employer] Address [address] [facility] 7t [place] [address] Care Team Providers Care Investigator Name Role Phone Aline Carney MD Primary Care Provide r Reason for Visit * Reason Onset Date Comments Appointment Request 05/01/2023 Encounter Details Date Type Department Care Team (Late st Contact Info) Description 05/01/2023 Telephone [facility] MEDICINE [address] [place] [address] [phone] Aline Carney MD [address] [place], [place] [phone] Appointment Request Social History Tobacco Use Types [...] on last visit. Please contact pt att [phone] English Speaker documented in this encounter Plan of Treatment Upcoming Encounters Date Type Department Care Team (Late st Contact Info) Description 08/14/2025 10:00 AM EDT Office Visit [facility] MEDICINE [address] [place] [address] Aline Carney MD [address] [place] [address] 11/19/2025 10:00 AM EST Office Visit [facility] CH[facility] ADULT DENTAL [address] [place] [address] Ann Marie Clark documented as of this encounter Visit Diagnoses Not on filedocumented in this encounter Additional Health Concerns Assessment Noted Time PHQ-9 Depression Total Score: 16 03/24/ 023 10:31 AM EDT documented as of this encounter Care Teams Investigator Relationship Specialty Start Date End Date Aline Carney MD [address] [place] [phone] PCP - General Internal Medicine 02/23/23 documented as of this encounter
--- OUTSIDE RECORDS SUMMARY | 2025-07-17 15:28 | XMS_ITS | Encounter Summary ---
Author Organization [employer] [facility] Address [address] [facility] 7t [place] [address] Care Team Providers Care Ux Interaction Designer Name Role Phone Adry Rai Primary Care Provider [phone] Aline Carney MD Primary Care Provide r Encounter Details Date Type Department Care Team (Latest Contact Info) Description 07/13/2021 Abstract [facility] CONVERSIONS Dental, Provider, DDS Social History [...] Description 08/14/2025 10:00 AM EDT Office Visit [facility] MEDICINE [address] [place] [address] Aline Carney MD [address] [place] [address] 11/19/2025 10:00 AM EST Office Visit [facility] CHC ADULT DENTAL [address] [place] [address] Ann Marie Clark documented as of this encounter Visit Diagnoses Not on filedocumented in this encounter Care Teams Ux Interaction Designer Relationship Specialty Start Date End Date Adry Rai ANP [address] [place] [address] PCP - General Family Medicine 06/28/22 02/22/23 Aline Carney MD [address] [place] [phone] PCP - General Internal Medicine 02/23/23 documented as of this encounter
--- OUTSIDE RECORDS SUMMARY | 2025-07-17 15:28 | XMS_ITS | Encounter Summary ---
Author Organization [employer] Address [address] [facility] 7t [place] [address] Care Team Providers Care Job Development Specialist Name Role Phone Aline Carney MD Primary Care Provide r Encounter Details Date Type Department Care Team ([facility] st Contact Info) Description 12/23/2024 Orders Only [facility] MEDICINE [address] [place], [place] [phone] Aline Carney MD [address] [place], [place] [phone] Social History Tobacco Use Types Packs/Day Years [...] Description 08/14/2025 10:00 AM EDT Office Visit [facility] MEDICINE [address] [place] [address] Aline Carney MD [address] [place] [address] 11/19/2025 10:00 AM EST Office Visit [facility] CHC ADULT DENTAL [address] [place] [address] Ann Marie Clark documented as of this encounter Visit Diagnoses Not on filedocumented in this encounter Additional Health Concerns Assessment Noted Time PHQ-9 Depression Total Score: 13 024 9:15 AM EDT documented as of this encounter Care Teams Job Development Specialist Relationship Specialty Start Date End Date Aline Carney MD [address] [place] [address] PCP - General Internal Medicine 02/23/23 documented as of this encounter
== END 2025-07-17 13:29 | disposition home or self-care (01) ==
LOC: HO.NEURO 13:28
PROVIDERS: PCP Internal Medicine; Visit Provider Physician Assistant
DX: R20.0 Anesthesia of skin (principal); R20.2 Paresthesia of skin
CPT/HCPCS: 95886; 95909

== ENCOUNTER → 2025-07-17 13:33 | Outpatient (BNV) | payer OTHER, SELFPAY | PROVIDERS: PCP Internal Medicine; Visit Provider Physical Medicine & Rehabilitation | DX: R20.0 Anesthesia of skin (principal) | CPT/HCPCS: 95886; 95909 ==

== ENCOUNTER 2025-08-06 13:40 | Outpatient (AMB) | payer OTHER, SELFPAY ==
--- NOTE | 2025-08-06 13:44 | MHC.OFFVIS ---
Intake Visit Reasons: 6M follow up/ PVR Intake Note: Patient is present for 6M/PVR Urology Medication:TERAZOSIN, Antibiotic Allergy:NONE Blood Thinner:NONE Last PVR:0ML'S Todays PVR:9 ML'S Crime Scene Technician Required: No Accompanied by: Self / Same As Patient Allergies No Known Allergies (No Known Allergies*) Allergy (Verified 08/06/25 13:44) HPI Comments Details: John is a pleasant male. He is a patient of Dr. Rai. He seen for the following urologic conditions - microscopic hematuria - lower urinary tract symptoms Six-month follow-up Persistent 1+ microscopic hematuria on UA Off terazosin Difficulty urination Recommend office cystoscopy with uroflow Has inguinal disruption Shown appropriate excess Lower urinary tract symptoms Previous used Flomax On terazosin Imaging - ultrasound prostate small 20 mg effective emptying PFSH Medical History (Updated 08/06/25 @ 14:36 by Panda Das MD) Chronic pain syndrome GERD (gastroesophageal reflux disease) Arthritis BPH (benign prostatic hyperplasia) Anemia Nicotine dependence, cigarettes, uncomplicated Smokers' cough Anxiety and depression Cerebral aneurysm without rupture Coronary artery calcification seen on CT scan Nephrolithiasis Surgical History History of left inguinal hernia repair (04/29/24) Hx of colonoscopy History of cardiac catheterization H/O esophagogastroduodenoscopy Family History Father Diabetes Mother No problems noted. Social History Household Members: Spouse and Children Housing: Apartment Are you a primary caregiver assisted living to a significant other at home: No Do you presently have visiting nurse or other home services: No 75 years or older and lives alone: No Alcohol intake: never Patient Tobacco Use Status: Current everyday Tobacco user Tobacco use type: Cigarette Cigarettes Per Day: 10 Years Smoked: (onset 15, 1/2ppd x 51yrs, 25pyh) Substance Use Type: Marijuana service: Yes Current occupational status: retired Review of Systems Const Denies chills and Denies fever(s) Card Reports no additional complaints and Denies syncope Resp Denies cough GI Denies abdominal pain and Denies heartburn Reports as per HPI and Denies change in libido Neuro Denies syncope Psych Denies change in libido Endo Denies change in libido Physical Exam Const General: cooperative, healthy appearing, comfortable and no acute distress Orientation/consciousness: patient oriented x3 HEENT Face and sinus: Yes normal facial exam Mouth: moist mucous membranes Neck Neck: Yes normal visual inspection, Yes full ROM and Yes trachea midline Chest Chest palpation & inspection: normal inspection of the chest Resp Effort & Inspection: normal respiratory effort, able to speak in complete sentences and no respiratory distress GI Inspection: Yes normal to inspection Back/Spine/Pelvis Cervical Spine: normal cervical lordosis Thoracic/Lumbar Spine: thoracic and lumbar spine normal to inspection Skin General skin exam: no rashes or lesions noted Neuro General: patient oriented x3, gait normal, tone normal and moves all extremities Extrem General: Yes normal to inspection and Yes capillary refill normal Assessment & Plan Assessment & Plan (1) Microscopic hematuria: Code(s): R31.29 - Other microscopic hematuria Category: Medical (2) Lower urinary tract symptoms: Code(s): R39.9 - Unspecified symptoms and signs involving the genitourinary system Category: Medical (3) Weak urinary stream: Code(s): R39.12 - Poor urinary stream Category: Medical Plan Office cystoscopy and uroflow Orders: Orders US bladder Today N40.0 - Benign prostatic hyperplasia without lower urinary tract symptoms Patient Instructions: This note is constructed using voice recognition software. While every effort has been made to ensure accuracy medicine teacher errors may have been included. Imaging studies, laboratory and physical exam results were discussed and reviewed in detail. No major barriers to patient understanding were identified. An opportunity to ask questions regarding the treatment plan was provided. All questions were answered. The patient expressed understanding and agreement with the above treatment plan. The patient is aware they should contact our office by phone for worsening of their current condition or the appearance of new urologic symptoms. Compliance is encouraged with any medications and followup testing that is ordered. It is a privilege to participate in the urologic care of your patient. If you have any questions or concerns regarding treatment for the above conditions, or other urologic issues, please do not hesitate to contact me. The office telephone contact is [phone]. Sincerely, Dr Panda Das MD, ANGELA [facility] - Urology Compassionate Specialist Care for the Genitourinary System Coding Level of Care Code Est Pt Level 3 (16081) Complex EM visit Add On G2211 Diagnoses Microscopic hematuria R31.29 Lower urinary tract symptoms R39.9 Weak urinary stream R39.12
== END 2025-08-06 14:39 | disposition home or self-care (01) ==
LOC: HO.HUSH 13:40
PROVIDERS: PCP Internal Medicine; Visit Provider Urology
DX: R31.29 Other microscopic hematuria (principal); R39.9 Unspecified symptoms and signs involving the genitourinary system; R39.12 Poor urinary stream; Z13.9 Encounter for screening, unspecified
CPT/HCPCS: 99213; G2211

== ENCOUNTER → 2025-08-06 13:40 | Outpatient (BNVA) | payer OTHER, SELFPAY | PROVIDERS: PCP Internal Medicine; Visit Provider Urology | DX: R39.12 Poor urinary stream (principal); R31.29 Other microscopic hematuria; R39.9 Unspecified symptoms and signs involving the genitourinary system; N40.0 Benign prostatic hyperplasia without lower urinary tract symptoms | CPT/HCPCS: 51798; 81003; 99212 ==

== ENCOUNTER 2025-09-03 12:13 | Emergency (ER) | payer OTHER, SELFPAY ==
--- NOTE | ~2025-09-03 | CT_ITS ---
EXAMINATION: CT ABDOMEN AND PELVIS WITHOUT CONTRAST CLINICAL INFORMATION: left low back/abdominal/testes pain. kidney stone? COMPARISON: September 25, 2023 TECHNIQUE: Multidetector volumetric imaging was performed from the superior aspect of the liver through the pubic symphysis. Sagittal and coronal reformatted images were obtained on the technologist's workstation. This CT examination was performed using dose optimization techniques as appropriate, variously including the following: *Automated exposure control *Adjustment of mA and/or kV according to patient size (this includes techniques or standardized protocols for targeted exams where dose is matched to indication/reason for exam; i.e. extremities or head) *Use of iterative reconstruction technique FINDINGS: LUNG BASES: The visualized lung bases are unremarkable. LIVER, GALLBLADDER, AND BILIARY TREE: The liver is normal in size, shape, and attenuation. No focal hepatic lesion or biliary ductal dilatation is present. The gallbladder is unremarkable with no evidence of radiopaque gallstones, gallbladder wall thickening, or obvious pericholecystic inflammatory changes. PANCREAS: Unremarkable. SPLEEN: Unremarkable. ADRENAL GLANDS: Unremarkable. KIDNEYS AND URETERS: There is a 2 mm stone in the mid left kidney, slightly increased in size since the prior. There is a 1 mm stone in the mid to lower right kidney, new since the prior. There is no hydronephrosis. There are no ureteral stones. BLADDER: Unremarkable. GASTROINTESTINAL TRACT: Numerous pseudodiverticula are present in the descending and sigmoid colon. There is no fat stranding or wall thickening. The appendix is mostly gas-filled and thin-walled. ABDOMINAL WALL: No significant hernia is appreciated. LYMPH NODES: There are shotty left inguinal lymph nodes similar to the prior. Fat-containing left inguinal hernia present on prior exam has reduced. VASCULAR: Multifocal vascular calcifications are present. PELVIC VISCERA: Unremarkable. OSSEOUS STRUCTURES: Unremarkable. CT/CT abdomen pelvis wo IV con IMPRESSION: 2 mm stone in the left kidney has slightly increased in size since the prior. 1 mm stone right kidney is new since the prior. There is no obstructing stone. Left inguinal hernia present on the prior examination has reduced. Diverticulosis without sign of infection. Fleischner guidelines were followed. Electronically signed by: Alvarado Tatum MD 09/03/2025 01:48 PM [facility]
[2025-09-03 12:19] VITALS: BP 174/75; PULSE 61; RESP 18; TEMP 36.6; O2SAT 98; BMI 24.2
--- NOTE | 2025-09-03 12:27 | ED_ITS ---
HPI - General Adult General Chief complaint: Back Pain/Injury Stated complaint: Back Pain Time Seen by Provider: 09/03/25 13:57 Source: patient and family (patient's ) Mode of arrival: ambulatory Limitations: no limitations History of Present Illness ED Provider: Betina Benites PA-C HPI narrative: Patient is a 69 year old assigned male at with a history of GERD, OA, BPH, and anemia presenting to the emergency department today with left sided low back pain that radiates into his groin and down his leg. Patient states that 2 days ago he was lifting heavy objects and ever since he has had left lower back pain that radiates into his left groin and down his left leg. Patient denies any other complaints at this time. Related Data Home Medications ?Medication ?Instructions ?Recorded ?Confirmed acetaminophen 500 mg tablet 1,000 mg PO Q6H PRN Pain 0 04/24/24 07/28/25 cyanocobalamin (vitamin B-12) 1,000 mcg PO DAILY 04/2407/28/25 1,000 mcg tablet (Vitamin B-12) gabapentin 300 mg capsule 300 mg PO TID 04/24/2407/28 blood pressure test kit-large #1 ea 07/12/24 07/28/25 sennosides 8.6 mg-docusate sodium 1 tab PO DAILY 07/1207/28/25 50 mg tablet (Stimulant Laxative Plus) sumatriptan succinate 50 mg tablet 50 mg PO DAILY PRN yes 10/14/24 07/28/25 Previous Rx's ?Medication ?Instructions ?Recorded lidocaine 5 % topical patch 1 patch topical DAILY PRN pain #15 09/25/23 ea cholecalciferol (vitamin D3) 1,250 1,250 mcg PO QWEEK 3 months #13 07/15/24 mcg (50,000 unit) capsule caps prucalopride 1 mg tablet 1 mg PO DAILY 90 days #90 ta bs 10/21/24 (Motegrity) terazosin 5 mg capsule 5 mg PO BEDTIME 90 days #90 caps 02/04/25 ibuprofen 800 mg tablet 800 mg PO Q8H PRN pain 30 da ys #90 05/16/25 tabs cyclobenzaprine 5 mg tablet 5 mg PO TID PRN low back p ain 7 09/03/25 days #21 tabs prednisone 20 mg tablet 40 mg (2 x 20 mg) PO DAILY C OPD 09/03/25 exacerbation 5 days #10 tabs Allergies Allergy/AdvReac Type Severity Reaction Status Date / Time No Known Allergies (No Known Allergy Verified 09/03/25 12:22 Allergies*) Review of Systems 2 Constitutional: Constitutional: Reports as per HPI Eyes: Eyes: Reports as per HPI ENT: Reports as per HPI Cardiovascular: Cardiovascular: Reports as per HPI Respiratory: Respiratory: Reports as per HPI Gastrointestinal: Gastrointestinal: Reports as per HPI Genitourinary: Genitourinary: Reports as per HPI Musculoskeletal: Musculoskeletal: Reports as per HPI Integumentary/Breasts: Skin/Breast: Reports as per HPI Neurologic: Reports as per HPI Psychiatric: Psychiatric: Reports as per HPI Endocrine: Endocrine: Reports as per HPI Hematologic/Lymphatic: Hematologic/Lymphatic: Reports as per HPI Allergic/Immunologic: Allergic/Immunologic: Reports as per HPI [facility] Past Medical History Attestation statement: The following information was validated with the patient. (all information validated with the patient's ) Source: old records reviewed, obtained from family (patient's provided additional history and confirmed the history provided by the patient. ) and nursing notes reviewed Medical History Chronic pain syndrome GERD (gastroesophageal reflux disease) Arthritis BPH (benign prostatic hyperplasia) Anemia Nicotine dependence, cigarettes, uncomplicated Smokers' cough Anxiety and depression Cerebral aneurysm without rupture Coronary artery calcification seen on CT scan Nephrolithiasis Surgical History History of left inguinal hernia repair (04/29/24) Hx of colonoscopy History of cardiac catheterization H/O esophagogastroduodenoscopy Family History Family History Father Diabetes Mother No problems noted. Social History Social History Household Members: Spouse and Children Housing: Apartment Are you a primary pet caretaker to a significant other at home: No Do you presently have visiting nurse or other home services: No Alcohol intake: never Patient Tobacco Use Status: Current everyday Tobacco user Tobacco use type: Cigarette Cigarettes Per Day: 10 Years Smoked: (onset 15, 1/2ppd x 51yrs, 25pyh) Substance Use Type: Marijuana Advance Directives: No Advance Directives Information Provided: No Do you have a plan to hurt others: No Plan service: Yes Current occupational status: retired Physical Exam ED Vital Signs: Vital Signs - 24 hr 09/03/25 12:19 09/03/25 14:11 Temperature 97.8 F 98.3 F Pulse Rate 61 56 Respiratory Rate 18 20 Blood Pressure 174/75 H 132/57 L Pulse Oximetry 98 93 Oxygen Delivery Method Room Air Room Air BMI result Body Mass Index 24.2 Const General: cooperative, no acute distress, alert and awake Nutritional Appearance: well nourished Orientation/consciousness: patient oriented x3 HENMT Head: Yes normal to inspection and Yes atraumatic Ears: hearing grossly normal bilaterally and external ears normal General nose exam: Normal external nose present, no nasal discharge noted and no epistaxis Face and sinus: Yes normal facial exam, No abrasion and No laceration Mouth: Normal oral and palatal mucosa present, no drooling and no muffled voice Eyes General: appearance normal, both eyes and all related structures Periorbital: periorbital findings normal Eyelids: Yes eyelids normal Conjunctivae: conjunctivae normal Pupils: Equal, round and reactive pupils present EOM: EOMs intact bilaterally Neck Neck: Yes normal visual inspection and Yes full ROM Resp Effort & Inspection: normal respiratory effort and able to speak in complete sentences Neuro General: patient oriented x3, moves all extremities and CN's II-XI intact bilaterally Cranial nerves: Yes Equal, round and reactive pupils present Cognition (Neuro): normal cognition Extrem General: Yes normal to inspection, Yes full ROM and Yes capillary refill normal Psych Appearance: grossly normal Mental Status: mental status grossly normal Affect: normal affect Attitude: cooperative Thought process: Normal thought process present Thought content: Normal thought content present Insight: Good insight present (Psych) Course Course Course Narrative: RME: 69 year male presents to ED for low back pain after moving heavy Andres radiating to left lower abdomen and testicular pain for the past 3 days. Patient denies any bulging or swelling. Labs ordered Medications Administered Discontinued Medications Generic Name Dose Route Start Last Admin Trade Name Freq PRN Reason Stop Dose Admin Cyclobenzaprine HCl 5 mg 09/03/25 14:10 09/03/25 15:02 Cyclobenzaprine Hcl 5 Mg Tablet PO 09/03/25 14:11 5 mg ONCE ONE Administration Ketorolac Tromethamine 15 mg 09/03/25 14:10 09/03/25 15:04 Ketorolac Tromethamine 15 Mg/Ml Vial IM 09/03/25 14:11 15 mg ONCE ONE Administration Methylprednisolone Sodium Succinate 60 mg 09/03/25 14:10 09/03/25 15:04 Methylprednisolone Sod Succ 125 Mg/2 Ml Vial IM 09/03/25 14:11 60 mg ONCE ONE Administration Medical Decision Making Medical Decision Making [facility] Narrative: Patient is a 69 year old assigned male at with a history of GERD, OA, BPH, and anemia presenting to the emergency department today with left sided low back pain that radiates into his groin and down his leg. Patient's physical exam was as noted in the physical exam portion of this note and consistent with a lumbar strain. Patient's blood work was unremarkable. Patient's urine showed no acute process. Patient's EKG was unremarkable. Patient's CT abd/pelvis showed no acute process. Patient's clinical presentation is most consistent with a left sided lumbar strain. I explained my physical exam findings as well as all test results to the patient and the patient's . I answered all questions asked by the patient and the patient's . I stressed the importance of the patient taking his medication as directed (either prescribed or as the over the counter packaging recommends). I stressed the importance of the patient following up with his primary care provider. I stressed the importance of the patient returning to the emergency department immediately if his symptoms were to worsen or if he were to develop any dizziness, shortness of breath, difficulty breathing, chest pain, blurry vision, loss of vision, nausea, vomiting, abdominal pain, fever, chills, back pain, or any other complaints. Patient and the patient's verbalized agreement and understanding with this treatment plan and discharge. Differential Diagnosis Differential Diagnoses: The differential diagnosis associated with the presentation includes Left sided lumbar strain / sprain Admission/Observation Consideration of admission/observation: Escalation of care including admission/observation considered Patient would have been admitted to the hospital had his work up had any findings where hospital admission was appropriate and his clinical presentation warranted hospital admission. Lab Data [facility] Lab Attestation statement: I reviewed the patient's lab results. My interpretation of these results are in the [facility] Rationale portion of this note. 09/03/25 12:42 09/03/25 12:42 Labs: Lab Results 09/03/25 Range/Units 12:42 WBC 6.8 (4.8-10.8) X10*3/uL RBC 3.68 L (4.60-5.80) X10*6/uL Hgb 12.3 L (14.0-18.0) g/dl Hct 37.2 L (42.0-52.0) % MCV 101.1 H (80.0-98.0) fL MCH 33.4 H (27.0-33.0) pg MCHC 33.1 (31.0-36.0) g/dl RDW 13.0 (11.0-16.0) % Plt Count 224 (160-400) X10*3/uL MPV 9.3 L (9.4-12.4) fL Immature Gran % (Auto) 0.1 (0.0-0.4) % Neut % (Auto) 50.1 (45-73) % Lymph % (Auto) 37.8 (20-40) % [place] % (Auto) 10.4 (2-11) % Eos % (Auto) 1.3 (0-4) % Baso % (Auto) 0.3 (0-2) % Lymph # (Auto) 2.6 (1.2-4.9) X10*3/uL [place] # (Auto) 0.7 (0.1-1.2) X10*3/uL Eos # (Auto) 0.1 (0.0-0.4) X10*3/uL Baso # (Auto) 0.0 (0.0-0.2) X10*3/uL Abs Immat Gran (auto) 0.01 (0.00-0.03) X10*3/uL Absolute Neuts (auto) 3.4 (2.0-8.3) x10*3/uL Absolute Nucleated RBC 0.000 (0.0-0.012) X10*3/uL Nucleated RBC % (auto) 0.0 (0.0-0.2) /100WBC Sodium 139 (135-145) mmol/L Potassium 4.8 (3.3-5.1) mmol/L Chloride 110 H (96-108) mmol/L Carbon Dioxide 27 (22-29) mmol/L Anion Gap 7 L (12-20) BUN 23 H (9-16) mg/dL Creatinine 0.96 (0.5-1.4) mg/dL Estim Creat Clear Calc 67.3 Estimated GFR > 60 Random Glucose 84 (60-115) mg/dL Calcium 9.1 (8.4-10.2) mg/dL Total Bilirubin 0.5 (0.0-1.0) mg/dL AST 19 (5-37) U/L ALT 17 (0-40) U/L Alkaline Phosphatase 69 (39-117) U/L Total Protein 7.2 (6.5-8.0) g/dL Albumin 4.4 (3.5-5.0) g/dL Independent Interpretation I performed an independent interpretation of an: CT Scan Interpretation: My interpretation is in agreement with the radiologist's impression of this imaging study. L Report Number: [id number]: Total DLP = 383.00 mGy-cm Reason for Exam: leftlow back/abdominal/testes pain. kidney stone? EXAMINATION: CT ABDOMEN AND PELVIS WITHOUT CONTRAST CLINICAL INFORMATION: left low back/abdominal/testes pain. kidney stone? COMPARISON: September 25, 2023 TECHNIQUE: Multidetector volumetric imaging was performed from the superior aspect of the liver through the pubic symphysis. Sagittal and coronal reformatted images were obtained on the technologist's workstation. This CT examination was performed using dose optimization techniques as appropriate, variously including the following: *Automated exposure control *Adjustment of mA and/or kV according to patient size (this includes techniques or standardized protocols for targeted exams where dose is matched to indication/reason for exam; i.e. extremities or head) *Use of iterative reconstruction technique FINDINGS: LUNG BASES: The visualized lung bases are unremarkable. LIVER, GALLBLADDER, AND BILIARY TREE: The liver is normal in size, shape, and attenuation. No focal hepatic lesion or biliary ductal dilatation is present. The gallbladder is unremarkable with no evidence of radiopaque gallstones, gallbladder wall thickening, or obvious pericholecystic inflammatory changes. PANCREAS: Unremarkable. SPLEEN: Unremarkable. ADRENAL GLANDS: Unremarkable. KIDNEYS AND URETERS: There is a 2 mm stone in the mid left kidney, slightly increased in size since the prior. There is a 1 mm stone in the mid to lower right kidney, new since the prior. There is no hydronephrosis. There are no ureteral stones. BLADDER: Unremarkable. GASTROINTESTINAL TRACT: Numerous pseudodiverticula are present in the descending and sigmoid colon. There is no fat stranding or wall thickening. The appendix is mostly gas-filled and thin-walled. ABDOMINAL WALL: No significant hernia is appreciated. LYMPH NODES: There are shotty left inguinal lymph nodes similar to the prior. Fat-containing left inguinal hernia present on prior exam has reduced. VASCULAR: Multifocal vascular calcifications are present. PELVIC VISCERA: Unremarkable. OSSEOUS STRUCTURES: Unremarkable. CT/CT abdomen pelvis wo IV con IMPRESSION: 2 mm stone in the left kidney has slightly increased in size since the prior. 1 mm stone right kidney is new since the prior. There is no obstructing stone. Left inguinal hernia present on the prior examination has reduced. Diverticulosis without sign of infection. Fleischner guidelines were followed. Electronically signed by: Alvarado Tatum MD 09/03/2025 01:48 PM [facility] Dictated By: Alvarado Tatum MD Signed By: Electronically signed by Alvarado Tatum MD 09/03/25 1348 Radiology Impression Discussion of test interpretation with radiology: I have reviewed the radiologist's reading. Independent Historian Clinical information obtained from an independent historian. History obtained from or confirmed by: Spouse (Patient's provided additional history and confirmed the history provided by the patient. ) Discharge Plan Discharge Clinical Impression: Low back pain, Lumbar strain Patient Disposition: Home, Self-Care Instructions: Low Back Strain (ED), Acute Low Back Pain (ED), Lower Back Exercises (ED) Additional Instructions: IF you are prescribed home medications and/or you are taking over the counter medications at home - it is very important you continue to do so as prescribed / directed unless told otherwise. Follow up with a primary care provider. Return to the emergency department immediately if your symptoms worsen or if you develop any numbness, tingling, dizziness, shortness of breath, difficulty breathing, chest pain, blurry vision, loss of vision, nausea, vomiting, abdominal pain, fever, chills, back pain, or any other complaints. L If you do not have a primary care provider - call any of the below numbers to establish and follow up with a primary care provider. [facility] ([place]) [phone] [place] [address], [address] [facility] ([address]) [phone] [address] [facility], [address] [facility], [address] [facility] ([address]) [phone] [address] [facility], [address] [facility], [address] [facility] ([place]) [phone] [place] [address], [facility] [address] [facility], [address] [facility] Family [facility] [phone] [address] [facility], [address] Please see the information below about our Patient Portal. If you are not yet enrolled in the [facility] Patient Portal, you will receive an enrollment email invitation following your visit to any [facility] ED setting. You may also self-enroll in the Patient Portal by visiting our website: [email or web address] The following information is required to access the Patient Portal: - Your [facility] Medical Record Number - Your personal home email address (must match what is in your electronic medical record, Registration staff can assist with this) - Name - Date of Capabilities of the Patient Portal: - Message some providers - View upcoming appointments - Access your health summary, medical history, and visit history - View current conditions and allergies - View procedure and lab results - View your medications, including guidelines, side effects, and precautions - Complete pre-appointment questionnaires requested by your provider - Ready summary reports of your office visits and procedures To access the Patient Portal Mobile [employer], follow these directions: - Search [facility] in the [employer] Store or [employer] Store - Download the [employer] - Search for [facility] - Enter your login/password Prescriptions: New cyclobenzaprine 5 mg tablet 5 mg PO TID PRN (Reason: low back pain) 7 Days Qty: 21 0RF prednisone 20 mg tablet 40 mg PO DAILY 5 Days Qty: 10 0RF No Action cholecalciferol (vitamin D3) 1,250 mcg (50,000 unit) capsule 1,250 mcg PO QWEEK 90 Days Qty: 13 0RF Motegrity 1 mg tablet 1 mg PO DAILY 90 Days Qty: 90 0RF lidocaine 5 % adhesive patch,medicated 1 patch topical DAILY PRN (Reason: pain) Qty: 15 0RF Rx Instructions: leave on most painful area for up to 12 hrs cyanocobalamin (vitamin B-12) [Vitamin B-12] 1,000 mcg Tablet 1,000 mcg PO DAILY gabapentin 300 mg capsule 300 mg PO TID acetaminophen 500 mg Tablet 1,000 mg PO Q6H PRN (Reason: Pain) sennosides-docusate sodium [Stimulant Laxative Plus] 8.6-50 mg tablet 1 tab PO DAILY (DME) blood pressure test kit-large Kit See Rx Instructions .ROUTE BID Qty: 1 Rx Instructions: As directed sumatriptan succinate 50 mg tablet 50 mg PO DAILY PRN (Reason: yes) terazosin 5 mg capsule 5 mg PO BEDTIME 90 Days Qty: 90 1RF ibuprofen 800 mg tablet 800 mg PO Q8H PRN (Reason: pain) 30 Days Qty: 90 3RF Discharge Date/Time: 09/03/25 15:00 Print Language: Slovenian
[2025-09-03 12:45] LABS: MANUAL DIFF FLAG NO
[2025-09-03 12:48] LABS: Hematocrit 37.2 % (42.0-52.0); Hemoglobin 12.3 g/dl (14.0-18.0); Imm Gran Abs Auto 0.01 X10*3/uL (0.00-0.03); Imm Gran Pct Auto 0.1 % (0.0-0.4); Lymphocytes Absolute Auto 2.6 X10*3/uL (1.2-4.9); Mean Corpuscular HGB Conc 33.1 g/dl (31.0-36.0); Mean Corpuscular Hemoglobin 33.4 pg (27.0-33.0); Mean Corpuscular Volume 101.1 fL (80.0-98.0); NRBC Abs Auto 0.000 X10*3/uL (0.0-0.012); NRBC Pct Auto 0.0 /100WBC (0.0-0.2); Platelet Count 224 X10*3/uL (160-400); Red Blood Count 3.68 X10*6/uL (4.60-5.80); White Blood Count 6.8 X10*3/uL (4.8-10.8)
[2025-09-03 13:01] LABS: Alanine Aminotransferase 17 U/L (0-40); Albumin Level 4.4 g/dL (3.5-5.0); Alkaline Phosphatase 69 U/L (39-117); Anion Gap 7 (12-20); Aspartate Amino Transferase 19 U/L (5-37); Blood Urea Nitrogen 23 mg/dL (9-16); Calcium 9.1 mg/dL (8.4-10.2); Carbon Dioxide 27 mmol/L (22-29); Chloride 110 mmol/L (96-108); Creatinine Clr Calc Pharmacy 67.3; Estimated Glomerular Filt Rate > 60; Potassium 4.8 mmol/L (3.3-5.1); Sodium 139 mmol/L (135-145); Total Protein 7.2 g/dL (6.5-8.0)
[2025-09-03 14:11] VITALS: BP 132/57; PULSE 56; RESP 20; TEMP 36.8; O2SAT 93
--- OUTSIDE RECORDS SUMMARY | 2025-09-03 17:34 | XMS_ITS | Encounter Summary ---
Author Organization [employer] Address [address] [facility] [address] [place] [address] Care Team Providers Care [employer] Professional Name Role Phone Aline Carney MD Primary Care Provide r Encounter Details Date Type Department Care Team ([facility] st Contact Info) Description 12/23/2024 Orders Only [facility] MEDICINE [address], [place] [id number] Aline Carney MD [address] [place] [address] Social History Tobacco Use Types Packs/Day Years [...] Care Team (Late st Contact Info) Description 10/20/2025 9:45 AM EST Telemedicine [facility] MEDICINE [address] [place] [id number] Aline Carney MD [address] [place] [id number] 11/19/2025 10:15 AM EST Office Visit [facility] CH[facility] ADULT DENTAL [address] [place] [address] Ann Marie Clark documented as of this encounter Visit Diagnoses Not on filedocumented in this encounter Additional Health Concerns Assessment Noted Time PHQ-9 Depression Total Score: 13 024 9:15 AM EDT documented as of this encounter Care Teams [employer] Professional Relationship Specialty Start Date End Date Aline Carney MD [address] [place] [id number] PCP - General Internal Medicine 02/23/23 documented as of this encounter
--- OUTSIDE RECORDS SUMMARY | 2025-09-03 17:34 | XMS_ITS | Clinical Summary ---
Author Organization [employer] Address [address] [facility] [address] [place] [address] Care Team Providers Care Apprentice Photographer Name Role Phone Aline Carney MD Primary [...] per week. Injections will be given by [facility] RN weekly x 4 weeks. 4 [...] THE MORNING 90 capsule 03/01/20 24 Active omeprazole (PriLOSEC) [address] capsule Take 1 capsule by mouth Once per day. 02/26/20 25 Active terazosin (Hytrin) 5 MG capsule Take 5 mg by mouth at bedtime. 02/06/20 25 Active SUMAtriptan (Imitrex) 50 MG tabletIndication s:Migraine without aura and without status migrainosus, not intractable Take 1 tablet (50 mg) by mouth 1 (one) time if needed for migraine for up to 27 doses. May repeat dose once in 2 hours if no relief. Do not exceed 2 doses in 24 hours. 9 tablet 2 08/14/20 25 Active amitriptyline (Elavil) 10 MG tabletIndication s:Migraine without aura and without status migrainosus, not intractable Take 1 tablet (10 mg) by mouth at bedtime. 30 tablet 1 08/14/20 25 2024 Active gabapentin (Neurontin) 300 MG capsuleIndicatio ns:Chronic bilateral low back pain with right-sided sciatica Take 1 capsule (300 mg) by mouth at bedtime. 30 capsule 1 08/14/20 25 Active albuterol 108 (90 Base) MCG/ACT inhalerIndicatio ns:SOB (shortness of breath) Inhale 2 puffs every 4 (four) hours if needed for wheezing. 18 g 08/14/20 25 2025 Active nicotine polacrilex (Nicotine Mini) 2 MG lozengeIndicatio ns:Smoker Dissolve 1 lozenge (2 mg) in the mouth if needed for smoking cessation. 100 lozenge 08/14/20 25 2024 Active gabapentin (Neurontin) 300 MG capsuleIndicatio ns:Chronic bilateral low back pain with right-sided sciatica TAKE 1 CAPSULE(300 MG) BY MOUTH THREE TIMES DAILY 90 capsule 11 08/23/20 24 2024 Discontinued(R eorder (will not trigger notification to Pharmacy)) SUMAtriptan (Imitrex) 50 MG tabletIndication s:Migraine without aura and without status migrainosus, not intractable Take 1 tablet (50 mg) by mouth 1 (one) time if needed for migraine for up to 27 doses. May repeat dose once in 2 hours if no relief. Do not exceed 2 doses in 24 hours. 9 tablet 2 12/09/192024 Discontinued(R eorder (will not trigger notification to Pharmacy)) Active Problems Problem Noted Date Diagnosed Date SOB (shortness of breath) 08/14/2025 Assessment & Plan (08/14/2025 1:45 PM EDT): - Dyspnea noted on exertion; concern for possible cardiac or pulmonary etiology. - Referred to cardiology for evaluation. Ordered pulmonary function tests. Prescribed bronchodilator inhaler for acute episodes of chest tightness or airway obstruction. Chronic cough 08/14/2025 Assessment & Plan (08/14/2025 1:47 PM EDT): - Chronic cough with brown sputum production; likely related to tobacco use. - Ordered pulmonary function tests. Prescribed bronchodilator inhaler for symptomatic relief. Chronic right shoulder pain 03/17/2025 Assessment & [...] migrainosus, not intractable 12/09/2024 Assessment & Plan (08/14/2025 1:44 PM EDT): Migraine headaches, increased frequency recently, with associated photophobia, phonophobia, visual disturbances ( seeing lights ), and relief with sumatriptan. No preventive therapy currently in use. - Prescribed amitriptyline 10 mg nightly as migraine prophylaxis; advised gradual titration based on tolerability. Provided refills for sumatriptan for acute attacks. Scheduled follow-up phone call in approximately four weeks to assess response and tolerability. Advised to separate administration of gabapentin and amitriptyline by at least two to three hours. - Risks and side effects: Discussed potential side effects of amitriptyline including dry mouth and somnolence. Assessment & Plan (12/09/2024 4:28 PM EST): [...] of major depressive disorder without prior episode ([facility]) 04/03/2023 Assessment & Plan (08/14/2025 1:47 PM EDT): Major depressive disorder, currently stable with improvement over the past two months. - No changes to current management. Discussed psychotherapy; declined referral to counselor. Assessment & Plan (04/03/2023 3:03 PM EDT): [...] after his adult child was released from intermediate and is living in [facility]. John will benefit from Individual therapy [...] of major depressive disorder without prior episode (CMS/[facility]) Patient ready to address current needs Yes Strengths include Insight into current stressors and sxs. Openness to treatment PLAN: 1. Follow up with [facility]: Recommended for follow-up: 03/24 2. Patient goal is Manage current stressors and sxs associated 3. Behavioral Recommendations a. Referral to OP for trauma/cbt focus sessions b. Referral to [facility] for psych med management c. Philip will engage on 3-5 follow up [facility] short interventions to provide some stabilization of sxs Anxiety with depression 02/20/2023 Assessment & Plan (03/17/2025 1:06 PM EDT): [facility] called today, recommendations will be follow Patient declines for now medications I will assess him on next appointment to see if he needs medications or not Eye pain, right 02/20/2023 Benign prostatic hyperplasia with incomplete bladder emptying 02/20/2023 Assessment & Plan (03/07/2024 10:56 AM EDT): Patient reports he is taking his flomax daily without relief of symptoms I refer patient to [facility] urology ordered today Assessment & Plan (02/20/2023 2:56 PM EDT): PSA ordered today I will try with Flomax 0.4 mg daily and reassess on next appointment Chronic low back pain 11/08/2022 Assessment & Plan (08/14/2025 1:45 PM EDT): - Chronic pain syndrome managed with gabapentin. - Continue nightly gabapentin. Advised not to take gabapentin and amitriptyline together; separate by two to three hours. Assessment & Plan (02/20/2023 2:57 PM EDT): Apply heat on affected area C/w ibuprofen/acetaminophen PRN XRAYs ordered for further assessment patient will be contacted with results I will try today gabapentin 100mg TID Hyperlipidemia 11/08/2022 Smoker 12/25/2020 Assessment & Plan (08/14/2025 1:46 PM EDT): Active tobacco use; possible contribution to respiratory symptoms. - Recommended nicotine lozenges as smoking cessation aid; advised to use lozenges instead of cigarettes. Discussed benefits of quitting smoking. Assessment & Plan (04/25/2024 1:23 PM EDT): [...] Encounters Date Type Department Care Team Description 08/18/2025 Telephone [facility] [address] [place] [phone] Aline Carney MD Call Back Request 08/14/2025 10:00 AM EDT Office Visit [facility] [address] [place] [phone] Aline Carney MD Current moderate episode of major depressive disorder without prior episode (CMS/HCC) (HCC); Migraine without aura and without status migrainosus, not intractable; Chronic bilateral low back pain with right-sided sciatica; SOB (shortness of breath); Chronic cough; Smoker 08/14/2025 Travel 08/13/2025 Telephone [facility] [address] [place] [phone] Aline Carney MD CHART PREP 08/05/2025 Patient Outreach [address] [address] Aline Carney MD Pre-visit Planning (SDOH screening completed on 11/27/2024) 06/12/2025 Patient Outreach [address] [address] Elbert He Pre-visit Planning (SDOH screening completed on 11/27/24) from Last 3 Months Immunizations Immunization Administration [...] Answer Date Recorded Patient Health Questionnaire-2 Score 3 08/14/2025 Internet Access Answer Date Recorded Internet Access [...] Sign Reading Time Taken Comments Blood Pressure 138/68 08/14/2025 9:49 AM EDT Pulse 60 08/14/2025 9:49 AM EDT Temperature 36.2 C (97.1 F) 08/14/2025 9:49 AM EDT Respiratory Rate 19 08/14/2025 9:49 AM EDT Oxygen Saturation 99% 03/17/2025 10:04 AM EDT Inhaled Oxygen Concentration - - Weight 68.7 kg (151 lb 6.4 oz) 08/14/2025 9:49 AM EDT Height 167.6 cm (5' 6 ) 08/14/2025 9:49 AM EDT Body Mass Index 24.44 08/14/2025 9:49 AM EDT Plan of Treatment Upcoming Encounters Date Type Department Care Team (Late st Contact Info) Description 10/20/2025 9:45 AM EST Telemedicine [facility] [address] [place], [place] [phone] Aline Carney MD [address] [place] [address] 11/19/2025 10:15 AM EST Office Visit [facility] [address] [place] [address] Ann Marie Clark Health Maintenance Due Date Last Done Comments CT Colonography 1957 Colonoscopy 1957 Colorectal Cancer Screening 1955 FIT DNA/Cologuard 1957 FIT 1957 FOBT 1957 Sigmoidoscopy 1957 Zoster Vaccines (2 of 3) 06/06/2019 04/11/2019 COVID-19 Vaccine (4 - 2024-2 6 season) 2025 12/09/2022, 03/18/2021, 02/18/2021 Influenza Vaccine (#1) 2025 09/02/2022 Dental Oral Exam 11/13/2025 05/12/2025, 07/13/2021 Dental Prophylaxis 11/13/2025 05/12/2025, 03/05/2024 SDOH Screening 11/27/2025 11/27/2024 Depression Monitoring 02/12/2026 08/14/2025 , 03/17/2025 Tobacco Screening 05/12/2026 05/12/2025 Dental X-Ray: Bitewings 05/13/2026 05/12/20 25, 03/05/2024, 07/13/2021 Alcohol/Substance Use Screening 08/14/2026 08/14/2025 Dental X-Ray: Full Mouth 03/06/2027 024, 07/22/2021, [...] Procedure Name Priority Date/Time Associated Diagnosis Comments PROPHYLAXIS - ADULT Routine 05/12/2025 2 :00 PM EDT BITEWINGS - 4 RADIOGRAPHIC IMAGES Routine 05/12/2025 2:00 PM EDT PERIODIC ORAL EVALUATION - ESTABLISHED PATIENT Routine 05/12/2025 2:00 PM EDT INTRAORAL - COMPLETE SERIES OF [...] Hepatitis C Antibody NON-REACT DERICK NON-REACT DERICK [facility] Index 0.08 <1.00 [facility] Comment: HCV antibody was non-reactive. There is no laboratory evidence of HCV infection. In most cases, no further action is required. However, if recent HCV exposure is suspected, a test for HCV RNA (test code 11591) is suggested. For additional information please refer to http://education.Diary.com/faq/NBZ17h6 (This link is being provided for informational/ educational purposes only.) 01/25/2023 8:23 AM EDT 01/25/2023 8:24 AM EDT Narrative [facility] - 01/25/2023 9:24 PM EDT FASTING:YES FASTING: YES Ryann Stone NP LAB BLOOD ORDERABLES Final Res ult [facility] [address], [place] [address] [facility] [place] [facility] [address] [place] [address] * (ABNORMAL) Lipid Panel, Standard (01/25/2023 8:23 AM EDT) Cholesterol, Total 180 <200 mg/dL [facility] HDL Cholesterol 34(L) > OR = 40 mg/dL [facility] [place] [facility] Triglycerides 101 <150 mg/dL [facility] [place] [facility] LDL Cholesterol 126(H) mg/dL (calc) [facility] [place] [facility] Comment: Reference range: <100 Desirable range <100 mg/dL for primary prevention; <70 mg/dL for patients with CHD or diabetic patients with > or = 2 CHD risk factors. LDL-C is now calculated using the Sage-Dragan calculation, which is a validated novel method providing better accuracy than the Friedewald equation in the estimation of LDL-C. Sage SS et al. ANGEL. 2013;310(19): 0759-8065 (http://education.Duolingo/faq/MMP531) Chol/HDLC Ratio 5.3(H) <5.0 (calc) [facility] [place] [facility] Non-HDL Cholesterol 146(H) <130 mg/dL (calc) [facility] [place] [facility] Comment: For patients with diabetes plus 1 major ASCVD risk factor, treating to a non-HDL-C goal of <100 mg/dL (LDL-C of <70 mg/dL) is considered a therapeutic option. 01/25/2023 8:23 AM EDT 01/25/2023 8:24 AM EDT Narrative [facility] - 01/25/2023 9:24 PM EDT FASTING:YES FASTING: YES Ryann Arvidson PLUMBING AND HEATING CONTRACTOR LAB BLOOD ORDERABLES Final Res ult [facility] [address] [facility], [place] [address] [facility] [address] [place] [address] from Last 3 Months or Most Recently Relevant to Health Maintenance Insurance [facility] STANDARD [facility] RETIREMENT OPTIONS (HMO D-SNP) DENTAL [facility] Member Subscriber Plan / Payer (Ef fective 2024-Present) Name:John Muro Relation to Subscriber:Self Name:John Muro Payer ID:Not on file Group ID:[id number] Type:Not on file Address: [address] [place] [id number] Care Teams Apprentice Photographer Relationship Specialty Start Date End Date Aline Carney MD [address] [place] [phone] PCP - General Internal Medicine 02/23/23
--- OUTSIDE RECORDS SUMMARY | 2025-09-03 17:34 | XMS_ITS | Encounter Summary ---
Author Organization [employer] Address [address] [facility] 7t [place] [address] Care Team Providers Care Armament Installer Name Role Phone Adry Rai Primary Care Provider [phone] Aline Carney MD Primary Care Provide r Encounter Details Date Type Department Care Team (Latest Contact Info) Description 07/13/2021 Abstract [facility] CONVERSIONS Dental, Provider, DDS Social History [...] Info) Description 10/20/2025 9:45 AM EST Telemedicine [facility] [address] [place] [address] Aline Carney MD [address] [place] [address] 11/19/2025 10:15 AM EST Office Visit [facility]ULT [facility] [address] [place] [address] Ann Marie Clark documented as of this encounter Visit Diagnoses Not on filedocumented in this encounter Care Teams Armament Installer Relationship Specialty Start Date End Date Adry Rai ANP [address] [place] [phone] PCP - General Family Medicine 8/30/22 4/26/23 Aline Carney MD [address] [place] [phone] PCP - General Internal Medicine 02/23/23 documented as of this encounter
--- OUTSIDE RECORDS SUMMARY | 2025-09-03 17:34 | XMS_ITS | Encounter Summary ---
Author Organization [employer] Address [address] [facility] [address] [place] [address] Care Team Providers Care Patternmaker Apprentice Metal Name Role Phone Aline Carney MD Primary Care Provide r Reason for Visit * Reason Onset Date Comments Appointment Request 05/01/2023 Encounter Details Date Type Department Care Team (Late st Contact Info) Description 05/01/2023 Telephone [facility] [address] [place] [address] [phone] Aline Carney MD [address] [place], [place] [phone] Appointment Request Social History Tobacco Use Types [...] on last visit. Please contact pt att [phone] Wallisian Speaker documented in this encounter Plan of Treatment Upcoming Encounters Date Type Department Care Team (Late st Contact Info) Description 10/20/2025 9:45 AM EST Telemedicine [facility] [address] [place] [address] Aline Carney MD [address] [place] [address] 11/19/2025 10:15 AM EST Office Visit [facility] ADULT [facility] [address] [place] [address] Ann Marie Clark documented as of this encounter Visit Diagnoses Not on filedocumented in this encounter Additional Health Concerns Assessment Noted Time PHQ-9 Depression Total Score: 16 03/24/ 023 10:31 AM EDT documented as of this encounter Care Teams Patternmaker Apprentice Metal Relationship Specialty Start Date End Date Aline Carney MD [address] [place] [phone] PCP - General Internal Medicine 02/23/23 documented as of this encounter
== END 2025-09-03 15:00 | disposition home or self-care (01) ==
PROVIDERS: Physician Assistant; Emergency Provider Emergency Medicine; PCP Internal Medicine
DX: S39.012A Strain of muscle, fascia and tendon of lower back, initial encounter (principal); X50.0XXA Overexertion from strenuous movement or load, initial encounter; X50.9XXA Other and unspecified overexertion or strenuous movements or postures, initial encounter; Y93.9 Activity, unspecified; Y92.9 Unspecified place or not applicable; R10.9 Unspecified abdominal pain; N20.0 Calculus of kidney; K40.90 Unilateral inguinal hernia, without obstruction or gangrene, not specified as recurrent; K57.90 Diverticulosis of intestine, part unspecified, without perforation or abscess without bleeding; F17.200 Nicotine dependence, unspecified, uncomplicated; Z71.6 Tobacco abuse counseling
CPT/HCPCS: 36415; 74176; 80053; 85025; 96372; 99283; 99284; J1885; J2919

== ENCOUNTER → 2025-09-03 12:32 | Outpatient (BNV) | payer OTHER, SELFPAY | PROVIDERS: Visit Provider Radiology Diagnostic Radiology | DX: N20.0 Calculus of kidney (principal); K57.90 Diverticulosis of intestine, part unspecified, without perforation or abscess without bleeding; K40.90 Unilateral inguinal hernia, without obstruction or gangrene, not specified as recurrent | CPT/HCPCS: 74176 ==

== ENCOUNTER 2025-09-20 13:50 | Emergency (ER) | payer OTHER, SELFPAY ==
--- NOTE | ~2025-09-20 | XR_ITS ---
CLINICAL HISTORY: pain, injury 3 view left hand Comparison: None provided Findings: Bones intact. No dislocations. Degenerative changes are demonstrated throughout the proximal and distal interphalangeal joints in the 2nd through 5th digits as well as the 1st carpometacarpal with joint space narrowing. No erosions. No radiopaque foreign body. IMPRESSION: No acute left hand findings. Mild diffuse osteoarthritic changes. This document has been electronically signed by: Des Arrington MD on 09/20/2025 15:11:18
--- NOTE | 2025-09-20 13:54 | ED_ITS ---
HPI - General Adult General Chief complaint: Wound/Laceration Stated complaint: lacerations to fingers from feather trimmer Time Seen by Provider: 09/20/25 13:54 Source: patient and EMS Mode of arrival: EMS Limitations: no limitations History of Present Illness ED Provider: Betina Benites PA-C HPI narrative: Patient is a 69 year old assigned male at with a history of GERD, OA, BPH, and anemia presenting to the emergency department today with a left hand injury. Patient states that he was using hedge trimmers when he accidentally cut his left 1st, 2nd, 3rd, and 4th fingers. Patient states that he does not know when his last tetanus shot was. Patient denies any numbness / tingling. Patient denies any other complaints at this time. Related Data Home Medications ?Medication ?Instructions ?Recorded ?Confirmed acetaminophen 500 mg tablet 1,000 mg PO Q6H PRN Pain 0 04/24/24 07/28/25 cyanocobalamin (vitamin B-12) 1,000 mcg PO DAILY 04/2407/28/25 1,000 mcg tablet (Vitamin B-12) gabapentin 300 mg capsule 300 mg PO TID 04/24/2407/28 blood pressure test kit-large #1 ea 07/12/24 07/28/25 sennosides 8.6 mg-docusate sodium 1 tab PO DAILY 07/1207/28/25 50 mg tablet (Stimulant Laxative Plus) sumatriptan succinate 50 mg tablet 50 mg PO DAILY PRN yes 10/14/24 07/28/25 Previous Rx's ?Medication ?Instructions ?Recorded lidocaine 5 % topical patch 1 patch topical DAILY PRN pain #15 09/25/23 ea cholecalciferol (vitamin D3) 1,250 1,250 mcg PO QWEEK 3 months #13 07/15/24 mcg (50,000 unit) capsule caps prucalopride 1 mg tablet 1 mg PO DAILY 90 days #90 ta bs 10/21/24 (Motegrity) terazosin 5 mg capsule 5 mg PO BEDTIME 90 days #90 caps 02/04/25 ibuprofen 800 mg tablet 800 mg PO Q8H PRN pain 30 da ys #90 05/16/25 tabs cyclobenzaprine 5 mg tablet 5 mg PO TID PRN low back p ain 7 09/03/25 days #21 tabs prednisone 20 mg tablet 40 mg (2 x 20 mg) PO DAILY C OPD 09/03/25 exacerbation 5 days #10 tabs amoxicillin 875 mg-potassium 1 tab PO BID 7 days #14 t abs 09/20/25 clavulanate 125 mg tablet Allergies Allergy/AdvReac Type Severity Reaction Status Date / Time No Known Allergies (No Known Allergy Verified 09/20/25 14:13 Allergies*) Review of Systems 2 Constitutional: Constitutional: Reports as per HPI Eyes: Eyes: Reports as per HPI ENT: Reports as per HPI Cardiovascular: Cardiovascular: Reports as per HPI Respiratory: Respiratory: Reports as per HPI Gastrointestinal: Gastrointestinal: Reports as per HPI Genitourinary: Genitourinary: Reports as per HPI Musculoskeletal: Musculoskeletal: Reports as per HPI Integumentary/Breasts: Skin/Breast: Reports as per HPI Neurologic: Reports as per HPI Psychiatric: Psychiatric: Reports as per HPI Endocrine: Endocrine: Reports as per HPI Hematologic/Lymphatic: Hematologic/Lymphatic: Reports as per HPI Allergic/Immunologic: Allergic/Immunologic: Reports as per HPI PMF Past Medical History Attestation statement: The following information was validated with the patient. Source: old records reviewed and nursing notes reviewed Medical History Chronic pain syndrome GERD (gastroesophageal reflux disease) Arthritis BPH (benign prostatic hyperplasia) Anemia Nicotine dependence, cigarettes, uncomplicated Smokers' cough Anxiety and depression Cerebral aneurysm without rupture Coronary artery calcification seen on CT scan Nephrolithiasis Surgical History History of left inguinal hernia repair (04/29/24) Hx of colonoscopy History of cardiac catheterization H/O esophagogastroduodenoscopy Family History Family History Father Diabetes Mother No problems noted. Social History Social History Household Members: Spouse and Children Housing: Apartment Are you a primary lawn care technician to a significant other at home: No Do you presently have visiting nurse or other home services: No Alcohol intake: current Alcohol intake frequency: a few times a week Patient Tobacco Use Status: Current everyday Tobacco user Tobacco use type: Cigarette Cigarettes Per Day: 10 Years Smoked: (onset 15, 2ppd x 51yrs, 25pyh) Smoked in Last 30 Days: No Use of substances other than those prescribed or required for medical reasons: No Substance Use Type: Marijuana Advance Directives: No Advance Directives Information Provided: No service: Yes Current occupational status: retired Physical Exam ED Vital Signs: Vital Signs - 24 hr 09/20/25 14:00 Temperature 97.9 F Pulse Rate 74 Respiratory Rate 20 Blood Pressure 136/62 Pulse Oximetry 94 Oxygen Delivery Method Room Air BMI result Body Mass Index 24.2 Const General: cooperative, no acute distress, alert and awake Nutritional Appearance: well nourished Orientation/consciousness: patient oriented x3 HENMT Head: Yes normal to inspection and Yes atraumatic Ears: hearing grossly normal bilaterally and external ears normal General nose exam: Normal external nose present, no nasal discharge noted and no epistaxis Face and sinus: Yes normal facial exam, No abrasion and No laceration Mouth: Normal oral and palatal mucosa present, no drooling and no muffled voice Eyes General: appearance normal, both eyes and all related structures Periorbital: periorbital findings normal Eyelids: Yes eyelids normal Conjunctivae: conjunctivae normal Pupils: Equal, round and reactive pupils present EOM: EOMs intact bilaterally Neck Neck: Yes normal visual inspection and Yes full ROM Resp Effort & Inspection: normal respiratory effort and able to speak in complete sentences Neuro General: patient oriented x3, moves all extremities and CN's II-XI intact bilaterally Cranial nerves: Yes Equal, round and reactive pupils present Cognition (Neuro): normal cognition Extrem Other: General: Yes full ROM and Yes capillary refill normal Psych Appearance: grossly normal Mental Status: mental status grossly normal Affect: normal affect Attitude: cooperative Thought process: Normal thought process present Thought content: Normal thought content present Insight: Good insight present (Psych) Medications Administered Discontinued Medications Generic Name Dose Route Start Last Admin Trade Name Freq PRN Reason Stop Dose Admin Diphtheria/Tetanus/Acell Pertussis 0.5 ml 09/20/25 13:59 09/20/25 14:23 Diphth,Pertus(Acell),Tet Adult 0.5 Ml Syringe IM 09/20/25 14:00 0.5 ml .ONCE ONE Administration Ketorolac Tromethamine 15 mg 09/20/25 15:43 09/20/25 15:46 Ketorolac Tromethamine 15 Mg/Ml Vial IM 09/20/25 15:44 15 mg ONCE ONE Administration Lidocaine HCl 10 ml 09/20/25 13:59 09/20/25 14:24 Lidocaine Hcl 1 % Mpf 5 Ml Vial SUBCUT 09/20/25 14:00 10 ml ONCE ONE Administration Procedures Laceration L 1st digit: Site: other (1st digit) Side (If applicable): left Size (cm): 0.5 Description: linear Depth: simple, single layer Local Anesthetic: lidocaine 1% Amount of anesthesia used (mL): 2 Pre-repair: wound explored, irrigated extensively and deep structures intact Skin layer closed with: other (prolene) Size (cm): 5-0 Number of sutures: 1 Technique: simple, interrupted L 3rd digit: Site: other (3rd digit) Side (If applicable): left Size (cm): 1 Description: irregular Depth: simple, single layer Local Anesthetic: lidocaine 1% Amount of anesthesia used (mL): 2 Pre-repair: wound explored, irrigated extensively and deep structures intact Skin layer closed with: other (prolene) Size (cm): 5-0 Number of sutures: 2 Technique: simple, interrupted L 4th digit: Site: other (4th digit) Side (If applicable): left Size (cm): 1.25 Description: irregular Depth: simple, single layer Local Anesthetic: lidocaine 1% Amount of anesthesia used (mL): 3 Pre-repair: wound explored, irrigated extensively and deep structures intact Skin layer closed with: other (prolene) Size (cm): 5-0 Number of sutures: 3 Technique: simple, interrupted Medical Decision Making Medical Decision Making MDM Narrative: Patient is a 69 year old assigned male at with a history of GERD, OA, BPH, and anemia presenting to the emergency department today with a left hand injury. Patient's physical exam was as noted in the physical exam portion of this note. Patient's left 2nd digit injury is more of an avulsion than a laceration given there is no remaining skin left for repair. Patient's left hand x-ray showed no acute process. Patient's left 1st, 3rd, and 4th finger lacerations were repaired, per procedure note, without incident. Patient's PMS was intact prior to and after laceration repairs. Patient's 2nd digit laceration / avulsion could not be repaired but was covered with xeroform. Patient's lacerations were covered with a non-stick gauze and web roll. Patient's PMS was intact prior to and after bandage placement. Given patient's mechanism of injury - patient prescribed a prophylactic antibiotic. [facility] I explained my physical exam findings as well as all test results to the patient. I answered all questions asked by the patient. I stressed the importance of the patient taking his medication as directed (either prescribed or as the over the counter packaging recommends). I stressed the importance of the patient following up with his primary care provider. I stressed the importance of the patient returning to the emergency department immediately if his symptoms were to worsen or if he were to develop any dizziness, shortness of breath, difficulty breathing, chest pain, blurry vision, loss of vision, nausea, vomiting, abdominal pain, fever, chills, back pain, or any other complaints. Patient verbalized agreement and understanding with this treatment plan and discharge. Differential Diagnosis Differential Diagnoses: The differential diagnosis associated with the presentation includes Finger lacerations Avulsion injury Admission/Observation Consideration of admission/observation: Escalation of care including admission/observation considered Patient would have been admitted to the hospital had his work up had any findings where hospital admission was appropriate and his clinical presentation warranted hospital admission. Independent Interpretation I performed an independent interpretation of an: Plain X-Ray Interpretation: My interpretation is in agreement with the radiologist's impression of this imaging study as written below. CLINICAL HISTORY: pain, injury 3 view left hand Comparison: None provided Findings: Bones intact. No dislocations. Degenerative changes are demonstrated throughout the proximal and distal interphalangeal joints in the 2nd through 5th digits as well as the 1st carpometacarpal with joint space narrowing. No erosions. No radiopaque foreign body. IMPRESSION: No acute left hand findings. Mild diffuse osteoarthritic changes. This document has been electronically signed by: Des Arrington MD on 09/20/2025 15:11:18 Dictated By: Des Arrington MD Signed By: Electronically signed by Des Arrington MD 09/20/25 1512 Radiology Impression Discussion of test interpretation with radiology: I have reviewed the radiologist's reading. Independent Historian Clinical information obtained from an independent historian. History obtained from or confirmed by: EMS (EMS provided additional history and confirmed the history provided by the patient. ) Prescription Management I considered prescription management with: Antibiotic (patient prescribed a prophylactic antibiotic given mechanism of injury) Discharge Plan Discharge Clinical Impression: Laceration of finger Patient Disposition: Home, Self-Care Instructions: Care For Your Stitches (DC), Finger Laceration (ED) Additional Instructions: Your 1st digit laceration was repaired with (1) suture. Your 2nd digit laceration / avulsion is lacking the skin to repair it - so it has been dressed / bandaged for you. Your 3rd digit laceration was repaired (2) sutures. Your 4th digit laceration was repaired with (3) sutures. You may remove your bandage in 24 hours. Take your antibiotic as prescribed. It is normal for the wound to ooze blood over the next few hours. IF the bleeding becomes excessive or you become concerned, please do not hesitate to return to the emergency department. Have these sutures removed in 7-10 days. They can be removed by your primary care provider, at any urgent care by their provider, or at any emergency department by any of their providers. Do NOT soak the affected area. Avoid ALL bodies of water - this including pools, lakes, venegas, oceans, streams, puddles, etc. until your sutures have been removed and the wound has F ULLY healed (no open areas, no scabbing). IF you are concerned about scarring, once the sutures have been removed and the scabbing has fallen away - apply sunscreen to the area every day for 1 full year . IF you are prescribed home medications and/or you are taking over the counter medications at home - it is very important you continue to do so as prescribed / directed unless told otherwise by a healthcare provider. Follow up with your primary care provider. Do your best to stay well hydrated and rest. Return to the emergency department immediately if your symptoms worsen or if you develop any numbness, tingling, dizziness, shortness of breath, difficulty breathing, chest pain, blurry vision, loss of vision, nausea, vomiting, abdominal pain, fever, chills, back pain, or any other complaints. Please see the information below about our Patient Portal. If you are not yet enrolled in the [facility] Patient Portal, you will receive an enrollment email invitation following your visit to any [facility] setting. You may also self-enroll in the Patient Portal by visiting our website: [email or web address] The following information is required to access the Patient Portal: - Your [facility] Medical Record Number - Your personal home email address (must match what is in your electronic medical record, Registration staff can assist with this) - Name - Date of Capabilities of the Patient Portal: - Message some providers - View upcoming appointments - Access your health summary, medical history, and visit history - View current conditions and allergies - View procedure and lab results - View your medications, including guidelines, side effects, and precautions - Complete pre-appointment questionnaires requested by your provider - Ready summary reports of your office visits and procedures To access the Patient Portal Mobile [employer], follow these directions: - Search [employer] in the [employer] Store or [email or web address] Store - Download the [employer] - Search for [facility] - Enter your login/password Prescriptions: New amoxicillin-pot clavulanate 875-125 mg tablet 1 tab PO BID 7 Days Qty: 14 0RF No Action cholecalciferol (vitamin D3) 1,250 mcg (50,000 unit) capsule 1,250 mcg PO QWEEK 90 Days Qty: 13 0RF Motegrity 1 mg tablet 1 mg PO DAILY 90 Days Qty: 90 0RF lidocaine 5 % adhesive patch,medicated 1 patch topical DAILY PRN (Reason: pain) Qty: 15 0RF Rx Instructions: leave on most painful area for up to 12 hrs cyanocobalamin (vitamin B-12) [Vitamin B-12] 1,000 mcg Tablet 1,000 mcg PO DAILY gabapentin 300 mg capsule 300 mg PO TID acetaminophen 500 mg Tablet 1,000 mg PO Q6H PRN (Reason: Pain) cyclobenzaprine 5 mg tablet 5 mg PO TID PRN (Reason: low back pain) 7 Days Qty: 21 0RF prednisone 20 mg tablet 40 mg PO DAILY 5 Days Qty: 10 0RF sennosides-docusate sodium [Stimulant Laxative Plus] 8.6-50 mg tablet 1 tab PO DAILY (DME) blood pressure test kit-large Kit See Rx Instructions .ROUTE BID Qty: 1 Rx Instructions: As directed sumatriptan succinate 50 mg tablet 50 mg PO DAILY PRN (Reason: yes) terazosin 5 mg capsule 5 mg PO BEDTIME 90 Days Qty: 90 1RF ibuprofen 800 mg tablet 800 mg PO Q8H PRN (Reason: pain) 30 Days Qty: 90 3RF Referrals: Aline Carney MD [Primary Care Provider, Internal Medicine] Print Language: Colombian
[2025-09-20 14:00] VITALS: BP 136/62; BP 136/65; PULSE 74; PULSE 85; RESP 20; TEMP 36.6; O2SAT 94; O2SAT 95; BMI 24.2
--- NOTE | 2025-09-20 14:15 | PC.NURSE ---
Patient presented to ED from EMS with laceration to left hand on first four fingers. Reports 7/10 pain. VSS. Plan for stitches.
[2025-09-20] MEDS: Diphth,Pertus(ACell),Tet Adult 0.5 ML SYRINGE IM (14:23)
[2025-09-20] MEDS: Lidocaine HCl 1 % MPF 5 ML VIAL 10 ML SUBCUT (14:24)
--- OUTSIDE RECORDS SUMMARY | 2025-09-20 14:28 | XMS_ITS | Encounter Summary ---
Author Organization [employer] Address [address] [facility] [address] [place] [address] Care Team Providers Care Stoker Erector And Servicer Name Role Phone Aline Carney MD Primary Care Provide r Encounter Details Date Type Department Care Team ([facility] st Contact Info) Description 12/23/2024 Orders Only [facility] [address] [place], [place] [phone] Aline Carney MD [address] [place] [address] Social History Tobacco Use Types Packs/Day Years [...] Info) Description 10/20/2025 9:45 AM EST Telemedicine [facility] [address] [place] [id number] Aline Carney MD [address] [place] [phone] 11/19/2025 10:15 AM EST Office Visit [facility] [address] [place] [address] Ann Marie Clark documented as of this encounter Visit Diagnoses Not on filedocumented in this encounter Additional Health Concerns Assessment Noted Time PHQ-9 Depression Total Score: 13 024 9:15 AM EDT documented as of this encounter Care Teams Stoker Erector And Servicer Relationship Specialty Start Date End Date Aline Carney MD [address] [place] [phone] PCP - General Internal Medicine 02/23/23 documented as of this encounter
--- OUTSIDE RECORDS SUMMARY | 2025-09-20 14:28 | XMS_ITS | Encounter Summary ---
Author Organization [employer] Address [address] [facility] [address] [place] [address] Care Team Providers Care Agent Contract Clerk Name Role Phone Adry Rai Primary Care Provider [phone] Aline Carney MD Primary Care Provide r Encounter Details Date Type Department Care Team (Latest Contact Info) Description 07/13/2021 Abstract [facility] Dental, Provider, DDS Social History Tobacco [...] Info) Description 10/20/2025 9:45 AM EST Telemedicine [facility] [address] [place] [address] Aline Carney MD [address] [place] [address] 11/19/2025 10:15 AM EST Office Visit [facility] [address] [place] [address] Ann Marie Clark documented as of this encounter Visit Diagnoses Not on filedocumented in this encounter Care Teams Agent Contract Clerk Relationship Specialty Start Date End Date Adry Rai ANP [address] [place] [id number] PCP - General Family Medicine 8/30/22 4/26/23 Aline Carney MD [address] [place] [id number] PCP - General Internal Medicine 02/23/23 documented as of this encounter
--- OUTSIDE RECORDS SUMMARY | 2025-09-20 14:28 | XMS_ITS | Encounter Summary ---
Author Organization [employer] Address [address] [facility] [address] [place] [address] Care Team Providers Care Industrial Hygiene Manager Name Role Phone Aline Carney MD Primary Care Provide r Reason for Visit * Reason Onset Date Comments Appointment Request 05/01/2023 Encounter Details Date Type Department Care Team (Late st Contact Info) Description 05/01/2023 Telephone [facility] [address] [place] [address] [phone] Aline Carney MD [address] [place], [place] [phone] Appointment Request Social History Tobacco Use Types [...] on last visit. Please contact pt att [phone] Mohawk Speaker documented in this encounter Plan of Treatment Upcoming Encounters Date Type Department Care Team (Late st Contact Info) Description 10/20/2025 9:45 AM EST Telemedicine [facility] [address] [place] [address] Aline Carney MD [address] [place] [address] 11/19/2025 10:15 AM EST Office Visit [facility] [address] [place] [address] Ann Marie Clark documented as of this encounter Visit Diagnoses Not on filedocumented in this encounter Additional Health Concerns Assessment Noted Time PHQ-9 Depression Total Score: 16 03/24/ 023 10:31 AM EDT documented as of this encounter Care Teams Industrial Hygiene Manager Relationship Specialty Start Date End Date Aline Carney MD [address] [place] [id number] PCP - General Internal Medicine 02/23/23 documented as of this encounter
--- OUTSIDE RECORDS SUMMARY | 2025-09-20 14:28 | XMS_ITS | Clinical Summary ---
Author Organization [employer] Address [address] [facility] 7t [place] [address] Care Team Providers Care Web Application Dev Specialist Name Role Phone Aline Carney MD [...] per week. Injections will be given by [facility] RN weekly x 4 weeks. 4 [...] IN THE MORNING 90 capsule 4 Active omeprazole (PriLOSEC) [address] capsule Take 1 capsule by mouth Once per day. 5 Active terazosin (Hytrin) 5 MG capsule Take 5 mg by mouth at bedtime. 5 Active SUMAtriptan (Imitrex) 50 MG tabletIndications :Migraine without aura and without status migrainosus, not intractable Take 1 tablet (50 mg) by mouth 1 (one) time if needed for migraine for up to 27 doses. May repeat dose once in 2 hours if no relief. Do not exceed 2 doses in 24 hours. 9 tablet 2 5 Active amitriptyline (Elavil) 10 MG tabletIndications :Migraine without aura and without status migrainosus, not intractable Take 1 tablet (10 mg) by mouth at bedtime. 30 tablet 1 5 10/13/20 25 Active gabapentin (Neurontin) 300 MG capsuleIndication s:Chronic bilateral low back pain with right-sided sciatica Take 1 capsule (300 mg) by mouth at bedtime. 30 capsule 1 5 Active albuterol 108 (90 Base) MCG/ACT inhalerIndication s:SOB (shortness of breath) Inhale 2 puffs every 4 (four) hours if needed for wheezing. 18 g 5 08/14/20 26 Active nicotine polacrilex (Nicotine Mini) 2 MG lozengeIndication s:Smoker Dissolve 1 lozenge (2 mg) in the mouth if needed for smoking cessation. 100 lozenge Active Active Problems Problem Noted Date Diagnosed [...] of major depressive disorder without prior episode ([facility]) 04/03/2023 Assessment & Plan (08/14/2025 1:47 PM [...] released from assisted and is living in [facility]. John will benefit from Individual therapy [...] associated 3. Behavioral Recommendations a. Referral to [facility] for trauma/cbt focus sessions b. Referral to [facility] for psych med management c. Philip will engage on 3-5 follow up [facility] short interventions to provide some [...] relief of symptoms I refer patient to [facility] urology ordered today Assessment & Plan [...] Type Department Care Team Description 08/18/[address] [address] Aline Carney MD Call Back Request 08/14/2025 10:00 AM EDT Office Visit [address] [address] Aline Carney MD Current moderate episode of major depressive disorder without prior episode (CMS/HCC) (HCC); Migraine without aura and without status migrainosus, not intractable; Chronic bilateral low back pain with right-sided sciatica; SOB (shortness of breath); Chronic cough; Smoker 08/14/2025 Travel 08/13/[address] [address] Aline Carney MD CHART PREP 08/05/2025 Patient Outreach [address] [address] Aline Carney MD Pre-visit Planning ([facility] screening completed on 11/27/2024) from Last 3 Months Immunizations Immunization Administration [...] kg (151 lb 6.4 oz) 08/14/2025 9:49 A M EDT Height 167.6 cm (5' 6 ) 08/14/2025 9:49 AM EDT Body Mass Index 24.44 08/14/2025 9:49 AM EDT Plan of Treatment Upcoming Encounters Date Type Department Care Team (Late st Contact Info) Description 10/20/2025 9:45 AM EST Telemedicine [facility] MEDICINE [address] [place], [place] [phone] Aline Carney MD [address] [place], [place] [phone] 11/19/2025 10:15 AM EST Office Visit [facility] CHC ADULT DENTAL [address] [place], [place] [phone] Ann Marie Clark Health Maintenance Due Date [...] Hepatitis C Antibody NON-REACT DERICK NON-REACT DERICK [facility] Index 0.08 <1.[address] [facility] Comment: HCV antibody was non-reactive. There is no laboratory evidence of HCV infection. In most cases, no further action is required. However, if recent HCV exposure is suspected, a test for HCV RNA (test code 75632) is suggested. For additional information please refer to http://[employer].LaserLeap/faq/YDT95e4 (This link is being provided for informational/ educational purposes only.) 01/25/2023 8:23 AM EDT 01/25/2023 8:24 AM EDT Narrative [facility] - 01/25/2023 9:24 PM EDT FASTING:YES FASTING: YES Ryann Stone NP LAB BLOOD ORDERABLES Final Res ult [facility] [address], [place] [address] [facility] [address] [place] [address] * (ABNORMAL) Lipid Panel, Standard (01/25/2023 8:23 AM EDT) Cholesterol, Total 180 <200 mg/dL [facility] HDL Cholesterol 34(L) > OR = 40 mg/dL [facility] Triglycerides 101 <150 mg/dL [facility] LDL Cholesterol 126(H) mg/dL (calc) [facility] Comment: Reference range: <100 Desirable range <100 mg/dL for primary prevention; <70 mg/dL for patients with CHD or diabetic patients with > or = 2 CHD risk factors. LDL-C is now calculated using the Twan calculation, which is a validated novel method providing better accuracy than the Friedewald equation in the estimation of LDL-C. Sage CLIFFORD et al. ANGEL. 2013;310(19): 8013-9821 (http://education.Autoniq/faq/RYA589) Chol/HDLC Ratio 5.3(H) <5.0 (calc) [facility] Non-HDL Cholesterol 146(H) <130 mg/dL (calc) [employer] Comment: For patients with diabetes plus 1 major ASCVD risk factor, treating to a non-HDL-C goal of <100 mg/dL (LDL-C of <70 mg/dL) is considered a therapeutic option. 01/25/2023 8:23 AM EDT 01/25/2023 8:24 AM EDT Narrative [facility] - 01/25/2023 9:24 PM EDT FASTING:YES FASTING: YES us Ryann Stone NP LAB BLOOD ORDERABLES Final Res ult [facility] [address], [place] [address] [facility] [address] [place] [address] from Last 3 Months or Most Recently Relevant to Health Maintenance [place] [address] [place] [address] STANDARD [employer] OPTIONS (HMO D-SNP) DENTAL [facility] Care Teams Web Application Dev Specialist Relationship Specialty Start Date End Date Aline Carney MD [address] [place] [phone] PCP - General Internal Medicine 02/23/23
[2025-09-20 16:36] VITALS: BP 149/66; PULSE 54; RESP 16; TEMP 36.5; O2SAT 95
== END 2025-09-20 16:36 | disposition home or self-care (01) ==
PROVIDERS: Emergency Provider Emergency Medicine Emergency Medical Services; PCP Internal Medicine
DX: S61.412A Laceration without foreign body of left hand, initial encounter (principal); S61.012A Laceration without foreign body of left thumb without damage to nail, initial encounter; S61.213A Laceration without foreign body of left middle finger without damage to nail, initial encounter; S61.215A Laceration without foreign body of left ring finger without damage to nail, initial encounter; M79.642 Pain in left hand; F17.210 Nicotine dependence, cigarettes, uncomplicated; W29.3XXA Contact with powered garden and outdoor hand tools and machinery, initial encounter; Y93.9 Activity, unspecified; Y92.9 Unspecified place or not applicable; Y99.8 Other external cause status; Z79.899 Other long term (current) drug therapy; Z23 Encounter for immunization
CPT/HCPCS: 12002; 73130; 90471; 90715; 96372; 99284; J1885; J2003

== ENCOUNTER → 2025-09-20 13:59 | Outpatient (BNV) | payer OTHER, SELFPAY | PROVIDERS: PCP Internal Medicine; Visit Provider Radiology Vascular & Interventional Radiology | DX: S61.221A Laceration with foreign body of left index finger without damage to nail, initial encounter (principal); S61.225A Laceration with foreign body of left ring finger without damage to nail, initial encounter; S61.223A Laceration with foreign body of left middle finger without damage to nail, initial encounter; W29.3XXA Contact with powered garden and outdoor hand tools and machinery, initial encounter | CPT/HCPCS: 73130 ==

== ENCOUNTER 2025-09-29 11:51 | Outpatient (REF) | payer OTHER, SELFPAY ==
--- NOTE | ~2025-09-29 | XR_ITS ---
EXAMINATION: XR HAND, LEFT CLINICAL INFORMATION: left digits laceration COMPARISON: None available. TECHNIQUE: PA, lateral, and oblique views of the left hand. FINDINGS: There is diffuse osteopenia. There is moderate narrowing of the DIP and PIP joints in the digits of the hand with small marginal osteophytes. Small marginal osteophyte is are present on the ulnar side of the base of the second third and fourth proximal phalanges. No retained x-ray dense foreign body is identified. No fracture line is seen. XR/XR hand LT min 3V IMPRESSION: No acute bony abnormality or visible foreign body. Osteopenia. Osteoarthritis. Electronically signed by: Alvarado Tatum MD 09/29/2025 01:03 PM MARIB[facility] SHER
--- OUTSIDE RECORDS SUMMARY | 2025-09-29 11:00 | XMS_ITS | Encounter Summary ---
Author Organization [employer] Address [address] 7[address] [place] [address] Care Team Providers Care Salesperson Burial Plots Name Role Phone Aline Carney MD Primary Care Provide r Encounter Details Date Type Department Care Team (Late st Contact Info) Description 09/29/2025 11:00 AM EST Office Visit [facility] [address] [place] [phone] Aurelia Cloud MD [address] [place] [phone] Laceration of finger of left hand with complication, subsequent encounter (Primary Dx); Laceration of digital nerve of finger, subsequent encounter Social History Tobacco Use Types Packs/Day Years [...] Sign Reading Time Taken Comments Blood Pressure 148/73 09/29/2025 11:17 AM EST Ma nually Pulse 63 09/29/2025 11:15 AM EST Temperature 36.9 C (98.4 F) 09/29/2025 11:15 AM EST Respiratory Rate 19 09/29/2025 11:15 AM EST Oxygen Saturation 97% 09/29/2025 11:15 AM EST Inhaled Oxygen Concentration - - Weight 70.4 kg (155 lb 2 oz) 09/29/2025 11:15 AM EST Height 167.6 cm (5' 6 ) 09/29/2025 11:15 AM EST Body Mass Index 25.04 09/29/2025 11:15 AM EST documented in this encounter Progress Notes * Aurelia Cloud MD - 09/29/2025 11:00 AM EST SUBJECTIVE: John Nelson is a 69 y.o. year old male who presents for Walk In Center/needs suture removal. Denies recent illness, injury, or hospitalization. Acute Concerns: Patient here for suture removal: He sustained lacerations to the first, third, and fourth fingers of the left hand after an accidentinvolving a wheatley branch-cutting machine. Sutures were placed in these fingers. He reports that the wound on the first finger reopened on the first day. He denies fever, chills, discharge out of wound. Previous X- rays showed only arthritis. Social History Social History Narrative Not on file Problem List[1] Family History[2] Review of Systems Constitutional: Negative for fever. HENT: Negative for congestion, ear pain, rhinorrhea and sore throat. Eyes: Negative for pain and discharge. Respiratory: Negative for cough and shortness of breath. Cardiovascular: Negative for chest pain. Gastrointestinal: Negative for abdominal pain, constipation, diarrhea and nausea. Endocrine: Negative for polydipsia. Genitourinary: Negative for dysuria and frequency. Musculoskeletal: Positive for arthralgias. Negative for back pain and neck pain. Neurological: Negative for dizziness, numbness and headaches. Psychiatric/Behavioral: Negative for agitation. OBJECTIVE: Vitals: 09/29/25 1115 09/29/25 1117 BP: (!) 156/73 (!) 148/73 BP Location: Left arm Left arm Patient Position: Sitting Sitting BP Cuff Size: Adult Adult Pulse: 63 Resp: 19 Temp: 98.4 ??F (36.9 ??C) TempSrc: Oral SpO2: 97% Weight: 155 lb 2 oz (70.4 kg) Height: 5' 6 (1.676 m) Physical Exam Musculoskeletal: Left hand: Laceration present. Decreased range of motion. Decreased strength. Comments: Dehiscence of wound of the 4th digit on the left hand. Healing wound/ulcerated on 2nd digit of left hand Hand racing secretary is preserved but flexion of PIP joints of left hand is limited Food distal perfusion bl hands Sensation is intact Problem List Items Addressed This Visit Laceration of finger of left hand with complication - Primary - Has wound dehiscence on 3 digits, healing properly, no other s/s infection at this time. - Concern for potential reopening and risk of joint or tendon infection. Sutures were removed without complication, no bleeding or discharge was noted from PIP joints. I immobilized the hand and fingers with the elastic bandage and patient is to keep it for at least 1 more week. - Keep fingers immobilized; avoid gripping or manual activities. Keep dressing clean, dry, and in place; do not remove the bandage. - He will return for wound check in 1-2 weeks. - Obtain hand X-rays in one week to evaluate for bone involvement. -Counseled to seek urgent evaluation if erythema, purulent drainage, foul odor, numbness, or increasing pain occur. Relevant Orders XR Hand 3+ Views Left Other Visit Diagnoses Laceration of digital nerve of finger, subsequent encounter This note was drafted using Ambient (AI) technology. The patient/patient's guardian has been informed and has consented to the use of this technology: Yes No follow-ups on file. Medications Ordered Prior to Encounter[3] [1] Patient Active Problem List Diagnosis Smoker Anxiety Chronic low back pain Hyperlipidemia Anxiety with depression Eye pain, right Benign prostatic hyperplasia with incomplete bladder emptying Current moderate episode of major depressive disorder without prior episode (CMS/HCC) (HCC) Heartburn Vitamin B12 deficiency UTI symptoms Left flank pain Other constipation Left groin hernia Brain aneurysm Left groin pain S/P hernia repair Urinary dribbling Migraine without aura and without status migrainosus, not intractable Elevated blood pressure reading Chronic right shoulder pain SOB (shortness of breath) Chronic cough Laceration of finger of left hand with complication [2] Family History Problem Relation Name Age of Onset Diabetes Father Hypertension Father [3] Current Outpatient Medications on File Prior to Visit Medication Sig Dispense Refill albuterol 108 (90 Base) MCG/ACT inhaler Inhale 2 puffs every 4 (four) hours if needed for wheezing.18 g 0 amitriptyline (Elavil) 10 MG tablet Take 1 tablet (10 mg) by mouth at bedtime. 30 tablet 1 amoxicillin-clavulanate (Augmentin) 875-125 MG tablet Take 1 tablet by mouth 2 times daily. 14 tablet 0 cholecalciferol (Vitamin D-3) 25 MCG (1000 [...] Injections will be given by [facility] RN weekly x 4 weeks. 4 mL 0 famotidine (Pepcid) 20 MG tablet Take 2 tablets (40 mg) by mouth at bedtime. 60 tablet 1 gabapentin (Neurontin) 300 MG capsule Take 1 capsule (300 mg) by mouth at bedtime. 30 capsule 1 ibuprofen 400 MG tablet Take 1 tablet [...] (Mag-Ox) 400 MG tablet ONE PILL EVERYDAY nicotine polacrilex (Nicotine Mini) 2 MG lozenge Dissolve 1 lozenge (2 mg) in the mouth if needed for smoking cessation. 100 lozenge 0 omeprazole (PriLOSEC) [address] capsule Take 1 capsule by mouth Once per day. SUMAtriptan (Imitrex) 50 MG tablet Take 1 [...] MOUTH IN THE MORNING 90 capsule 0 terazosin (Hytrin) 5 MG capsule Take 5 mg by mouth at bedtime. No current facility-administered medications on file prior to visit. documented in this encounter Miscellaneous Notes * Assessment & Plan Note - Aurelia Cloud MD - 09/29/2025 11:55 AM EST Associated Problem(s): Laceration of finger of left hand with complication - Has wound dehiscence on 3 digits, healing properly, no other s/s infection at this time. - Concern for potential reopening and risk of joint or tendon infection. Sutures were removed without complication, no bleeding or discharge was noted from PIP joints. I immobilized the hand and fingers with the elastic bandage and patient is to keep it for at least 1 more week. - Keep fingers immobilized; avoid gripping or manual activities. Keep dressing clean, dry, and in place; do not remove the bandage. - He will return for wound check in 1-2 weeks. - Obtain hand X-rays in one week to evaluate for bone involvement. -Counseled to seek urgent evaluation if erythema, purulent drainage, foul odor, numbness, or increasing pain occur. documented in this encounter Plan of Treatment Upcoming Encounters Date Type Department Care Team (Late st Contact Info) Description 10/20/2025 9:45 AM EST Telemedicine [facility] MEDICINE [address] [place] [phone] Aline Carney MD [address] [place] [phone] 11/19/2025 10:15 AM EST Office Visit [facility] CHC ADULT DENTAL [address] [place] [address] Ann Marie Clark documented as of this encounter Procedures Procedure Name Priority Date/Time Associated Diagnosis Comments XR HAND 3+ VIEWS LEFT Routine 09/29/2025 12:16 PM EST Laceration of finger of left hand with complication, subsequent encounter documented in this encounter Results * XR Hand 3+ Views Left (09/29/2025 12:16 PM EST) Anatomical Region Laterality Modality Upper Extremities, Hand Left Radiogra phic Imaging 09/29/2025 12:1 6 PM EST Narrative 09/29/2025 1:06 PM EST [address] [address] XRay Report Signed Patient: John Damon MR#: [id number] : 1955 Acct:[id number] Age/Sex: 69 / M ADM Date: 09/29/25 Loc: .[facility] Attending Dr: Aurelia Cloud MD Ordering Physician: Aurelia Cloud MD Date of Service: 09/29/25 Procedure(s): XR hand LT min 3V Accession Number(s): [id number] cc: Aline Carney MD; Aurelia Cloud MD Reason for Exam: left digits laceration EXAMINATION: XR HAND, LEFT CLINICAL INFORMATION: left digits laceration COMPARISON: None available. TECHNIQUE: PA, lateral, and oblique views of the left hand. FINDINGS: There is diffuse osteopenia. There is moderate narrowing of the DIP and PIP joints in the digits of the hand with small marginal osteophytes. Small marginal osteophyte is are present on the ulnar side of the base of the second third and fourth proximal phalanges. No retained x-ray dense foreign body is identified. No fracture line is seen. XR/XR hand LT min 3V IMPRESSION: No acute bony abnormality or visible foreign body. Osteopenia. Osteoarthritis. Electronically signed by: Alvarado Tatum MD 09/29/2025 01:03 PM [facility] Dictated By: Alvarado Tatum MD Signed By: <Electronically signed by Alvarado Tatum MD in OV> 09/29/25 1303 DD/ 1216 TD/TT: 09/29/25 1220 Ornamental Metal Worker Helper: Procedure Note Donotuseinterpreter, Image - 09/29/[address] [address] XRay Report Signed Patient: John Damon RMR#: [id number] : 8Acct:[id number] Age/Sex: 69 / MADM Date: 09/29/25 Loc: [facility] Attending Dr: Aurelia Cloud MD Ordering Physician: Aurelia Cloud MD Date of Service: 09/29/25 Procedure(s): XR hand LT min 3V Accession Number(s): [id number] cc: Aline Carney MD; Aurelia Cloud MD Reason for Exam: left digits laceration EXAMINATION: XR HAND, LEFT CLINICAL INFORMATION: left digits laceration COMPARISON: None available. TECHNIQUE: PA, lateral, and oblique views of the left hand. FINDINGS: There is diffuse osteopenia. There is moderate narrowing of the DIP and PIP joints in the digits of the hand with small marginal osteophytes. Small marginal osteophyte is are present on the ulnar side of the base of the second third and fourth proximal phalanges. No retained x-ray dense foreign body is identified. No fracture line is seen. XR/XR hand LT min 3V IMPRESSION: No acute bony abnormality or visible foreign body. Osteopenia. Osteoarthritis. Electronically signed by: Alvarado Tatum MD 09/29/2025 01:03 PM EST Dictated By: Alvarado Tatum MD Signed By: <Electronically signed by Alvarado Tatum MD in OV> 09/29/25 1303 DD/ 1216 TD/TT: 09/29/25 1220 Ornamental Metal Worker Helper: [facility] Cloud MD IMG XR PROCEDURES Final Result documented in this encounter Visit Diagnoses Diagnosis Laceration of finger of left hand with complication, subsequent encounter- Primary Laceration of digital nerve of finger, subsequent encounter documented in this encounter Additional Health Concerns Assessment Noted Time PHQ-9 Depression Total Score: 9 03/17/20 25 11:12 AM EDT documented as of this encounter Care Teams Salesperson Burial Plots Relationship Specialty Start Date End Date Aline Carney MD [address] [place] [address] PCP - General Internal Medicine 02/23/23 documented as of this encounter
--- OUTSIDE RECORDS SUMMARY | 2025-09-29 15:42 | XMS_ITS | Encounter Summary ---
Author Organization [employer] Address [address] [facility] 7t [place] [address] Care Team Providers Care Mixed Signal Design Engineer Name Role Phone Aline Carney MD Primary Care Provide r Encounter Details Date Type Department Care Team ([facility] st Contact Info) Description 12/23/2024 Orders Only [facility] MEDICINE [address] [place], [place] [phone] Aline Carney MD [address] [place] [address] Social History Tobacco Use Types Packs/Day Years [...] EST Telemedicine [facility] MEDICINE [address] [place] [phone] Aline Carney MD [address] [place] [phone] 11/19/2025 10:15 AM EST Office Visit [facility] CHC ADULT DENTAL [address] [place] [address] Ann Marie Clark documented as of this encounter Visit Diagnoses Not on filedocumented in this encounter Additional Health Concerns Assessment Noted Time PHQ-9 Depression Total Score: 13 024 9:15 AM EDT documented as of this encounter Care Teams Mixed Signal Design Engineer Relationship Specialty Start Date End Date Aline Carney MD [address] [place] [phone] PCP - General Internal Medicine 02/23/23 documented as of this encounter
--- OUTSIDE RECORDS SUMMARY | 2025-09-29 15:42 | XMS_ITS | Encounter Summary ---
Author Organization [facility] Address [address] [facility] 7t [place] [address] Care Team Providers Care Automobile Painter Name Role Phone Adry Rai Primary Care Provider [phone] Aline Carney MD Primary Care Provide r Encounter Details Date Type Department Care Team (Latest Contact Info) Description 07/13/2021 Abstract [facility] CONVERSIONS Dental, Provider, DDS Social [...] Info) Description 10/20/2025 9:45 AM EST Telemedicine [facility] MEDICINE [address] [place] [address] Aline Carney MD [address] [place] [address] 11/19/2025 10:15 AM EST Office Visit [facility] CHC ADULT DENTAL [address] [place] [address] Ann Marie Clark documented as of this encounter Visit Diagnoses Not on filedocumented in this encounter Care Teams Automobile Painter Relationship Specialty Start Date End Date Adry Rai ANP [address] [place] [phone] PCP - General Family Medicine 8/30/22 4/26/23 Aline Carney MD [address] [place] [phone] PCP - General Internal Medicine 02/23/23 documented as of this encounter
--- OUTSIDE RECORDS SUMMARY | 2025-09-29 15:42 | XMS_ITS | Clinical Summary ---
Author Organization [employer] Address [address] [facility] [address] [place] [address] Care Team Providers Care Bull Wheel Worker Name Role Phone Aline Carney MD Primary [...] per week. Injections will be given by [facility] RN weekly x 4 weeks. 4 mL [...] Active Problems Problem Noted Date Diagnosed Date Laceration of finger of left hand with complicat ion 09/29/2025 Assessment & Plan (09/29/2025 12:27 PM EST): - Has wound dehiscence on 3 digits, [...] foul odor, numbness, or increasing pain occur. SOB (shortness of breath) 08/14/2025 Assessment & [...] of major depressive disorder without prior episode ([facility]) 04/03/2023 Assessment & Plan (08/14/2025 1:47 PM [...] after his adult child was released from [facility] and is living in [facility]. John will benefit from Individual [...] of major depressive disorder without prior episode (CMS/[facility]) Patient ready to address current needs Yes Strengths include Insight into current stressors and sxs. Openness to treatment PLAN: 1. Follow up with [facility]: Recommended for follow-up: 03/24 2. Patient goal is Manage current stressors and sxs associated 3. Behavioral Recommendations a. Referral to OP for trauma/cbt focus sessions b. Referral to [facility] for psych med management c. Philip will engage on 3-5 follow up [facility] short interventions to provide some stabilization [...] relief of symptoms I refer patient to [facility] urology ordered today Assessment & Plan [...] Encounters Date Type Department Care Team Description 09/29/2025 11:00 AM EST Office Visit [facility] WALK-IN [address] [address] Aurelia Cloud MD Laceration of finger of left hand with complication, subsequent encounter (Primary Dx); Laceration of digital nerve of finger, subsequent encounter 09/29/2025 Travel 09/20/2025 Orders Only [facility] External Provider, [facility] 08/18/2025 Telephone [facility] MEDICINE [address] [place] [address] Aline Carney MD Call Back Request 08/14/2025 10:00 AM EDT Office Visit [address] [address] Aline Carney MD Current moderate episode of major depressive disorder without prior episode (CMS/HCC) (HCC); Migraine without aura and without status migrainosus, not intractable; Chronic bilateral low back pain with right-sided sciatica; SOB (shortness of breath); Chronic cough; Smoker 08/14/2025 Travel 08/13/2025 Telephone [facility] [address] [place], [place] [phone] Aline Carney MD CHART PREP 08/05/2025 Patient Outreach [address] [phone] Aline Carney MD Pre-visit Planning ([facility] screening completed on 11/27/2024) from [...] Blood Pressure 148/73 09/29/2025 11:17 AM EST Abigail nually Pulse 63 09/29/2025 11:15 AM EST [...] Mass Index 25.04 09/29/2025 11:15 AM EST Plan of Treatment Upcoming Encounters Date Type Department Care Team (Late st Contact Info) Description 10/20/2025 9:45 AM EST Telemedicine [facility] MEDICINE [address] [place] [address] Aline Carney MD [address] [facility] [place] [address] 11/19/2025 10:15 AM EST Office Visit [facility] ADULT DENTAL [address] [place] [address] Ann Marie Clark Health Maintenance Due Date [...] 11/27/2024 Depression Monitoring 02/12/2026 08/14/2025 , 03/17/2025 Dental X-Ray: Bitewings 05/13/2026 05/12/20 25, 03/05/2024, 07/13/2021 Alcohol/Substance Use Screening 08/14/2026 08/14/2025 Tobacco Screening 09/29/2026 09/29/2025 Dental X-Ray: Full Mouth 03/06/2027 024, 07/22/2021, 07/13/2021 Lipid Panel 01/26/2028 01/25/2023, 09/05/2022, 02/26/2021 RSV Patients and Patients Aged 60 years or older (1 - 1-dose 75+ series) 2032 DTaP/Tdap/Td Vaccines (3 - T d or Tdap) 09/20/2035 09/20/2025, 09/02/2022, 12/27/2017 Hepatitis C Screening Completed 01/25/2023 Pneumococcal Vaccine: [...] of left hand with complication, subsequent encounter XR HAND 3+ VIEWS LEFT Routine 09/20/2025 3:11 PM EST PROPHYLAXIS - ADULT Routine 05/12/2025 2 :00 [...] Recently Relevant to Health Maintenance Results * XR Hand 3+ Views Left (09/29/2025 12:16 PM EST) Only the most recent of2 resultswithin the time period is included. Anatomical Region Laterality Modality Upper Extremities, Hand Left Radiogra phic Imaging 09/29/2025 12:1 6 PM EST Narrative 09/29/2025 1:06 PM EST [facility] [address] [place] [address] XRay Report Signed Patient: John Damon MR#: [id number] : 1955 Acct:[id number] Age/Sex: 69 / M ADM Date: 09/29/25 [facility]: [facility] Att[facility] Dr: Aurelia Cloud MD Ordering Physician: Aurelia Cloud MD Date of Service: 09/29/25 Procedure(s): XR hand LT min 3V Accession Number(s): [id number] cc: Aline Carney MD; Aurelia Cloud MD [...] by: Alvarado Tatum MD 09/29/2025 01:03 PM [facility] Dictated By: Alvarado Tatum MD Signed By: <Electronically signed by Alvarado Tatum MD in OV> 09/29/25 1303 DD/ 1216 TD/TT: 09/29/25 1220 Cream Ripener: Procedure Note Donotuseinterpreter, Image - 09/29/[address] [address] XRay Report Signed Patient: John Damon RMR#: [id number] : 1955cct:[id number] Age/Sex: 69 / MADM Date: 09/29/25 Loc: HO.[facility] Attending Dr: Aurelia Cloud MD Ordering Physician: Aurelia Cloud MD Date of Service: 09/29/25 Procedure(s): XR hand LT min 3V Accession Number(s): [id number] cc: Aline Carney MD; Aurelia Cloud MD [...] by: Alvarado Tatum MD 09/29/2025 01:03 PM [facility] Dictated By: Alvarado Tatum MD Signed By: <Electronically signed by Alvarado Tatum MD in OV> 09/29/25 1303 DD/ 1216 TD/TT: 09/29/25 1220 Cream Ripener: Aurelia Cloud MD IMG XR PROCEDURES Final Result * Hepatitis C Antibody with Reflex to HCV, RNA, Quantitative, Real-Time PCR (01/25/2023 8:23 AM EDT) Hepatitis C Antibody NON-REACT DERICK NON-REACT DERICK [employer] Index 0.08 <1.00 [employer] Comment: HCV antibody was non-reactive. There is no laboratory evidence of HCV infection. In most cases, no further action is required. However, if recent HCV exposure is suspected, a test for HCV RNA (test code 56156) is suggested. For additional information please refer to http://education.[employer]/faq/LHM86m4 (This link is being provided for informational/ educational purposes only.) 01/25/2023 8:23 AM EDT 01/25/2023 8:24 AM EDT Narrative [facility] - 01/25/2023 9:24 PM EDT FASTING:YES FASTING: YES Ryann Stone NP LAB BLOOD ORDERABLES Final Res ult [facility] [address], [place] [address] [facility] [address] [place] [address] * (ABNORMAL) Lipid Panel, Standard (01/25/2023 8:23 AM EDT) Cholesterol, Total 180 <200 mg/dL [facility] HDL Cholesterol 34(L) > OR = 40 mg/dL [facility] Triglycerides 101 <150 mg/dL [facility] LDL Cholesterol 126(H) mg/dL (calc) [facility] Comment: Reference range: <100 Desirable range <100 mg/dL for primary prevention; <70 mg/dL for patients with CHD or diabetic patients with > or = 2 CHD risk factors. LDL-C is now calculated using the Sage-Dragan calculation, which is a validated novel method providing better accuracy than the Friedewald equation in the estimation of LDL-C. Sage CLIFFORD et al. ANGEL. 2013;310(19): 9235-1807 (http://education.[employer].Handprint/faq/KPP867) Chol/HDLC Ratio 5.3(H) <5.0 (calc) [facility] Non-HDL Cholesterol 146(H) <130 mg/dL (calc) [employer] Comment: For patients with diabetes plus 1 major ASCVD risk factor, treating to a non-HDL-C goal of <100 mg/dL (LDL-C of <70 mg/dL) is considered a therapeutic option. 01/25/2023 8:23 AM EDT 01/25/2023 8:24 AM EDT Narrative [facility] - 01/25/2023 9:24 PM EDT FASTING:YES FASTING: YES us Ryann Chase NULL LAB BLOOD ORDERABLES Final Res ult [facility] [address], [place] [address] [facility] [address] [place] [address] from Last 3 Months or Most Recently Relevant to Health Maintenance Insurance [facility] ST[facility]ARD [facility] CUSTODIAL OPTIONS (HMO D-SNP) DENTAL - [facility] Care Teams Bull Wheel Worker Relationship Specialty Start Date End Date Aline Carney MD [address] [place] [phone] PCP - General Internal Medicine 02/23/23
--- OUTSIDE RECORDS SUMMARY | 2025-09-29 15:42 | XMS_ITS | Encounter Summary ---
Author Organization [employer] Address [address] 7[address] [place] [address] Care Team Providers Care Senior Oracle Database Administrator Name Role Phone Aline Carney MD Primary Care Provide r Encounter Details Date Type Department Care Team (Latest Contact Info) Description 09/29/2025 Travel Social History Tobacco Use Types Packs/Day [...] Info) Description 10/20/2025 9:45 AM EST Telemedicine [facility] MEDICINE [address] [place] [address] Aline Carney MD [address] [place] [phone] 11/19/2025 10:15 AM EST Office Visit [facility] ADULT DENTAL [address] [place] [address] Ann Marie Clark documented as of this encounter Visit Diagnoses Not on filedocumented in this encounter Additional Health Concerns Assessment Noted Time PHQ-9 Depression Total Score: 9 03/17/20 25 11:12 AM EDT documented as of this encounter Care Teams Senior Oracle Database Administrator Relationship Specialty Start Date End Date Aline Carney MD [address] [place] [phone] PCP - General Internal Medicine 02/23/23 documented as of this encounter
--- OUTSIDE RECORDS SUMMARY | 2025-09-29 15:42 | XMS_ITS | Encounter Summary ---
Author Organization [employer] Address [address] [facility] [address] [place] [address] Care Team Providers Care Industrial Recruiter Name Role Phone Aline Carney MD Primary Care Provide r Reason for Visit * Reason Onset Date Comments Appointment Request 05/01/2023 Encounter Details Date Type Department Care Team (Late st Contact Info) Description 05/01/2023 Telephone [facility] MEDICINE [address] [place] [phone] Aline Carney MD [address] [place], [place] [phone] Appointment Request Social History Tobacco Use Types [...] on last visit. 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 documented in this encounter Plan of Treatment Upcoming Encounters Date Type Department Care Team (Late st Contact Info) Description 10/20/2025 9:45 AM EST Telemedicine [facility] MEDICINE [address] [place] [address] Aline Carney MD [address] [place] [address] 11/19/2025 10:15 AM EST Office Visit [facility] ADULT DENTAL [address] [place] [address] Ann Marie Clark documented as of this encounter Visit Diagnoses Not on filedocumented in this encounter Additional Health Concerns Assessment Noted Time PHQ-9 Depression Total Score: 16 03/24/ 023 10:31 AM EDT documented as of this encounter Care Teams Industrial Recruiter Relationship Specialty Start Date End Date Aline Carney MD [address] [place] [phone] PCP - General Internal Medicine 02/23/23 documented as of this encounter
== END 2025-09-29 11:52 | disposition home or self-care (01) ==
LOC: HO.HHCX 11:51
PROVIDERS: PCP Internal Medicine; Visit Provider Internal Medicine
DX: S64.40XD Injury of digital nerve of unspecified finger, subsequent encounter (principal)
CPT/HCPCS: 73130

== ENCOUNTER → 2025-09-29 11:57 | Outpatient (BNV) | payer OTHER, SELFPAY | PROVIDERS: PCP Internal Medicine; Visit Provider Radiology Diagnostic Radiology | DX: M19.042 Primary osteoarthritis, left hand (principal) | CPT/HCPCS: 73130 ==

== ENCOUNTER 2025-10-21 13:48 | Outpatient (AMB) | payer OTHER, SELFPAY ==
--- OUTSIDE RECORDS SUMMARY | 2025-10-20 09:45 | XMS_ITS | Encounter Summary ---
Author Organization [email or web address] Address [address] [facility] 7t [place] [address] Care Team Providers Care Software Tester Name Role Phone Aline Carney MD Primary Care Provide r Reason for Referral * Imaging (Routine) - Pending Review Specialty Diagnoses / Procedures Referred By Becca hayden Referred To Contact Radiology Diagnoses Migraine without aura and without status migrainosus, not intractable Brain aneurysm Procedures MR Brain w/o Contrast Aline Carney MD [address] [place] [address] Phone: tel: fax: [address] [address] Phone: tel: fax: Referral ID Status Reason Start Date Expiration Date V isits Requested Visits Authorized [id number] Pending Review 10/20/2025 10/20/2026 1 1 Encounter Details Date Type Department Care Team (Late st Contact Info) Description 10/20/2025 9:45 AM EST Telemedicine [facility] MEDICINE [address] [place] [phone] Aline Carney MD [address] [place], [place] [phone] Migraine without aura and without status migrainosus, not intractable (Primary Dx); SOB (shortness of breath); Smoker; Chronic cough; Brain aneurysm Social History Tobacco Use Types Packs/Day Years Used Date Smoking Tobacco: Every Day Cigarettes Passive Smoke Exposure: Current Smokeless Tobacco: Never Alcohol Use Standard Drinks/Week Comments Not Currently 0 (1 standard drink = 0.6 oz pur e alcohol) Depression Answer Date Recorded Patient Health Questionnaire-9 Score 0 10/20/2025 Patient Health Questionnaire-9 Score 0 10/20/2025 Last PHQ-9: Questionnaire Data Not on file 1 12/21/2024 Housing Stability Answer Date Recorded What is [...] Answer Date Recorded Patient Health Questionnaire-2 Score 0 10/20/2025 Internet Access Answer Date Recorded Internet Access [...] of Assessment Author Patient Health Questionnaire-2 Score 0 09/30 9:49 AM Leyda Flores [place] * Little interest or pleasure in doing things Answer Date of Assessment Author Not at all 10/20/2025 9:49 AM Jae Flores ra, [place] * Feeling down, depressed, or hopeless Answer Date of Assessment Author Not at all 10/20/2025 9:49 AM Jae Flores ra, [place] * Trouble falling or staying asleep, or sleeping too much Answer Date of Assessment Author Not at all 10/20/2025 9:49 AM Jae Flores ra, [place] * Feeling tired or having little energy Answer Date of Assessment Author Not at all 10/20/2025 9:49 AM Jae Flores ra, [place] * Poor appetite or overeating Answer Date of Assessment Author Not at all 10/20/2025 9:49 AM Jae Flores ra, [place] * Feeling bad about yourself - or that you are a failure or have let yourself or your family down Answer Date of Assessment Author Not at all 10/20/2025 9:49 AM Jae Flores ra, [place] * Trouble concentrating on things, such as reading the newspaper or watching television Answer Date of Assessment Author Not at all 10/20/2025 9:49 AM Jae Flores ra, [place] * Moving or speaking so slowly that other people could have noticed? Or the opposite - being so fidgety or restless that you have been moving around a lot more than usual. Answer Date of Assessment Author Not at all 10/20/2025 9:49 AM Jae Flores ra, [place] * Thoughts that you would be better off or hurting yourself in some way Answer Date of Assessment Author Not at all 10/20/2025 9:49 AM Jae Flores ra, [place] * Patient Health Questionnaire-9 Score Answer Date of Assessment Author 0 10/20/2025 9:49 AM Jae Flores ra, [place] * Over the last 2 weeks, how often have you been bothered by any of the following problems? Question Answer Date of Assessment Author Feeling nervous, anxious, or on edge 0 09/30 9:49 AM Leyda Flores [place] Not being able to stop or co ntrol worrying 0 10/20/2025 9:49 AM Leyda Flores MA Worrying too much about diff erent things 0 10/20/2025 9:49 AM Leyda Flores MA Trouble relaxing 0 10/20/2025 9:49 AM Leyda Barrett MA Being so restless that it is hard to sit still 0 10/20/2025 9:49 AM Leyda Flores MA Becoming easily annoyed or irritable 0 09/30 9:49 AM Leyda Flores MA Feeling afraid as if somethi ng awful might happen 0 10/20/2025 9:49 AM Leyda Flores MA BREONNA-7 Total Score 0 10/20/2025 9:49 AM Leyda Flores MA documented as of this encounter Progress Notes * Aline Oseguera MD - 10/20/2025 9:45 AM EST SUBJECTIVE: John Nelson is a 69 y.o. year old male who presents for Follow up . John Nelson, 69 years Headaches and History of Aneurysm - Occasional headaches, described as a feeling behind the left eye - History of small aneurysm, as per patient report - Headaches have improved recently Shortness of Breath and Chronic Cough - Shortness of breath, especially on exertion - Chronic cough - Smoker, currently cutting down on cigarettes - Using nicotine lentigines to assist with smoking reduction Chronic Pain and Arthralgia - Chronic pain and arthralgia - Uses gabapentin, acetaminophen, and ibuprofen for pain control - Reports medications are available at home Social History Social History Narrative Not on file Problem List[1] Smoker Anxiety Chronic low back pain Hyperlipidemia [...] of finger of left hand with complication Family History[2] Review of Systems Constitutional: Negative. HENT: Negative. Respiratory: Negative. Cardiovascular: Negative. Musculoskeletal: Positive for arthralgias, back pain and myalgias. Neurological: Positive for headaches. Follow Up: Follow up in about 3 months (around 01/18/2026) for chronic conditions. Medications Ordered Prior to Encounter[3] Problem List Items Addressed This Visit Migraine without aura and without status migrainosus, not intractable - Primary Relevant Orders MR Brain w/o Contrast SOB (shortness of breath) Smoker Relevant Medications nicotine polacrilex (Nicotine Mini) 2 MG lozenge Chronic cough Brain aneurysm Relevant Orders MR Brain w/o Contrast Migraine without aura and without status migrainosus, not intractable: - Headaches occur occasionally, with pain behind the left eye. No mention of intractability or status migrainosus. - Ordered MRI for surveillance of headaches. Dyspnea: - Dyspnea present, associated with exertion. - Referred for pulmonary function test. Patient aware of PFT appointment on November 12, 2025. Cardiology evaluation scheduled for October 21, 2025. Smoker: - Active smoker, cutting down on cigarettes. Using nicotine lentigines. - Provided refill for nicotine lentigines. Advised to continue reducing cigarette use. Chronic cough: - Chronic cough suspected to be smoker's cough. - Awaiting results of pulmonary function test. Brain aneurysm: - Small aneurysm noted, under surveillance. - Ordered MRI for surveillance. Arthralgia and chronic pain: - Chronic pain and arthralgia managed with gabapentin, acetaminophen, and ibuprofen. - Advised to continue current medications. [1] Patient Active Problem List Diagnosis Smoker [...] hours if needed for wheezing.18 g 0 amoxicillin-clavulanate (Augmentin) 875-125 MG tablet Take 1 [...] per week. Injections will be given by [facility] RN weekly x 4 weeks. 4 [...] (Mag-Ox) 400 MG tablet ONE PILL EVERYDAY omeprazole (PriLOSEC) [address] capsule Take [...] Take 5 mg by mouth at bedtime. [DISCONTINUED] amitriptyline (Elavil) 10 MG tablet Take 1 tablet (10 mg) by mouth at bedtime. 30 tablet 1 [DISCONTINUED] nicotine polacrilex (Nicotine Mini) 2 MG lozenge Dissolve 1 lozenge (2 mg) in the mouth if needed for smoking cessation. (Patient not taking: Reported on 10/09/2025) 100 lozenge 0 No current facility-administered medications on file prior to visit. documented in this encounter Plan of Treatment Upcoming Encounters Date Type Department Care Team (Late st Contact Info) Description 11/19/2025 10:15 AM EST Office Visit [facility] CHC ADULT DENTAL [address] [facility] [place] [address] Ann Marie Clark 01/19/2026 10:00 AM EDT Office Visit [facility] MEDICINE [address] [place] [address] Aline Carney MD [address] [place] [address] Scheduled Orders Name Type Priority Associated Diagnoses Orde r Schedule MR Brain w/o Contrast Imaging Routine Migraine without aura and without status migrainosus, not intractable Brain aneurysm Expected: 10/20/2025, Expires: 10/20/2026 documented as of this encounter Visit Diagnoses Diagnosis Migraine without aura and without status migrainosus, not intractable- Primary SOB (shortness of breath) Shortness of breath Smoker Tobacco use disorder Chronic cough Cough Brain aneurysm Cerebral aneurysm, nonruptured documented in this encounter Additional Health Concerns Assessment Noted Time PHQ-9 Depression Total Score: 0 10/20/20 25 9:49 AM EST documented as of this encounter Care Teams Software Tester Relationship Specialty Start Date End Date Aline Carney MD [address] [place] [phone] PCP - General Internal Medicine 02/23/23 documented as of this encounter
--- NOTE | 2025-10-21 13:51 | MHC.OFFVIS ---
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 Chronic smoker and continues to smoke. No previous history of any cardiac issues including coronary disease, myocardial infarction or cardiomyopathy. With physical activities, he may feel tired and short of breath. No exertional angina. [facility] Medical History Chronic pain syndrome GERD (gastroesophageal reflux disease) Arthritis BPH (benign prostatic hyperplasia) Anemia Nicotine dependence, cigarettes, uncomplicated Smokers' cough Anxiety and depression Cerebral aneurysm without rupture Coronary artery calcification seen on CT scan Nephrolithiasis Surgical History History of left inguinal hernia repair (04/29/24) Hx of colonoscopy History of cardiac catheterization H/O esophagogastroduodenoscopy Family History Father Diabetes Mother No problems noted. Social History Household Members: Spouse and Children Housing: Apartment Are you a primary patient care technician instructor to a significant other at home: No Do you presently have visiting nurse or other home services: No 75 years or older and lives alone: No Alcohol intake: current Alcohol intake frequency: a few times a week Patient Tobacco Use Status: Current everyday Tobacco user Tobacco use type: Cigarette Cigarettes Per Day: 10 Years Smoked: (onset 15, 1/2ppd x 51yrs, 25pyh) Substance Use Type: Marijuana service: Yes Current occupational status: retired Review of Systems Const Denies chills, Denies fatigue, Denies fever(s), Denies frequent falls, Denies weakness, Denies weight gain and Denies weight loss ENT Denies dizziness Card Denies chest pain, Denies leg edema, Denies lightheadedness, Denies palpitations, Denies dyspnea, Denies dyspnea on exertion and Denies orthopnea Resp Denies cough, Denies dyspnea and Denies dyspnea on exertion GI Denies bloating and Denies change in bowel habits Musc Denies muscle weakness, Denies numbness and Denies tingling Neuro Denies dizziness, Denies frequent falls, Denies numbness, Denies tingling and Denies weakness Endo Denies fatigue and Denies palpitations Physical Exam Vital Signs: Last Vital Signs Pulse 60 10/21/25 13:54 BP 100/56 L 10/21/25 13:54 BMI result Body Mass Index 24.5 Const General: comfortable and no acute distress Orientation/consciousness: patient oriented x3 HEENT Other: Unremarkable Head: Yes normal to inspection Neck Neck: Yes normal visual inspection Chest Chest palpation & inspection: normal inspection of the chest Resp Auscultation: clear to auscultation bilaterally Cardio Palpation: normal PMI Heart sounds: S1 normal heart sound present, S2 normal heart sound present, no gallops, no murmurs and no rubs GI Palpation (GI): Soft to palpation Back/Spine/Pelvis Other: unremarkable Skin General skin exam: no rashes or lesions noted Neuro General: patient oriented x3 Extrem General: Yes normal to inspection Psych Mental Status: mental status grossly normal Office Procedures EKG Details: EKG with underlying sinus rhythm at 60/Min; voltage criteria for LVH; [place]. [address]-Jectgnifqmxekzvkw, Complete Assessment & Plan Assessment & Plan (1) SOB (shortness of breath): Code(s): R06.02 - Shortness of breath Category: Medical Plan Cardiac [id number]-tkefza coronary arteries. Normal LVEDP. Echocardiogram 2020-LVEF 60-65% and inferior/inferoseptal wall motion abnormality. However, based on the catheterization findings unclear if this is just an artifactual finding. No significant valvular abnormality or pulmonary hypertension. Available high sensitivity troponins are all normal. A prior BNP from 2020 was normal. Suspect shortness of breath is probably related to smoking and any associated lung disease. Less likely cardiac in nature. We will repeat his echocardiogram. If indeed there is any significant finding, then we will reassess. If not, pursue pulmonary workup. Orders: Orders CA echo transthoracic complete Today R06.02 - Shortness of breath Coding Level of Care Code New Pt Level 4 (01171) Add On Problem Visit Only Diagnoses SOB (shortness of breath) R06.02 CPT Codes EKG - CPT: 97934-Rwrzhsbroxpvownlx, Complete ([id number])
[2025-10-21 13:54] VITALS: BP 100/56; PULSE 60; BMI 24.5
--- OUTSIDE RECORDS SUMMARY | 2025-10-21 15:00 | XMS_ITS | Encounter Summary ---
Author Organization [employer] Address [address] [facility] 7t [place] [address] Care Team Providers Care Storekeeper Engineering Name Role Phone Aline Carney MD Primary Care Provide r Reason for Visit * Reason Onset Date Comments Appointment Request 05/01/2023 Encounter Details Date Type Department Care Team (Late st Contact Info) Description 05/01/2023 Telephone [facility] MEDICINE [address] [place] [address] [phone] Aline Carney MD [address] [place], [place] [phone] Appointment Request Social History Tobacco Use Types [...] on last visit. Please contact pt att [phone] Ukrainian Speaker documented in this encounter Plan of Treatment Upcoming Encounters Date Type Department Care Team (Late st Contact Info) Description 11/19/2025 10:15 AM EST Office Visit [facility] CHC ADULT DENTAL [address] [facility] [place] [address] Ann Marie Clark 01/19/2026 10:00 AM EDT Office Visit [facility] MEDICINE [address] [place] [address] Aline Carney MD [address] [place] [address] documented as of this encounter Visit Diagnoses Not on filedocumented in this encounter Additional Health Concerns Assessment Noted Time PHQ-9 Depression Total Score: 16 03/24/ 023 10:31 AM EDT documented as of this encounter Care Teams Storekeeper Engineering Relationship Specialty Start Date End Date Aline Carney MD [address] [place] [address] PCP - General Internal Medicine 02/23/23 documented as of this encounter
--- OUTSIDE RECORDS SUMMARY | 2025-10-21 15:00 | XMS_ITS | Encounter Summary ---
Author Organization [employer] [facility] Address [address] [facility] 7t [place] [address] Care Team Providers Care Furniture Salesperson Name Role Phone Adry Rai Primary Care Provider [phone] Aline Carney MD Primary Care Provide r Encounter Details Date Type Department Care Team (Latest Contact Info) Description 07/13/2021 Abstract [facility] CONVERSIONS Dental, Provider, DDS Social History [...] Description 11/19/2025 10:15 AM EST Office Visit [facility] CHC ADULT DENTAL [address] [place] [address] Ann Marie Clark 01/19/2026 10:00 AM EDT Office Visit [facility] MEDICINE [address] [place] [address] Aline Carney MD [address] [place], [place] [phone] documented as of this encounter Visit Diagnoses Not on filedocumented in this encounter Care Teams Furniture Salesperson Relationship Specialty Start Date End Date Adry Rai ANP [address] [place] [address] PCP - General Family Medicine 06/28/22 02/22/23 Aline Carney MD [address] [place] [address] PCP - General Internal Medicine 02/23/23 documented as of this encounter
--- OUTSIDE RECORDS SUMMARY | 2025-10-21 15:00 | XMS_ITS | Encounter Summary ---
Author Organization [employer] Address [address] [facility] 7t [place] [address] Care Team Providers Care President Of The [place] Name Role Phone Aline Carney MD Primary Care Provide r Reason for Visit * Reason Onset Date Comments chart prep 10/17/2025 Encounter Details Date Type Department Care Team (Late st Contact Info) Description 10/17/2025 Telephone [facility] MEDICINE [address] [place] [address] [phone] Aline Carney MD [address] [place], [place] [phone] chart prep Social History Tobacco Use Types Packs/Day [...] encounter Miscellaneous Notes * Telephone Encounter - Magalie Kumar [place] - 10/17/2025 3:45 PM EST Chart Prep Labs: done Images: done Referrals: complete Vaccines due: Covid, Flu, and Zoster Screenings: colonoscopy Overdue care gaps: SDOH, PHQ-9, and BREONNA-7 documented in this encounter Plan of Treatment Upcoming Encounters Date Type Department Care Team (Late st Contact Info) Description 11/19/2025 10:15 AM EST Office Visit [facility] ADULT DENTAL [address] [place] [address] Ann Marie Clark 01/19/2026 10:00 AM EDT Office Visit [facility] MEDICINE [address] [place] [address] Aline Carney MD [address] [place] [address] documented as of this encounter Visit Diagnoses Not on filedocumented in this encounter Additional Health Concerns Assessment Noted Time PHQ-9 Depression Total Score: 9 03/17/20 25 11:12 AM EDT documented as of this encounter Care Teams President Of The [place] Relationship Specialty Start Date End Date Aline Carney MD [address] [place] [address] PCP - General Internal Medicine 02/23/23 documented as of this encounter
--- OUTSIDE RECORDS SUMMARY | 2025-10-21 15:00 | XMS_ITS | Encounter Summary ---
Author Organization [employer] Address [address] [facility] [address] 7[address] [place] [address] Care Team Providers Care Spinner Concrete Pipe Name Role Phone Aline Carney MD Primary Care Provide r Encounter Details Date Type Department Care Team (Latest Contact Info) Description 10/20/2025 Travel Social History Tobacco Use Types Packs/Day [...] Description 11/19/2025 10:15 AM EST Office Visit [facility] CHC ADULT DENTAL [address] [place] [address] Ann Marie Clark 01/19/2026 10:00 AM EDT Office Visit [facility] MEDICINE [address] [place] [address] Aline Carney MD [address] [place] [address] documented as of this encounter Visit Diagnoses Not on filedocumented in this encounter Additional Health Concerns Assessment Noted Time PHQ-9 Depression Total Score: 0 10/20/20 25 9:49 AM EST documented as of this encounter Care Teams Spinner Concrete Pipe Relationship Specialty Start Date End Date Aline Carney MD [address] [place] [phone] PCP - General Internal Medicine 02/23/23 documented as of this encounter
--- OUTSIDE RECORDS SUMMARY | 2025-10-21 15:00 | XMS_ITS | Clinical Summary ---
Author Organization [employer] Address [address] [facility] 7t [place] [address] Care Team Providers Care Retail Store Clerk Name Role Phone Aline Carney MD Primary [...] per week. Injections will be given by [facility] RN weekly x 4 weeks. 4 [...] hours. 9 tablet 2 08/14/20 25 Active gabapentin (Neurontin) 300 MG capsuleIndicatio ns:Chronic [...] if needed for smoking cessation. 100 lozenge 10/20/20 25 2025 Active amitriptyline (Elavil) 10 MG tabletIndication s:Migraine without aura and without status migrainosus, not intractable Take 1 tablet (10 mg) by mouth at bedtime. 30 tablet 1 08/14/20 25 2024 Discontinued nicotine polacrilex (Nicotine Mini) 2 MG lozengeIndicatio ns:Smoker Dissolve 1 lozenge (2 mg) in the mouth if needed for smoking cessation. 100 lozenge 08/14/20 25 2024 Discontinued(R eorder (will not trigger notification [...] major depressive disorder without prior episode (CMS/HCC) 04/03/2023 Assessment & Plan (08/14/2025 1:47 PM [...] released from alf and is living in [facility]. John will benefit from Individual therapy [...] of major depressive disorder without prior episode (CMS/[facility]) Patient ready to address current needs Yes [...] Philip will engage on 3-5 follow up [facility] short interventions to provide some stabilization [...] relief of symptoms I refer patient to [facility] urology ordered today Assessment & Plan [...] Encounters Date Type Department Care Team Description 10/20/2025 9:45 AM EST Telemedicine [address] [address] Aline Carney MD Migraine without aura and without status migrainosus, not intractable (Primary Dx); SOB (shortness of breath); Smoker; Chronic cough; Brain aneurysm 10/20/2025 Travel 10/17/[address] [address] Aline Carney MD chart prep 10/09/2025 3:30 PM EST Office Visit [facility] ADULT DENTAL [address] [place], [place] [phone] Dimas Knowles, DDS 09/29/2025 11:00 AM EST Office Visit [facility] [address] [place] [address] Aurelia Cloud MD Laceration of finger of left hand with complication, subsequent encounter (Primary Dx); Laceration of digital nerve of finger, subsequent encounter 09/29/2025 Travel 09/20/2025 Orders Only [facility] External Provider, [facility] 08/18/[address] [address] Aline Carney MD Call Back Request 08/14/2025 10:00 AM EDT Office Visit [address] [address] Aline Carney MD Current moderate episode of major depressive disorder without prior episode (CMS/HCC) (HCC); Migraine without aura and without status migrainosus, not intractable; Chronic bilateral low back pain with right-sided sciatica; SOB (shortness of breath); Chronic cough; Smoker 08/14/2025 Travel 08/13/[address] [phone] Aline Carney MD CHART PREP 08/05/2025 Patient Outreach [address] [phone] Aline Carney MD Pre-visit Planning ([facility] screening completed on 11/27/2024) from Last 3 Months Immunizations Immunization Administration Dates Next Due Influenza injectable quadrivalent preservative f ree 09/02/2022 Moderna Covid-19 Vaccine 6+ Bivalent 12/09/2022 Pneumococcal Conjugate PCV 20 04/25/2024 TD (adult), 2 Lf tetanus tox oid, preservative free, adsorbed 12/27/2017 Tdap 09/20/2025,09/02/2022 Zoster, live 04/11/2019 Family History Medical History Relation Name Comments [...] Description 11/19/2025 10:15 AM EST Office Visit [facility] CHC ADULT DENTAL [address] [place] [address] Ann Marie Clark 01/19/2026 10:00 AM EDT Office Visit [facility] MEDICINE [address] [place] [address] Aline Carney MD [address] [place] [address] Health Maintenance Due Date Last Done Comments CT Colonography 1955 Colonoscopy 1955 Colorectal Cancer Screening 1955 FIT DNA/Cologuard 1955 FIT 1955 FOBT 1955 Sigmoidoscopy 1955 Zoster Vaccines (2 of 3) 06/06/2019 04/11/2019 COVID-19 Vaccine ( season) 2025 12/09/2022, 03/18/2021, 02/18/2021 Influenza Vaccine (#1) 2025 09/02/2022 Dental Oral Exam 11/13/2025 05/12/2025, 07/13/2021 Dental Prophylaxis 11/13/2025 05/12/2025, 03/05/2024 Alcohol/Substance Use Screening 08/14/2026 08/14/2025 Tobacco Screening 10/09/2026 10/09/2025 Dental X-Ray: Bitewings 10/10/2026 10/09/20, 05/12/2025, 03/05/2024, Additional history exists Depression Screening 10/20/2026 10/20/2025, 10/20/20 SDOH Screening 10/20/2026 10/20/2025 Dental X-Ray: Full Mouth 03/06/2027 024, 07/22/2021, 07/13/2021 Lipid Panel 01/26/2028 01/25/2023, 11/0 04/2022, 02/26/2021 RSV Patients and Patients Aged 60 years or older (1 - 1-dose 75+ series) 2032 DTaP/Tdap/Td Vaccines (3 - Td or Tdap) 09/20/2035 09/20/2025, 09/02/2022, 12/27/2017 Hepatitis [...] Procedure Name Priority Date/Time Associated Diagnosis Comments ORAL HYGIENE INSTRUCTIONS Routine 10/09/2025 3:30 PM EST LIMITED ORAL EVALUATION - PROBLEM FOCUSED Routine 10/09/2025 3:30 PM EST BITEWING - SINGLE RADIOGRAPHIC IMAGE Routine 10/09/2025 3:30 PM EST INTRAORAL - PERIAPICAL FIRST RADIOGRAPHIC IMAGE Routine 10/09/2025 3:30 PM EST XR HAND 3+ VIEWS LEFT Routine 09/29/2025 12:16 PM EST Laceration of finger of left hand with complication, subsequent encounter XR HAND 3+ VIEWS LEFT Routine 09/20/2025 3:11 PM EST PROPHYLAXIS - ADULT Routine 05/12/2025 2 :00 PM EDT PERIODIC ORAL EVALUATION - ESTABLISHED [...] PM EST Narrative 09/29/2025 1:06 PM EST [address] [address] XRay Report Signed Patient: John Damon MR#: [id number] : 1955 Acct:[id number] Age/Sex: 69 / M ADM Date: 09/29/25 Loc: HO.HHCX Attending Dr: Aurelia Cloud MD Ordering Physician: Aurelia Cloud MD Date of Service: 09/29/25 Procedure(s): XR hand LT min 3V Accession Number(s): [id number] cc: Aline Carney MD; Aurelia Cloud MD [...] by: Alvarado Tatum MD 09/29/2025 01:03 PM [facility] Dictated By: Alvarado Tatum MD Signed By: <Electronically signed by Alvarado Tatum MD in OV> 09/29/25 1303 DD/ 1216 TD/TT: 09/29/25 1220 Sidewalk Inspector: Procedure Note Donotuseinterpreter, Image - 09/29/[address] [address] XRay Report Signed Patient: John Damon RMR#: [id number] : 8Acct:[id number] Age/Sex: 69 / MADM Date: 09/29/25 Loc: HO.HHCX Attending Dr: Aurelia Cloud MD Ordering Physician: Aurelia Cloud MD Date of Service: 09/29/25 Procedure(s): XR hand LT min 3V Accession Number(s): [id number] cc: Aline Carney MD; Aurelia Cloud MD [...] 09/29/25 1303 DD/ 1216 TD/TT: 09/29/25 1220 Sidewalk Inspector: Aurelia Cloud MD IMG XR PROCEDURES Final Result * Hepatitis C Antibody with Reflex to HCV, RNA, Quantitative, Real-Time PCR (01/25/2023 8:23 AM EDT) Hepatitis C Antibody NON-REACT DERICK NON-REACT DERICK [facility] Index 0.08 <1.00 [facility] Comment: HCV antibody was non-reactive. There is no laboratory evidence of HCV infection. In most cases, no further action is required. However, if recent HCV exposure is suspected, a test for HCV RNA (test code 96063) is suggested. For additional information please refer to http://education.Optireno/faq/MYF40t3 (This link is being provided for informational/ educational purposes only.) 01/25/2023 8:23 AM EDT 01/25/2023 8:24 AM EDT Narrative [facility] - 01/25/2023 9:24 PM EDT FASTING:YES FASTING: YES Ryann Stone NP LAB BLOOD ORDERABLES Final Res ult [facility] [address], [place] [address] [facility] [address] [place] [address] * (ABNORMAL) Lipid Panel, Standard (01/25/2023 8:23 AM EDT) Cholesterol, Total 180 <200 mg/dL [facility] HDL Cholesterol 34(L) > OR = 40 mg/dL [facility] Triglycerides 101 <150 mg/dL [facility] LDL Cholesterol 126(H) mg/dL (calc) [facility] Comment: Reference range: <100 Desirable range <100 mg/dL for primary prevention; <70 mg/dL for patients with CHD or diabetic patients with > or = 2 CHD risk factors. LDL-C is now calculated using the Twan calculation, which is a validated novel method providing better accuracy than the Friedewald equation in the estimation of LDL-C. Sage CLIFFORD et al. ANGEL. 2013;310(19): 3875-8227 (http://education.Radisys/faq/TWE977) Chol/HDLC Ratio 5.3(H) <5.0 (calc) [facility] Non-HDL Cholesterol 146(H) <130 mg/dL (calc) [facility] Comment: For patients with diabetes plus 1 major ASCVD risk factor, treating to a non-HDL-C goal of <100 mg/dL (LDL-C of <70 mg/dL) is considered a therapeutic option. 01/25/2023 8:23 AM EDT 01/25/2023 8:24 AM EDT Narrative [facility] - 01/25/2023 9:24 PM EDT FASTING:YES FASTING: YES us Ryann Stone NP LAB BLOOD ORDERABLES Final Res ult [facility] [address], [place] [address] [facility] [address] [place] [address] from Last 3 Months or Most Recently Relevant to Health Maintenance Insurance [facility] OPTIONS (HMO D-SNP) [facility] Care Teams Retail Store Clerk Relationship Specialty Start Date End Date Aline Carney MD [address] [place] [address] PCP - General Internal Medicine 02/23/23
--- OUTSIDE RECORDS SUMMARY | 2025-10-21 15:00 | XMS_ITS | Encounter Summary ---
Author Organization [employer] Address [address] [facility] 7t [place] [address] Care Team Providers Care Apron Operator Name Role Phone Aline Carney MD Primary Care Provide r Encounter Details Date Type Department Care Team ([facility] st Contact Info) Description 12/23/2024 Orders Only [facility] MEDICINE [address] [place], [place] [phone] Aline Carney MD [address] [place] [address] Social History Tobacco Use Types Packs/Day Years [...] Description 11/19/2025 10:15 AM EST Office Visit [facility] ADULT DENTAL [address] [place] [address] Ann Marie Clark 01/19/2026 10:00 AM EDT Office Visit [facility] MEDICINE [address] [place] [address] Aline Carney MD [address] [place] [address] documented as of this encounter Visit Diagnoses Not on filedocumented in this encounter Additional Health Concerns Assessment Noted Time PHQ-9 Depression Total Score: 13 024 9:15 AM EDT documented as of this encounter Care Teams Apron Operator Relationship Specialty Start Date End Date Aline Carney MD [address] [place] [address] PCP - General Internal Medicine 02/23/23 documented as of this encounter
== END 2025-10-21 14:11 | disposition home or self-care (01) ==
LOC: HO.HCS 13:49
PROVIDERS: PCP Internal Medicine; Visit Provider Internal Medicine
DX: R06.02 Shortness of breath (principal)
CPT/HCPCS: 93010; 99204; G2211

== ENCOUNTER → 2025-10-21 13:48 | Outpatient (BNVA) | payer OTHER, SELFPAY | PROVIDERS: PCP Internal Medicine; Visit Provider Internal Medicine | DX: R06.02 Shortness of breath (principal); F17.210 Nicotine dependence, cigarettes, uncomplicated | CPT/HCPCS: 93005; 99202 ==